=== PATIENT | female | born 1955 | race Caucasian/White ===

== ENCOUNTER → 2016-07-22 | Outpatient (CLI) | payer OTHER ==
[~2016-07-22] MED LIST: ALPR.5T PO; AMLO5TAB2 PO; ASP81TEC PO; BUDE6HFA IH; CA C1TAB26 PO; CETI10TA17 PO; CLD600T PO; CYCL1DRO OP; DULO60CA6 PO; E400C PO; ELESTAT OU; GLUC750T PO; HYDR-707 PO; IBUP1TAB15 PO; LISI10TA PO; LOPE2CAP29 PO; MNTL10T PO; NF-ESOM40C PO; OMEG1CAP74 PO; PANT40SU PO; PROM25SU10 PR; RNT150T PO; SMV10T PO; TRIA1CAP PO
--- OUTSIDE RECORDS SUMMARY | 2016-07-22 16:16 | XMS REPORT | Continuity of Care Document ---
Author Author [facility] Organization [facility] Address Unknown Phone Unavailable Care Team Providers Care Botanical Technical Officer Name Role Phone Lynn Guera PCP [phone] Source Comments Some departments are not documenting in the electronic medical record. If you do not see the information that you expected, contact Release of Information in the Health Information Management department at [phone] for further assistance in locating additional records.[facility] Active Allergies and Adverse Reactions Allergen Noted Date Severity Reactions Comments Sulfa (Sulfonamide 05/16/2011 RASH, SEE COMMENTS Facial swelling Antibiotics) Current Medications Prescription Sig. Disp. Refills Start End Date Status Date triamterene-hydrochloroth Take 1 Cap by mouth every Active iazide (DYAZIDE) 37.5-25 morning. mg per capsule Aspirin 81 mg Tab Take 81 mg by mouth Active daily. loperamide(+) (IMODIUM Take 2 mg by mouth daily. Active A-D) 2 mg Tab budesonide/formoterol(+) Inhale 2 Puffs by mouth Active (SYMBICORT) 160/4.5 mcg twice daily. HFAA inhalation montelukast (SINGULAIR) Take 10 mg by mouth at Active 10 mg tablet bedtime daily. ALPRAZolam (XANAX) 0.5 mg Take 0.5 mg by mouth at Active tablet bedtime as needed. DULoxetine DR (CYMBALTA) Take 90 mg by mouth Active 60 mg capsule daily. lisinopril (PRINIVIL; Take 10 mg by mouth Active ZESTRIL) 10 mg tablet daily. amLODIPine (NORVASC) 2.5 Take 5 mg by mouth daily. Active mg tablet esomeprazole DR(+) Take 40 mg by mouth every Active (NEXIUM) 40 mg capsule morning. cycloSPORINE(+) Place 1 Drop into or Active (RESTASIS) 0.05 % around eye(s) twice ophthalmic solution daily. simvastatin (ZOCOR) 20 mg Take 20 mg by mouth at Active tablet bedtime daily. cetirizine (ZYRTEC) 10 mg Take 10 mg by mouth Active tablet daily. fish oil /omega-3 fatty Take 1 Cap by mouth Active acids (SEA-OMEGA) daily. 340/1000 mg capsule Glucosamine HCl-Vitamin Take 1 Tab by mouth Active D3 1,500-200 mg-unit Tab daily. calcium carbonate/vitamin Take 1 Tab by mouth Active D-3 (OSCAL-500+D) 1250 daily. Calcium Carb mg/200 unit tablet 1250mg delivers 500mg elemental Ca albuterol (VENTOLIN HFA, Inhale 2 Puffs by mouth Active PROAIR HFA) 90 every 6 hours as needed. mcg/actuation inhaler oxyCODONE (ROXICODONE) 1 Take 5-15 mL by mouth 1000 mL 0 05/24/20 Active mg/mL oral solution every 3 hours as needed. 12 ondansetron (ZOFRAN) 4 Take 5 mL by mouth every 100 mL 0 05/24/20 Active mg/5 mL oral solution 6 hours as needed. 12 HYDROcodone/acetaminophen Take 7.5 Tabs by mouth Active (NORCO; VICODIN) 5-325 mg every 4 hours as needed tablet for Pain LACTOBACILLUS ACIDOPHILUS Take by mouth. vsl-3 Active (PROBIOTIC PO) Alosetron (LOTRONEX) 0.5 Take by mouth. Active mg tab benazepril(+) (LOTENSIN) Take 10 mg by mouth Active 10 mg tablet daily. promethazine (PHENERGAN) Take 25 mg by mouth every Active 25 mg tablet 6 hours as needed for Nausea. hyoscyamine (ANASPAZ; Place 125 mcg under Active NULEV; SYMAX FASTABS; tongue every 4 hours as HYOMAX-FT; ED-SPAZ; needed for Cramps. OSCIMIN) 0.125 mg rapid dissolve tablet fluconazole (DIFLUCAN) Take 1 Tab by mouth 14 Tab 0 12/26/19 Active 100 mg tablet daily. 15 gabapentin (NEURONTIN) Take 1 Cap by mouth three 90 Cap 2 05/10/20 Active 300 mg capsule times daily. 15 ranitidine hcl(+) Take 300 mg by mouth Active (ZANTAC) 300 mg tablet daily. cephalexin (KEFLEX) 500 Take 500 mg by mouth Active mg capsule every 30 days. metroNIDAZOLE (FLAGYL) Take 250 mg by mouth Active 250 mg tablet every 30 days. Take with food. Do not drink alcohol while on metronidazole. busPIRone (BUSPAR) 7.5 mg Take 1 Tab by mouth twice 60 Tab 0 07/04/19 Active tablet daily. Please contact Sultana Lagunas RN via #[phone] or Bacula with update 2 weeks after starting med. Active Problems No known active problems Most Recent Encounters Date Type Specialty Providers Description 07/21/2016 Telephone GastroenterSteve Ahumada MD Other - symptom update; Abdominal pain; Medication Follow-up - buspar 07/03/2016 Telephone GastroenterSteve Ahumada MD Medication Follow-up - abdominal pain 06/26/2016 Result Letter Gastroenterology Davina Strickland APRN 06/25/2016 Orders Only GastroenterSteve Ahumada MD 06/20/2016 [facility] Stacie Mulligan MD Family history of Encounter malignant neoplasm of digestive organs 06/11/2016 Telephone GastroenterSteve Ahumada MD Other - gastroparesis ; Abdominal pain 06/06/2016 Hospital Radiology Steve Reyes MD Encounter 06/06/2016 Telephone Gastroenterology Hina Thacker [facility] [place] [facility] 06/04/2016 Orders Only Gastroenterology Davina Strickland, Family history of BLEACHER SULFITE PULP malignant neoplasm of pancreas (Primary Dx); Pain in the groin, unspecified laterality; Nausea 05/30/2016 Hospital Steve Reyes MD Epigastric pain Encounter 05/30/2016 Office Visit Gastroenterology Steve Reyes MD Epigastric pain (Primary Dx); Family history of malignant neoplasm of pancreas; Diarrhea, unspecified type; Nausea; Blood in stool 05/30/2016 Surgery Bret Felix MD Canceled ESOPHAGOGASTRODUODENOSCOP Y ENDOSCOPIC ULTRASOUND with small bowel biopsies to check for celiac disease 05/30/2016 Hospital Bret Felix MD Epigastric pain Encounter 05/30/2016 Prep for Case Steve Liao MD 04/22/2016 Telephone Gastroenterology Star Styles MD Referral Social History Tobacco Use Types Packs/Day Years Used Date Former Smoker 0.5 5 Quit: 10/08/1990 Alcohol Use Drinks/Week oz/Week Comments Yes 4 Shots of 2.4 liquor Last Filed Vital Signs Vital Sign Reading Time Taken Blood Pressure 113/81 05/30/2016 1:57 PM [facility] EXPANDER Pulse 86 05/30/2016 1:57 PM [employer] EXP[employer]ER Temperature 36.8 C (98.2 F) 05/30/2016 1:57 PM [employer] EXPANDER Respiratory Rate 16 12/25/2014 1:02 PM CDT Height 1.588 m (5' 2.5") 05/30/2016 1:57 PM [employer] EXPANDER Weight 78.109 kg (172 lb 3.2 oz) 05/30/2016 1:57 PM [employer] EXPANDER Body Mass Index 30.97 05/30/2016 1:57 PM [employer] EXPANDER Oxygen Saturation 90% 12/25/2014 10:03 AM CDT Plan of Care Date Type Specialty Providers Description 09/05/2016 Appointment Gastroenterology Steve Reyes MD [address] [facility] [address] [place] [address] [phone] (Fax) Health Maintenance Due Date Last Done Comments Hepatitis C Screening 1955 Physical (Comprehensive) 1963 Exam Pertussis Vaccine 1967 Tetanus Vaccine 1973 Cervical Cancer Screening 1977 Breast Cancer Screening 1996 Colorectal Cancer 2006 Screening Influenza Vaccine 02/07/2016 Shingles Vaccine 2016 Results from Last 3 Months SURGICAL PATHOLOGY (06/20/2016 7:46 AM) Component Value Range PATHOLOGY REPORT [email or web address] Giovana Morton MD, PhD, Director of Anatomic Pathology Department of Pathology and Laboratory Medicine [address], [place] [address] Surgical Pathology Office: [phone] SURGICAL PATHOLOGY REPORT NAME: PALOMO BLOOD SURG PATH #: [id number] MR #: [id number] SPECIMEN CLASS: SR BILLING #: [id number] ALT ID #: LOCATION: [facility] DATE OF PROCEDURE: 06/20/2016 AGE: 61 SEX: F DATE RECEIVED: 06/21/2016 : 1955 TIME RECEIVED: 07:46 PHYSICIAN: STACIE BEST DATE OF REPORT: 06/25/2016 COPY TO: DATE OF PRINTIN06/25/2016 ################################################## ###################### Final Diagnosis: A. Gastric mucosa, "gastric antrum biopsy", biopsy: Reactive gastropathy with capillary congestion. See comment. No H. pylori-like organisms are identified on H and E sections. B. Duodenal mucosa, "duodenal biopsy", biopsy: Normal villous architecture with no diagnostic abnormalities. Comment: Clinical and endoscopic correlation is indicated. Pursuant to the [employer] And [employer]load Program at the [facility] Pathology Department, selected slides of part A from this case have been concurrently reviewed by the following pathologist: Dr. Blaire Peña who agrees with the final diagnosis. Attestation: By this signature, I attest that I have personally formulated the final interpretation expressed in this report and that the above diagnosis is based upon my examination of the slides and/or other material indicated in this report. +++Electronically Signed Out By+++ daniela/06/21/2016 Interpreted by: Gonzales Amor MD, Attending Physician 06/25/2016 ################################################## ###################### Material Received: A: gastric antrum biopsy B: duodenal biopsy History: 61-year-old female with family history of pancreatic cancer and clinical history of abdominal pain rule out celiac disease. Gross Description: A. Received in formalin with patient's name and "gastric/antral biopsy rule out GAVE" are multiple fragments of fam-pink soft tissue measuring 0.7 x 0.4 x 0.3 cm in aggregate. The specimen is submitted entirely in cassette A1. (sw) B. Received in formalin with patient's name and "duodenal biopsy rule out celiac" are multiple fragments of fam-pink soft tissue measuring 0.5 x 0.4 x 0.3 cm in aggregate. The specimen is submitted entirely in cassette B1. (sw) lkr/06/23/2016 ENDOSCOPIC ULTRASOUND (06/20/2016)NM GASTRIC EMPTYING TIME (06/06/2016 1:44 PM) Impressions 1. Markedly delayed gastric emptying, compatible with gastric dysmotility. Approved by Darlin Gutierrez D.O. on 06/06/2016 1:56 PM By my electronic signature, I attest that I have personally reviewed the images for this examination and formulated the interpretations and opinions expressed in this report Finalized by Sohail Colorado M.D. on 06/06/2016 5:17 PM. Dictated by Darlin Gutierrez D.O. on 06/06/2016 1:55 PM. Narrative GASTRIC EMPTYING TIME CLINICAL HISTORY: nausea, diarrhea, abdominal pain, family history of pancreatic cancer, COMPARISON: None RADIOPHARMACEUTICAL: 1 mCi IV Technetium-99m sulfur colloid TECHNIQUE: Prior to the exam, the equivalent of two scrambled eggs were labelled by combining egg beaters and Tc-99m sulfur colloid. The patient ingested the standard test dose meal consisting of the labelled eggs, toast, jelly and 4 ounces of water. Multiplanar images were obtained in the standing position over the patient's abdomen at zero, one, two, three, and four hours. The percent gastric geometric mean retention was then calculated. FINDINGS: At one hour, the percent retention was 100% (Normal 34.8% to 91%) At two hours, the percent retention was 92% (Normal 2.7% to 60%) At three hours, the percent retention was 89% (Normal 0.5% to 28%) At four hours, the percent retention was 88% (Normal 0% to 10%) Procedure Note Interface, Radiant Results - ThuJun 06, 2016 5:20 PM HOOP EXPANDER GASTRIC EMPTYING TIME CLINICAL HISTORY: nausea, diarrhea, abdominal pain, family history of pancreatic cancer, COMPARISON: None RADIOPHARMACEUTICAL: 1 mCi IV Technetium-99m sulfur colloid TECHNIQUE: Prior to the exam, the equivalent of two scrambled eggs were labelled by combining egg beaters and Tc-99m sulfur colloid. The patient ingested the standard test dose meal consisting of the labelled eggs, toast, jelly and 4 ounces of water. Multiplanar images were obtained in the standing position over the patient's abdomen at zero, one, two, three, and four hours. The percent gastric geometric mean retention was then calculated. FINDINGS: At one hour, the percent retention was 100% (Normal 34.8% to 91%) At two hours, the percent retention was 92% (Normal 2.7% to 60%) At three hours, the percent retention was 89% (Normal 0.5% to 28%) At four hours, the percent retention was 88% (Normal 0% to 10%) IMPRESSION 1. Markedly delayed gastric emptying, compatible with gastric dysmotility. Approved by Darlin Gutierrez D.O. on 06/06/2016 1:56 PM By my electronic signature, I attest that I have personally reviewed the images for this examination and formulated the interpretations and opinions expressed in this report Finalized by Sohail Colorado M.D. on 06/06/2016 5:17 PM. Dictated by Darlin Gutierrez D.O. on 06/06/2016 1:55 PM. TISSUE TRANSGLUTAMINASE AB IGA (05/30/2016 4:03 PM) Component Value Range Tissue Transglutaminase <1.2 Reference range: <4.0 (Negative) Unit: U/mL [facility] LIPASE (05/30/2016 4:03 PM) Component Value Range Lipase 67 11-82 U/L Specimen Blood AMYLASE (05/30/2016 4:03 PM) Component Value Range Amylase 23 (L) 24-100 U/L Specimen Blood HEMOGLOBIN A1C (05/30/2016 4:03 PM) Component Value Range Hemoglobin A1C 5.8Comment: 4.0-6.0 % The ADA recommends that most patients with type 1 and type 2 diabetes maintain an A1c level <7%. Specimen Blood CA19.9 (05/30/2016 4:03 PM) Component Value Range CA 19-9 1 <35 U/ml Specimen Blood ENDOMYSIAL AB, IGA (05/30/2016 4:03 PM) Component Value Range Endomysial IgA Negative Reference range: Negative Negative in normal individuals. May be negative in dermatitis herpatiformis or celiac disease patients adhering to a gluten free diet. ADDITIONAL INFORMATION Laboratory developed test. [facility] Specimen Blood CELIAC DISEASE PANEL (05/30/2016 4:03 PM) Component Value Range Immunoglobulin A (IGA) 149Comment: Reference range: 61 to 356 Unit: mg/dL [facility] Interpretation, Celiac Negative serology. Celiac disease unlikely. However, approximately 10% of patients with celiac disease are seronegative. Also, patients who are already adhering to a gluten-free diet may be seronegative. If celiac disease is highly clinically suspected, consider HLA-DQ typing. [facility] Specimen Blood IRON + BINDING CAPACITY + %SAT (05/30/2016 4:03 PM) Component Value Range Iron 45 (L) 50-160 MCG/DL Iron Binding-TIBC 465 (H) 270-380 MCG/DL % Saturation 10 (L) 28-42 % Specimen Blood COMPREHENSIVE METABOLIC PANEL (05/30/2016 4:03 PM) Component Value Range Sodium 138 137-147 MMOL/L Potassium 3.5 3.5-5.1 MMOL/L Chloride 101 98-110 MMOL/L Glucose 115 (H) 70-100 MG/DL Blood Urea Nitrogen 11 7-25 MG/DL Creatinine 0.79 0.4-1.00 MG/DL Calcium 9.6 8.5-10.6 MG/DL Total Protein 7.0 6.0-8.0 G/DL Total Bilirubin 0.3 0.3-1.2 MG/DL Albumin 4.4 3.5-5.0 G/DL Alk Phosphatase 76 25-110 U/L AST (SGOT) 17 7-40 U/L CO2 31 (H) 21-30 MMOL/L ALT (SGPT) 19 7-56 U/L Anion Gap 6 3-12 eGFR Non >60Comment: >60 mL/min The eGFR is not validated for use in drug dosing adjustments. Continue to use estimated creatinine clearance per dosing reference text. Please contact the Clinical Pharmacist for questions. eGFR >60Comment: >60 mL/min The eGFR is not validated for use in drug dosing adjustments. Continue to use estimated creatinine clearance per dosing reference text. Please contact the Clinical Pharmacist for questions. Specimen Blood CBC (05/30/2016 4:03 PM) Component Value Range White Blood Cells 5.6 4.5-11.0 K/UL RBC 4.56 4.0-5.0 M/UL Hemoglobin 13.1 12.0-15.0 GM/DL Hematocrit 40.3 36-45 % MCV 88.4 80-100 FL MCH 28.8 26-34 PG MCHC 32.6 32.0-36.0 G/DL RDW 15.0 11-15 % Platelet Count 230 150-400 K/UL MPV 8.6 7-11 FL Specimen Blood
[2016-07-22 16:59] LABS: BILIRUBIN,URINE NEGATIVE (NEGATIVE); KETONES,URINE NEGATIVE (NEGATIVE); LEUKOCYTE ESTERASE ,URINE NEGATIVE (NEGATIVE); NITRITE,URINE NEGATIVE (NEGATIVE); PH,URINE 6 (5-9); PROTEIN,URINE NEGATIVE (NEGATIVE); UROBILINOGEN,URINE NORMAL (NORMAL)
[2016-07-22 17:13] LABS: WBC,URINE RARE /HPF
== END ==
LOC: LAB 16:11
PROVIDERS: ATTEND Internal Medicine
DX: R30.9 Painful micturition, unspecified (principal)
CPT/HCPCS: 81000

== ENCOUNTER → 2016-09-12 | Outpatient (CLI) | payer OTHER ==
--- NOTE | 2016-09-12 15:54 | Diagnostic Imaging Report ---
INDICATION: Right-sided pelvic fullness. COMPARISON: None. DISCUSSION: Transabdominal and transvaginal sonographic evaluation of the pelvis was performed. The uterus is normal in echotexture and size measuring 5.1 x 3.3 x 2.1 cm. Normal endometrial thickness measuring 0.3 cm. Neither ovary was visualized, either obscured by bowel or atrophied secondary to menopause. No abnormal adnexal mass or fluid. IMPRESSION: 1. Nonvisualization of the bilateral ovaries. No other acute abnormality identified. Dictated by: Dictated on workstation # [id number]
--- NOTE | 2016-09-15 13:54 | Diagnostic Imaging Report ---
Bilateral screening mammogram The current study was also evaluated with a Computer Aided Detection (CAD) system. INDICATION: Screening. No current complaints stated on the questionnaire. COMPARISON: 06/29/2015. FINDINGS: The breasts are composed of scattered fibroglandular densities. Occasional benign-appearing calcifications are seen bilaterally. No suspicious cluster of calcifications seen. Allowing for technique and positional differences, no suspicious change is seen. IMPRESSION: No significant change. ACR BI-RADS Category 2: Benign findings. Result letter will be mailed to the patient. Note: At least 10% of breast cancer is not imaged by mammography. Dictated by: Dictated on workstation # [id number]
== END ==
LOC: RAD 14:48
PROVIDERS: ATTEND Nurse Practitioner
DX: Z12.31 Encounter for screening mammogram for malignant neoplasm of breast (principal); R19.8 Other specified symptoms and signs involving the digestive system and abdomen
CPT/HCPCS: 76830; 76856; 77067

== ENCOUNTER → 2016-09-25 | Outpatient (CLI) | payer OTHER ==
[2016-09-25 14:44] LABS: BASOPHILS % (AUTO) 0 % (0-10); EOSINOPHILS # (AUTO) 0.1 10^3/uL (0.0-0.3); EOSINOPHILS % (AUTO) 1 % (0-10); LYMPHOCYTES # (AUTO) 1.4 X 10^3 (1.0-4.0); LYMPHOCYTES % (AUTO) 27 % (12-44); MEAN CORPUSCULAR HEMOGLOBIN 29 PG (25-34); MEAN CORPUSCULAR HGB CONC 33 G/DL (32-36); MEAN CORPUSCULAR VOLUME 88 FL (80-99); MEAN PLATELET VOLUME 10.4 FL (7.4-10.4); MONOCYTES # (AUTO) 0.5 X 10^3 (0.0-1.0); MONOCYTES % (AUTO) 11 % (0-12); NEUTROPHILS # (AUTO) 3.1 X 10^3 (1.8-7.8); NEUTROPHILS % (AUTO) 61 % (42-75); PLATELET COUNT 257 10^3/uL (130-400); RED BLOOD COUNT 4.36 10^6/uL (4.35-5.85); RED CELL DISTRIBUTION WIDTH 13.5 % (10.0-14.5); WHITE BLOOD COUNT 5.1 10^3/uL (4.3-11.0)
[2016-09-25 15:20] LABS: ALANINE AMINOTRANSFERASE 18 U/L (0-55); ANION GAP 12 MMOL/L (5-14); ASPARTATE AMINO TRANSFERASE 18 U/L (5-34); BILIRUBIN,TOTAL 0.4 MG/DL (0.1-1.0); BLOOD UREA NITROGEN 5 MG/DL (7-18); BUN/CREATININE RATIO 7; CALCIUM 8.8 MG/DL (8.5-10.1); CARBON DIOXIDE 28 MMOL/L (21-32); CHLORIDE 96 MMOL/L (98-107); CREATININE SERUM 0.72 MG/DL (0.60-1.30); GFR ESTIMATED > 60; GLUCOSE 86 MG/DL (70-105); POTASSIUM 3.7 MMOL/L (3.6-5.0); SODIUM 136 MMOL/L (135-145); TOTAL PROTEIN 6.1 G/DL (6.4-8.2)
== END ==
LOC: LAB 14:08
PROVIDERS: ATTEND Internal Medicine
DX: R73.9 Hyperglycemia, unspecified (principal); D50.8 Other iron deficiency anemias; E78.00 Pure hypercholesterolemia, unspecified; K75.9 Inflammatory liver disease, unspecified
CPT/HCPCS: 36415; 80053; 82728; 83540; 85025

== ENCOUNTER → 2016-09-26 | Outpatient (CLI) | payer OTHER ==
[~2016-09-26] MED LIST changes: +GADOBUTROL 7.5 MMOL/7.5 ML (GADAVIST) VIAL IV ONE
--- NOTE | 2016-09-26 17:31 | Diagnostic Imaging Report ---
INDICATION: Back pain and bilateral hip pain with left leg pain for three months. FINDINGS: There is normal height and alignment of the thoracic vertebral bodies. Disc spaces are well maintained. There is no disc herniation or bony stenosis seen at any level. There is no acute bony abnormality. There is no mass or abnormal enhancement. There is no intrinsic abnormality of the thoracic cord seen. IMPRESSION: No abnormality is seen. Dictated by: Dictated on workstation # [id number]
--- NOTE | 2016-09-26 17:41 | Diagnostic Imaging Report ---
PROCEDURE: MRI lumbar spine with and without contrast. TECHNIQUE: Multiplanar, multisequence MRI of the lumbar spine was performed with and without contrast. INDICATION: Lower extremity numbness. FINDINGS: Sagittal images show good alignment of the vertebral bodies. Body heights are well-maintained. Marrow signal is normal throughout. Conus medullaris and cauda equina are normal. The paraspinal soft tissues are normal. L1-L2, L2-L3: The discs appear normal. No facet or ligamentous hypertrophy. L3-L4: There is desiccation of the disc with some settling. There is broad-based disc bulge. Moderate facet and ligamentous hypertrophy is present which is causing moderate encroachment upon the lateral recesses and neural foramen, bilaterally. No central canal stenosis. L4-L5: There is desiccation of the disc with mild disc bulge. Mild facet and ligamentous hypertrophy are present. L5-S1: There is a focal disc herniation in the paramedian region on the left causing some compression of the nerve root sleeve in the lateral recess. Mild facet and ligamentous hypertrophy with no bony stenosis. IMPRESSION: Degenerative disc disease with some disc protrusions and facet and ligamentous hypertrophy from L3-S1, as described above. Dictated by: Dictated on workstation # [id number]
--- NOTE | 2016-09-26 17:51 | Diagnostic Imaging Report ---
PROCEDURE: MR imaging cervical spine with and without contrast. TECHNIQUE: Multiplanar and multisequence MRI of the cervical spine was performed with and without contrast. INDICATION: Incomplete emptying of the stomach for eight months and of the bladder for three months. Numbness. FINDINGS: There is normal height and alignment of the cervical vertebral bodies. No disc herniation or bony stenosis is seen at any level. There is spondylosis causing some foraminal narrowing on the left at C4-C5. There is no mass. There is no intrinsic abnormality of the cervical cord. There is no acute bony abnormality. There is no abnormal enhancement. IMPRESSION: There are mild degenerative changes present with foraminal narrowing on the left at C4-C5. Dictated by: Dictated on workstation # [id number]
== END ==
LOC: RAD 15:22
PROVIDERS: ATTEND Urology
DX: M48.02 Spinal stenosis, cervical region (principal); R20.0 Anesthesia of skin
CPT/HCPCS: 72156; 72157; 72158

== ENCOUNTER → 2016-10-21 | Outpatient (CLI) | payer OTHER ==
[~2016-10-21] MED LIST changes: -GADOBUTROL 7.5 MMOL/7.5 ML (GADAVIST) VIAL IV ONE
== END ==
LOC: CARD 13:12
PROVIDERS: ATTEND Internal Medicine
DX: I97.3 Postprocedural hypertension (principal)
CPT/HCPCS: 93005

== ENCOUNTER 2016-10-22 15:52 | Outpatient (RCR) | payer OTHER ==
[~2016-10-22 15:52] MED LIST changes: +FERRIC CARBOXYMALTOSE (CANCER) 750 MG in NS (IVPB) CANCER CENTER 250 ML IV SCH
== END 2017-01-13 | disposition home or self-care (01) ==
LOC: ONC 15:52
PROVIDERS: ATTEND Internal Medicine Hematology & Oncology
DX: D50.9 Iron deficiency anemia, unspecified (principal)
CPT/HCPCS: 96365

== ENCOUNTER → 2017-02-20 | Outpatient (CLI) | payer OTHER ==
[~2017-02-20] MED LIST changes: -FERRIC CARBOXYMALTOSE (CANCER) 750 MG in NS (IVPB) CANCER CENTER 250 ML IV SCH
[2017-02-20 14:35] LABS: ALANINE AMINOTRANSFERASE 21 U/L (0-55); ALBUMIN 3.8 GM/DL (3.2-4.5); ANION GAP 8 MMOL/L (5-14); ASPARTATE AMINO TRANSFERASE 18 U/L (5-34); BILIRUBIN,TOTAL 0.5 MG/DL (0.1-1.0); BLOOD UREA NITROGEN 6 MG/DL (7-18); BUN/CREATININE RATIO 9; CALCIUM 8.8 MG/DL (8.5-10.1); CARBON DIOXIDE 28 MMOL/L (21-32); CHLORIDE 99 MMOL/L (98-107); CHOLESTEROL 174 MG/DL (< 200); CREATININE SERUM 0.65 MG/DL (0.60-1.30); DIRECT LDL 89 MG/DL (1-129); GFR ESTIMATED > 60; GLUCOSE 102 MG/DL (70-105); POTASSIUM 3.6 MMOL/L (3.6-5.0); SODIUM 135 MMOL/L (135-145); TOTAL PROTEIN 6.1 GM/DL (6.4-8.2); TRIGLYCERIDES 58 MG/DL (<150); VLDL CHOLESTEROL 12 MG/DL (5-40)
[2017-02-20 14:56] LABS: THYROID STIMULATING HORMONE 1.03 UIU/ML (0.35-4.94)
== END ==
LOC: LAB 13:50
PROVIDERS: ATTEND Internal Medicine
DX: E78.00 Pure hypercholesterolemia, unspecified (principal); E78.1 Pure hyperglyceridemia
CPT/HCPCS: 36415; 80053; 80061; 84443

== ENCOUNTER → 2017-02-25 | Outpatient (CLI) | payer OTHER | LOC: LAB 12:55 | PROVIDERS: ATTEND Internal Medicine | DX: D50.8 Other iron deficiency anemias (principal) | CPT/HCPCS: 36415; 82728; 83540 ==

== ENCOUNTER → 2017-07-06 | Outpatient (CLI) | payer OTHER ==
[~2017-07-06] MED LIST changes: +CEFU250T80 PO; +HYDR-757 PO; +PHEN-639 PO
[2017-07-06 17:52] LABS: BILIRUBIN,URINE NEGATIVE (NEGATIVE); CLARITY,URINE VERY CLOUDY; COLOR,URINE YELLOW; GLUCOSE, URINE (UA) NEGATIVE (NEGATIVE); KETONES,URINE NEGATIVE (NEGATIVE); LEUKOCYTE ESTERASE ,URINE 3+ (NEGATIVE); NITRITE,URINE NEGATIVE (NEGATIVE); PH,URINE 6.5 (5-9); PROTEIN,URINE 1+ (NEGATIVE); UROBILINOGEN,URINE NORMAL (NORMAL)
[2017-07-06 18:02] LABS: BACTERIA,URINE FEW /HPF; WBC,URINE 50-100 /HPF
== END ==
LOC: LAB 16:26
PROVIDERS: ATTEND Internal Medicine
DX: R30.9 Painful micturition, unspecified (principal)
CPT/HCPCS: 81000; 87088

== ENCOUNTER 2017-07-07 09:40 | Emergency (ER) | payer OTHER ==
[~2017-07-07] VITALS: Ht 157.5 cm; Wt 70.3 kg
[~2017-07-07 09:40] MED LIST changes: -CEFU250T80 PO; -HYDR-757 PO; -PHEN-639 PO
--- OUTSIDE RECORDS SUMMARY | 2017-07-07 09:46 | XMS REPORT | Continuity of Care Document ---
Author Author [facility] Organization [facility] Address Unknown Phone Unavailable Care Team Providers Care Police Officer Crime Prevention Name Role Phone [employer] Unavailable Unavailable Problems Medications Allergies, Adverse Reactions, Alerts Immunizations Results Vital Signs Encounters Location Location Details Encounter Type Encounter Number Reason For Visit Attending Provider ADM Date DC Date Status Source OUTPATIENT [id number] STACIE RITUAEE 06/20/2016 06/20/2016 Active [facility] OUTPATIENT [id number] 02/27/2017 Active [facility] INPATIENT [id number] JEYSON RICHARDSON 03/26/20172016 Active [facility] OUTPATIENT [id number] TING MONTOYA 04/13/2017 04/13/2017 Active [facility] OP SURGERY [id number] 06/11/2017 06/11/2017 Active [facility] Reji BLACKMAN 09/24/2017 Active [facility] Procedures Plan of Care Social History Assessment and Plan Family History Advance Directives Functional Status
--- OUTSIDE RECORDS SUMMARY | 2017-07-07 09:47 | XMS REPORT | Clinical Summary ---
Author Author [facility] Organization [facility] Address Unknown Phone Unavailable Care Team Providers Care Automotive Window Tinter Name Role Phone Guera Bailey DO PCP Felipa Easton MD Unavailable Steve Clifford MD Unavailable Unavailable Star Styles MD Unavailable Semaj De La Rosa MD Unavailable Alber Piña MD Unavailable Fco Ramsey MD Unavailable Remigio Lakhani MD 21 Source Comments Some departments are not documenting in the electronic medical record. If you do not see the information that you expected, contact Release of Information in the Health Information Management department at [phone] for further assistance in locating additional records.[facility] Allergies Active Allergy Reactions Severity Noted Date Comments Sulfa (Sulfonamide RASH, SEE COMMENTS, Medium 05/16/2011 Facial swelling Antibiotics) REDNESS Current Medications Prescription Sig. Disp. Refills Start End Date Status Date triamterene-hydrochloroth Take 1 Cap by mouth every Active iazide (DYAZIDE) 37.5-25 morning. mg per capsule budesonide/formoterol(+) Inhale 2 Puffs by mouth Active (SYMBICORT) 160/4.5 mcg twice daily. HFAA inhalation montelukast (SINGULAIR) Take 10 mg by mouth at Active 10 mg tablet bedtime daily. ALPRAZolam (XANAX) 0.5 mg Take 0.5 mg by mouth at Active tablet bedtime as needed for Sleep. DULoxetine DR (CYMBALTA) Take 60 mg by mouth Active 60 mg capsule daily. Administer 60mg dosage with 30mg dosage esomeprazole DR(+) Take 40 mg by mouth every Active (NEXIUM) 40 mg capsule morning. cycloSPORINE(+) Apply 1 drop to both eyes Active (RESTASIS) 0.05 % twice daily. ophthalmic solution simvastatin (ZOCOR) 20 mg Take 20 mg by mouth at Active tablet bedtime daily. cetirizine (ZYRTEC) 10 mg Take 10 mg by mouth Active tablet daily. benazepril(+) (LOTENSIN) Take 10 mg by mouth Active 10 mg tablet daily. hyoscyamine (ANASPAZ; Place 125 mcg under Active NULEV; SYMAX FASTABS; tongue every 4 hours as HYOMAX-FT; ED-SPAZ; needed for Cramps. OSCIMIN) 0.125 mg rapid dissolve tablet gabapentin (NEURONTIN) Take 1 Cap by mouth three 90 Cap 2 05/10/20 Active 300 mg capsule times daily. 15 ranitidine hcl(+) Take 300 mg by mouth at Active (ZANTAC) 300 mg tablet bedtime daily. busPIRone (BUSPAR) 30 mg Take 1 Tab by mouth twice 60 Tab 2 09/16/19 Active tablet daily. 17 silodosin(+) (RAPAFLO) 8 Take 1 Cap by mouth 90 Each 2 01/08/20 Active mg capsule daily. 17 metoclopramide (REGLAN) 5 Take 5-10 mg by mouth as Active mg tabletIndications: Needed. Indications: before lunch and dinner before lunch and dinner dicyclomine (BENTYL) 10 Take 10 mg by mouth twice Active mg capsuleIndications: daily as needed. cramps Indications: cramps granisetron(+) (KYTRIL) 1 Take 1 mg by mouth every Active mg tablet 12 hours as needed for Nausea. fluticasone (FLONASE) 50 Apply 1 spray to each Active mcg/actuation nasal spray nostril as directed daily as needed. Shake bottle gently before using. duloxetine DR (CYMBALTA) Take 30 mg by mouth as Active 30 mg capsule Needed. Administered in combination with 60mg dosage cholecalciferol(+) Take 2,000 Units by mouth Active (VITAMIN D3) 2,000 unit daily. tablet HYDROcodone/acetaminophen Take 0.5-1 tablets by Active (+) (NORCO) 10/325 mg mouth daily as needed for tablet Pain lactobacillus rhamnosus Take 1 capsule by mouth Active GG (LACTOBACILLUS as directed daily. RHAMNOSUS (GG)) 15 billion cell cpSP capsule docusate (COLACE) 100 mg Take 100 mg by mouth Active capsule twice daily. LORazepam (ATIVAN) 2 Take 1 mg by mouth at Active mg/mL conc oral solution bedtime as needed for Nausea or Vomiting. vitamins, multiple tablet Take 1 tablet by mouth Active daily. LORazepam (ATIVAN) 0.5 mg Take 1 tablet by mouth Active tablet three times daily. oxyCODONE (ROXICODONE, Take 1-2 tablets by mouth 60 tablet 0 03/29/20 Active OXY-IR) 5 mg tablet every 4 hours as needed 17 polyethylene glycol 3350 Take 1 packet by mouth 30 each 1 03/29/20 Active (MIRALAX) 17 g packet twice daily. Hold for 17 loose stools scopolamine APPLY 1 PATCH TO SKIN PRN 1 05/11/20 Active (TRANSDERM-SCOP) 1.5 mg 3 Q 72 HOURS 17 day patch DOMPERIDONE (BULK) MISC Use 10 mg as directed Active twice daily. rifAXIMin (XIFAXAN) 550 Take 1 tablet by mouth 42 tablet 0 06/11/19 Active mg tabletIndications: three times daily. 18 DIARRHEA PREDOMINANT Indications: DIARRHEA IRRITABLE BOWEL SYNDROME PREDOMINANT IRRITABLE BOWEL SYNDROME alfuzosin(+) (UROXATRAL) Take 1 tablet by mouth 90 tablet 3 06/26/19 Active 10 mg tabletIndications: daily. 18 Urinary retention Active Problems Problem Noted Date Constipation 02/27/2017 Urinary retention 02/27/2017 Benign essential tremor 02/27/2017 Rectal prolapse 02/16/2017 Overview: Added automatically from request for surgery [id number] Encounters Date Type Specialty Care Team Description 06/11/2017 Hospital Endoscopy, Physician Encounter 06/11/2017 Office Visit Gastroenterology Semaj De La Rosa MD Pelvic floor dysfunction (Primary Dx); Chronic nausea; Family history of malignant neoplasm of pancreas 06/11/2017 Procedure Pass 06/11/2017 Surgery Ashly Singleton MD MANOMETRY ANORECTAL 06/09/2017 Telephone Silvia Abreu RN Pre-Procedure Instructions 05/18/2017 Office Visit General Surgery Kane Ya DO Rectal prolapse (Primary Dx) 05/06/2017 Telephone Gastroenterology Star Styles MD Appointment Request; Referral 04/16/2017 Telephone General Surgery Alivia Mann Disability Form/ paperwork 04/14/2017 Telephone Neurology Nestor Szymanski MD Results 04/13/2017 Hospital Radiology Carson Aleman MD Encounter 04/13/2017 Clinical Neurology Kane Ya DO Muscle weakness Support Casimiro Patel MD 04/13/2017 Office Visit General Surgery Kane Ya, Incontinence of feces with fecal urgency (Primary Dx); Rectal prolapse 04/09/2017 Telephone General Surgery Alivia Mann FMLA Forms 03/12/2017 Procedure Pass Radiology from Last 3 Months Family History Medical History Relation Name Comments Hypertension Brother Hypertension Brother Cancer Father Pancreatic cancer Hypertension Father Migraines Father Stroke Father Stroke Maternal Aunt Stroke Maternal Aunt Stroke Maternal Grandmother Cancer Mother breast Hypertension Paternal Grandfather Cancer Sister pancreatic GI Cancer Sister pancreatic pancreatic cancer Hypertension Sister Migraines Son Relation Name Status Comments Brother Alive Brother Alive Father Maternal Aunt Alive Maternal Aunt Maternal Grandmother Mother breast Paternal Grandfather Sister pancreatic Sister Alive Son Alive Social History Tobacco Use Types Packs/Day Years Used Date Former Smoker 0.5 5 Quit: 10/08/1990 Smokeless Tobacco: Never Used Alcohol Use Drinks/Week oz/Week Comments Yes 2 Shots of 1.2 2 per month liquor Sex Assigned at Date Recorded Not on file Last Filed Vital Signs Vital Sign Reading Time Taken Blood Pressure 105/71 06/11/2017 2:02 PM RAILCAR SWITCHMAN Pulse 70 06/11/2017 2:02 PM RAILCAR SWITCHMAN Temperature 36.1 C (96.9 F) 06/11/2017 2:02 PM RAILCAR SWITCHMAN Respiratory Rate 14 05/18/2017 10:42 AM RAILCAR SWITCHMAN Oxygen Saturation 95% 03/29/2017 6:34 AM CDT Inhaled Oxygen - - Concentration Weight 72.8 kg (160 lb 6.4 oz) 06/11/2017 2:02 PM RAILCAR SWITCHMAN Height 158.8 cm (5' 2.52") 06/11/2017 2:02 PM RAILCAR SWITCHMAN Body Mass Index 28.85 06/11/2017 2:02 PM RAILCAR SWITCHMAN Plan of Treatment Health Maintenance Due Date Last Done Comments HEPATITIS C SCREENING 1956 PHYSICAL (COMPREHENSIVE) 1963 EXAM PERTUSSIS VACCINE 1967 TETANUS VACCINE 1973 CERVICAL CANCER SCREENING 1986 BREAST CANCER SCREENING 1996 COLORECTAL CANCER 2006 SCREENING SHINGLES VACCINE 2016 INFLUENZA VACCINE 01/06/2017 Procedures Procedure Name Priority Date/Time Associated Diagnosis Comments PROCEDURE RECORD-SCAN 06/17/2017 Results for this 3:07 PM RAILCAR SWITCHMAN procedure are in the results section. MANOMETRY ANORECTAL 06/11/2017 Rectal prolapse (K62.3) 3:20 PM RAILCAR SWITCHMAN from Last 3 Months Results * PROCEDURE RECORD-SCAN (06/17/2017 3:07 PM) Narrative Ordered by an unspecified provider. * MRI HEAD WO/W CONTRAST (04/13/2017 3:31 PM) Specimen Performing Laboratory [facility] RESULTS Impressions Unremarkable MRI of the brain. Approved by Rosemary Chamberlain M.D. on 04/13/2017 4:48 PM By my electronic signature, I attest that I have personally reviewed the images for this examination and formulated the interpretations and opinions expressed in this report Finalized by Robert Owens M.D. on 04/13/2017 4:49 PM. Dictated by Rosemary Chamberlain M.D. on 04/13/2017 3:57 PM. Narrative MRI HEAD HISTORY: Hyperreflexia. Jaw jerk TECHNIQUE: Multiplanar and multisequence MR imaging of the head was performed with and without IV gadolinium contrast. CONTRAST: Multihance COMPARISON: None FINDINGS: The ventricles are normal in size. Brain parenchyma is normal in signal. There is no area of abnormal contrast enhancement.There is no midline shift or mass effect. The vascular flow-voids are unremarkable. No evidence of recent infarct. Procedure Note Interface, Radiant Results - 04/13/2017 4:52 PM RAILCAR SWITCHMAN MRI HEAD HISTORY: Hyperreflexia. Jaw jerk TECHNIQUE: Multiplanar and multisequence MR imaging of the head was performed with and without IV gadolinium contrast. CONTRAST: Multihance COMPARISON: None FINDINGS: The ventricles are normal in size. Brain parenchyma is normal in signal. There is no area of abnormal contrast enhancement. There is no midline shift or mass effect. The vascular flow-voids are unremarkable. No evidence of recent infarct. IMPRESSION Unremarkable MRI of the brain. Approved by Rosemary Chamberlain M.D. on 04/13/2017 4:48 PM By my electronic signature, I attest that I have personally reviewed the images for this examination and formulated the interpretations and opinions expressed in this report Finalized by Robert Owens M.D. on 04/13/2017 4:49 PM. Dictated by Rosemary Chamberlain M.D. on 04/13/2017 3:57 PM. * EMG ORDER (04/13/2017) Specimen Performing Laboratory IN CLINIC from Last 3 Months
--- OUTSIDE RECORDS SUMMARY | 2017-07-07 09:47 | XMS REPORT | Encounter Summary ---
Author Author [facility] Organization [facility] Address Unknown Phone Unavailable Care Team Providers Care Lockstitch Cup Setter Name Role Phone Guera Bailey DO PCP Felipa Easton MD Unavailable Steve Clifford MD Unavailable Unavailable Star Styles MD Unavailable Semaj De La Rosa MD Unavailable Alber Piña MD Unavailable Fco Ramsey MD Unavailable Remigio Lakhani MD 21 Reason for Visit * Auth/Cert Status Reason Specialty Diagnoses / Referred By Referred To Procedures Contact Contact Diagnoses R ectal prolapse (K62.3) P rocedures [place] ANORECTAL MANOMETRY MANOMETRY ANORECTAL Encounter Details Date Type Department Care Team Description 06/11/2017 Surgery Gastrointenstinal EsAshly bernal MD MANOMETRY ANORECTAL Endoscopy [address] [place] [address] [place] [address] [phone] Social History Tobacco Use Types Packs/Day Years Used Date Former Smoker 0.5 5 Quit: 10/08/1990 Smokeless Tobacco: Never Used Alcohol Use Drinks/Week oz/Week Comments Yes 2 Shots of 1.2 2 per month liquor Sex Assigned at Date Recorded Not on file as of this encounter Functional Status Functional Status Response Date of Assessment Does the patient have a hearing impairment: No 05/18/2017 Does the patient have a visual impairment: Yes 05/18/2017 Does the patient have impaired ambulation: No 05/18/2017 Does the patient have an activity of daily living No 05/18/2017 (ADL) impairment: Does the patient have an instrumental activity of No 05/18/2017 daily living (IADL) impairment: Cognitive Status Response Date of Assessment Does the patient have a cognitive impairment: No 05/18/2017 as of this encounter Medications at Time of Discharge Medication Sig. Disp. Refills Start Date End Date ALPRAZolam (XANAX) 0.5 mg Take 0.5 mg by mouth at tablet bedtime as needed for Sleep. benazepril(+) (LOTENSIN) Take 10 mg by mouth 10 mg tablet daily. budesonide/formoterol(+) Inhale 2 Puffs by mouth (SYMBICORT) 160/4.5 mcg twice daily. HFAA inhalation busPIRone (BUSPAR) 30 mg Take 1 Tab by mouth twice 60 Tab 2 2016 tablet daily. cetirizine (ZYRTEC) 10 mg Take 10 mg by mouth tablet daily. cholecalciferol(+) Take 2,000 Units by mouth (VITAMIN D3) 2,000 unit daily. tablet cycloSPORINE(+) Apply 1 drop to both eyes (RESTASIS) 0.05 % twice daily. ophthalmic solution dicyclomine (BENTYL) 10 Take 10 mg by mouth twice mg capsuleIndications: daily as needed. cramps Indications: cramps docusate (COLACE) 100 mg Take 100 mg by mouth capsule twice daily. DOMPERIDONE (BULK) MISC Use 10 mg as directed twice daily. duloxetine DR (CYMBALTA) Take 30 mg by mouth as 30 mg capsule Needed. Administered in combination with 60mg dosage DULoxetine DR (CYMBALTA) Take 60 mg by mouth 60 mg capsule daily. Administer 60mg dosage with 30mg dosage esomeprazole DR(+) Take 40 mg by mouth every (NEXIUM) 40 mg capsule morning. fluticasone (FLONASE) 50 Apply 1 spray to each mcg/actuation nasal spray nostril as directed daily as needed. Shake bottle gently before using. gabapentin (NEURONTIN) Take 1 Cap by mouth three 90 Cap 2 05/10/2015 300 mg capsule times daily. granisetron(+) (KYTRIL) 1 Take 1 mg by mouth every mg tablet 12 hours as needed for Nausea. HYDROcodone/acetaminophen Take 0.5-1 tablets by (+) (NORCO) 10/325 mg mouth daily as needed for tablet Pain hyoscyamine (ANASPAZ; Place 125 mcg under NULEV; SYMAX FASTABS; tongue every 4 hours as HYOMAX-FT; ED-SPAZ; needed for Cramps. OSCIMIN) 0.125 mg rapid dissolve tablet lactobacillus rhamnosus Take 1 capsule by mouth GG (LACTOBACILLUS as directed daily. RHAMNOSUS (GG)) 15 billion cell cpSP capsule LORazepam (ATIVAN) 0.5 mg Take 1 tablet by mouth tablet three times daily. LORazepam (ATIVAN) 2 Take 1 mg by mouth at mg/mL conc oral solution bedtime as needed for Nausea or Vomiting. metoclopramide (REGLAN) 5 Take 5-10 mg by mouth as mg tabletIndications: Needed. Indications: before lunch and dinner before lunch and dinner montelukast (SINGULAIR) Take 10 mg by mouth at 10 mg tablet bedtime daily. oxyCODONE (ROXICODONE, Take 1-2 tablets by mouth 60 tablet 0 2016 OXY-IR) 5 mg tablet every 4 hours as needed polyethylene glycol 3350 Take 1 packet by mouth 30 each 1 03/29/2017 (MIRALAX) 17 g packet twice daily. Hold for loose stools ranitidine hcl(+) Take 300 mg by mouth at (ZANTAC) 300 mg tablet bedtime daily. rifAXIMin (XIFAXAN) 550 Take 1 tablet by mouth 42 tablet 0 06/11/2017 mg tabletIndications: three times daily. DIARRHEA PREDOMINANT Indications: DIARRHEA IRRITABLE BOWEL SYNDROME PREDOMINANT IRRITABLE BOWEL SYNDROME scopolamine APPLY 1 PATCH TO SKIN PRN 1 05/11/2017 (TRANSDERM-SCOP) 1.5 mg 3 Q 72 HOURS day patch silodosin(+) (RAPAFLO) 8 Take 1 Cap by mouth 90 Each 2 01/07/2017 mg capsule daily. simvastatin (ZOCOR) 20 mg Take 20 mg by mouth at tablet bedtime daily. triamterene-hydrochloroth Take 1 Cap by mouth every iazide (DYAZIDE) 37.5-25 morning. mg per capsule vitamins, multiple tablet Take 1 tablet by mouth daily. as of this encounter Plan of Treatment Not on fileas of this encounter Procedures Procedure Name Priority Date/Time Associated Diagnosis Comments PROCEDURE RECORD-SCAN 06/17/2017 Results for this 3:07 PM CASTING OPERATOR procedure are in the results section. MANOMETRY ANORECTAL 06/11/2017 Rectal prolapse (K62.3) 3:20 PM CASTING OPERATOR in this encounter Results * PROCEDURE RECORD-SCAN (06/17/2017 3:07 PM) Narrative Ordered by an unspecified provider. in this encounter Visit Diagnoses Not on filein this encounter Admitting Diagnoses Diagnosis Rectal prolapse (K62.3)
--- OUTSIDE RECORDS SUMMARY | 2017-07-07 09:47 | XMS REPORT | Encounter Summary ---
Author Author [facility] Organization [facility] Address Unknown Phone Unavailable Care Team Providers Care Automotive Brake Adjuster Name Role Phone Guera Bailey DO PCP Felipa Easton MD Unavailable Steve Clifford MD Unavailable Unavailable Star Styles MD Unavailable Semaj De La Rosa MD Unavailable Alber Piña MD Unavailable Fco Ramsey MD Unavailable Remigio Lakhani MD 21 Encounter Details Date Type Department Care Team Description 06/11/2017 Procedure Pass Gastrointenstinal Endoscopy [address] [place] [address] Social History Tobacco Use Types Packs/Day Years [...] impairment: No 05/18/2017 as of this encounter Plan of Treatment Not on fileas of this encounter Visit Diagnoses Not on filein this encounter
--- OUTSIDE RECORDS SUMMARY | 2017-07-07 09:47 | XMS REPORT | Encounter Summary ---
Author Author [facility] Organization [facility] Address Unknown Phone Unavailable Care Team Providers Care Primer Inserting Machine Operator Name Role Phone uGera Bailey DO PCP Felipa Easton MD Unavailable Steve Clifford MD Unavailable Unavailable Star Styles MD Unavailable Semaj De La Rosa MD Unavailable Alber Piña MD Unavailable Fco Ramsey MD Unavailable Remigio Lakhani MD 21 Reason for Visit * Reason Comments Nausea Encounter Details Date Type Department Care Team Description 06/11/2017 Office Visit [facility] Semaj De La Rosa MD Pelvic floor dysfunction Physicians - Internal [address] (Primary Dx); [place] [address] Chronic nausea; 2ND FLOOR POD B [phone] Family history of [address] MED malignant neoplasm of [place] [address] Social History Tobacco Use Types Packs/Day Years Used Date Former Smoker 0.5 5 Quit: 10/08/1990 Smokeless Tobacco: Never Used Alcohol Use Drinks/Week oz/Week Comments Yes 2 Shots of 1.2 2 per month liquor Sex Assigned at Date Recorded Not on file as of this encounter Last Filed Vital Signs Vital Sign Reading Time Taken Blood Pressure 105/71 06/11/2017 2:02 PM [employer] Pulse 70 06/11/2017 2:02 PM [employer] Temperature 36.1 C (96.9 F) 06/11/2017 2:02 PM [employer] Respiratory Rate - - Oxygen Saturation - - Inhaled Oxygen - - Concentration Weight 72.8 kg (160 lb 6.4 oz) 06/11/2017 2:02 PM [employer] Height 158.8 cm (5' 2.52") 06/11/2017 2:02 PM [employer] Body Mass Index 28.85 06/11/2017 2:02 PM [employer]LING [employer] in this encounter Functional Status Functional Status Response [...] impairment: No 05/18/2017 as of this encounter Instructions * Patient Instructions - Semaj De La Rosa MD - 06/11/2017 2:00 PM [employer] Call my nurse at [phone] if you have any troubles or questions Take rifaximin for 2 weeks and call us to follow up on symptoms. TAlk to Dr. Bailey about obtaining an AM cortisol. in this encounter Progress Notes * Semaj De La Rosa MD - 06/11/2017 2:00 PM [employer] Formatting of this note may be different from the original. Date of Service: 06/11/2017 Subjective: Luis Alejandro is a 62 y.o. female. History of Present Illness 62-year-old white female with a history of gastroparesis diagnosed by gastric emptying test with 88% retention at 4 hours, small intestinal bacterial overgrowth positive by hydrogen breath test May 2016, rectal prolapse status post rectopexy January [address] Ya, GERD status post Fredy fundoplication and redo (2011) here for follow-up of chronic nausea, altered bowel habit, and gastroparesis. Regarding nausea, she has had near daily moderate to severe nausea for several years. She has had experience with numerous different medications including Zofran, Phenergan, Compazine, domperidone, Reglan, Ativan without any significant improvement. There is only very minimal improvement with Reglan. She notices that during the day as she is working is somewhat better but never absent. There is no associated vomiting. There is no associated headache. She has had an MRI of the brain which is normal. She does not have any a.m. cortisol on record here. She does not notice the room spinning or fullness in her ears or to tinnitus. She has never tried Marinol. Symptoms do not appear related to food. She has been on a PPI for years Also without improvement. She is also tried wrist bands without improvement. Regarding altered bowel habit. She recently had a rectopexy and January of this year with Dr. Ya for prolapse. States that prior to this, she was often constipated and had to strain to have bowel movement. Following the operation, she notices that the prolapse is been completely fixed but she is left with some fear of incontinence and urgency. She does not need to push or strain to have soft bowel movement. She will often go 2 or 3 days without having a bowel movement and purposely does not take MiraLAX during this time as she is at work and feels that if she takes any will result in incontinence or urgency to arvizu to the bathroom. When she does have a bowel movement during the working week, it is usually is pellets of soft stool again without straining., At weekend, she will take MiraLAX resulting in several bowel movements which are always soft and during this time completely evacuates. Besides MiraLAX, she has taken stool softener which is resulted poor consistency. In the distant past, she may have been on alosetron though she cannot remember. She is currently on fiber 2 tablets per day although she cannot take much more than this is results in exacerbation of gastroparesis. Regarding gastroparesis, she is altered her diet quite a bit and really has no complaints of early satiety or abdominal fullness. No vomiting. She typically has more frequent small meals during the day low in fiber and then nothing more than liquid after 3 PM. She is maintaining her weight. Regarding history small intestinal bacterial overgrowth, she was last treated for this about a year ago with what sounds like a cephalosporin and Flagyl. She cannot remember if she had very much improvement in her symptoms overall. However, presently, she is experiencing a lot of borborygmi along with abdominal bloating and flatulence. S Past studies: 1. Colonoscopy [address] Piña: 4 diminutive polyps removed all of which were lymphoid follicles. Random biopsies were negative for microscopic colitis. 2. Endoscopic ultrasound 2016: Normal. Indication was to family members with pancreatic cancer. Biopsies of the stomach negative for H. pylori. Biopsies of the duodenum negative for sprue. Serologies for celiac negative. 3. Hydrogen breath test May [address] Piña: Positive 4. MRI brain April 2017 with and without contrast within normal limits. 5. Anorectal manometry performed prior to rectopexy January 2017 demonstrating poor resting anal sphincter tone and squeeze. 6. GET 2016: 88% retention at 4 hours. Past medical history/Surgical history: 1. Gastroparesis 2. Small intestinal bacterial overgrowth 3. Depression 4. GERD status post Fredy fundoplication years ago and redo fundoplication here at [facility] 2011 5. Chronic nausea 6. Intention tremor 7. Micturition difficulties. Followed by urology. 8. Rectopexy March 2017 for rectal prolapse 9. 2 first-degree relatives with pancreatic cancer 10. Fibromyalgia Review of Systems Constitutional: Positive for fatigue. Gastrointestinal: Positive for constipation, diarrhea and nausea. Genitourinary: Positive for difficulty urinating. Musculoskeletal: Positive for arthralgias. All other systems reviewed and are negative. Objective: ALPRAZolam (XANAX) 0.5 mg tablet Take 0.5 mg by mouth at bedtime as needed for Sleep. benazepril(+) (LOTENSIN) 10 mg tablet Take 10 mg by mouth daily. budesonide/formoterol(+) (SYMBICORT) 160/4.5 mcg HFAA inhalation Inhale 2 Puffs by mouth twice daily. busPIRone (BUSPAR) 30 mg tablet Take 1 Tab by mouth twice daily. cetirizine (ZYRTEC) 10 mg tablet Take 10 mg by mouth daily. cholecalciferol(+) (VITAMIN D3) 2,000 unit tablet Take 2,000 Units by mouth daily. cycloSPORINE(+) (RESTASIS) 0.05 % ophthalmic solution Apply 1 drop to both eyes twice daily. dicyclomine (BENTYL) 10 mg capsule Take 10 mg by mouth twice daily as needed. Indications: cramps docusate (COLACE) 100 mg capsule Take 100 mg by mouth twice daily. DOMPERIDONE (BULK) MISC Use 10 mg as directed twice daily. duloxetine DR (CYMBALTA) 30 mg capsule Take 30 mg by mouth as Needed. Administered in combination with 60mg dosage DULoxetine DR (CYMBALTA) 60 mg capsule Take 60 mg by mouth daily. Administer 60mg dosage with 30mg dosage esomeprazole DR(+) (NEXIUM) 40 mg capsule Take 40 mg by mouth every morning. fluticasone (FLONASE) 50 mcg/actuation nasal spray Apply 1 spray to each nostril as directed daily as needed. Shake bottle gently before using. gabapentin (NEURONTIN) 300 mg capsule Take 1 Cap by mouth three times daily. granisetron(+) (KYTRIL) 1 mg tablet Take 1 mg by mouth every 12 hours as needed for Nausea. HYDROcodone/acetaminophen(+) (NORCO) 10/325 mg tablet Take 0.5-1 tablets by mouth daily as needed for Pain hyoscyamine (ANASPAZ; NULEV; SYMAX FASTABS; HYOMAX-FT; ED-SPAZ; OSCIMIN) 0.125 mg rapid dissolve tablet Place 125 mcg under tongue every 4 hours as needed for Cramps. lactobacillus rhamnosus GG (LACTOBACILLUS RHAMNOSUS (GG)) 15 billion cell cpSP capsule Take 1 capsule by mouth as directed daily. LORazepam (ATIVAN) 0.5 mg tablet Take 1 tablet by mouth three times daily. LORazepam (ATIVAN) 2 mg/mL conc oral solution Take 1 mg by mouth at bedtime as needed for Nausea or Vomiting. metoclopramide (REGLAN) 5 mg tablet Take 5-10 mg by mouth as Needed. Indications: before lunch and dinner montelukast (SINGULAIR) 10 mg tablet Take 10 mg by mouth at bedtime daily. oxyCODONE (ROXICODONE, OXY-IR) 5 mg tablet Take 1-2 tablets by mouth every 4 hours as needed polyethylene glycol 3350 (MIRALAX) 17 g packet Take 1 packet by mouth twice daily. Hold for loose stools ranitidine hcl(+) (ZANTAC) 300 mg tablet Take 300 mg by mouth at bedtime daily. scopolamine (TRANSDERM-SCOP) 1.5 mg 3 day patch APPLY 1 PATCH TO SKIN PRN Q 72 HOURS silodosin(+) (RAPAFLO) 8 mg capsule Take 1 Cap by mouth daily. simvastatin (ZOCOR) 20 mg tablet Take 20 mg by mouth at bedtime daily. triamterene-hydrochlorothiazide (DYAZIDE) 37.5-25 mg per capsule Take 1 Cap by mouth every morning. vitamins, multiple tablet Take 1 tablet by mouth daily. Vitals: 06/11/17 1402 BP: 105/71 Pulse: 70 Temp: 36.1 C (96.9 F) TempSrc: Oral Weight: 72.8 kg (160 lb 6.4 oz) Height: 158.8 cm (62.52") Body mass index is 28.85 kg/(m^2). Physical Exam Constitutional: She is oriented to person, place, and time. She appears well- developed and well-nourished. No distress. HENT: Head: Normocephalic and atraumatic. Eyes: EOM are normal. Pupils are equal, round, and reactive to light. Right eye exhibits no discharge. Left eye exhibits no discharge. Neck: Normal range of motion. Neck supple. No tracheal deviation present. No thyromegaly present. Cardiovascular: Normal rate and regular rhythm. Pulmonary/Chest: Effort normal and breath sounds normal. No respiratory distress. She has no wheezes. Abdominal: Soft. Bowel sounds are normal. She exhibits no distension. There is no tenderness. Neurological: She is alert and oriented to person, place, and time. Skin: Skin is warm and dry. She is not diaphoretic. No erythema. No pallor. Psychiatric: She has a normal mood and affect. Nursing note and vitals reviewed. Assessment and Plan: 62-year-old white female with a history of gastroparesis diagnosed by gastric emptying test with 88% retention at 4 hours, small intestinal bacterial overgrowth positive by hydrogen breath test May 2016, rectal prolapse status post rectopexy January [address] Ya, GERD status post Fredy fundoplication and redo (2011) here for follow-up of chronic nausea, altered bowel habit, and gastroparesis. Her symptoms of nausea really are not very well controlled despite having been trialed on several different medications. Following rectopexy, she had some fecal incontinence medially after surgery but now is left with fear of stool incontinence and urgency. Overall, she is constipated but fearful of taking laxatives due to resultant incontinence and it is noted that anal sphincter pressures poor both at rest and with squeeze. She does have some symptoms of small intestinal bacterial overgrowth presently. Plan for the followin. Rifaximin 550 mg 3 times a day for 2 weeks to see if there is any improvement in symptoms of bloating, borborygmi, nausea (sometimes seen in small intestinal bacterial overgrowth). 2. Regarding constipation, she is to continue MiraLAX as she has been taking for now. If there is no improvement in bowel habit following rifaximin as above , will consider trial of Linzess 72 mcg daily. She is to continue fiber supplementation (soluble) as well. 3. Regarding fear of fecal incontinence with history of poor sphincter tone/ squeeze, she is getting a repeat anorectal manometry today now that rectopexy has been completed. If there is ongoing evidence of pelvic floor weakness especially because this appears to be involved in her urinary symptoms as well, we will refer to pelvic floor therapy. 4. Regarding chronic nausea, we recommend that she get an a.m. cortisol with Dr. Bailey to complete the evaluation of this is not been done already. It is noted that she is Ravi visit with neurology and has had a full evaluation which is been unrevealing. For symptomatic control, she is getting some albeit minor benefit from Reglan 5 mg twice daily. Continue with this for now. We may add in Marinol in the future. Notably she is on an antidepressant already and therefore we cannot combine this with a low dose tricyclic antidepressant. 5. Follow-up colonoscopy is due 2023. 6. Given family history of pancreatic cancer in 2 first-degree relatives, we will plan on getting an endoscopic ultrasound every 2 years. This would be due June 2018. 7. Follow-up with us in 3 months. Semaj De La Rosa MD GI Fellow [phone] GI STAFF ATTESTATION I personally performed the flores portions of the E/M visit, discussed case with resident and concur with resident documentation of history, physical exam, assessment, and treatment plan unless otherwise noted. Long discussion with Luis and her . Needs pelvic floor retraining. Nausea remains an issue, could consider a trial of Marinol as no other medications have been effective. Discussed repeat EUS around June 2018 and repeat every 1-2 years given her family history (had seen Dr. Reyes in past). All questions answered. Staff name: Star Styles MD Date: 06/24/2017 in this encounter Plan of Treatment Not on fileas of this encounter Visit Diagnoses Diagnosis Pelvic floor dysfunction - Primary Pelvic muscle wasting Chronic nausea Nausea alone Family history of malignant neoplasm of pancreas Family history of malignant neoplasm of gastrointestinal tract
--- OUTSIDE RECORDS SUMMARY | 2017-07-07 09:48 | XMS REPORT | Encounter Summary ---
Author Author [facility] Organization [facility] Address Unknown Phone Unavailable Care Team Providers Care Senior Clinical Data Analyst Name Role Phone Guera Bailey DO PCP Felipa Easton MD Unavailable Steve Clifford MD Unavailable Unavailable Star Styles MD Unavailable Semaj De La Rosa MD Unavailable Alber Piña MD Unavailable Fco Ramsey MD Unavailable Remigio Lakhani MD 21 Reason for Visit * Auth/Cert Status Reason Specialty Diagnoses / Referred By Referred To Procedures Contact Contact Diagnoses R ectal prolapse (K62.3) P rocedures MA ANORECTAL MANOMETRY MANOMETRY ANORECTAL Encounter Details Date Type Department Care Team Description 06/11/2017 [facility] Gastrointenstinal Endoscopy, Physician Encounter Endoscopy [address] [place], [place] [id number] Social History Tobacco Use Types Packs/Day Years [...] RECORD-SCAN 06/17/2017 Results for this 3:07 PM VETERINARY MICROBIOLOGIST procedure are in the results section. MANOMETRY ANORECTAL 06/11/2017 Rectal prolapse (K62.3) 3:20 PM VETERINARY MICROBIOLOGIST in this encounter Results * PROCEDURE RECORD-SCAN (06/17/2017 3:07 PM) Narrative Ordered by an unspecified provider. in this encounter Visit Diagnoses Not on filein this encounter Admitting Diagnoses Diagnosis Rectal prolapse (K62.3)
--- OUTSIDE RECORDS SUMMARY | 2017-07-07 09:48 | XMS REPORT | Encounter Summary ---
Author Author [facility] Organization [facility] Address Unknown Phone Unavailable Care Team Providers Care Intranet Developer Name Role Phone Guera Bailey PCP Felipa Easton MD Unavailable Steve Clifford MD Unavailable Unavailable Star Styles MD Unavailable Semaj De La Rosa MD Unavailable Alber Piña MD Unavailable Fco Ramsey MD Unavailable Remigio Lakhani MD 21 Reason for Visit * Reason Comments Test/procedure * Pain Authorization Status Reason Specialty Diagnoses / Referred By Referred To Procedures Contact Contact New Request Diagnoses Carson Aleman, ConstipationMD unspecified [address] type [place] 2010 [place] retention [address] P Phone: [facility] [employer] [phone] EMG ORDER Encounter Details Date Type Department Care Team Description 04/13/2017 Clinical [facility] Kane Ya DO Muscle weakness Support Physicians-Neurology [address] [facility] [place] [address] [place] [address] [place] [phone] [id number] [phone] Casimiro Noble MD [address] [place] [address] [phone] Social History Tobacco Use Types Packs/Day Years Used Date Former Smoker 0.5 5 Quit: 10/08/1990 Smokeless Tobacco: Never Used Alcohol Use Drinks/Week oz/Week Comments Yes 2 Shots of 1.2 2 per month liquor Sex Assigned at Date Recorded Not on file as of this encounter Functional Status Functional Status Response Date of Assessment Does the patient have a hearing impairment: No 04/13/2017 Does the patient have a visual impairment: Yes 04/13/2017 Does the patient have impaired ambulation: No 04/13/2017 Does the patient have an activity of daily living No 04/13/2017 (ADL) impairment: Does the patient have an instrumental activity of No 04/13/2017 daily living (IADL) impairment: Cognitive Status Response Date of Assessment Does the patient have a cognitive impairment: No 04/13/2017 as of this encounter Plan of Treatment Not on fileas of this encounter Visit Diagnoses Diagnosis Muscle weakness Muscle weakness (generalized)
--- OUTSIDE RECORDS SUMMARY | 2017-07-07 09:48 | XMS REPORT | Encounter Summary ---
Author Author [facility] Organization [facility] Address Unknown Phone Unavailable Care Team Providers Care Community Engagement Coordinator Name Role Phone Guera Bailey DO PCP Felipa Easton MD Unavailable Steve Clifford MD Unavailable Unavailable Star Styles MD Unavailable Semaj De La Rosa MD Unavailable Alber Piña MD Unavailable Fco Ramsey MD Unavailable Remigio Lakhani MD 21 Reason for Visit * Reason Comments Results Encounter Details Date Type Department Care Team Description 04/14/2017 Telephone [facility] Nestor Szymanski MD Results Physicians-Neurology [address] [facility] [place] [address] [address] [facility] [phone] [place] [address] Social History Tobacco Use Types Packs/Day Years [...] impairment: No 04/13/2017 as of this encounter Miscellaneous Notes * Telephone Encounter - Nestor Szymanski MD - 04/14/2017 5:10 PM DISTILLERY MILLER Contacted Ms Alejandro regarding her test results, with normal EMG and MRI head, both of which were completely normal. Labs during recent admission for rectopexy were normalized from previous. I discussed with her that I don't see any neurological causes of her GI difficulties, however her exam is not completely normal, so I would like to see her back at least one more time to monitor for any possible progression. She was agreeable to this, and will keep in touch. in this encounter Plan of Treatment Not on fileas of this encounter Visit Diagnoses Not on filein this encounter
--- OUTSIDE RECORDS SUMMARY | 2017-07-07 09:48 | XMS REPORT | Encounter Summary ---
Author Author [facility] Organization [facility] Address Unknown Phone Unavailable Care Team Providers Care Offal Separator Name Role Phone Guera Bailey DO PCP Felipa Easton MD Unavailable Steve Clifford MD Unavailable Unavailable Star Styles MD Unavailable Semaj De La Rosa MD Unavailable Alber Piña MD Unavailable Fco Ramsey MD Unavailable Remigio Lakhani MD 21 Reason for Visit * Reason Comments FMLA Forms Encounter Details Date Type Department Care Team Description 04/09/2017 Telephone [facility] Johnathan Alivia FMLA Forms Physicians - Surgery [facility] [address] [place] [address] Social History Tobacco Use Types Packs/Day Years Used Date Former Smoker 0.5 5 Quit: 10/08/1990 Smokeless Tobacco: Never Used Alcohol Use Drinks/Week oz/Week Comments Yes 2 Shots of 1.2 2 per month liquor Sex Assigned at Date Recorded Not on file as of this encounter Functional Status Functional Status Response Date of Assessment Does the patient have a hearing impairment: No 03/26/2017 Does the patient have a visual impairment: Yes 02/16/2017 Does the patient have impaired ambulation: No 02/16/2017 Does the patient have an activity of daily living No 02/16/2017 (ADL) impairment: Does the patient have an instrumental activity of No 02/16/2017 daily living (IADL) impairment: Cognitive Status Response Date of Assessment Does the patient have a cognitive impairment: No 02/16/2017 as of this encounter Miscellaneous Notes * Telephone Encounter - Alivia Mann - 04/09/2017 2:09 PM CDT Please call Ms. Alejandro at [phone] re: [facility] date correction. Transferred to [facility] with patient consent and routed [facility] to Yanet Williamson RN to Dr. Kane Ya. in this encounter Plan of Treatment Not on fileas of this encounter Visit Diagnoses Not on filein this encounter
--- OUTSIDE RECORDS SUMMARY | 2017-07-07 09:48 | XMS REPORT | Encounter Summary ---
Author Author [facility] Organization [facility] Address Unknown Phone Unavailable Care Team Providers Care Nursing Executive Name Role Phone LynnGuera PCP Felipa Easton MD Unavailable Steve Clifford MD Unavailable Unavailable Star Styles MD Unavailable Semaj De La Rosa MD Unavailable Alber Piña MD Unavailable Fco Ramsey MD Unavailable Remigio Lakhani MD 21 Reason for Referral * Consult, Test & Treat Status Reason Specialty Diagnoses / Referred By Referred To Procedures Contact Contact New Request Specialty Diagnoses Kane Ya Rectal prolapse H, Required [address] [place] [address] Reason for Visit * Reason Comments Post Operative Visit Encounter Details Date Type Department Care Team Description 05/18/2017 Office Visit [facility] Kane Ya DO Rectal prolapse (Primary Physicians - Surgery [address] Dx) [place] [address] [place] [address] [place], [place] [phone] [phone] Social History Tobacco Use Types Packs/Day Years Used Date Former Smoker 0.5 5 Quit: 10/08/1990 Smokeless Tobacco: Never Used Alcohol Use Drinks/Week oz/Week Comments Yes 2 Shots of 1.2 2 per month liquor Sex Assigned at Date Recorded Not on file as of this encounter Last Filed Vital Signs Vital Sign Reading Time Taken Blood Pressure 110/74 05/18/2017 10:42 AM OUTSOLE BEVELER Pulse 75 05/18/2017 10:42 AM OUTSOLE BEVELER Temperature 36.7 C (98 F) 05/18/2017 10:42 AM OUTSOLE BEVELER Respiratory Rate 14 05/18/2017 10:42 AM OUTSOLE BEVELER Oxygen Saturation - - Inhaled Oxygen - - Concentration Weight 71.1 kg (156 lb 12.8 oz) 05/18/2017 10:42 AM OUTSOLE BEVELER Height 158.8 cm (5' 2.52") 05/18/2017 10:42 AM OUTSOLE BEVELER Body Mass Index 28.2 05/18/2017 10:42 AM OUTSOLE BEVELER in this encounter Functional Status Functional Status [...] impairment: No 05/18/2017 as of this encounter Progress Notes * Kane Ya, - 05/18/2017 10:45 AM OUTSOLE BEVELER Formatting of this note may be different from the original. Date of Service: 05/18/2017 Subjective: Luis Alejandro is a 62 y.o. female. History of Present Illness Ms. Alejandro is a 61 year old female with a history of a rectal prolapse s/p a robotic assisted resection rectopexy on 03/26/[address] Ya. Pathology was benign. She previously completed an ARM on 01/23/2017 which revealed inconclusive evidence for pelvic floor dyssynergia with ability to pass the balloon in 17 seconds. She returned to clinic post-operatively with reports of developing fecal urgency and rare episodes of fecal incontinence to loose stool X2. She is here today for follow up. Today, the patient reports no episodes of fecal incontinence since her previous office visit on 04/13/2017. She continues to have fecal urgency, however. Her current bowel regimen includes Miralax most day 1/2-1 cap full with colace PRN. She added a fiber capsule supplement 1 tab BID as she has a history of exacerbation of her gastroparesis with previous full dose fiber supplementation. With her current regimen, she reports soft and formed stool QD. She continues to have nausea related to her gastroparesis but denies any fevers or chills. She does admit that sometimes she urinates and doesn't realize that she had a BM. She describes having to strain with urination at at times believes there is redundant tissue along the anterior anal canal during this time. She denies a recurrent rectal prolapse. Review of Systems Constitutional: Negative for chills and fever. Gastrointestinal: Positive for nausea. Negative for abdominal pain, anal bleeding, blood in stool, rectal pain and vomiting. Fecal urgency All other systems reviewed and are negative. Past Medical History: Diagnosis Date Abnormal involuntary movement Arthritis Asthma Fibromyalgia Gastroparesis GERD (gastroesophageal reflux disease) HLD (hyperlipidemia) HTN (hypertension) Psychiatric illness depression Vision decreased Past Surgical History: Procedure Laterality Date [place] ANORECTAL MANOMETRY N/A 01/23/2017 ARM on a Thursday for obstructive defecation, rectal prolapse. Can you try to see if Randee or Sintia can work her in soon please per Dr. Styles performed by Felipa Easton MD at ENDO/GI RECTAL SURGERY N/A 03/26/2017 ROBOTIC RESECTION RECTOPEXY performed by Kane Ya DO at Main OR/ Periop ESOPHAGOGASTRIC FUNDOPLICATION 2004, 2011 x 2 Family History Problem Relation Age of Onset GI Cancer Sister 45 pancreatic cancer Cancer Sister Cancer Father Pancreatic cancer Hypertension Father Migraines Father Stroke Father Cancer Mother Hypertension Brother Migraines Son Stroke Maternal Grandmother Hypertension Paternal Grandfather Hypertension Brother Hypertension Sister Stroke Maternal Aunt Stroke Maternal Aunt Social History Social History Marital status: Spouse name: N/A Number of children: N/A Years of education: N/A Occupational History Via [employer] Social History Main Topics Smoking status: Former Smoker Packs/day: 0.50 Years: 5.00 Quit date: 10/08/1990 Smokeless tobacco: Never Used Alcohol use 1.2 oz/week 2 Shots of liquor per week Comment: 2 per month Drug use: No Sexual activity: Not Asked Other Topics Concern None Social History Narrative Objective: ALPRAZolam (XANAX) 0.5 mg tablet Take [...] Take 1 tablet by mouth daily. Vitals: 05/18/17 1042 BP: 110/74 Pulse: 75 Resp: 14 Temp: 36.7 C (98 F) TempSrc: Oral Weight: 71.1 kg (156 lb 12.8 oz) Height: 158.8 cm (62.52") Body mass index is 28.2 kg/(m^2). Physical Exam Constitutional: She is oriented to person, place, and time. She appears well- developed and well-nourished. No distress. HENT: Head: Normocephalic and atraumatic. Eyes: Conjunctivae and EOM are normal. Pupils are equal, round, and reactive to light. No scleral icterus. Neck: Normal range of motion. Neck supple. Cardiovascular: Normal rate. Pulmonary/Chest: Effort normal. No respiratory distress. Genitourinary: Genitourinary Comments: Rectal Exam: Patient declined today. Musculoskeletal: Normal range of motion. Neurological: She is alert and oriented to person, place, and time. No cranial nerve deficit. Skin: Skin is warm and dry. No rash noted. She is not diaphoretic. No erythema. No pallor. Psychiatric: She has a normal mood and affect. Her behavior is normal. Judgment and thought content normal. Vitals reviewed. Assessment and Plan: 1. Rectal prolapse 2. Fecal incontinence 3. Urinary incontinence 4. HTN 5. Gastroparesis Ms. Alejandro is a 61 year old female with a history of a rectal prolapse s/p a robotic assisted resection rectopexy on 03/26/[address] Ya. Pathology was benign. She previously completed an ARM on 01/23/2017 which revealed inconclusive evidence for pelvic floor dyssynergia with ability to pass the balloon in 17 seconds. She returned to clinic post-operatively with reports of developing fecal urgency and rare episodes of fecal incontinence to loose stool X2. She is here today for follow up with reports of no episodes of fecal incontinence. She describes fecal urgency with soft/formed BMs that occur without her knowledge during micturition as she must strain at times to urinate. She also reports some redundant tissue along anterior anal canal intermittently with straining to urinate. Plan: --Continue with current bowel regimen of Miralax (titrating this dose), colace PRN and a fiber supplement 1 tab BID. --Again discussed avoiding long periods on the commode and straining. The patient must strain to assist with evacuating her bladder. Some straining may be unavoidable at this time. --Discussed her options to further evaluate including a ARM. The patient would like to proceed with this study. Will arrange for this to be completed within the next month at her convenience. --Will plan on calling the patient with the results of this ARM as she and her drive from [place], [place] for these appointment. Pending the results, would likely discuss pelvic floor physical therapy over the phone. Pelvic floor physical therapy may also assist with her urinary difficulty. --If pelvic floor physical therapy is started, will plan on seeing the patient back in clinic around 3 months to provide her plenty of time to undergo therapy. --If symptoms persist, can discuss a sacral nerve stimulator. Dr. Ya is my collaborating physician with this patient. Shashi Shannon PA-C ATTESTATION I personally performed the flores portions of the E/M visit, discussed case with Physician Brake Rider and concur with documentation of history, physical exam, assessment, and treatment plan unless otherwise noted. Staff name: Kane Ya DO Date: 05/18/2017 in this encounter Plan of Treatment Name Priority Associated Diagnoses Order Schedule AMB REFERRAL TO GI LAB FOR PROCEDURE Routine Rectal prolapse Ordered: as of this encounter Visit Diagnoses Diagnosis Rectal prolapse - Primary
--- OUTSIDE RECORDS SUMMARY | 2017-07-07 09:48 | XMS REPORT | Encounter Summary ---
Author Author [facility] Organization [facility] Address Unknown Phone Unavailable Care Team Providers Care Avionics Mechanic Name Role Phone Guera Bailey DO PCP Felipa Easton MD Unavailable Steve Clifford MD Unavailable Unavailable Star Styles MD Unavailable Semaj De La Rosa MD Unavailable Alber Piña MD Unavailable Fco Ramsey MD Unavailable Remigio Lakhani MD 21 Reason for Visit * Reason Comments Pre-Procedure Instructions Encounter Details Date Type Department Care Team Description 06/09/2017 Telephone Gastrointenstinal Silvia Abreu RN Pre- Procedure Endoscopy Instructions [address] [place] [address] Social History Tobacco Use Types Packs/Day Years [...] impairment: No 05/18/2017 as of this encounter Miscellaneous Notes * Telephone Encounter - Silvia Abreu RN - 06/09/2017 9:51 AM RENT COLLECTOR Pre call completed to patient for their ARM scheduled on 06/11/17 at 1520. Pt instructed to do enema prior to procedure. Patient states understanding. in this encounter Plan of Treatment Not on fileas of this encounter Visit Diagnoses Not on filein this encounter
--- OUTSIDE RECORDS SUMMARY | 2017-07-07 09:48 | XMS REPORT | Encounter Summary ---
Author Author [facility] Organization [facility] Address Unknown Phone Unavailable Care Team Providers Care President Ergonomic Consulting Name Role Phone Guera Bailey DO PCP Felipa Easton MD Unavailable Steve Clifford MD Unavailable Unavailable Star Styles MD Unavailable Semaj De La Rosa MD Unavailable Alber Piña MD Unavailable Fco Ramsey MD Unavailable Remigio Lakhani MD 21 Encounter Details Date Type Department Care Team Description 03/12/2017 Procedure Pass [facility] Radiology [address] [place] [address] Social History Tobacco Use Types Packs/Day Years Used Date Former Smoker 0.5 5 Quit: 10/08/1990 Smokeless Tobacco: Never Used Alcohol Use Drinks/Week oz/Week Comments Yes 2 Shots of 1.2 2 per month liquor Sex Assigned at Date Recorded Not on file as of this encounter Last Filed Vital Signs Vital Sign Reading Time Taken Blood Pressure - - Pulse - - Temperature - - Respiratory Rate - - Oxygen Saturation - - Inhaled Oxygen - - Concentration Weight 70.3 kg (155 lb) 04/10/2017 4:06 PM CDT Height 158.8 cm (5' 2.5") 04/10/2017 4:06 PM CDT Body Mass Index 27.9 04/10/2017 4:06 PM CDT in this encounter Functional Status Functional Status Response Date of Assessment Does the patient have a hearing impairment: No 02/16/2017 Does the patient have a visual impairment: Yes 02/16/2017 Does the patient have impaired ambulation: No 02/16/2017 Does the patient have an activity of daily living No 02/16/2017 (ADL) impairment: Does the patient have an instrumental activity of No 02/16/2017 daily living (IADL) impairment: Cognitive Status Response Date of Assessment Does the patient have a cognitive impairment: No 02/16/2017 as of this encounter Plan of Treatment Not on fileas of this encounter Visit Diagnoses Not on filein this encounter
--- OUTSIDE RECORDS SUMMARY | 2017-07-07 09:48 | XMS REPORT | Encounter Summary ---
Author Author [facility] Organization [facility] Address Unknown Phone Unavailable Care Team Providers Care Milk Condenser Name Role Phone BaileyGuera winters PCP Felipa Easton MD Unavailable Steve Clifford MD Unavailable Unavailable Star Styles MD Unavailable Semaj De La Rosa MD Unavailable Alber Piña MD Unavailable Fco Ramsey MD Unavailable Remigio Lakhani MD 21 Reason for Visit * Reason Comments Post Operative Visit Encounter Details Date Type Department Care Team Description 04/13/2017 Office Visit [facility] Kane Ya DO Incontinence of feces Physicians - Surgery [address] with fecal urgency [address] (Primary Dx); [address] [place] [address] Rectal prolapse [place], [place] [phone] Social History Tobacco Use Types Packs/Day Years Used Date Former Smoker 0.5 5 Quit: 10/08/1990 Smokeless Tobacco: Never Used Alcohol Use Drinks/Week oz/Week Comments Yes 2 Shots of 1.2 2 per month liquor Sex Assigned at Date Recorded Not on file as of this encounter Last Filed Vital Signs Vital Sign Reading Time Taken Blood Pressure 103/65 04/13/2017 10:42 AM MSW Pulse 101 04/13/2017 10:42 AM MSW Temperature 36.6 C (97.9 F) 04/13/2017 10:42 AM MSW Respiratory Rate 20 04/13/2017 10:42 AM MSW Oxygen Saturation - - Inhaled Oxygen - - Concentration Weight 71.1 kg (156 lb 12.8 oz) 04/13/2017 10:42 AM MSW Height 158.8 cm (5' 2.5") 04/13/2017 10:42 AM MSW Body Mass Index 28.22 04/13/2017 10:42 AM MSW in this encounter Functional Status Functional Status [...] impairment: No 04/13/2017 as of this encounter Progress Notes * Kane Ya, - 04/13/2017 10:30 AM MSW Formatting of this note may be different from the original. Date of Service: 04/13/2017 Subjective: Luis Alejandro is a 61 y.o. female. History of Present Illness Ms. Alejandro is a 61 year old female with a history of a rectal prolapse s/p a robotic assisted resection rectopexy on 03/26/[address] Ya. Pathology was benign. She previously completed an ARM on 01/23/2017 which revealed inconclusive evidence for pelvic floor dyssynergia with ability to pass the balloon in 17 seconds. She is here today for post-operative follow up. Today, the patient reports developing fecal urgency, about 5-7 times since surgery, associated with fecal incontinence to loose stool twice. She has also noticed urinating and noticing stool on the tissue paper when she wipes, not knowing she had a BM. She reports that her sensation to have BMs has completely changed since surgery. At times, she doesn't sense a BM. She must wear an absorptive pad QD due to this. She denies any fevers, chills or recurrent rectal prolapse. She also reports some RLQ abdominal pain requiring PRN use of oxycodone. She denies any N/V. She does have a history of gastroparesis with intermittent epigastric abdominal distension. She is currently taking Miralax QD -BID adjusting the dose from 1/2 cap to 1 full cap as she sees fit along with colace BID. Her stools are typically soft and formed but at times her stools are loose. She denies any watery BMs. She also denies straining with a BM or sitting on the commode for prolonged periods of time. 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 The patient also reports a history of urinary incontinence. She currently resides in [place], [place] and reports that the closest pelvic floor PT is located in [place], [place]. She states that the facility in [place] is planning on obtaining a pelvic floor PT in June 2017. PATHOLOGY: A. Colon, "sigmoid colon", resection: No diagnostic abnormalities. Review of Systems Constitutional: Negative for chills and fever. Gastrointestinal: Positive for abdominal distention and abdominal pain. Negative for nausea and vomiting. All other systems reviewed and are negative. Past Medical History: Diagnosis Date Abnormal involuntary movement Arthritis Asthma Fibromyalgia Gastroparesis GERD (gastroesophageal reflux disease) HLD (hyperlipidemia) HTN (hypertension) Psychiatric illness depression Vision decreased Past Surgical History: Procedure Laterality Date [place] ANORECTAL MANOMETRY N/A 01/23/2017 ARM on a Thursday for obstructive defecation, rectal prolapse. Can you try to see if Randee Patricio can work her in soon please per [...] Years of education: N/A Occupational History Via [employer] Social History Main Topics Smoking status: Former [...] Take 100 mg by mouth twice daily. duloxetine DR (CYMBALTA) 30 mg capsule Take 30 mg by mouth daily. Administered in combination with 60mg dosage DULoxetine [...] mg tablet Take 5-10 mg by mouth twice daily. Indications: before lunch and dinner montelukast (SINGULAIR) [...] 300 mg by mouth at bedtime daily. silodosin(+) (RAPAFLO) 8 mg capsule Take 1 Cap by mouth daily. simvastatin (ZOCOR) 20 mg tablet Take 20 mg by mouth at bedtime daily. triamterene-hydrochlorothiazide (DYAZIDE) 37.5-25 mg per capsule Take 1 Cap by mouth every morning. vitamins, multiple tablet Take 1 tablet by mouth daily. Vitals: 04/13/17 1042 BP: 103/65 Pulse: 101 Resp: 20 Temp: 36.6 C (97.9 F) TempSrc: Oral Weight: 71.1 kg (156 lb 12.8 oz) Height: 158.8 cm (62.5") Body mass index is 28.22 kg/(m^2). Physical Exam Constitutional: She is oriented to person, place, and time. She appears well- developed and well-nourished. No distress. HENT: Head: Normocephalic and atraumatic. Eyes: Conjunctivae and EOM are normal. Pupils are equal, round, and reactive to light. No scleral icterus. Neck: Normal range of motion. Neck supple. Cardiovascular: Normal rate. Pulmonary/Chest: Effort normal. No respiratory distress. Abdominal: Soft. She exhibits no distension and no mass. There is no rigidity and no guarding. Musculoskeletal: Normal range of motion. Neurological: She [...] to pass the balloon in 17 seconds. Today, she reports developing fecal urgency with rare episodes of fecal incontinence to loose stool X2. Plan: --Discussed how her RLQ abdominal pain is within normal range of post-operative pain. Encouraged her to continue to watch this. If her symptoms worsen, will consider a CT abdomen/pelvis to rule out infections or surgical complications. --Discussed her fecal incontinence. Ensured her that her symptoms can continue to improve as she is still healing from surgery. Generally, patients are at a baseline around 8 weeks post-operatively. In the mean time, suggested a fiber supplement. The patient reports taking a fiber supplement previously which worsened her gastroparesis. Imodium would also not be ideal with a history of gastroparesis. Therefore, encouraged her to continue to titrate her Miralax and colace to produce soft yet formed BMs. She understands to avoid straining and prolonged periods on the commode. --Also discussed, that if her incontinence symptoms continue, will consider repeating an ARM. She would likely need pelvic floor physical therapy and can anticipate starting this possibly in June 2017. If she continues to be symptomatic, even discussed the option of a sacral nerve stimulator which would assist her urinary and fecal incontinence. Provided her with an informational handout regarding the sacral nerve stimulator. --Advised continuation of no heavy lifting >10 pounds until she returns for a follow up visit. --Will have her return to clinic in about 4 weeks for follow up. Shashi Shannon PA-C ATTESTATION I personally performed the flores portions of the E/M visit, discussed case with Physician Folding Machine Tender and concur with documentation of history, physical exam, assessment, and treatment plan unless otherwise noted. Staff name: Kane Ya DO Date: 04/13/2017 in this encounter Plan of Treatment Not on fileas of this encounter Visit Diagnoses Diagnosis Incontinence of feces with fecal urgency - Primary Rectal prolapse
--- OUTSIDE RECORDS SUMMARY | 2017-07-07 09:48 | XMS REPORT | Encounter Summary ---
Author Author [facility] Organization [facility] Address Unknown Phone Unavailable Care Team Providers Care Clamp Truck Driver Name Role Phone Guera Bailey DO PCP Felipa Easton MD Unavailable Steve Clifford MD Unavailable Unavailable Star Styles MD Unavailable Semaj De La Rosa MD Unavailable Alber Piña MD Unavailable Fco Ramsey MD Unavailable Remigio Lakhani MD 21 Reason for Referral * Consult, Test & Treat Status Reason Specialty Diagnoses / Referred By Referred To Procedures Contact Contact No Auth Needed Specialty Rheumatology / Diagnoses Charles Styles [facility] Allergy,Immunology Pain of both MD Star Rheumatology Required and Rheumatology wrist joints [address] both hands [place] [address] Pain of toes of [place], [place], [place] both feet [id number] M25.531,M25.532 Phone: Phone: (ICD-10-CM) - [phone] Pain of both Fax: wrist joints, M25.541, M25.542 (ICD-10-CM) - Arthralgia of both hands,M79.674, M79.675 (ICD-10-CM) - Pain of toes of both feet Reason for Visit * Reason Comments Appointment Request Referral Encounter Details Date Type Department Care Team Description 05/06/2017 Telephone [facility] Star Styles MD Appointment Request; Physicians - Internal [address] [facility] Referral Medicine [place] [address] [place] [address] [place] [address] Social History Tobacco Use Types Packs/Day Years [...] encounter Miscellaneous Notes * Telephone Encounter - Camille Duckworth RN - 05/07/2017 2:54 PM POLYMER SCIENTIST Rheum referral for [facility] and then also outside referral to Rheum Dr. Arlet Samson. * Telephone Encounter - Camille Duckworth RN - 05/06/2017 8:38 AM POLYMER SCIENTIST Patient to see Dr. De La Rosa/Dr. Styles 06/11/2017 at 2pm, MOB per Dr. Styles approval. Patient had left message this is a date of available to be seen. Left message back with patient regarding appointment and to call if any concerns /questions. in this encounter Plan of Treatment Name Priority Associated Diagnoses Order Schedule AMB REFERRAL TO RHEUMATOLOGY Routine Pain of both wrist joints Ordered: 05/06/2017 Arthralgia of both hands Pain of toes of both feet as of this encounter Visit Diagnoses Diagnosis Pain of both wrist joints - Primary Arthralgia of both hands Pain of toes of both feet
--- OUTSIDE RECORDS SUMMARY | 2017-07-07 09:48 | XMS REPORT | Encounter Summary ---
Author Author [facility] Organization [facility] Address Unknown Phone Unavailable Care Team Providers Care Gluer Machine Operator Name Role Phone Guera Bailey DO PCP Felipa Easton MD Unavailable Steve Clifford MD Unavailable Unavailable Star Styles MD Unavailable Semaj De La Rosa MD Unavailable Alber Piña MD Unavailable Fco Ramsey MD Unavailable Remigio Lakhani MD 21 Reason for Referral * Radiology Services Status Reason Specialty Diagnoses / Referred By Referred To Procedures Contact Contact No Auth Needed Radiology Diagnoses Carson Aleman Kuwp Mri Hyper reflexjc [facility] [address] [place] [address] MRI HEAD WO/W MS 2011 Phone: [employer] [place], [place] [phone] * Radiology Services Status Reason Specialty Diagnoses / Referred By Referred To Procedures Contact Contact No Auth Needed Radiology Diagnoses Carson Aleman Kuwp Mri Hyper reflexjc [facility] [address] [place] [address] MRI HEAD WO/W MS 2011 Phone: [employer] [place], [place] [phone] Reason for Visit * Radiology Services Status Reason Specialty Diagnoses / Referred By Referred To Procedures Contact Contact No Auth Needed Radiology Diagnoses Carson Aleman, Kuwp Mri Hyper reflexia [address] [place] [address] MRI HEAD WO/W MS 2011 Phone: [place], [place] [phone] Encounter Details Date Type Department Care Team Description 04/13/2017 [facility] Carson Aleman MD Encounter [facility] Radiology [address] [place] [address] [place] [address] [phone] Social History Tobacco Use Types Packs/Day Years [...] impairment: No 04/13/2017 as of this encounter Medications at Time [...] 100 mg by mouth capsule twice daily. duloxetine DR (CYMBALTA) Take 30 [...] at (ZANTAC) 300 mg tablet bedtime daily. silodosin(+) (RAPAFLO) 8 Take 1 Cap by [...] Treatment Not on fileas of this encounter Results * MRI HEAD WO/W CONTRAST (04/13/2017 3:31 [...] Interface, Radiant Results - 04/13/2017 4:52 PM JOINT CUTTER MACHINE MRI HEAD HISTORY: Hyperreflexia. Jaw jerk TECHNIQUE: [...] Rosemary Chamberlain M.D. on 04/13/2017 3:57 PM. in this encounter Visit Diagnoses Diagnosis Hyper reflexia Abnormal reflex Administered Medications Medication Order MAR Action Action Date Dose Rate Site gadobenate dimeglumine (MULTIHANCE) Given 04/13/2017 15 mL injection 15 mL 15:20 JOINT CUTTER MACHINE 15 mL, Intravenous, ONCE, 1 dose, 04/13/17 at 1545, NOTE: This is a HIGH ALERT Medication. in this encounter
--- OUTSIDE RECORDS SUMMARY | 2017-07-07 09:48 | XMS REPORT | Encounter Summary ---
Author Author [facility] Organization [facility] Address Unknown Phone Unavailable Care Team Providers Care Wheel Filler Name Role Phone Guera Bailey DO PCP Felipa Easton MD Unavailable Steve Clifford MD Unavailable Unavailable Star Styles MD Unavailable Semaj De La Rosa MD Unavailable Alber Piña MD Unavailable Fco Ramsey MD Unavailable Remigio Lakhani MD 21 Reason for Visit * Reason Comments Disability Form/paperwork Encounter Details Date Type Department Care Team Description 04/16/2017 Telephone [facility] Alivia Mann Disability Form/paperwork Physicians - Surgery [facility] [address] [place] [address] Social History Tobacco Use Types [...] * Telephone Encounter - Alivia Mann - 04/16/2017 3:03 PM ECONOMIC RESEARCH ANALYST Please call Ms. Alejandro at [phone] re: follow-up of he disability forms. Routed [facility] to Yanet Williamson RN to Dr. Kane Ya. in this encounter Plan of Treatment Not on fileas of this encounter Visit Diagnoses Not on filein this encounter
--- OUTSIDE RECORDS SUMMARY | 2017-07-07 09:49 | XMS REPORT | Clinical Summary ---
Author Author User, MAVIS Organization [facility] [place] Address Unknown Phone Unavailable Allergies, Adverse Reactions, Alerts Allergy Name Reaction Description Start Date Severity Status Provider SUDALAR Critical Active Guera Bailey SULAR REYNOLDS, Memory problems Critical Active Guera Bailey SULFA Dermatological problems, e.g., rash, hives 1978 Critical Active Guera Bailey Conditions or Problems Problem Name Problem Code Onset Date Status Entry Date Provider Comment Standard Description Annotate HRT V07.4 Active Guera Bailey Hormone replacement therapy (postmenopausal) GASTROESOPHAGEAL REFLUX DISEASE, CHRONIC 530.81 Active Guera Bailey Esophageal reflux ESOPHAGITIS 530.10 Resolved Guera Bailey Esophagitis, unspecified OBESITY 278.00 Resolved Guera Bailey Obesity, unspecified OSTEOARTHRITIS 715.90 Active Guera Bailey Osteoarthrosis, unspecified whether generalized or localized, involving unspecified site MENOPAUSAL SYNDROME 627.0 Resolved Guera Bailey Premenopausal menorrhagia WELL WOMAN V70.0 Resolved Guera Bailey Routine general medical examination at a health care facility WHEEZING 786.07 Resolved Guera Bailey Wheezing BRONCHITIS 490 Resolved Guera Bailey Bronchitis, not specified as acute or chronic COUGH 786.2 Resolved Guera Bailey Cough FEVER 780.6 Resolved Guera Bailey Fever and other physiologic disturbances of temperature regulation HYPERTENSION, ACCELERATED OR MALIGNANT 401.0 Active Guera Bailey Malignant essential hypertension HEADACHE 784.0 Resolved Guera Bailey Headache ADULT SITUATIONAL REACTION 309.9 Resolved Guera Bailey Unspecified adjustment reaction DIARRHEA, RECURRENT 787.91 Resolved Guera Bailey Diarrhea SYMPTOM, PAIN, ABDOMINAL, LEFT LOWER QUADRANT 789.04 Resolved Guera Bailey Abdominal pain, left lower quadrant HYPERCHOLESTEROLEMIA 272.0 Active Guera Bailey Pure hypercholesterolemia FIBROMYALGIA 729.1 Active Guera Bailey Myalgia and myositis, unspecified INSOMNIA 780.52 Active Guera Bailey Insomnia, unspecified IBS 564.1 Active Guera Bailey Irritable bowel syndrome COUGH 786.2 Resolved Guera Bailey Cough SOB 786.05 Resolved Guera Bailey Shortness of breath SEBORRHEIC KERATOSIS 702.19 Resolved Guera Bailey Other seborrheic keratosis SKIN LESION 709.9 Resolved Guera Bailey Unspecified disorder of skin and subcutaneous tissue SLEEP APNEA, OBSTRUCTIVE 780.57 Active Guera Bailey Unspecified sleep apnea OBSTRUCTION, CHRONIC AIRWAY NEC 496 Active Guera Bailey Chronic airway obstruction, not elsewhere classified DISORDER, TRIGEMINAL NERVE NOS 350.9 Resolved Guera Bailey Trigeminal nerve disorder, unspecified HERPES LABIALIS 054.9 Resolved Guera Bailey Herpes simplex without mention of complication DYSPNEA 786.09 Resolved Guera Bailey Other dyspnea and respiratory abnormality POLYARTHRALGIA 719.49 Resolved Guera Bailey Pain in joint involving multiple sites LUPUS 710.0 Resolved Guera Bailey Systemic lupus erythematosus URINARY FREQUENCY 788.41 Resolved Guera Bailey Urinary frequency JAMES POSITIVE 790.99 Active Guera Bailey Other nonspecific findings on examination of blood ABDOMINAL PAIN, EPIGASTRIC 789.06 Resolved Guera Bailey Abdominal pain, epigastric CHEST PAIN, ATYPICAL 786.59 Resolved Guera Bailey Other chest pain ABDOMINAL PAIN, GENERALIZED 789.07 Resolved Guera Bailey Abdominal pain, generalized DIARRHEA, ACUTE 787.91 Resolved Guera Bailey Diarrhea HYPERGLYCEMIA, MILD 790.6 Resolved Guera Bailey Other abnormal blood chemistry MIGRAINE VARIANT 346.20 Active Guera Bailey Variants of migraine, not elsewhere classified, without mention of intractable migraine, without mention of status migrainosus DEPRESSION 311 Resolved Guera Bailey Depressive disorder, not elsewhere classified CHEST PAIN, ATYPICAL 786.59 Resolved Guera Bailey Other chest pain URINARY FREQUENCY 788.41 Resolved Guera Bailey Urinary frequency UTI 599.0 Resolved Guera Bailey Urinary tract infection, site not specified ABDOMINAL PAIN, GENERALIZED 789.07 Resolved Guera Bailey Abdominal pain, generalized NAUSEA 787.02 Resolved Guera Bailey Nausea alone WEIGHT LOSS 783.21 Resolved Guera Bailey Loss of weight ABNORMAL MAMMOGRAM 793.80 Resolved Guera Bailey Abnormal mammogram, unspecified ABNORMAL MAMMOGRAM 793.80 Resolved Guera Bailey Abnormal mammogram, unspecified VAGINITIS, ATROPHIC 627.3 Active Guera Bailey Postmenopausal atrophic vaginitis LEG PAIN, LEFT 729.5 Resolved Guera Bailey Pain in limb LUMBAR RADICULOPATHY, LEFT 724.4 Active Guera Bailey Thoracic or lumbosacral neuritis or radiculitis, unspecified WELL WOMAN V70.0 Inactive Guera Bailey Routine general medical examination at a health care facility ABDOMINAL PAIN, LEFT LOWER QUADRANT 789.04 Resolved Guera Bailey Abdominal pain, left lower quadrant HEALTH SCREENING V70.0 Active Guera Bailey Routine general medical examination at a health care facility Medication List Medication Instructions Start Date Stop Date Generic Name NDC Status Provider Patient Instruction LOTRONEX 0.5 MG TABS 1/2-1 PO daily ALOSETRON HCL 11787726145 Active Guera Bailey BENTYL 10 MG CAPS 1 PO QID prn DICYCLOMINE HCL 61655942787 Active Guera Bailey LEVSIN 0.125 MG TABS 1-2 po QID prn HYOSCYAMINE SULFATE 12722919059 Active Guera Bailey HYDROCODONE-ACETAMINOPHEN 5-325 MG TABS 1-2 PO Q4-6 hrs prn pain HYDROCODONE-ACETAMINOPHEN 68252678356 Active Vanna Garcia BENTYL 10 MG CAP 1 PO QID prn DICYCLOMINE HCL 17355260009 No Longer Active Guera Bailey CATAFLAM 50 MG TABS 1 PO BID prn headache DICLOFENAC POTASSIUM 96446323056 No Longer Active Guerajeanette Bailey PERCOCET 5-325 MG TAB 1 PO q6hrs prn OXYCODONE- ACETAMINOPHEN 11293551064 No Longer Active Guera Annel Bailey ZOFRAN ODT 8 MG TBDP 1 PO Q6hrs prn nausea ONDANSETRON 87592566590 No Longer Active Guera Annel Bailey BENTYL 10 MG CAP 1 PO QID prn DICYCLOMINE HCL 18543209133 No Longer Active Guera Annel Bailey PREMARIN 0.625 MG/GM CREA 1 gm intravaginally HS 3 times a week for 4 weeks then twice a week ESTROGENS, CONJUGATED VAGINAL 67895818471 Active Guera Bailey PHENERGAN 25 MG TAB 1 PO Q6hrs prn PROMETHAZINE HCL Active Vanna Garcia PROAIR HFA 108 (90 BASE) MCG/ACT AERS 2 puff Q4 hrs prn wheezing ALBUTEROL SULFATE 37591602647 Active Vanna Garcia REGLAN 10 MG TAB 1 PO 30 minutes before meals and at bedtime METOCLOPRAMIDE HCL 97179838177 Active Guera Bailey NEXIUM 40 MG CPDR 1 PO daily ESOMEPRAZOLE MAGNESIUM 72914063009 Active Vanna Garcia XANAX 0.5 MG TABS 1 PO TID prn ALPRAZOLAM 37640631591 Active Vanna Garcia PATANOL 0.1 % SOLN 1-2 gtts in each eye BID OLOPATADINE HCL 70090275023 No Longer Active Guerajeanette Bailey PREDNISONE 20 MG TAB 3 pills at once for 2 days then 2 pills daily for 2 days PREDNISONE 35284424885 No Longer Active Guera Bailey CYMBALTA 60 MG CPEP 1 PO daily DULOXETINE HCL 52687604737 Active Vanna Garcia ZOLOFT 25 MG TABS 1 po daily SERTRALINE HCL 05284672017 No Longer Active Guera Annel Bailey ZOLOFT 100 MG TABS 1 po daily SERTRALINE HCL 30507810842 No Longer Active Guera Annel Bailey REGLAN 10 MG TABS 1 po BID METOCLOPRAMIDE HCL 35834782557 No Longer Active Guera Annel Bailey MIDRIN 325-65-100 MG CAPS 1-2 PO Q4-6hrs prn APAP- ISOMETHEPTENE-DICHLORAL No Longer Active Guera Annel Bailey FLEXERIL 10 MG TABS 1 po HS prn CYCLOBENZAPRINE HCL 74870515667 No Longer Active Guera Annel Bailey SYMBICORT 160-4.5 MCG/ACT AERO 2 puffs BID BUDESONIDE- FORMOTEROL FUMARATE 65652290181 Active Vanna Garcia CIPRO 500 MG TABS 1 PO BID for 7 days CIPROFLOXACIN HCL 30970759757 No Longer Active Guera Annel Bailey PYRIDIUM 200 MG TABS 1 PO TID x 3 days PHENAZOPYRIDINE HCL 43966834094 No Longer Active Johana Fernandez AMPICILLIN 500 MG CAPS 1 PO BID x 7 days AMPICILLIN 08236725271 No Longer Active Johana Fernandez NORVASC 5 MG TAB 1 PO QD AMLODIPINE BESYLATE 41114565016 Active Vanna Garcia IMODIUM A-D 2 MG TABS 1 po daily LOPERAMIDE HCL 49368074234 Active Guera Annel Bailey QUESTRAN POWD 1 scoop in 4 oz of fluid BID scheduled CHOLESTYRAMINE POWD 73772282238 No Longer Active Guera Annel Bailey DYAZIDE 37.5-25 MG CAP 1 PO daily TRIAMTERENE-HCTZ 29230206476 Active Vanna Garcia ZANTAC 150 MG TABS 2 PO QD prn RANITIDINE HCL 47266025859 No Longer Active Guera Annel Bailey ZANTAC 300 MG TABS 1 PO QHS RANITIDINE HCL 24553813373 Active Vanna Garcia SINGULAIR 10 MG TABS 1 PO QHS MONTELUKAST SODIUM 34561173842 Active Vanna Garcia LORTAB 5 5-500 MG TABS 1-2 PO Q6hrs prn pain HYDROCODONE-ACETAMINOPHEN 50637149316 No Longer Active Guera Annel Bailey VALTREX 1 GM TABS 1 PO BID VALACYCLOVIR HCL 15723201649 No Longer Active Guera Annel Bailey ZOCOR 10 MG TABS 1 po daily SIMVASTATIN 09391069798 Active Vanna Garcia PROTONIX 40 MG TBEC 1 PO daily PANTOPRAZOLE SODIUM 23185168899 No Longer Active Guera Annel Bailey PREMPRO 0.3-1.5 MG TABS 1 po daily prn CONJ ESTROG- MEDROXYPROGEST PEARL 55355809720 No Longer Active Guera Annel Bailey ASPIRIN 81 MG CHEW 1 PO daily ASPIRIN 62988215701 Active Guera Annel Bailey BENAZEPRIL HCL 10 MG TABS 1 PO daily BENAZEPRIL HCL 74948068781 Active Vanna Garcia SULAR 20 MG TB24 1 po daily NISOLDIPINE 05845164845 No Longer Active Guera Annel Bailey NEXIUM 40 MG CPDR 1 PO QD ESOMEPRAZOLE MAGNESIUM 49165232292 No Longer Active Guera Annel Bailey NORVASC 5 MG TABS 1 po qd AMLODIPINE BESYLATE 09125692558 No Longer Active Guera Annel Bailey ALBUTEROL 90 MCG/ACT AERS 2 puffs q 4-6h prn ALBUTEROL 69261932446 No Longer Active Guera Annel Bailey ADVAIR DISKUS 100-50 MCG/DOSE MISC 1 puff bid FLUTICASONE-SALMETEROL 91713180197 No Longer Active Guera Annel Bailey PREDNISONE 20 MG TABS 2 po qd PREDNISONE 24655195620 No Longer Active Guera Annel Bailey BIAXIN XL 500 MG TB24 2 po qd CLARITHROMYCIN 91973666369 No Longer Active Guera Annel Bailey ZANTAC 75 75 MG TABS take 2 tabs po hs RANITIDINE HCL 04964333534 No Longer Active Guera Annel Bailey ROBINUL-FORTE 2 MG TABS 1 tab at hs GLYCOPYRROLATE 21792438251 No Longer Active Guera Annel Bailey PEPCID 20 MG TAB 1 BID FAMOTIDINE 37545097071 No Longer Active Guera Annel Bailey REGLAN 10 MG TABS 1-2 tabs po daily METOCLOPRAMIDE HCL 79691002083 No Longer Active Guera Annel Bailey NEXIUM 40 MG CPDR 1 po daily ESOMEPRAZOLE MAGNESIUM 22103743005 No Longer Active Guera Annel Bailey BEXTRA 10 MG TABS 1 po daily VALDECOXIB 44129972859 No Longer Active Guera Annel Bailey ZYRTEC 10 MG TABS 1 po daily CETIRIZINE HCL Active Guera Annel Bailey Immunizations Vaccine Administration Date Value Standard Description Influenza vaccine given done influenza virus vaccine, unspecified formulation Vital Signs Date Name Value Unit Range Description blood pressure, diastolic - 8462-4 75 mm[Hg] BP quigley blood pressure, systolic - 8480-6 115 mm[Hg] BP sys pulse rate E&M - 8867-4 96 /min Heart rate respiratory rate E&M - 9279-1 14 /min Resp rate weight E&M - 3141-9 174 [lb_av] Weight Measured blood pressure, diastolic - 8462-4 80 mm[Hg] BP quigley blood pressure, systolic - 8480-6 112 mm[Hg] BP sys pulse rate E&M - 8867-4 78 /min Heart rate respiratory rate E&M - 9279-1 14 /min Resp rate temperature E&M 98.6 [degF] Body temperature weight E&M - 3141-9 175 [lb_av] Weight Measured Diagnostic Results Date Name Value Unit Range Description Clinical Lists Update: CBC,CMP,FLP,TSH,HGA1C,ESR - Chemistry Estimated Glomerular Filtration Rate (calc) >60 mL/min/1.73m2 albumin, serum 4.1 g/dL alkaline phosphatase, serum 81 U/L urea nitrogen, blood 14 mg/dL calcium, serum 9.0 mg/dL chloride, serum 102 mmol/L cholesterol, serum 165 mg/dL carbon dioxide, venous blood 27 mmol/L creatinine, serum 0.72 mg/dL HDL cholesterol, serum 55 mg/dL hemoglobin A1C, blood, as % of total hemoglobin 5.6 % thyroid stimulating hormone, serum 2.96 u[iU]/mL LDL cholesterol, serum 93 mg/dL potassium, serum 3.4 mmol/L protein, total, serum 6.5 g/dL aspartate aminotransferase (SGOT), serum 19 U/L alanine aminotransferase (SGPT), serum 24 U/L bilirubin, serum, total 0.5 mg/dL triglyceride, serum, fasting 106 mg/dL sodium, serum 140 mmol/L very low density lipoproteins 21 mg/dL glucose, plasma fasting 108 mg/dL Clinical Lists Update: CBC,CMP,FLP,TSH,HGA1C,ESR - Hematology erythrocyte sedimentation rate 6 mm/h Clinical Lists Update: CMP,FLP,ESR,HgA1c - Chemistry Estimated Glomerular Filtration Rate (calc) >60 mL/min/1.73m2 LDL cholesterol, serum 105 mg/dL cholesterol, serum 176 mg/dL potassium, serum 3.4 mmol/L urea nitrogen, blood 9 mg/dL protein, total, serum 6.9 g/dL carbon dioxide, venous blood 28 mmol/L aspartate aminotransferase (SGOT), serum 17 U/L alanine aminotransferase (SGPT), serum 23 U/L creatinine, serum 0.73 mg/dL bilirubin, serum, total 0.4 mg/dL calcium, serum 9.3 mg/dL triglyceride, serum, fasting 112 mg/dL HDL cholesterol, serum 55 mg/dL sodium, serum 138 mmol/L alkaline phosphatase, serum 66 U/L very low density lipoproteins 22 mg/dL hemoglobin A1C, blood, as % of total hemoglobin 5.7 % glucose, plasma fasting 92 mg/dL chloride, serum 100 mmol/L albumin, serum 4.1 g/dL Clinical Lists Update: CMP,FLP,ESR,HgA1c - Hematology erythrocyte sedimentation rate 5 mm/h Encounters Code Encounter Date Provider Facility CPT-71108 Ofc Vst, Est Level IV 17:28:21 CDT Guera Bailey DO, FACP CPT-82586 Ofc Vst, Est Level IV 19:09:30 CDT Guera Bailey DO, FACP CPT-35306 Ofc Vst, Est Level IV 13:21:14 CDT Guera Bailey DO, FACP CPT-16059 Ofc Vst, Est Level III 12:25:14 CDT Guera Bailey DO, FACP CPT-32052 Ofc Vst, Est Level IV 15:40:26 CDT [facility] CPT-44540 Ofc Vst, Est Level IV 14:50:06 CDT Guera Annel Bailey [facility] CPT-89849 Ofc Vst, Est Level III 20:18:26 HONEY PROCESSOR Guera Alston Lynn, DO, FACP CPT-54453 Ofc Vst, Est Level IV 16:11:03 CDT Guera Annel Alston Lynn, DO, FACP CPT-81168 Ofc Vst, Est Level V 15:32:25 CDT Guera Annel Bailey [facility] CPT-69682 Ofc Vst, Est Level IV 15:58:30 CDT Guera Annel Bailey [facility] CPT-69280 Ofc Vst, Est Level IV 15:24:03 HONEY PROCESSOR Guera Annel Alston Lynn, DO, FACP CPT-86942 Ofc Vst, Est Level IV 09:59:50 CDT Guera Annel Alston Lynn, DO, FACP CPT-46634 Ofc Vst, Est Level IV 09:51:49 CDT Guera Annel Alston Lynn, DO, FACP CPT-60447 Ofc Vst, Est Level IV 15:30:55 HONEY PROCESSOR Guera Annel Bailey [facility] CPT-43677 Ofc Vst, Est Level IV 09:25:23 HONEY PROCESSOR Guera Annel Alston Lynn, DO, FACP CPT-30962 Ofc Vst, Est Level III 15:30:51 CDT Guera Annel Baliey [facility] CPT-33772 Ofc Vst, Est Level IV 16:23:38 CDT Guera Annel Alston Lynn, DO, FACP CPT-41083 Ofc Vst, Est Level IV 10:25:49 HONEY PROCESSOR Guera Annel Alston Lynn, DO, FACP CPT-04383 Ofc Vst, Est Level IV 21:06:00 CDT Guerajeanette Up Lynn Guera Alecia Lynn, DO, FACP CPT-90807 Ofc Vst, Est Level IV 10:23:12 CDT Guera Annel Lynn Bailey, DO, FACP CPT-20440 Ofc Vst, Est Level V 12:13:16 CDT Guera Annel Gonzalezvianey Lynne Alecia Lynn, DO, FACP CPT-13083 Ofc Vst, Est Level V 13:52:06 CDT Guera Annel Lynn Bailey, DO, FACP CPT-04838 Ofc Vst, Est Level IV 16:51:10 HONEY PROCESSOR Guera Up Lynn Bailey, DO, FACP CPT-91435 Ofc Vst, Est Level III 12:22:44 HONEY PROCESSOR Guerajeanette Up Lynn Bailey, DO, FACP CPT-84026 Ofc Vst, Est Level III 16:45:37 CDT Guera Annel Lynn Bailey, DO, FACP CPT-97049 Ofc Vst, Est Level IV 09:43:02 CDT Guerajeanette Up Lynn Bailey, DO, FACP CPT-28049 Ofc Vst, Est Level IV 09:31:45 CDT Guera Bailey [facility] CPT-20142 Ofc Vst, Est Level IV 10:42:21 HONEY PROCESSOR Guera Bailey [facility] CPT-13540 Ofc Vst, Est Level V 10:05:08 CDT Guera Bailey [facility] [place] CPT-66934 Ofc Vst, Est Level IV 14:03:45 HONEY PROCESSOR Guera Bailey [facility] [place] CPT-87461 Ofc Vst, Est Level III 13:53:55 CDT Guera Annel Bailey [facility] CPT-81634 Ofc Vst, Est Level IV 09:05:54 CDT Guera Annel Gonzalezner [facility] [place] CPT-76099 Ofc Vst, Est Level IV 17:57:08 CDT Guera Annel Bailey [facility] [place] CPT-74128 Ofc Vst, Est Level III 18:23:27 HONEY PROCESSOR [facility] Annel Gonzalezner [facility] [place] CPT-17850 Ofc Vst, New Level III 17:24:59 CDT [facility] Annel Bailey [facility] [place] Procedures Code Procedure Name Date Entry Date Standard Description CPT-07258 Preventive, Est, (40-64) 16:38:00 HONEY PROCESSOR CPT-49690 Preventive, Est, (40-64) 19:55:54 HONEY PROCESSOR CPT-26973 Handling of specimen from office to lab 20:59:31 HONEY PROCESSOR CPT-37593 Preventive, Est, (40-64) 20:59:31 HONEY PROCESSOR CPT-58080 Preventive, Est, (40-64) 13:14:46 CDT CPT-11896 Handling of specimen from office to lab 13:14:46 CDT CPT-00332 EKG w/ Interpretation 12:13:16 CDT CPT-50900 Cryopathy Skin 09:43:02 CDT CPT-86524 Handling of specimen from office to lab 14:41:29 CDT CPT-07296 Preventive, Est, (40-64) 14:17:08 CDT CPT-74081 Preventive, Est, (40-64) 14:48:08 CDT CPT-32164 Preventive, Est, (40-64) 17:22:09 CDT
--- OUTSIDE RECORDS SUMMARY | 2017-07-07 09:50 | XMS REPORT | Clinical Summary ---
Author Author User, [facility] Organization [facility] Address Unknown Phone Unavailable Allergies, Adverse Reactions, [...] MG TABS 1/2-1 PO daily ALOSETRON HCL 42866621437 Active Guera Bailey BENTYL 10 MG CAPS 1 PO QID prn DICYCLOMINE HCL 47397128304 Active Guera Bailey LEVSIN 0.125 MG TABS 1-2 po QID prn HYOSCYAMINE SULFATE 19018028028 Active Guera Bailey HYDROCODONE-ACETAMINOPHEN 5-325 MG TABS 1-2 PO Q4-6 hrs prn pain HYDROCODONE-ACETAMINOPHEN 53570294117 Active Vanna Garcia BENTYL 10 MG CAP 1 PO QID prn DICYCLOMINE HCL 90554255078 No Longer Active Guera Bailey CATAFLAM 50 MG TABS 1 PO BID prn headache DICLOFENAC POTASSIUM 46924735544 No Longer Active Guerajeanette Bailey PERCOCET 5-325 MG TAB 1 PO q6hrs prn OXYCODONE- ACETAMINOPHEN 92476174871 No Longer Active Guera Annel Bailey ZOFRAN ODT 8 MG TBDP 1 PO Q6hrs prn nausea ONDANSETRON 92548341626 No Longer Active Guera Annel Bailey BENTYL 10 MG CAP 1 PO QID prn DICYCLOMINE HCL 58016482397 No Longer Active Guera Annel Bailey PREMARIN 0.625 MG/GM CREA 1 gm intravaginally HS 3 times a week for 4 weeks then twice a week ESTROGENS, CONJUGATED VAGINAL 25812900643 Active Guera Bailey PHENERGAN 25 MG TAB 1 PO Q6hrs prn PROMETHAZINE HCL Active Vanna Garcia PROAIR HFA 108 (90 BASE) MCG/ACT AERS 2 puff Q4 hrs prn wheezing ALBUTEROL SULFATE 58535188323 Active Vanna Garcia REGLAN 10 MG TAB 1 PO 30 minutes before meals and at bedtime METOCLOPRAMIDE HCL 85437548433 Active Guera Bailey NEXIUM 40 MG CPDR 1 PO daily ESOMEPRAZOLE MAGNESIUM 00527695836 Active Vanna Garcia XANAX 0.5 MG TABS 1 PO TID prn ALPRAZOLAM 77383667808 Active Vanna Garcia PATANOL 0.1 % SOLN 1-2 gtts in each eye BID OLOPATADINE HCL 51360544195 No Longer Active Guerajeanette Bailey PREDNISONE 20 MG TAB 3 pills at once for 2 days then 2 pills daily for 2 days PREDNISONE 82628576526 No Longer Active Guera Bailey CYMBALTA 60 MG CPEP 1 PO daily DULOXETINE HCL 47037779363 Active Vanna Garcia ZOLOFT 25 MG TABS 1 po daily SERTRALINE HCL 22377753787 No Longer Active Guera Annel Bailey ZOLOFT 100 MG TABS 1 po daily SERTRALINE HCL 19367678983 No Longer Active Guera Annel Bailey REGLAN 10 MG TABS 1 po BID METOCLOPRAMIDE HCL 48878527183 No Longer Active Guera Annel Bailey MIDRIN 325-65-100 MG CAPS 1-2 PO Q4-6hrs prn APAP- ISOMETHEPTENE-DICHLORAL No Longer Active Guera Annel Bailey FLEXERIL 10 MG TABS 1 po HS prn CYCLOBENZAPRINE HCL 24055741293 No Longer Active Guera Annel Bailey SYMBICORT 160-4.5 MCG/ACT AERO 2 puffs BID BUDESONIDE- FORMOTEROL FUMARATE 41659488128 Active Vanna Garcia CIPRO 500 MG TABS 1 PO BID for 7 days CIPROFLOXACIN HCL 19112874853 No Longer Active Guera Annel Bailey PYRIDIUM 200 MG TABS 1 PO TID x 3 days PHENAZOPYRIDINE HCL 75606415123 No Longer Active Johana Fernandez AMPICILLIN 500 MG CAPS 1 PO BID x 7 days AMPICILLIN 20292343636 No Longer Active Johana Fernandez NORVASC 5 MG TAB 1 PO QD AMLODIPINE BESYLATE 52841600384 Active Vanna Garcia IMODIUM A-D 2 MG TABS 1 po daily LOPERAMIDE HCL 30391171149 Active Guera Annel Bailey QUESTRAN POWD 1 scoop in 4 oz of fluid BID scheduled CHOLESTYRAMINE POWD 74522811999 No Longer Active Guera Annel Bailey DYAZIDE 37.5-25 MG CAP 1 PO daily TRIAMTERENE-HCTZ 96471006883 Active Vanna Garcia ZANTAC 150 MG TABS 2 PO QD prn RANITIDINE HCL 42333797469 No Longer Active Guera Annel Bailey ZANTAC 300 MG TABS 1 PO QHS RANITIDINE HCL 85266977030 Active Vanna Garcia SINGULAIR 10 MG TABS 1 PO QHS MONTELUKAST SODIUM 56581538240 Active Vanna Garcia LORTAB 5 5-500 MG TABS 1-2 PO Q6hrs prn pain HYDROCODONE-ACETAMINOPHEN 68367067745 No Longer Active Guera Annel Bailey VALTREX 1 GM TABS 1 PO BID VALACYCLOVIR HCL 43863460893 No Longer Active Guera Annel Bailey ZOCOR 10 MG TABS 1 po daily SIMVASTATIN 81781921389 Active Vanna Garcia PROTONIX 40 MG TBEC 1 PO daily PANTOPRAZOLE SODIUM 06376946115 No Longer Active Guera Annel Bailey PREMPRO 0.3-1.5 MG TABS 1 po daily prn CONJ ESTROG- MEDROXYPROGEST PEARL 47499737052 No Longer Active Guera Annel Bailey ASPIRIN 81 MG CHEW 1 PO daily ASPIRIN 77376688028 Active Guera Annel Bailey BENAZEPRIL HCL 10 MG TABS 1 PO daily BENAZEPRIL HCL 66104500200 Active Vanna Garcia SULAR 20 MG TB24 1 po daily NISOLDIPINE 21035861790 No Longer Active Guera Annel Bailey NEXIUM 40 MG CPDR 1 PO QD ESOMEPRAZOLE MAGNESIUM 31058652702 No Longer Active Guera Annel Bailey NORVASC 5 MG TABS 1 po qd AMLODIPINE BESYLATE 73682473479 No Longer Active Guera Annel Bailey ALBUTEROL 90 MCG/ACT AERS 2 puffs q 4-6h prn ALBUTEROL 17718063793 No Longer Active Guera Annel Bailey ADVAIR DISKUS 100-50 MCG/DOSE MISC 1 puff bid FLUTICASONE-SALMETEROL 45643603037 No Longer Active Guera Annel Bailey PREDNISONE 20 MG TABS 2 po qd PREDNISONE 35878288264 No Longer Active Guera Annel Bailey BIAXIN XL 500 MG TB24 2 po qd CLARITHROMYCIN 08326453998 No Longer Active Guera Annel Bailey ZANTAC 75 75 MG TABS take 2 tabs po hs RANITIDINE HCL 13631314126 No Longer Active Guera Annel Bailey ROBINUL-FORTE 2 MG TABS 1 tab at hs GLYCOPYRROLATE 85287927964 No Longer Active Guera Annel Bailey PEPCID 20 MG TAB 1 BID FAMOTIDINE 39689285074 No Longer Active Guera Annel Bailey REGLAN 10 MG TABS 1-2 tabs po daily METOCLOPRAMIDE HCL 09597220921 No Longer Active Guera Annel Bailey NEXIUM 40 MG CPDR 1 po daily ESOMEPRAZOLE MAGNESIUM 96459294493 No Longer Active Guera Annel Bailey BEXTRA 10 MG TABS 1 po daily VALDECOXIB 50771882265 No Longer Active Guera Annel Bailey ZYRTEC 10 MG TABS 1 po daily CETIRIZINE HCL Active Guera Annel Bailey Immunizations Vaccine Administration Date Value Standard Description Influenza vaccine given done influenza virus vaccine, unspecified formulation Vital Signs Date Name Value Unit Range Description blood pressure, diastolic - 8462-4 79 mm[Hg] BP quigley blood pressure, systolic - 8480-6 117 mm[Hg] BP sys pulse rate E&M - 8867-4 90 /min Heart rate respiratory rate E&M - 9279-1 14 /min Resp rate temperature E&M 98.9 [degF] Body temperature weight E&M - 3141-9 80546 [lb_av] Weight Measured blood pressure, diastolic - 8462-4 75 mm[Hg] [...] sedimentation rate 6 mm/h Clinical Lists Update: CMP,CHOL,TRIG,HGA1C - Chemistry alkaline phosphatase, serum 83 U/L aspartate aminotransferase (SGOT), serum 15 U/L Estimated Glomerular Filtration Rate (calc) >60 mL/min/1.73m2 glucose, plasma fasting 105 mg/dL carbon dioxide, venous blood 29 mmol/L anion gap, serum 8 sodium, serum 139 mmol/L albumin, serum 4.0 g/dL triglyceride, serum, fasting 97 mg/dL cholesterol, serum 184 mg/dL bilirubin, serum, total 0.5 mg/dL alanine aminotransferase (SGPT), serum 19 U/L creatinine, serum 0.75 mg/dL urea nitrogen, blood 10 mg/dL hemoglobin A1C, blood, as % of total hemoglobin 6.2 % calcium, serum 9.1 mg/dL potassium, serum 3.5 mmol/L protein, total, serum 6.6 g/dL chloride, serum 102 mmol/L Clinical Lists Update: CMP,FLP,ESR,HgA1c - Chemistry aspartate aminotransferase (SGOT), serum 17 U/L protein, total, serum 6.9 g/dL chloride, serum 100 mmol/L alanine aminotransferase (SGPT), serum 23 U/L carbon dioxide, venous blood 28 mmol/L Estimated Glomerular Filtration Rate (calc) >60 mL/min/1.73m2 triglyceride, serum, fasting 112 mg/dL creatinine, serum 0.73 mg/dL cholesterol, serum 176 mg/dL HDL cholesterol, serum 55 mg/dL very low density lipoproteins 22 mg/dL urea nitrogen, blood 9 mg/dL hemoglobin A1C, blood, as % of total hemoglobin 5.7 % glucose, plasma fasting 92 mg/dL albumin, serum 4.1 g/dL LDL cholesterol, serum 105 mg/dL bilirubin, serum, total 0.4 mg/dL calcium, serum 9.3 mg/dL potassium, serum 3.4 mmol/L alkaline phosphatase, serum 66 U/L sodium, serum 138 mmol/L Clinical Lists Update: CMP,FLP,ESR,HgA1c - Hematology erythrocyte sedimentation rate 5 mm/h Encounters Code Encounter Date Provider Facility CPT-61915 Ofc Vst, Est Level IV 17:27:40 CDT Guera Bailey DO, FACP CPT-91288 Ofc Vst, Est Level IV 17:28:21 CDT Guera Bailey DO, FACP CPT-27670 Ofc Vst, Est Level IV 19:09:30 CDT Guera Bailey DO, FACP CPT-63866 Ofc Vst, Est Level IV 13:21:14 CDT Guera Bailey DO, FACP CPT-70368 Ofc Vst, Est Level III 12:25:14 CDT Guera Bailey DO, FACP CPT-05903 Ofc Vst, Est Level IV 15:40:26 CDT Guera [facility] CPT-55395 Ofc Vst, Est Level IV 14:50:06 CDT Guera [facility] CPT-88829 Ofc Vst, Est Level III 20:18:26 [facility] Guera Alston Lynn, DO, FACP CPT-94759 Ofc Vst, Est Level IV 16:11:03 CDT Guera Annel Alston Lynn, DO, FACP CPT-30169 Ofc Vst, Est Level V 15:32:25 CDT Guera Annel Bailey [facility] CPT-33211 Ofc Vst, Est Level IV 15:58:30 CDT Guera Annel Bailey [facility] CPT-07038 Ofc Vst, Est Level IV 15:24:03 [facility] Guera Alston Lynn, DO, FACP CPT-51499 Ofc Vst, Est Level IV 09:59:50 CDT Guera Annel Alston Lynn, DO, FACP CPT-21490 Ofc Vst, Est Level IV 09:51:49 CDT Guera Annel Alston Lynn, DO, FACP CPT-29918 Ofc Vst, Est Level IV 15:30:55 [facility] Guera Bailey [facility] CPT-37402 Ofc Vst, Est Level IV 09:25:23 [facility] Guera Alston Lynn, DO, FACP CPT-84625 Ofc Vst, Est Level III 15:30:51 CDT Guera Annel Bailey [facility] CPT-76955 Ofc Vst, Est Level IV 16:23:38 CDT Guerajeanette Alston Lynn, DO, FACP CPT-81875 Ofc Vst, Est Level IV 10:25:49 [facility] Guera Annel Alston Lynn, DO, FACP CPT-04130 Ofc Vst, Est Level IV 21:06:00 CDT Guera Annel Alston Lynn, DO, FACP CPT-28544 Ofc Vst, Est Level IV 10:23:12 CDT Guerajeanette Up Lynn Bailey, DO, FACP CPT-12151 Ofc Vst, Est Level V 12:13:16 CDT Guera Up Lynn Bailey, DO, FACP CPT-85227 Ofc Vst, Est Level V 13:52:06 CDT Guera Anenl Bailey Guerajeanette Bailey, DO, FACP CPT-46160 Ofc Vst, Est Level IV 16:51:10 [facility] Guera Annel Lynn Bailey, DO, FACP CPT-20729 Ofc Vst, Est Level III 12:22:44 [facility] Guera Annel Lynn Bailey, DO, FACP CPT-33888 Ofc Vst, Est Level III 16:45:37 CDT Guera Annel Lynn Bailey, DO, FACP CPT-25789 Ofc Vst, Est Level IV 09:43:02 CDT Guera Annel Lynn Bailey, DO, FACP CPT-32703 Ofc Vst, Est Level IV 09:31:45 CDT Guera Bailey [facility] CPT-29896 Ofc Vst, Est Level IV 10:42:21 [facility] Guera Bailey [facility] CPT-94982 Ofc Vst, Est Level V 10:05:08 CDT Guerajeanette Bailey [facility] CPT-51395 Ofc Vst, Est Level IV 14:03:45 [facility] Guera Bailey [facility] CPT-72990 Ofc Vst, Est Level III 13:53:55 CDT Guera Bailey [facility] CPT-74032 Ofc Vst, Est Level IV 09:05:54 CDT Guera Bailey [facility] CPT-62174 Ofc Vst, Est Level IV 17:57:08 CDT [facility] Annel Bailey [facility] CPT-55249 Ofc Vst, Est Level III 18:23:27 [facility] Annel Gonzalezner [facility] CPT-92161 Ofc Vst, New Level III 17:24:59 CDT [facility] Annel Gonzalezner [facility] Procedures Code Procedure Name Date Entry Date Standard Description CPT-17395 Preventive, Est, (40-64) 16:38:00 [facility] CPT-27634 Preventive, Est, (40-64) 19:55:54 [facility] CPT-97008 Handling of specimen from office to lab 20:59:31 [facility] CPT-14142 Preventive, Est, (40-64) 20:59:31 [facility] CPT-82608 Preventive, Est, (40-64) 13:14:46 CDT CPT-74923 Handling of specimen from office to lab 13:14:46 CDT CPT-43822 EKG w/ Interpretation 12:13:16 CDT CPT-38875 Cryopathy Skin 09:43:02 CDT CPT-38176 Handling of specimen from office to lab 14:41:29 CDT CPT-27060 Preventive, Est, (40-64) 14:17:08 CDT CPT-94865 Preventive, Est, (40-64) 14:48:08 CDT CPT-95177 Preventive, Est, (40-64) 17:22:09 CDT
--- OUTSIDE RECORDS SUMMARY | 2017-07-07 09:50 | XMS REPORT | Clinical Summary ---
Author Author User, [employer] Organization [facility] [place] Address Unknown Phone Unavailable Allergies, Adverse Reactions, [...] MG TABS 1/2-1 PO daily ALOSETRON HCL 51795892996 Active Guera Bailey BENTYL 10 MG CAPS 1 PO QID prn DICYCLOMINE HCL 38574284753 Active Guera Bailey LEVSIN 0.125 MG TABS 1-2 po QID prn HYOSCYAMINE SULFATE 33013971290 Active Guera Bailey HYDROCODONE-ACETAMINOPHEN 5-325 MG TABS 1-2 PO Q4-6 hrs prn pain HYDROCODONE-ACETAMINOPHEN 73624037451 Active Vanna Garcia BENTYL 10 MG CAP 1 PO QID prn DICYCLOMINE HCL 68137897306 No Longer Active Guera Bailey CATAFLAM 50 MG TABS 1 PO BID prn headache DICLOFENAC POTASSIUM 30883107480 No Longer Active Guerajeanette Bailey PERCOCET 5-325 MG TAB 1 PO q6hrs prn OXYCODONE- ACETAMINOPHEN 59731760925 No Longer Active Guera Annel Bailey ZOFRAN ODT 8 MG TBDP 1 PO Q6hrs prn nausea ONDANSETRON 38631823629 No Longer Active Guera Annel Bailey BENTYL 10 MG CAP 1 PO QID prn DICYCLOMINE HCL 84585298080 No Longer Active Guera Annel Bailey PREMARIN 0.625 MG/GM CREA 1 gm intravaginally HS 3 times a week for 4 weeks then twice a week ESTROGENS, CONJUGATED VAGINAL 76466688122 Active Guerajeanette Bailey PHENERGAN 25 MG TAB 1 PO Q6hrs prn PROMETHAZINE HCL Active Vanna Garcia PROAIR HFA 108 (90 BASE) MCG/ACT AERS 2 puff Q4 hrs prn wheezing ALBUTEROL SULFATE 93526754652 Active Vanna Garcia REGLAN 10 MG TAB 1 PO 30 minutes before meals and at bedtime METOCLOPRAMIDE HCL 83518816041 Active Guera Bailey NEXIUM 40 MG CPDR 1 PO daily ESOMEPRAZOLE MAGNESIUM 88510222316 Active Vanna Garcia XANAX 0.5 MG TABS 1 PO TID prn ALPRAZOLAM 65775434392 Active Vanna Garcia PATANOL 0.1 % SOLN 1-2 gtts in each eye BID OLOPATADINE HCL 92837848382 No Longer Active Guerajeanette Bailey PREDNISONE 20 MG TAB 3 pills at once for 2 days then 2 pills daily for 2 days PREDNISONE 55462885247 No Longer Active Guera Bailey CYMBALTA 60 MG CPEP 1 PO daily DULOXETINE HCL 59695378552 Active Vanna Garcia ZOLOFT 25 MG TABS 1 po daily SERTRALINE HCL 13853449463 No Longer Active Guera Annel Bailey ZOLOFT 100 MG TABS 1 po daily SERTRALINE HCL 31729142631 No Longer Active Guera Annel Bailey REGLAN 10 MG TABS 1 po BID METOCLOPRAMIDE HCL 85677835165 No Longer Active Guera Annel Bailey MIDRIN 325-65-100 MG CAPS 1-2 PO Q4-6hrs prn APAP- ISOMETHEPTENE-DICHLORAL No Longer Active Guera Annel Bailey FLEXERIL 10 MG TABS 1 po HS prn CYCLOBENZAPRINE HCL 01430715806 No Longer Active Guera Annel Bailey SYMBICORT 160-4.5 MCG/ACT AERO 2 puffs BID BUDESONIDE- FORMOTEROL FUMARATE 84585843318 Active Vanna Garcia CIPRO 500 MG TABS 1 PO BID for 7 days CIPROFLOXACIN HCL 15247194310 No Longer Active Guera Annel Bailey PYRIDIUM 200 MG TABS 1 PO TID x 3 days PHENAZOPYRIDINE HCL 90206241274 No Longer Active Johnaa Fernandez AMPICILLIN 500 MG CAPS 1 PO BID x 7 days AMPICILLIN 72917523882 No Longer Active Johana Fernandez NORVASC 5 MG TAB 1 PO QD AMLODIPINE BESYLATE 97646514659 Active Vanna Garcia IMODIUM A-D 2 MG TABS 1 po daily LOPERAMIDE HCL 00124580710 Active Guera Annel Bailey QUESTRAN POWD 1 scoop in 4 oz of fluid BID scheduled CHOLESTYRAMINE POWD 85179218731 No Longer Active Guera Annel Bailey DYAZIDE 37.5-25 MG CAP 1 PO daily TRIAMTERENE-HCTZ 42619225307 Active Vanna Garcia ZANTAC 150 MG TABS 2 PO QD prn RANITIDINE HCL 82568216791 No Longer Active Guera Annel Bailey ZANTAC 300 MG TABS 1 PO QHS RANITIDINE HCL 91510325902 Active Vanna Garcia SINGULAIR 10 MG TABS 1 PO QHS MONTELUKAST SODIUM 14845037050 Active Vanna Garcia LORTAB 5 5-500 MG TABS 1-2 PO Q6hrs prn pain HYDROCODONE-ACETAMINOPHEN 06573163754 No Longer Active Guera Annel Bailey VALTREX 1 GM TABS 1 PO BID VALACYCLOVIR HCL 93248892836 No Longer Active Guera Annel Bailey ZOCOR 10 MG TABS 1 po daily SIMVASTATIN 80602285100 Active Vanna Langleytis PROTONIX 40 MG TBEC 1 PO daily PANTOPRAZOLE SODIUM 10830240708 No Longer Active Guera Annel Bailey PREMPRO 0.3-1.5 MG TABS 1 po daily prn CONJ ESTROG- MEDROXYPROGEST PEARL 73255028053 No Longer Active Guera Annel Bailey ASPIRIN 81 MG CHEW 1 PO daily ASPIRIN 87504926481 Active Guera Annel Bailey BENAZEPRIL HCL 10 MG TABS 1 PO daily BENAZEPRIL HCL 11934306633 Active Vanna Jose SULAR 20 MG TB24 1 po daily NISOLDIPINE 00508423026 No Longer Active Guerajeanette Bailey NEXIUM 40 MG CPDR 1 PO QD ESOMEPRAZOLE MAGNESIUM 19740482444 No Longer Active Guera Annel Bailey NORVASC 5 MG TABS 1 po qd AMLODIPINE BESYLATE 00333182606 No Longer Active Guera Annel Bailey ALBUTEROL 90 MCG/ACT AERS 2 puffs q 4-6h prn ALBUTEROL 15113695360 No Longer Active Guera Annel Bailey ADVAIR DISKUS 100-50 MCG/DOSE MISC 1 puff bid FLUTICASONE-SALMETEROL 31936878429 No Longer Active Guera Annel Bailey PREDNISONE 20 MG TABS 2 po qd PREDNISONE 78675900978 No Longer Active Guera Annel Bailey BIAXIN XL 500 MG TB24 2 po qd CLARITHROMYCIN 63804993313 No Longer Active Guera Annel Bailey ZANTAC 75 75 MG TABS take 2 tabs po hs RANITIDINE HCL 50900057295 No Longer Active Guera Annel Bailey ROBINUL-FORTE 2 MG TABS 1 tab at hs GLYCOPYRROLATE 81135737235 No Longer Active Guera Annel Bailey PEPCID 20 MG TAB 1 BID FAMOTIDINE 88658705473 No Longer Active Guera Annel Gonzalezner REGLAN 10 MG TABS 1-2 tabs po daily METOCLOPRAMIDE HCL 95131981541 No Longer Active Guera Annel Bailey NEXIUM 40 MG CPDR 1 po daily ESOMEPRAZOLE MAGNESIUM 00662456328 No Longer Active Guera Annel Bailey BEXTRA 10 MG TABS 1 po daily VALDECOXIB 47439309084 No Longer Active Guera Annel Bailey ZYRTEC 10 MG TABS 1 po daily CETIRIZINE HCL Active Guera Annel Lynn Immunizations Vaccine Administration Date Value Standard Description [...] mm/h Encounters Code Encounter Date Provider Facility CPT-68039 Ofc Vst, Est Level IV 17:28:21 CDT Guera Bailey DO, FACP CPT-02387 Ofc Vst, Est Level IV 19:09:30 CDT Guera Bailey DO, FACP CPT-46322 Ofc Vst, Est Level IV 13:21:14 CDT Guera Bailey DO, FACP CPT-43195 Ofc Vst, Est Level III 12:25:14 CDT Guera Bailey DO, FACP CPT-94091 Ofc Vst, Est Level IV 15:40:26 CDT Guerajeanette Bailey [facility] CPT-32279 Ofc Vst, Est Level IV 14:50:06 CDT Guera Annel Bailey [facility] CPT-23282 Ofc Vst, Est Level III 20:18:26 [employer] Guera Alston Bailey, DO, FACP CPT-73089 Ofc Vst, Est Level IV 16:11:03 CDT Guera Annel Alston Lynn, DO, FACP CPT-75905 Ofc Vst, Est Level V 15:32:25 CDT Guera Annel Bailey [facility] CPT-23692 Ofc Vst, Est Level IV 15:58:30 CDT Guera Annel Bailey [facility] CPT-04233 Ofc Vst, Est Level IV 15:24:03 [employer] Guera Annel Alston Lynn, DO, FACP CPT-52119 Ofc Vst, Est Level IV 09:59:50 CDT Guerajeanette Alston Lynn, DO, FACP CPT-75818 Ofc Vst, Est Level IV 09:51:49 CDT Guerajeanette Alston Lynn, DO, FACP CPT-63183 Ofc Vst, Est Level IV 15:30:55 [employer] Guera Bailey [facility] CPT-30680 Ofc Vst, Est Level IV 09:25:23 [employer] Guera Annel Alston Lynn, DO, FACP CPT-86313 Ofc Vst, Est Level III 15:30:51 CDT Guerajeanette Bailey [facility] CPT-62232 Ofc Vst, Est Level IV 16:23:38 CDT Guera Annel Alston Lynn, DO, FACP CPT-05357 Ofc Vst, Est Level IV 10:25:49 [employer] Guera Annel Alston Lynn, DO, FACP CPT-01949 Ofc Vst, Est Level IV 21:06:00 CDT Guera Annel Gonzalezner Guera Alston Lynn, DO, FACP CPT-53243 Ofc Vst, Est Level IV 10:23:12 CDT Guera Annel Gonzalezner Guera Alston Lynn, DO, FACP CPT-86794 Ofc Vst, Est Level V 12:13:16 CDT Guera Annel Alston Lynn, DO, FACP CPT-98661 Ofc Vst, Est Level V 13:52:06 CDT Guera Annel Lynn Guerajeanette Bailey, DO, FACP CPT-07549 Ofc Vst, Est Level IV 16:51:10 [employer] Guera Up Lynn Lynne Alecia Lynn, DO, FACP CPT-28623 Ofc Vst, Est Level III 12:22:44 [employer] Guerajeanette Up Bailey Guera Alston Lynn, DO, FACP CPT-48471 Ofc Vst, Est Level III 16:45:37 CDT Guera Annel Bailey Guera Alecia Lynn, DO, FACP CPT-22489 Ofc Vst, Est Level IV 09:43:02 CDT Guerajeanette Up Lynn Bailey, DO, FACP CPT-84010 Ofc Vst, Est Level IV 09:31:45 CDT Guerajeanette Bailey [facility] [place] CPT-76858 Ofc Vst, Est Level IV 10:42:21 [employer] Guera Bailey [facility] [place] CPT-50715 Ofc Vst, Est Level V 10:05:[address] [facility] [place] CPT-81756 Ofc Vst, Est Level IV 14:03:45 [employer] Guera Bailey [facility] [place] CPT-09303 Ofc Vst, Est Level III 13:53:55 CDT Guera Annel Bailey [facility] [place] CPT-69326 Ofc Vst, Est Level IV 09:05:54 CDT Guera Gonzalezner [facility] [place] CPT-71683 Ofc Vst, Est Level IV 17:57:08 CDT Guera Bailey [facility] [place] CPT-80246 Ofc Vst, Est Level III 18:23:27 [employer] [facility] Annel Bailey [facility] [place] CPT-80180 Ofc Vst, New Level III 17:24:59 CDT [facility] Annel Bailey [facility] [place] Procedures Code Procedure Name Date Entry Date Standard Description CPT-25725 Preventive, Est, (40-64) 16:38:00 [employer] CPT-01013 Preventive, Est, (40-64) 19:55:54 [employer] CPT-04535 Handling of specimen from office to lab 20:59:31 [employer] CPT-42806 Preventive, Est, (40-64) 20:59:31 [employer] CPT-21747 Preventive, Est, (40-64) 13:14:46 CDT CPT-32701 Handling of specimen from office to lab 13:14:46 CDT CPT-45821 EKG w/ Interpretation 12:13:16 CDT CPT-49360 Cryopathy Skin 09:43:02 CDT CPT-82842 Handling of specimen from office to lab 14:41:29 CDT CPT-16924 Preventive, Est, (40-64) 14:17:08 CDT CPT-48819 Preventive, Est, (40-64) 14:48:08 CDT CPT-61281 Preventive, Est, (40-64) 17:22:09 CDT
--- OUTSIDE RECORDS SUMMARY | 2017-07-07 09:51 | XMS REPORT | Clinical Summary ---
Author Author User, MAVIS Organization [facility] [place] Address Unknown Phone Unavailable Allergies, Adverse Reactions, [...] of breath SEBORRHEIC KERATOSIS 702.19 Resolved Guera Bialey Other seborrheic keratosis SKIN LESION 709.9 Resolved [...] MG TABS 1/2-1 PO daily ALOSETRON HCL 85129762358 Active Guera Bailey BENTYL 10 MG CAPS 1 PO QID prn DICYCLOMINE HCL 79432484776 Active Guera Bailey LEVSIN 0.125 MG TABS 1-2 po QID prn HYOSCYAMINE SULFATE 89517561083 Active Guera Bailey HYDROCODONE-ACETAMINOPHEN 5-325 MG TABS 1-2 PO Q4-6 hrs prn pain HYDROCODONE-ACETAMINOPHEN 43510707097 Active Vanna Garcia BENTYL 10 MG CAP 1 PO QID prn DICYCLOMINE HCL 89115586137 No Longer Active Guera Bailey CATAFLAM 50 MG TABS 1 PO BID prn headache DICLOFENAC POTASSIUM 88725383123 No Longer Active Guerajeanette Bailey PERCOCET 5-325 MG TAB 1 PO q6hrs prn OXYCODONE- ACETAMINOPHEN 66471308112 No Longer Active Guera Annel Bailey ZOFRAN ODT 8 MG TBDP 1 PO Q6hrs prn nausea ONDANSETRON 50019883093 No Longer Active Guera Annel Bailey BENTYL 10 MG CAP 1 PO QID prn DICYCLOMINE HCL 60952202629 No Longer Active Guera Annel Bailey PREMARIN 0.625 MG/GM CREA 1 gm intravaginally HS 3 times a week for 4 weeks then twice a week ESTROGENS, CONJUGATED VAGINAL 81186462367 Active Guera Bailey PHENERGAN 25 MG TAB 1 PO Q6hrs prn PROMETHAZINE HCL Active Vanna Garcia PROAIR HFA 108 (90 BASE) MCG/ACT AERS 2 puff Q4 hrs prn wheezing ALBUTEROL SULFATE 47467187965 Active Vanna Garcia REGLAN 10 MG TAB 1 PO 30 minutes before meals and at bedtime METOCLOPRAMIDE HCL 92709996846 Active Guera Bailey NEXIUM 40 MG CPDR 1 PO daily ESOMEPRAZOLE MAGNESIUM 09128001932 Active Vanna Garcia XANAX 0.5 MG TABS 1 PO TID prn ALPRAZOLAM 21421568030 Active Vanna Garcia PATANOL 0.1 % SOLN 1-2 gtts in each eye BID OLOPATADINE HCL 00510223873 No Longer Active Guerajeanette Bailey PREDNISONE 20 MG TAB 3 pills at once for 2 days then 2 pills daily for 2 days PREDNISONE 41307264374 No Longer Active Guera Bailey CYMBALTA 60 MG CPEP 1 PO daily DULOXETINE HCL 57131661514 Active Vanna Garcia ZOLOFT 25 MG TABS 1 po daily SERTRALINE HCL 57982271883 No Longer Active Guera Annel Bailey ZOLOFT 100 MG TABS 1 po daily SERTRALINE HCL 32127660105 No Longer Active Guera Annel Bailey REGLAN 10 MG TABS 1 po BID METOCLOPRAMIDE HCL 95134935165 No Longer Active Guera Annel Bailey MIDRIN 325-65-100 MG CAPS 1-2 PO Q4-6hrs prn APAP- ISOMETHEPTENE-DICHLORAL No Longer Active Guera Annel Bailey FLEXERIL 10 MG TABS 1 po HS prn CYCLOBENZAPRINE HCL 61265026759 No Longer Active Guera Annel Bailey SYMBICORT 160-4.5 MCG/ACT AERO 2 puffs BID BUDESONIDE- FORMOTEROL FUMARATE 35715842804 Active Vanna Garcia CIPRO 500 MG TABS 1 PO BID for 7 days CIPROFLOXACIN HCL 22497899080 No Longer Active Guera Annel Bailey PYRIDIUM 200 MG TABS 1 PO TID x 3 days PHENAZOPYRIDINE HCL 99900634092 No Longer Active Johana Fernandez AMPICILLIN 500 MG CAPS 1 PO BID x 7 days AMPICILLIN 23880446448 No Longer Active Johana Fernandez NORVASC 5 MG TAB 1 PO QD AMLODIPINE BESYLATE 62398434494 Active Vanna Garcia IMODIUM A-D 2 MG TABS 1 po daily LOPERAMIDE HCL 65182141911 Active Guera Annel Bailey QUESTRAN POWD 1 scoop in 4 oz of fluid BID scheduled CHOLESTYRAMINE POWD 96732761463 No Longer Active Guera Annel Bailey DYAZIDE 37.5-25 MG CAP 1 PO daily TRIAMTERENE-HCTZ 00846286329 Active Vanna Garcia ZANTAC 150 MG TABS 2 PO QD prn RANITIDINE HCL 49974514603 No Longer Active Guera Annel Bailey ZANTAC 300 MG TABS 1 PO QHS RANITIDINE HCL 90701532645 Active Vanna Garcia SINGULAIR 10 MG TABS 1 PO QHS MONTELUKAST SODIUM 84891471599 Active Vanna Garcia LORTAB 5 5-500 MG TABS 1-2 PO Q6hrs prn pain HYDROCODONE-ACETAMINOPHEN 51293698907 No Longer Active Guera Annel Bailey VALTREX 1 GM TABS 1 PO BID VALACYCLOVIR HCL 36669266315 No Longer Active Guera Annel Bailey ZOCOR 10 MG TABS 1 po daily SIMVASTATIN 08539821874 Active Vanna Garcia PROTONIX 40 MG TBEC 1 PO daily PANTOPRAZOLE SODIUM 55074786747 No Longer Active Guera Annel Bailey PREMPRO 0.3-1.5 MG TABS 1 po daily prn CONJ ESTROG- MEDROXYPROGEST PEARL 44087041601 No Longer Active Guera Annel Bailey ASPIRIN 81 MG CHEW 1 PO daily ASPIRIN 43920089157 Active Guera Annel Bailey BENAZEPRIL HCL 10 MG TABS 1 PO daily BENAZEPRIL HCL 57493478547 Active Vanna Garcia SULAR 20 MG TB24 1 po daily NISOLDIPINE 31289743499 No Longer Active Guera Annel Bailey NEXIUM 40 MG CPDR 1 PO QD ESOMEPRAZOLE MAGNESIUM 39991423435 No Longer Active Guera Annel Bailey NORVASC 5 MG TABS 1 po qd AMLODIPINE BESYLATE 52525282167 No Longer Active Guera Annel Bailey ALBUTEROL 90 MCG/ACT AERS 2 puffs q 4-6h prn ALBUTEROL 07116983154 No Longer Active Guera Annel Bailey ADVAIR DISKUS 100-50 MCG/DOSE MISC 1 puff bid FLUTICASONE-SALMETEROL 97653680358 No Longer Active Guera Annel Bailey PREDNISONE 20 MG TABS 2 po qd PREDNISONE 40530792042 No Longer Active Guera Annel Bailey BIAXIN XL 500 MG TB24 2 po qd CLARITHROMYCIN 25086702285 No Longer Active Guera Annel Bailey ZANTAC 75 75 MG TABS take 2 tabs po hs RANITIDINE HCL 50336112425 No Longer Active Guera Annel Bailey ROBINUL-FORTE 2 MG TABS 1 tab at hs GLYCOPYRROLATE 36470760235 No Longer Active Guera Annel Bailey PEPCID 20 MG TAB 1 BID FAMOTIDINE 72169770405 No Longer Active Guera Annel Bailey REGLAN 10 MG TABS 1-2 tabs po daily METOCLOPRAMIDE HCL 33682548418 No Longer Active Guera Annel Bailey NEXIUM 40 MG CPDR 1 po daily ESOMEPRAZOLE MAGNESIUM 69624660096 No Longer Active Guera Annel Bailey BEXTRA 10 MG TABS 1 po daily VALDECOXIB 03075786817 No Longer Active Guera Annel Bailey ZYRTEC [...] mm/h Encounters Code Encounter Date Provider Facility CPT-80494 Ofc Vst, Est Level IV 17:28:21 CDT Guera Bailey DO, FACP CPT-53580 Ofc Vst, Est Level IV 19:09:30 CDT Guera Bailey DO, FACP CPT-09617 Ofc Vst, Est Level IV 13:21:14 CDT Guera Bailey DO, FACP CPT-65514 Ofc Vst, Est Level III 12:25:14 CDT Guera Bailey DO, FACP CPT-62446 Ofc Vst, Est Level IV 15:40:26 CDT [facility] CPT-08158 Ofc Vst, Est Level IV 14:50:06 CDT Guera Annel Bailey [facility] CPT-97170 Ofc Vst, Est Level III 20:18:26 [employer]CE DISPATCHER Guera Alston Lynn, DO, FACP CPT-27384 Ofc Vst, Est Level IV 16:11:03 CDT Guera Annel Alston Lynn, DO, FACP CPT-54403 Ofc Vst, Est Level V 15:32:25 CDT Guera Annel Bailey [facility] CPT-85035 Ofc Vst, Est Level IV 15:58:30 CDT Guera Annel Bailey [facility] CPT-13716 Ofc Vst, Est Level IV 15:24:03 FORCE DISPATCHER Guera Annel Alston Lynn, DO, FACP CPT-65472 Ofc Vst, Est Level IV 09:59:50 CDT Guera Annel Alston Lynn, DO, FACP CPT-97243 Ofc Vst, Est Level IV 09:51:49 CDT Guera Annel Alston Lynn, DO, FACP CPT-22430 Ofc Vst, Est Level IV 15:30:55 FORCE DISPATCHER Guera Annel Bailey [facility] CPT-98815 Ofc Vst, Est Level IV 09:25:23 FORCE DISPATCHER Guera Annel Alston Lynn, DO, FACP CPT-72834 Ofc Vst, Est Level III 15:30:51 CDT Guera Annel Bailey [facility] CPT-62534 Ofc Vst, Est Level IV 16:23:38 CDT Guera Annel Alston Lynn, DO, FACP CPT-56559 Ofc Vst, Est Level IV 10:25:49 FORCE DISPATCHER Guera Annel Alston Lynn, DO, FACP CPT-51813 Ofc Vst, Est Level IV 21:06:00 CDT Guerajeanette Up Lynn Guera Alecia Lynn, DO, FACP CPT-02138 Ofc Vst, Est Level IV 10:23:12 CDT Guera Annel Lynn Bailey, DO, FACP CPT-74448 Ofc Vst, Est Level V 12:13:16 CDT Guera Annel Gonzalezvianey Lynne Alecia Lynn, DO, FACP CPT-13222 Ofc Vst, Est Level V 13:52:06 CDT Guera Annel Lynn Bailey, DO, FACP CPT-86586 Ofc Vst, Est Level IV 16:51:10 FORCE DISPATCHER Guera Up Lynn Bailey, DO, FACP CPT-95135 Ofc Vst, Est Level III 12:22:44 FORCE DISPATCHER Guerajeanette Up Lynn Bailey, DO, FACP CPT-25297 Ofc Vst, Est Level III 16:45:37 CDT Guera Annel Lynn Bailey, DO, FACP CPT-34790 Ofc Vst, Est Level IV 09:43:02 CDT Guerajeanette Up Lynn Bailey, DO, FACP CPT-58083 Ofc Vst, Est Level IV 09:31:45 CDT Guera Bailey [facility] [place] CPT-64473 Ofc Vst, Est Level IV 10:42:21 FORCE DISPATCHER Guera Bailey [facility] [place] CPT-02334 Ofc Vst, Est Level V 10:05:08 CDT Guera Bailey [facility] [place] CPT-52810 Ofc Vst, Est Level IV 14:03:45 FORCE DISPATCHER Guera Bailey [facility] [place] CPT-39137 Ofc Vst, Est Level III 13:53:55 CDT Guera Annel Bailey [facility] [place] CPT-46808 Ofc Vst, Est Level IV 09:05:54 CDT Guera Annel Gonzalezner [facility] [place] CPT-60128 Ofc Vst, Est Level IV 17:57:08 CDT Guera Annel Bailey [facility] [place] CPT-62091 Ofc Vst, Est Level III 18:23:27 FORCE DISPATCHER [facility] Annel Gonzalezner [facility] [place] CPT-60354 Ofc Vst, New Level III 17:24:59 CDT [facility] Annel Bailey [facility] [place] Procedures Code Procedure Name Date Entry Date Standard Description CPT-55587 Preventive, Est, (40-64) 16:38:00 FORCE DISPATCHER CPT-22834 Preventive, Est, (40-64) 19:55:54 FORCE DISPATCHER CPT-69199 Handling of specimen from office to lab 20:59:31 FORCE DISPATCHER CPT-84309 Preventive, Est, (40-64) 20:59:31 FORCE DISPATCHER CPT-20428 Preventive, Est, (40-64) 13:14:46 CDT CPT-10687 Handling of specimen from office to lab 13:14:46 CDT CPT-37088 EKG w/ Interpretation 12:13:16 CDT CPT-11154 Cryopathy Skin 09:43:02 CDT CPT-11470 Handling of specimen from office to lab 14:41:29 CDT CPT-77136 Preventive, Est, (40-64) 14:17:08 CDT CPT-22650 Preventive, Est, (40-64) 14:48:08 CDT CPT-85941 Preventive, Est, (40-64) 17:22:09 CDT
--- OUTSIDE RECORDS SUMMARY | 2017-07-07 09:52 | XMS REPORT ---
Author Author User, [employer] Organization [facility] [place] Address Unknown Phone Unavailable Allergies, Adverse Reactions, [...] MG TABS 1/2-1 PO daily ALOSETRON HCL 21400995345 Active Guera Bailey BENTYL 10 MG CAPS 1 PO QID prn DICYCLOMINE HCL 89575993953 Active Guera Bailey LEVSIN 0.125 MG TABS 1-2 po QID prn HYOSCYAMINE SULFATE 72367276774 Active Guera Bailey HYDROCODONE-ACETAMINOPHEN 5-325 MG TABS 1-2 PO Q4-6 hrs prn pain HYDROCODONE-ACETAMINOPHEN 55717827466 Active Vanna Garcia BENTYL 10 MG CAP 1 PO QID prn DICYCLOMINE HCL 84640214523 No Longer Active Guera Bailey CATAFLAM 50 MG TABS 1 PO BID prn headache DICLOFENAC POTASSIUM 60579138410 No Longer Active Guerajeanette Bailey PERCOCET 5-325 MG TAB 1 PO q6hrs prn OXYCODONE- ACETAMINOPHEN 51981848162 No Longer Active Guera Annel Bailey ZOFRAN ODT 8 MG TBDP 1 PO Q6hrs prn nausea ONDANSETRON 55945843212 No Longer Active Guera Annel Bailey BENTYL 10 MG CAP 1 PO QID prn DICYCLOMINE HCL 92693470303 No Longer Active Guera Annel Bailey PREMARIN 0.625 MG/GM CREA 1 gm intravaginally HS 3 times a week for 4 weeks then twice a week ESTROGENS, CONJUGATED VAGINAL 67694586148 Active Guerajeanette Bailey PHENERGAN 25 MG TAB 1 PO Q6hrs prn PROMETHAZINE HCL Active Vanna Garcia PROAIR HFA 108 (90 BASE) MCG/ACT AERS 2 puff Q4 hrs prn wheezing ALBUTEROL SULFATE 26341859171 Active Vanna Garcia REGLAN 10 MG TAB 1 PO 30 minutes before meals and at bedtime METOCLOPRAMIDE HCL 27164351187 Active Guera Bailey NEXIUM 40 MG CPDR 1 PO daily ESOMEPRAZOLE MAGNESIUM 90992111162 Active Vanna Garcia XANAX 0.5 MG TABS 1 PO TID prn ALPRAZOLAM 18582042563 Active Vanna Garcia PATANOL 0.1 % SOLN 1-2 gtts in each eye BID OLOPATADINE HCL 39795092424 No Longer Active Guerajeanette Bailey PREDNISONE 20 MG TAB 3 pills at once for 2 days then 2 pills daily for 2 days PREDNISONE 60968198039 No Longer Active Guera Bailey CYMBALTA 60 MG CPEP 1 PO daily DULOXETINE HCL 47789996589 Active Vanna Garcia ZOLOFT 25 MG TABS 1 po daily SERTRALINE HCL 56937626350 No Longer Active Guera Annel Bailey ZOLOFT 100 MG TABS 1 po daily SERTRALINE HCL 08633617433 No Longer Active Guera Annel Bailey REGLAN 10 MG TABS 1 po BID METOCLOPRAMIDE HCL 92887284103 No Longer Active Guera Annel Bailey MIDRIN 325-65-100 MG CAPS 1-2 PO Q4-6hrs prn APAP- ISOMETHEPTENE-DICHLORAL No Longer Active Guera Annel Bailey FLEXERIL 10 MG TABS 1 po HS prn CYCLOBENZAPRINE HCL 11278703305 No Longer Active Guera Annel Bailey SYMBICORT 160-4.5 MCG/ACT AERO 2 puffs BID BUDESONIDE- FORMOTEROL FUMARATE 71589002273 Active Vanna Garcia CIPRO 500 MG TABS 1 PO BID for 7 days CIPROFLOXACIN HCL 20718182953 No Longer Active Guera Annel Bailey PYRIDIUM 200 MG TABS 1 PO TID x 3 days PHENAZOPYRIDINE HCL 59850684644 No Longer Active Johana Fernandez AMPICILLIN 500 MG CAPS 1 PO BID x 7 days AMPICILLIN 92242787239 No Longer Active Johana Fernandez NORVASC 5 MG TAB 1 PO QD AMLODIPINE BESYLATE 24732076270 Active Vanna Garcia IMODIUM A-D 2 MG TABS 1 po daily LOPERAMIDE HCL 65252275990 Active Guera Annel Bailey QUESTRAN POWD 1 scoop in 4 oz of fluid BID scheduled CHOLESTYRAMINE POWD 52364519776 No Longer Active Guera Annel Bailey DYAZIDE 37.5-25 MG CAP 1 PO daily TRIAMTERENE-HCTZ 32382244910 Active Vanna Garcia ZANTAC 150 MG TABS 2 PO QD prn RANITIDINE HCL 32662562142 No Longer Active Guera Annel Bailey ZANTAC 300 MG TABS 1 PO QHS RANITIDINE HCL 00695900991 Active Vanna Garcia SINGULAIR 10 MG TABS 1 PO QHS MONTELUKAST SODIUM 51366091251 Active Vanna Garcia LORTAB 5 5-500 MG TABS 1-2 PO Q6hrs prn pain HYDROCODONE-ACETAMINOPHEN 43353809302 No Longer Active Guera Annel Bailey VALTREX 1 GM TABS 1 PO BID VALACYCLOVIR HCL 76694308531 No Longer Active Guera Annel Bailey ZOCOR 10 MG TABS 1 po daily SIMVASTATIN 70815708609 Active Vanna Langleytis PROTONIX 40 MG TBEC 1 PO daily PANTOPRAZOLE SODIUM 41871684958 No Longer Active Guera Annel Bailey PREMPRO 0.3-1.5 MG TABS 1 po daily prn CONJ ESTROG- MEDROXYPROGEST PEARL 47244276434 No Longer Active Guera Annel Bailey ASPIRIN 81 MG CHEW 1 PO daily ASPIRIN 35670069606 Active Guera Annel Bailey BENAZEPRIL HCL 10 MG TABS 1 PO daily BENAZEPRIL HCL 54764190982 Active Vanna Jose SULAR 20 MG TB24 1 po daily NISOLDIPINE 67718609473 No Longer Active Guerajeanette Bailey NEXIUM 40 MG CPDR 1 PO QD ESOMEPRAZOLE MAGNESIUM 11848652068 No Longer Active Guera Annel Bailey NORVASC 5 MG TABS 1 po qd AMLODIPINE BESYLATE 33968107421 No Longer Active Guera Annel Bailey ALBUTEROL 90 MCG/ACT AERS 2 puffs q 4-6h prn ALBUTEROL 18007134609 No Longer Active Guera Annel Bailey ADVAIR DISKUS 100-50 MCG/DOSE MISC 1 puff bid FLUTICASONE-SALMETEROL 97593942111 No Longer Active Guera Annel Bailey PREDNISONE 20 MG TABS 2 po qd PREDNISONE 66494114923 No Longer Active Guera Annel Bailey BIAXIN XL 500 MG TB24 2 po qd CLARITHROMYCIN 21974288130 No Longer Active Guera Annel Bailey ZANTAC 75 75 MG TABS take 2 tabs po hs RANITIDINE HCL 58220144514 No Longer Active Guera Annel Bailey ROBINUL-FORTE 2 MG TABS 1 tab at hs GLYCOPYRROLATE 19267614975 No Longer Active Guera Annel Bailey PEPCID 20 MG TAB 1 BID FAMOTIDINE 11331877308 No Longer Active Guera Annel Gonzalezner REGLAN 10 MG TABS 1-2 tabs po daily METOCLOPRAMIDE HCL 09428622089 No Longer Active Guera Annel Bailey NEXIUM 40 MG CPDR 1 po daily ESOMEPRAZOLE MAGNESIUM 19068048346 No Longer Active Guera Annel Bailey BEXTRA 10 MG TABS 1 po daily VALDECOXIB 78573179484 No Longer Active Guera Annel Bailey ZYRTEC [...] mm/h Encounters Code Encounter Date Provider Facility CPT-76937 Ofc Vst, Est Level IV 17:28:21 CDT Guera Bailey DO, FACP CPT-23216 Ofc Vst, Est Level IV 19:09:30 CDT Guera Bailey DO, FACP CPT-79674 Ofc Vst, Est Level IV 13:21:14 CDT Guera Bailey DO, FACP CPT-43368 Ofc Vst, Est Level III 12:25:14 CDT Guera Bailey DO, FACP CPT-03232 Ofc Vst, Est Level IV 15:40:26 CDT Guerajeanette Bailey [facility] CPT-71912 Ofc Vst, Est Level IV 14:50:06 CDT Guera Annel Bailey [facility] CPT-05286 Ofc Vst, Est Level III 20:18:26 CHILD & ADOLESCENT PSYCHIATRIST Guera Alston Bailey, DO, FACP CPT-17704 Ofc Vst, Est Level IV 16:11:03 CDT Guera Annel Alston Lynn, DO, FACP CPT-49001 Ofc Vst, Est Level V 15:32:25 CDT Guera Annel Bailey [facility] CPT-42641 Ofc Vst, Est Level IV 15:58:30 CDT Guera Annel Bailey [facility] CPT-36272 Ofc Vst, Est Level IV 15:24:03 CHILD & ADOLESCENT PSYCHIATRIST Guera Annel Alston Lynn, DO, FACP CPT-53037 Ofc Vst, Est Level IV 09:59:50 CDT Guerajeanette Alston Lynn, DO, FACP CPT-30356 Ofc Vst, Est Level IV 09:51:49 CDT Guerajeanette Alston Lynn, DO, FACP CPT-01436 Ofc Vst, Est Level IV 15:30:55 CHILD & ADOLESCENT PSYCHIATRIST Guera Bailey [facility] CPT-72182 Ofc Vst, Est Level IV 09:25:23 CHILD & ADOLESCENT PSYCHIATRIST Guera Annel Alston Lynn, DO, FACP CPT-47191 Ofc Vst, Est Level III 15:30:51 CDT Guerajeanette Bailey [facility] CPT-36175 Ofc Vst, Est Level IV 16:23:38 CDT Guera Annel Alston Lynn, DO, FACP CPT-90972 Ofc Vst, Est Level IV 10:25:49 CHILD & ADOLESCENT PSYCHIATRIST [facility]era Annel Alston Lynn, DO, FACP CPT-57467 Ofc Vst, Est Level IV 21:06:00 CDT Guera Annel Gonzalezner Guera Alston Lynn, DO, FACP CPT-83489 Ofc Vst, Est Level IV 10:23:12 CDT Guera Annel Gonzalezner Guera Alston Lynn, DO, FACP CPT-54844 Ofc Vst, Est Level V 12:13:16 CDT Guera Annel Alston Lynn, DO, FACP CPT-44131 Ofc Vst, Est Level V 13:52:06 CDT Guera Annel Lynn Guerajeanette Bailey, DO, FACP CPT-07071 Ofc Vst, Est Level IV 16:51:10 CHILD & ADOLESCENT PSYCHIATRIST Guera Up [place] Lynne Alecia Lynn, DO, FACP CPT-84583 Ofc Vst, Est Level III 12:22:44 CHILD & ADOLESCENT PSYCHIATRIST Guerajeanette Up Bailey Guera Alston Lynn, DO, FACP CPT-44640 Ofc Vst, Est Level III 16:45:37 CDT Guera Annel Bailey Guera Alecia Lynn, DO, FACP CPT-10935 Ofc Vst, Est Level IV 09:43:02 CDT Guerajeanette Up Lynn Bailey, DO, FACP CPT-90462 Ofc Vst, Est Level IV 09:31:45 CDT Guerajeanette Bailey [facility] [place] CPT-63340 Ofc Vst, Est Level IV 10:42:21 CHILD & ADOLESCENT PSYCHIATRIST Guera Bailey [facility] [place] CPT-42928 Ofc Vst, Est Level V 10:05:08 CDT Guerajeanette Bailey [facility] [place] CPT-25349 Ofc Vst, Est Level IV 14:03:45 CHILD & ADOLESCENT PSYCHIATRIST Guera Bailey [facility] [place] CPT-31898 Ofc Vst, Est Level III 13:53:55 CDT Guera Annel Bailey [facility] [place] CPT-23608 Ofc Vst, Est Level IV 09:05:54 CDT Guera Gonzalezner [facility] [place] CPT-20501 Ofc Vst, Est Level IV 17:57:08 CDT Guera Bailey [facility] [place] CPT-00069 Ofc Vst, Est Level III 18:23:27 CHILD & ADOLESCENT PSYCHIATRIST [facility] Annel Bailey [facility] [place] CPT-16127 Ofc Vst, New Level III 17:24:59 CDT [facility] Annel Bailey [facility] [place] Procedures Code Procedure Name Date Entry Date Standard Description CPT-03264 Preventive, Est, (40-64) 16:38:00 CHILD & ADOLESCENT PSYCHIATRIST CPT-66773 Preventive, Est, (40-64) 19:55:54 CHILD & ADOLESCENT PSYCHIATRIST CPT-82293 Handling of specimen from office to lab 20:59:31 CHILD & ADOLESCENT PSYCHIATRIST CPT-12076 Preventive, Est, (40-64) 20:59:31 CHILD & ADOLESCENT PSYCHIATRIST CPT-71842 Preventive, Est, (40-64) 13:14:46 CDT CPT-35059 Handling of specimen from office to lab 13:14:46 CDT CPT-53808 EKG w/ Interpretation 12:13:16 CDT CPT-65957 Cryopathy Skin 09:43:02 CDT CPT-16564 Handling of specimen from office to lab 14:41:29 CDT CPT-77312 Preventive, Est, (40-64) 14:17:08 CDT CPT-80040 Preventive, Est, (40-64) 14:48:08 CDT CPT-14853 Preventive, Est, (40-64) 17:22:09 CDT
--- OUTSIDE RECORDS SUMMARY | 2017-07-07 09:52 | XMS REPORT | Clinical Summary ---
Author Author User, A's Child Organization [facility] [place] Address Unknown Phone Unavailable Allergies, Adverse Reactions, [...] Resolved Guera Bailey Cough SOB 786.05 Resolved Gurea Bailey Shortness of breath SEBORRHEIC KERATOSIS 702.19 [...] MG TABS 1/2-1 PO daily ALOSETRON HCL 51684857823 Active Guera Bailey BENTYL 10 MG CAPS 1 PO QID prn DICYCLOMINE HCL 18373021469 Active Guera Bailey LEVSIN 0.125 MG TABS 1-2 po QID prn HYOSCYAMINE SULFATE 53219279941 Active Guera Bailey HYDROCODONE-ACETAMINOPHEN 5-325 MG TABS 1-2 PO Q4-6 hrs prn pain HYDROCODONE-ACETAMINOPHEN 34869481500 Active Vanna Garcia BENTYL 10 MG CAP 1 PO QID prn DICYCLOMINE HCL 65401193993 No Longer Active Guera Bailey CATAFLAM 50 MG TABS 1 PO BID prn headache DICLOFENAC POTASSIUM 24806298197 No Longer Active Guerajeanette Bailey PERCOCET 5-325 MG TAB 1 PO q6hrs prn OXYCODONE- ACETAMINOPHEN 81421894721 No Longer Active Guera Annel Bailey ZOFRAN ODT 8 MG TBDP 1 PO Q6hrs prn nausea ONDANSETRON 63538257001 No Longer Active Guera Annel Bailey BENTYL 10 MG CAP 1 PO QID prn DICYCLOMINE HCL 35281013750 No Longer Active Guera Annel Bailey PREMARIN 0.625 MG/GM CREA 1 gm intravaginally HS 3 times a week for 4 weeks then twice a week ESTROGENS, CONJUGATED VAGINAL 05525315121 Active Guerajeanette Bailey PHENERGAN 25 MG TAB 1 PO Q6hrs prn PROMETHAZINE HCL Active Vanna Garcia PROAIR HFA 108 (90 BASE) MCG/ACT AERS 2 puff Q4 hrs prn wheezing ALBUTEROL SULFATE 75566353801 Active Vanna Garcia REGLAN 10 MG TAB 1 PO 30 minutes before meals and at bedtime METOCLOPRAMIDE HCL 30226727642 Active Guera Bailey NEXIUM 40 MG CPDR 1 PO daily ESOMEPRAZOLE MAGNESIUM 46946647771 Active Vanna Garcia XANAX 0.5 MG TABS 1 PO TID prn ALPRAZOLAM 50713696124 Active Vanna Garcia PATANOL 0.1 % SOLN 1-2 gtts in each eye BID OLOPATADINE HCL 87026403158 No Longer Active Guerajeanette Bailey PREDNISONE 20 MG TAB 3 pills at once for 2 days then 2 pills daily for 2 days PREDNISONE 33924300656 No Longer Active Guera Bailey CYMBALTA 60 MG CPEP 1 PO daily DULOXETINE HCL 64773088070 Active Vanna Garcia ZOLOFT 25 MG TABS 1 po daily SERTRALINE HCL 20700829759 No Longer Active Guera Annel Bailey ZOLOFT 100 MG TABS 1 po daily SERTRALINE HCL 50885453310 No Longer Active Guera Annel Bailey REGLAN 10 MG TABS 1 po BID METOCLOPRAMIDE HCL 13502449994 No Longer Active Guera Annel Bailey MIDRIN 325-65-100 MG CAPS 1-2 PO Q4-6hrs prn APAP- ISOMETHEPTENE-DICHLORAL No Longer Active Guera Annel Bailey FLEXERIL 10 MG TABS 1 po HS prn CYCLOBENZAPRINE HCL 64783197050 No Longer Active Guera Annel Bailey SYMBICORT 160-4.5 MCG/ACT AERO 2 puffs BID BUDESONIDE- FORMOTEROL FUMARATE 68243754364 Active Vanna Garcia CIPRO 500 MG TABS 1 PO BID for 7 days CIPROFLOXACIN HCL 01523395872 No Longer Active Guera Annel Bailey PYRIDIUM 200 MG TABS 1 PO TID x 3 days PHENAZOPYRIDINE HCL 42021179840 No Longer Active Johana Fernandez AMPICILLIN 500 MG CAPS 1 PO BID x 7 days AMPICILLIN 41972976021 No Longer Active Johana Fernandez NORVASC 5 MG TAB 1 PO QD AMLODIPINE BESYLATE 36659556819 Active Vanna Garcia IMODIUM A-D 2 MG TABS 1 po daily LOPERAMIDE HCL 11459822648 Active Guera Annel Bailey QUESTRAN POWD 1 scoop in 4 oz of fluid BID scheduled CHOLESTYRAMINE POWD 57536234497 No Longer Active Guera Annel Bailey DYAZIDE 37.5-25 MG CAP 1 PO daily TRIAMTERENE-HCTZ 94387790210 Active Vanna Garcia ZANTAC 150 MG TABS 2 PO QD prn RANITIDINE HCL 26811934973 No Longer Active Guera Annel Bailey ZANTAC 300 MG TABS 1 PO QHS RANITIDINE HCL 76939003629 Active Vanna Garcia SINGULAIR 10 MG TABS 1 PO QHS MONTELUKAST SODIUM 23630847788 Active Vanna Garcia LORTAB 5 5-500 MG TABS 1-2 PO Q6hrs prn pain HYDROCODONE-ACETAMINOPHEN 71318682343 No Longer Active Guera Annel Bailey VALTREX 1 GM TABS 1 PO BID VALACYCLOVIR HCL 86317849888 No Longer Active Guera Annel Bailey ZOCOR 10 MG TABS 1 po daily SIMVASTATIN 14322511665 Active Vanna Langleytis PROTONIX 40 MG TBEC 1 PO daily PANTOPRAZOLE SODIUM 98451182123 No Longer Active Guera Annel Bailey PREMPRO 0.3-1.5 MG TABS 1 po daily prn CONJ ESTROG- MEDROXYPROGEST PEARL 14498568118 No Longer Active Guera Annel Bailey ASPIRIN 81 MG CHEW 1 PO daily ASPIRIN 01380138315 Active Guera Annel Bailey BENAZEPRIL HCL 10 MG TABS 1 PO daily BENAZEPRIL HCL 92124627212 Active Vanna Jose SULAR 20 MG TB24 1 po daily NISOLDIPINE 70096249091 No Longer Active Guerajeanette Bailey NEXIUM 40 MG CPDR 1 PO QD ESOMEPRAZOLE MAGNESIUM 78294702893 No Longer Active Guera Annel Bailey NORVASC 5 MG TABS 1 po qd AMLODIPINE BESYLATE 54419939570 No Longer Active Guera Annel Bailey ALBUTEROL 90 MCG/ACT AERS 2 puffs q 4-6h prn ALBUTEROL 36849770342 No Longer Active Guera Annel Bailey ADVAIR DISKUS 100-50 MCG/DOSE MISC 1 puff bid FLUTICASONE-SALMETEROL 46262177598 No Longer Active Guera Annel Bailey PREDNISONE 20 MG TABS 2 po qd PREDNISONE 65797899736 No Longer Active Guera Annel Bailey BIAXIN XL 500 MG TB24 2 po qd CLARITHROMYCIN 61292324019 No Longer Active Guera Annel Bailey ZANTAC 75 75 MG TABS take 2 tabs po hs RANITIDINE HCL 46583927853 No Longer Active Guera Annel Bailey ROBINUL-FORTE 2 MG TABS 1 tab at hs GLYCOPYRROLATE 13718021414 No Longer Active Guera Annel Bailey PEPCID 20 MG TAB 1 BID FAMOTIDINE 04938582494 No Longer Active Guera Annel Gonzalezner REGLAN 10 MG TABS 1-2 tabs po daily METOCLOPRAMIDE HCL 85970151707 No Longer Active Guera Annel Bailey NEXIUM 40 MG CPDR 1 po daily ESOMEPRAZOLE MAGNESIUM 52218646852 No Longer Active Guera Annel Bailey BEXTRA 10 MG TABS 1 po daily VALDECOXIB 70155845455 No Longer Active Guera Annel Bailey ZYRTEC [...] mm/h Encounters Code Encounter Date Provider Facility CPT-34872 Ofc Vst, Est Level IV 17:28:21 CDT Guera Bailey DO, FACP CPT-49865 Ofc Vst, Est Level IV 19:09:30 CDT Guera Bailey DO, FACP CPT-47682 Ofc Vst, Est Level IV 13:21:14 CDT Guera Bailey DO, FACP CPT-18834 Ofc Vst, Est Level III 12:25:14 CDT Guera Bailey DO, FACP CPT-71320 Ofc Vst, Est Level IV 15:40:26 CDT Guerajeanette Bailey [facility] CPT-83728 Ofc Vst, Est Level IV 14:50:06 CDT Guera Annel Bailey [facility] CPT-40903 Ofc Vst, Est Level III 20:18:26 ECHOCARDIOGRAPH TECHNICIAN Guera Alston Bailey, DO, FACP CPT-66307 Ofc Vst, Est Level IV 16:11:03 CDT Guera Annel [place] Lynn, DO, FACP CPT-88048 Ofc Vst, Est Level V 15:32:25 CDT Guera Annel Bailey [facility] CPT-90899 Ofc Vst, Est Level IV 15:58:30 CDT Guera Annel Bailey [facility] CPT-68851 Ofc Vst, Est Level IV 15:24:03 ECHOCARDIOGRAPH TECHNICIAN Guera Annel [place] Lynn, DO, FACP CPT-95652 Ofc Vst, Est Level IV 09:59:50 CDT Guerajeanette [place]ston Lynn, DO, FACP CPT-77578 Ofc Vst, Est Level IV 09:51:49 CDT Guerajeanette [place]ston Lynn, DO, FACP CPT-59941 Ofc Vst, Est Level IV 15:30:55 ECHOCARDIOGRAPH TECHNICIAN Guera Bailey [facility] CPT-32419 Ofc Vst, Est Level IV 09:25:23 ECHOCARDIOGRAPH TECHNICIAN Guera Annel [place] Lynn, DO, FACP CPT-06509 Ofc Vst, Est Level III 15:30:51 CDT Guerajeanette Bailey [facility] CPT-91042 Ofc Vst, Est Level IV 16:23:38 CDT Guera Annel [place] Lynn, DO, FACP CPT-23349 Ofc Vst, Est Level IV 10:25:49 ECHOCARDIOGRAPH TECHNICIAN Guera Annel [place] Lynn, DO, FACP CPT-44130 Ofc Vst, Est Level IV 21:06:00 CDT Guera Annel Gonzalezner Guera [place] Lynn, DO, FACP CPT-98053 Ofc Vst, Est Level IV 10:23:12 CDT Guera Annel Gonzalezner Guera [place] Lynn, DO, FACP CPT-59349 Ofc Vst, Est Level V 12:13:16 CDT Guera Annel [place] Lynn, DO, FACP CPT-28882 Ofc Vst, Est Level V 13:52:06 CDT Guera Annel Lynn Guerajeanette Bailey, DO, FACP CPT-79187 Ofc Vst, Est Level IV 16:51:10 ECHOCARDIOGRAPH TECHNICIAN Guera Up [place] Lynne Alecia Lynn, DO, FACP CPT-25030 Ofc Vst, Est Level III 12:22:44 ECHOCARDIOGRAPH TECHNICIAN Guerajeanette Up Bailey Guera Alston Lynn, DO, FACP CPT-28479 Ofc Vst, Est Level III 16:45:37 CDT Guera Annel Bailey Guera Alecia Lynn, DO, FACP CPT-73553 Ofc Vst, Est Level IV 09:43:02 CDT Guerajeanette Up Lynn Bailey, DO, FACP CPT-53125 Ofc Vst, Est Level IV 09:31:45 CDT Guerajeanette Bailey [facility] [place] CPT-92018 Ofc Vst, Est Level IV 10:42:21 ECHOCARDIOGRAPH TECHNICIAN Guera Bailey [facility] [place] CPT-42309 Ofc Vst, Est Level V 10:05:08 CDT Guerajeanette Bailey [facility] [place] CPT-70675 Ofc Vst, Est Level IV 14:03:45 ECHOCARDIOGRAPH TECHNICIAN Guera Bailey [facility] [place] CPT-83748 Ofc Vst, Est Level III 13:53:55 CDT Guera Annel Bailey [facility] [place] CPT-08979 Ofc Vst, Est Level IV 09:05:54 CDT Guera Gonzalezner [facility] [place] CPT-44807 Ofc Vst, Est Level IV 17:57:08 CDT Guera Bailey [facility] [place] CPT-45435 Ofc Vst, Est Level III 18:23:27 ECHOCARDIOGRAPH TECHNICIAN [facility] Annel Bailey [facility] [place] CPT-24327 Ofc Vst, New Level III 17:24:59 CDT [facility] Annel Bailey [facility] [place] Procedures Code Procedure Name Date Entry Date Standard Description CPT-68687 Preventive, Est, (40-64) 16:38:00 ECHOCARDIOGRAPH TECHNICIAN CPT-35262 Preventive, Est, (40-64) 19:55:54 ECHOCARDIOGRAPH TECHNICIAN CPT-68489 Handling of specimen from office to lab 20:59:31 ECHOCARDIOGRAPH TECHNICIAN CPT-62509 Preventive, Est, (40-64) 20:59:31 ECHOCARDIOGRAPH TECHNICIAN CPT-15704 Preventive, Est, (40-64) 13:14:46 CDT CPT-88785 Handling of specimen from office to lab 13:14:46 CDT CPT-91565 EKG w/ Interpretation 12:13:16 CDT CPT-20724 Cryopathy Skin 09:43:02 CDT CPT-22762 Handling of specimen from office to lab 14:41:29 CDT CPT-15343 Preventive, Est, (40-64) 14:17:08 CDT CPT-00691 Preventive, Est, (40-64) 14:48:08 CDT CPT-02435 Preventive, Est, (40-64) 17:22:09 CDT
--- OUTSIDE RECORDS SUMMARY | 2017-07-07 09:53 | XMS REPORT | Clinical Summary ---
Author Author User, MAVIS Organization [facility] [place] Address Unknown Phone Unavailable Allergies, Adverse Reactions, [...] MG TABS 1/2-1 PO daily ALOSETRON HCL 84790946645 Active Guera Bailey BENTYL 10 MG CAPS 1 PO QID prn DICYCLOMINE HCL 97836055559 Active Guera Bailey LEVSIN 0.125 MG TABS 1-2 po QID prn HYOSCYAMINE SULFATE 67588433682 Active Guera Bailey HYDROCODONE-ACETAMINOPHEN 5-325 MG TABS 1-2 PO Q4-6 hrs prn pain HYDROCODONE-ACETAMINOPHEN 99727126904 Active Vnana Garcia BENTYL 10 MG CAP 1 PO QID prn DICYCLOMINE HCL 90923333662 No Longer Active Guera Bailey CATAFLAM 50 MG TABS 1 PO BID prn headache DICLOFENAC POTASSIUM 66384039850 No Longer Active Guerajeanette Bailey PERCOCET 5-325 MG TAB 1 PO q6hrs prn OXYCODONE- ACETAMINOPHEN 56480624873 No Longer Active Guera Annel Bailey ZOFRAN ODT 8 MG TBDP 1 PO Q6hrs prn nausea ONDANSETRON 20499120834 No Longer Active Guera Annel Bailey BENTYL 10 MG CAP 1 PO QID prn DICYCLOMINE HCL 54757184048 No Longer Active Guera Annel Bailey PREMARIN 0.625 MG/GM CREA 1 gm intravaginally HS 3 times a week for 4 weeks then twice a week ESTROGENS, CONJUGATED VAGINAL 29476804116 Active Guera Bailey PHENERGAN 25 MG TAB 1 PO Q6hrs prn PROMETHAZINE HCL Active Vanna Garcia PROAIR HFA 108 (90 BASE) MCG/ACT AERS 2 puff Q4 hrs prn wheezing ALBUTEROL SULFATE 90095690165 Active Vanna Garcia REGLAN 10 MG TAB 1 PO 30 minutes before meals and at bedtime METOCLOPRAMIDE HCL 54170537209 Active Guera Bailey NEXIUM 40 MG CPDR 1 PO daily ESOMEPRAZOLE MAGNESIUM 58690886958 Active Vanna Garcia XANAX 0.5 MG TABS 1 PO TID prn ALPRAZOLAM 57705844537 Active Vanna Garcia PATANOL 0.1 % SOLN 1-2 gtts in each eye BID OLOPATADINE HCL 50266557322 No Longer Active Guerajeanette Bailey PREDNISONE 20 MG TAB 3 pills at once for 2 days then 2 pills daily for 2 days PREDNISONE 24986407750 No Longer Active Guera Bailey CYMBALTA 60 MG CPEP 1 PO daily DULOXETINE HCL 59800649350 Active Vanna Garcia ZOLOFT 25 MG TABS 1 po daily SERTRALINE HCL 69454231139 No Longer Active Guera Annel Bailey ZOLOFT 100 MG TABS 1 po daily SERTRALINE HCL 13469358468 No Longer Active Guera Annel Bailey REGLAN 10 MG TABS 1 po BID METOCLOPRAMIDE HCL 03621056052 No Longer Active Guera Annel Bailey MIDRIN 325-65-100 MG CAPS 1-2 PO Q4-6hrs prn APAP- ISOMETHEPTENE-DICHLORAL No Longer Active Guera Annel Bailey FLEXERIL 10 MG TABS 1 po HS prn CYCLOBENZAPRINE HCL 22135660639 No Longer Active Guera Annel Bailey SYMBICORT 160-4.5 MCG/ACT AERO 2 puffs BID BUDESONIDE- FORMOTEROL FUMARATE 46467398571 Active Vanna Garcia CIPRO 500 MG TABS 1 PO BID for 7 days CIPROFLOXACIN HCL 45551975314 No Longer Active Guera Annel Bailey PYRIDIUM 200 MG TABS 1 PO TID x 3 days PHENAZOPYRIDINE HCL 16404626190 No Longer Active Johana Fernandez AMPICILLIN 500 MG CAPS 1 PO BID x 7 days AMPICILLIN 66443969283 No Longer Active Johana Fernandez NORVASC 5 MG TAB 1 PO QD AMLODIPINE BESYLATE 29112875917 Active Vanna Garcia IMODIUM A-D 2 MG TABS 1 po daily LOPERAMIDE HCL 23244128172 Active Guera Annel Bailey QUESTRAN POWD 1 scoop in 4 oz of fluid BID scheduled CHOLESTYRAMINE POWD 19244596975 No Longer Active Guera Annel Bailey DYAZIDE 37.5-25 MG CAP 1 PO daily TRIAMTERENE-HCTZ 68695706286 Active Vanna Garcia ZANTAC 150 MG TABS 2 PO QD prn RANITIDINE HCL 36299241540 No Longer Active Guera Annel Bailey ZANTAC 300 MG TABS 1 PO QHS RANITIDINE HCL 84245280977 Active Vanna Garcia SINGULAIR 10 MG TABS 1 PO QHS MONTELUKAST SODIUM 82637831368 Active Vanna Garcia LORTAB 5 5-500 MG TABS 1-2 PO Q6hrs prn pain HYDROCODONE-ACETAMINOPHEN 34834845701 No Longer Active Guera Annel Bailey VALTREX 1 GM TABS 1 PO BID VALACYCLOVIR HCL 27161150987 No Longer Active Guera Annel Bailey ZOCOR 10 MG TABS 1 po daily SIMVASTATIN 75377501009 Active Vanna Garcia PROTONIX 40 MG TBEC 1 PO daily PANTOPRAZOLE SODIUM 50654099286 No Longer Active Guera Annel Bailey PREMPRO 0.3-1.5 MG TABS 1 po daily prn CONJ ESTROG- MEDROXYPROGEST PEARL 72538319243 No Longer Active Guera Annel Bailey ASPIRIN 81 MG CHEW 1 PO daily ASPIRIN 20534481443 Active Guera Annel Bailey BENAZEPRIL HCL 10 MG TABS 1 PO daily BENAZEPRIL HCL 10654811870 Active Vanna Garcia SULAR 20 MG TB24 1 po daily NISOLDIPINE 96729768988 No Longer Active Guera Annel Bailey NEXIUM 40 MG CPDR 1 PO QD ESOMEPRAZOLE MAGNESIUM 40755493768 No Longer Active Guera Annel Bailey NORVASC 5 MG TABS 1 po qd AMLODIPINE BESYLATE 18421752905 No Longer Active Guera Annel Bailey ALBUTEROL 90 MCG/ACT AERS 2 puffs q 4-6h prn ALBUTEROL 88830262882 No Longer Active Guera Annel Bailey ADVAIR DISKUS 100-50 MCG/DOSE MISC 1 puff bid FLUTICASONE-SALMETEROL 38277770872 No Longer Active Guera Annel Bailey PREDNISONE 20 MG TABS 2 po qd PREDNISONE 25450248410 No Longer Active Guera Annel Bailey BIAXIN XL 500 MG TB24 2 po qd CLARITHROMYCIN 42745736950 No Longer Active Guera Annel Bailey ZANTAC 75 75 MG TABS take 2 tabs po hs RANITIDINE HCL 76980713361 No Longer Active Guera Annel Bailey ROBINUL-FORTE 2 MG TABS 1 tab at hs GLYCOPYRROLATE 53419988653 No Longer Active Guera Annel Bailey PEPCID 20 MG TAB 1 BID FAMOTIDINE 25184694826 No Longer Active Guera Annel Bailey REGLAN 10 MG TABS 1-2 tabs po daily METOCLOPRAMIDE HCL 10174934762 No Longer Active Guera Annel Bailey NEXIUM 40 MG CPDR 1 po daily ESOMEPRAZOLE MAGNESIUM 12312935898 No Longer Active Guera Annel Bailey BEXTRA 10 MG TABS 1 po daily VALDECOXIB 17867646258 No Longer Active Guera Annel Bailey ZYRTEC [...] mm/h Encounters Code Encounter Date Provider Facility CPT-50003 Ofc Vst, Est Level IV 17:28:21 CDT Guera Bailey DO, FACP CPT-37154 Ofc Vst, Est Level IV 19:09:30 CDT Guera Bailey DO, FACP CPT-49489 Ofc Vst, Est Level IV 13:21:14 CDT Guera Bailey DO, FACP CPT-37986 Ofc Vst, Est Level III 12:25:14 CDT Guera Bailey DO, FACP CPT-35547 Ofc Vst, Est Level IV 15:40:26 CDT [facility] CPT-79024 Ofc Vst, Est Level IV 14:50:06 CDT Guera Annel Bailey [facility] CPT-38380 Ofc Vst, Est Level III 20:18:26 STOGIE PACKER Guera [place] Lynn, DO, FACP CPT-08350 Ofc Vst, Est Level IV 16:11:03 CDT Guera Annel [place] Lynn, DO, FACP CPT-41032 Ofc Vst, Est Level V 15:32:25 CDT Guera Annel Bailey [facility] CPT-07132 Ofc Vst, Est Level IV 15:58:30 CDT Guera Annel Bailey [facility] CPT-53964 Ofc Vst, Est Level IV 15:24:03 STOGIE PACKER Guera Annel [place] Lynn, DO, FACP CPT-15595 Ofc Vst, Est Level IV 09:59:50 CDT Guera Annel [place] Lynn, DO, FACP CPT-90721 Ofc Vst, Est Level IV 09:51:49 CDT Guera Annel [place] Lynn, DO, FACP CPT-24039 Ofc Vst, Est Level IV 15:30:55 STOGIE PACKER Guera Annle Bailey [facility] CPT-79795 Ofc Vst, Est Level IV 09:25:23 STOGIE [employer]ER Guera Annel [place] Lynn, DO, FACP CPT-70521 Ofc Vst, Est Level III 15:30:51 CDT Guera Annel Bailey [facility] CPT-04178 Ofc Vst, Est Level IV 16:23:38 CDT Guera Annel [place] Lynn, DO, FACP CPT-18445 Ofc Vst, Est Level IV 10:25:49 [employer]OG[employer] Guera Annel [place] Lynn, DO, FACP CPT-63877 Ofc Vst, Est Level IV 21:06:00 CDT Guerajeanette Up Lynn Guera Alecia Lynn, DO, FACP CPT-51070 Ofc Vst, Est Level IV 10:23:12 CDT Guera Annel Lynn Bailey, DO, FACP CPT-18350 Ofc Vst, Est Level V 12:13:16 CDT Guera Annel Gonzalezvianey Lynne Alecia Lynn, DO, FACP CPT-89797 Ofc Vst, Est Level V 13:52:06 CDT Guera Annel Lynn Bailey, DO, FACP CPT-41814 Ofc Vst, Est Level IV 16:51:10 STOGIE P[employer]ER Guera Up [place] Bailey, DO, FACP CPT-41247 Ofc Vst, Est Level III 12:22:44 STOGIE [employer]ER Guerajeanette Up Lynn Bailey, DO, FACP CPT-45057 Ofc Vst, Est Level III 16:45:37 CDT Guera Annel Lynn Bailey, DO, FACP CPT-82450 Ofc Vst, Est Level IV 09:43:02 CDT Guerajeanette Up Lynn Bailey, DO, FACP CPT-60424 Ofc Vst, Est Level IV 09:31:45 CDT Guera Bailey [facility] [place] CPT-15412 Ofc Vst, Est Level IV 10:42:21 STOGIE PACKER Guera Bailey [facility] [place] CPT-66981 Ofc Vst, Est Level V 10:05:[address] [facility] [place] CPT-79327 Ofc Vst, Est Level IV 14:03:[address] Guera Bailey [facility] [place] CPT-44460 Ofc Vst, Est Level III 13:53:55 CDT Guera Annel Bailey [facility] [place] CPT-09252 Ofc Vst, Est Level IV 09:05:54 CDT Guera Annel Gonzalezner [facility] [place] CPT-00006 Ofc Vst, Est Level IV 17:57:08 CDT Guera Annel Bailey [facility] [place] CPT-50220 Ofc Vst, Est Level III 18:23:27 STOGIE PACKER [facility] Annel Gonzalezner [facility] [place] CPT-41802 Ofc Vst, New Level III 17:24:59 CDT [facility] Annel Bailey [facility] [place] Procedures Code Procedure Name Date Entry Date Standard Description CPT-90030 Preventive, Est, (40-64) 16:38:00 STOGIE PACKER CPT-55340 Preventive, Est, (40-64) 19:55:54 STOGIE PACKER CPT-97865 Handling of specimen from office to lab 20:59:31 STOGIE PACKER CPT-96362 Preventive, Est, (40-64) 20:59:31 STOGIE PACKER CPT-30850 Preventive, Est, (40-64) 13:14:46 CDT CPT-95128 Handling of specimen from office to lab 13:14:46 CDT CPT-37913 EKG w/ Interpretation 12:13:16 CDT CPT-88409 Cryopathy Skin 09:43:02 CDT CPT-80969 Handling of specimen from office to lab 14:41:29 CDT CPT-71443 Preventive, Est, (40-64) 14:17:08 CDT CPT-25276 Preventive, Est, (40-64) 14:48:08 CDT CPT-86912 Preventive, Est, (40-64) 17:22:09 CDT
--- OUTSIDE RECORDS SUMMARY | 2017-07-07 09:54 | XMS REPORT ---
Author Author User, MAVIS Organization Formerly [facility] [place] Address Unknown Phone Unavailable Allergies, Adverse Reactions, [...] MG TABS 1/2-1 PO daily ALOSETRON HCL 25765808905 Active Guera Bailey BENTYL 10 MG CAPS 1 PO QID prn DICYCLOMINE HCL 67833413587 Active Guera Bailey LEVSIN 0.125 MG TABS 1-2 po QID prn HYOSCYAMINE SULFATE 62366954135 Active Guera Bailey HYDROCODONE-ACETAMINOPHEN 5-325 MG TABS 1-2 PO Q4-6 hrs prn pain HYDROCODONE-ACETAMINOPHEN 43536772475 Active Vanna Garcia BENTYL 10 MG CAP 1 PO QID prn DICYCLOMINE HCL 59235797150 No Longer Active Guera Bailey CATAFLAM 50 MG TABS 1 PO BID prn headache DICLOFENAC POTASSIUM 65862832526 No Longer Active Guerajeanette Bailey PERCOCET 5-325 MG TAB 1 PO q6hrs prn OXYCODONE- ACETAMINOPHEN 60390446506 No Longer Active Guera Annel Bailey ZOFRAN ODT 8 MG TBDP 1 PO Q6hrs prn nausea ONDANSETRON 04505401462 No Longer Active Guera Annel Bailey BENTYL 10 MG CAP 1 PO QID prn DICYCLOMINE HCL 04759723828 No Longer Active Guera Annel Bailey PREMARIN 0.625 MG/GM CREA 1 gm intravaginally HS 3 times a week for 4 weeks then twice a week ESTROGENS, CONJUGATED VAGINAL 02311982558 Active Guera Bailey PHENERGAN 25 MG TAB 1 PO Q6hrs prn PROMETHAZINE HCL Active Vanna Garcia PROAIR HFA 108 (90 BASE) MCG/ACT AERS 2 puff Q4 hrs prn wheezing ALBUTEROL SULFATE 35877514714 Active Vanna Garcia REGLAN 10 MG TAB 1 PO 30 minutes before meals and at bedtime METOCLOPRAMIDE HCL 13539418915 Active Guera Bailey NEXIUM 40 MG CPDR 1 PO daily ESOMEPRAZOLE MAGNESIUM 04126596573 Active Vanna Garcia XANAX 0.5 MG TABS 1 PO TID prn ALPRAZOLAM 26212239572 Active Vanna Garcia PATANOL 0.1 % SOLN 1-2 gtts in each eye BID OLOPATADINE HCL 16418781945 No Longer Active Guerajeanette Bailey PREDNISONE 20 MG TAB 3 pills at once for 2 days then 2 pills daily for 2 days PREDNISONE 61190949117 No Longer Active Guera Bailey CYMBALTA 60 MG CPEP 1 PO daily DULOXETINE HCL 61832771289 Active Vanna Garcia ZOLOFT 25 MG TABS 1 po daily SERTRALINE HCL 66815228154 No Longer Active Guera Annel Bailey ZOLOFT 100 MG TABS 1 po daily SERTRALINE HCL 30885447209 No Longer Active Guera Annel Bailey REGLAN 10 MG TABS 1 po BID METOCLOPRAMIDE HCL 82695685571 No Longer Active Guera Annel Bailey MIDRIN 325-65-100 MG CAPS 1-2 PO Q4-6hrs prn APAP- ISOMETHEPTENE-DICHLORAL No Longer Active Guera Annel Bailey FLEXERIL 10 MG TABS 1 po HS prn CYCLOBENZAPRINE HCL 90713885927 No Longer Active Guera Annel Bailey SYMBICORT 160-4.5 MCG/ACT AERO 2 puffs BID BUDESONIDE- FORMOTEROL FUMARATE 60375763210 Active Vanna Garcia CIPRO 500 MG TABS 1 PO BID for 7 days CIPROFLOXACIN HCL 65080079163 No Longer Active Guera Annel Bailey PYRIDIUM 200 MG TABS 1 PO TID x 3 days PHENAZOPYRIDINE HCL 88900689767 No Longer Active Johana Fernandez AMPICILLIN 500 MG CAPS 1 PO BID x 7 days AMPICILLIN 36532888548 No Longer Active Johana Fernandez NORVASC 5 MG TAB 1 PO QD AMLODIPINE BESYLATE 50001455585 Active Vanna Garcia IMODIUM A-D 2 MG TABS 1 po daily LOPERAMIDE HCL 01033301521 Active Guera Annel Bailey QUESTRAN POWD 1 scoop in 4 oz of fluid BID scheduled CHOLESTYRAMINE POWD 96083807104 No Longer Active Guera Annel Bailey DYAZIDE 37.5-25 MG CAP 1 PO daily TRIAMTERENE-HCTZ 92459595188 Active Vanna Garcia ZANTAC 150 MG TABS 2 PO QD prn RANITIDINE HCL 92043250040 No Longer Active Guera Annel Bailey ZANTAC 300 MG TABS 1 PO QHS RANITIDINE HCL 52704565656 Active Vanna Garcia SINGULAIR 10 MG TABS 1 PO QHS MONTELUKAST SODIUM 31482032588 Active Vanna Garcia LORTAB 5 5-500 MG TABS 1-2 PO Q6hrs prn pain HYDROCODONE-ACETAMINOPHEN 69200643813 No Longer Active Guera Annel Bailey VALTREX 1 GM TABS 1 PO BID VALACYCLOVIR HCL 04913209971 No Longer Active Guera Annel Bailey ZOCOR 10 MG TABS 1 po daily SIMVASTATIN 52103778366 Active Vanna Garcia PROTONIX 40 MG TBEC 1 PO daily PANTOPRAZOLE SODIUM 89286124467 No Longer Active Guera Annel Bailey PREMPRO 0.3-1.5 MG TABS 1 po daily prn CONJ ESTROG- MEDROXYPROGEST PEARL 49774238722 No Longer Active Guera Annel Bailey ASPIRIN 81 MG CHEW 1 PO daily ASPIRIN 80722145006 Active Guera Annel Bailey BENAZEPRIL HCL 10 MG TABS 1 PO daily BENAZEPRIL HCL 48850116761 Active Vanna Garcia SULAR 20 MG TB24 1 po daily NISOLDIPINE 40442077961 No Longer Active Guera Annel Bailey NEXIUM 40 MG CPDR 1 PO QD ESOMEPRAZOLE MAGNESIUM 04724108235 No Longer Active Guera Annel Bailey NORVASC 5 MG TABS 1 po qd AMLODIPINE BESYLATE 73552695693 No Longer Active Guera Annel Bailey ALBUTEROL 90 MCG/ACT AERS 2 puffs q 4-6h prn ALBUTEROL 74393668685 No Longer Active Guera Annel Bailey ADVAIR DISKUS 100-50 MCG/DOSE MISC 1 puff bid FLUTICASONE-SALMETEROL 54465721173 No Longer Active Guera Annel Bailey PREDNISONE 20 MG TABS 2 po qd PREDNISONE 70924166843 No Longer Active Guera Annel Bailey BIAXIN XL 500 MG TB24 2 po qd CLARITHROMYCIN 42713693351 No Longer Active Guera Annel Bailey ZANTAC 75 75 MG TABS take 2 tabs po hs RANITIDINE HCL 09323920564 No Longer Active Guera Annel Bailey ROBINUL-FORTE 2 MG TABS 1 tab at hs GLYCOPYRROLATE 34540460140 No Longer Active Guera Annel Bailey PEPCID 20 MG TAB 1 BID FAMOTIDINE 18581761441 No Longer Active Guera Annel Bailey REGLAN 10 MG TABS 1-2 tabs po daily METOCLOPRAMIDE HCL 55429028034 No Longer Active Guera Annel Bailey NEXIUM 40 MG CPDR 1 po daily ESOMEPRAZOLE MAGNESIUM 63215285086 No Longer Active Guera Annel Bailey BEXTRA 10 MG TABS 1 po daily VALDECOXIB 32193708609 No Longer Active Guera Annel Bailey ZYRTEC [...] (calc) >60 mL/min/1.73m2 albumin, serum 4.1 g/dL very low density lipoproteins 21 mg/dL sodium, serum 140 mmol/L triglyceride, serum, fasting 106 mg/dL bilirubin, serum, total 0.5 mg/dL alanine aminotransferase (SGPT), serum 24 U/L aspartate aminotransferase (SGOT), serum 19 U/L protein, total, serum 6.5 g/dL potassium, serum 3.4 mmol/L LDL cholesterol, serum 93 mg/dL thyroid stimulating hormone, serum 2.96 u[iU]/mL hemoglobin A1C, blood, as % of total hemoglobin 5.6 % HDL cholesterol, serum 55 mg/dL creatinine, serum 0.72 mg/dL carbon dioxide, venous blood 27 mmol/L cholesterol, serum 165 mg/dL chloride, serum 102 mmol/L calcium, serum 9.0 mg/dL urea nitrogen, blood 14 mg/dL alkaline phosphatase, serum 81 U/L glucose, plasma fasting 108 mg/dL Clinical Lists Update: CBC,CMP,FLP,TSH,HGA1C,ESR - Hematology erythrocyte sedimentation rate 6 mm/h Clinical Lists Update: CMP,FLP,ESR,HgA1c - Chemistry glucose, plasma fasting 92 mg/dL Estimated Glomerular Filtration Rate (calc) >60 mL/min/1.73m2 sodium, serum 138 mmol/L triglyceride, serum, fasting 112 mg/dL bilirubin, serum, total 0.4 mg/dL alanine aminotransferase (SGPT), serum 23 U/L aspartate aminotransferase (SGOT), serum 17 U/L protein, total, serum 6.9 g/dL potassium, serum 3.4 mmol/L LDL cholesterol, serum 105 mg/dL hemoglobin A1C, blood, as % of total hemoglobin 5.7 % HDL cholesterol, serum 55 mg/dL creatinine, serum 0.73 mg/dL carbon dioxide, venous blood 28 mmol/L cholesterol, serum 176 mg/dL chloride, serum 100 mmol/L calcium, serum 9.3 mg/dL urea nitrogen, blood 9 mg/dL alkaline phosphatase, serum 66 U/L albumin, serum 4.1 g/dL very low density lipoproteins 22 mg/dL Clinical Lists Update: CMP,FLP,ESR,HgA1c - Hematology erythrocyte sedimentation rate 5 mm/h Encounters Code Encounter Date Provider Facility CPT-98429 Ofc Vst, Est Level IV 17:28:21 CDT Guera Bailey DO, FACP CPT-69588 Ofc Vst, Est Level IV 19:09:30 CDT Guera Bailey DO, FACP CPT-44675 Ofc Vst, Est Level IV 13:21:14 CDT Guera Bailey DO, FACP CPT-15426 Ofc Vst, Est Level III 12:25:14 CDT Guera Bailey DO, FACP CPT-15652 Ofc Vst, Est Level IV 15:40:26 CDT [facility] CPT-24673 Ofc Vst, Est Level IV 14:50:06 CDT Guera Annel Bailey [facility] CPT-63194 Ofc Vst, Est Level III 20:18:26 PAGE [employer] SYSTEM OPERATOR Guera Alston Lynn, DO, FACP CPT-01509 Ofc Vst, Est Level IV 16:11:03 CDT Guera Annel Alston Lynn, DO, FACP CPT-74631 Ofc Vst, Est Level V 15:32:25 CDT Guera Annel Bailey [facility] CPT-28693 Ofc Vst, Est Level IV 15:58:30 CDT Guera Annel Bailey [facility] CPT-26199 Ofc Vst, Est Level IV 15:24:03 PAGE MAKEUP SYSTEM OPERATOR Guera Annel Alston Lynn, DO, FACP CPT-66793 Ofc Vst, Est Level IV 09:59:50 CDT Guera Annel Alston Lynn, DO, FACP CPT-73618 Ofc Vst, Est Level IV 09:51:49 CDT Guera Annel Alston Lynn, DO, FACP CPT-99073 Ofc Vst, Est Level IV 15:30:55 PAGE MAKEUP SYSTEM OPERATOR Guera Annel Bailey [facility] CPT-50915 Ofc Vst, Est Level IV 09:25:23 PAGE MAKEUP SYSTEM OPERATOR Guera Annel Alston Lynn, DO, FACP CPT-11412 Ofc Vst, Est Level III 15:30:51 CDT Guera Annel Bailey [facility] CPT-03993 Ofc Vst, Est Level IV 16:23:38 CDT Guera Annel Alston Lynn, DO, FACP CPT-67386 Ofc Vst, Est Level IV 10:25:49 PAGE [employer]UP SYSTEM OPERATOR Guera Annel Alston Lynn, DO, FACP CPT-36926 Ofc Vst, Est Level IV 21:06:00 CDT Guerajeanette Up Lynn Guera Alecia Lynn, DO, FACP CPT-74923 Ofc Vst, Est Level IV 10:23:12 CDT Guera Annel Lynn Bailey, DO, FACP CPT-17079 Ofc Vst, Est Level V 12:13:16 CDT Guera Annel Gonzalezvianey Lynne Alecia Lynn, DO, FACP CPT-15636 Ofc Vst, Est Level V 13:52:06 CDT Guera Annel Lynn Bailey, DO, FACP CPT-76483 Ofc Vst, Est Level IV 16:51:10 PAGE MAKEUP SYSTEM OPERATOR Guera Up Lynn Bailey, DO, FACP CPT-89198 Ofc Vst, Est Level III 12:22:44 PAGE MAKEUP SYSTEM OPERATOR Guerajeanette Up Lynn Bailey, DO, FACP CPT-06078 Ofc Vst, Est Level III 16:45:37 CDT Guera Annel Lynn Bailey, DO, FACP CPT-96356 Ofc Vst, Est Level IV 09:43:02 CDT Guerajeanette Up Lynn Bailey, DO, FACP CPT-29324 Ofc Vst, Est Level IV 09:31:45 CDT Guera Bailey [facility] [place] CPT-39907 Ofc Vst, Est Level IV 10:42:21 PAGE [employer]UP SYSTEM OPERATOR Guera Bailey [facility] [place] CPT-08969 Ofc Vst, Est Level V 10:05:08 CDT Guera Bailey [facility] [place] CPT-08878 Ofc Vst, Est Level IV 14:03:45 PAGE MAKEUP SYSTEM OPERATOR Guera Bailey [facility] [place] CPT-00314 Ofc Vst, Est Level III 13:53:55 CDT Guera Annel Bailey [facility] [place] CPT-34991 Ofc Vst, Est Level IV 09:05:54 CDT Guera Annel Gonzalezner [facility] [place] CPT-00536 Ofc Vst, Est Level IV 17:57:08 CDT Guera Annel Bailey [facility] [place] CPT-15756 Ofc Vst, Est Level III 18:23:27 PAGE MAKEUP SYSTEM OPERATOR [facility] Annel Gonzalezner [facility] [place] CPT-47514 Ofc Vst, New Level III 17:24:59 CDT [facility] Annel Bailey [facility] [place] Procedures Code Procedure Name Date Entry Date Standard Description CPT-49326 Preventive, Est, (40-64) 16:38:00 PAGE MAKEUP SYSTEM OPERATOR CPT-53973 Preventive, Est, (40-64) 19:55:54 PAGE MAKEUP SYSTEM OPERATOR CPT-90052 Handling of specimen from office to lab 20:59:31 PAGE MAKEUP SYSTEM OPERATOR CPT-47927 Preventive, Est, (40-64) 20:59:31 PAGE MAKEUP SYSTEM OPERATOR CPT-27829 Preventive, Est, (40-64) 13:14:46 CDT CPT-24999 Handling of specimen from office to lab 13:14:46 CDT CPT-70661 EKG w/ Interpretation 12:13:16 CDT CPT-76605 Cryopathy Skin 09:43:02 CDT CPT-73091 Handling of specimen from office to lab 14:41:29 CDT CPT-57544 Preventive, Est, (40-64) 14:17:08 CDT CPT-08045 Preventive, Est, (40-64) 14:48:08 CDT CPT-60981 Preventive, Est, (40-64) 17:22:09 CDT
--- OUTSIDE RECORDS SUMMARY | 2017-07-07 09:54 | XMS REPORT | Clinical Summary ---
Author Author User, Trip4real Organization [facility] [place] Address Unknown Phone Unavailable Allergies, Adverse Reactions, Alerts Allergy Name Reaction Description Start Date Severity Status Provider SUDALAR Critical Active Guerajeanette Bailey SULAR REYNOLDS, Memory problems Critical Active [...] MG TABS 1/2-1 PO daily ALOSETRON HCL 03864654950 Active Guera Bailey BENTYL 10 MG CAPS 1 PO QID prn DICYCLOMINE HCL 24219793803 Active Guera Bailey LEVSIN 0.125 MG TABS 1-2 po QID prn HYOSCYAMINE SULFATE 81456524425 Active Guera Bailey HYDROCODONE-ACETAMINOPHEN 5-325 MG TABS 1-2 PO Q4-6 hrs prn pain HYDROCODONE-ACETAMINOPHEN 47051654486 Active Vanna Garcia BENTYL 10 MG CAP 1 PO QID prn DICYCLOMINE HCL 31894479554 No Longer Active Guera Bailey CATAFLAM 50 MG TABS 1 PO BID prn headache DICLOFENAC POTASSIUM 92356694349 No Longer Active Guerajeanette Bailey PERCOCET 5-325 MG TAB 1 PO q6hrs prn OXYCODONE- ACETAMINOPHEN 37038264906 No Longer Active Guerajeanette Bailey ZOFRAN ODT 8 MG TBDP 1 PO Q6hrs prn nausea ONDANSETRON 27289184081 No Longer Active Guera Annel Bailey BENTYL 10 MG CAP 1 PO QID prn DICYCLOMINE HCL 74486252435 No Longer Active Guerajeanette Bailey PREMARIN 0.625 MG/GM CREA 1 gm intravaginally HS 3 times a week for 4 weeks then twice a week ESTROGENS, CONJUGATED VAGINAL 72828993294 Active Guera Bailey PHENERGAN 25 MG TAB 1 PO Q6hrs prn PROMETHAZINE HCL Active Vanna Garcia PROAIR HFA 108 (90 BASE) MCG/ACT AERS 2 puff Q4 hrs prn wheezing ALBUTEROL SULFATE 31270364958 Active Vanna Garcia REGLAN 10 MG TAB 1 PO 30 minutes before meals and at bedtime METOCLOPRAMIDE HCL 52239574373 Active Guera Bailey NEXIUM 40 MG CPDR 1 PO daily ESOMEPRAZOLE MAGNESIUM 47099619559 Active Vanna Garcia XANAX 0.5 MG TABS 1 PO TID prn ALPRAZOLAM 61940355401 Active Vanna Garcia PATANOL 0.1 % SOLN 1-2 gtts in each eye BID OLOPATADINE HCL 24693204434 No Longer Active Guerajeanette Bailey PREDNISONE 20 MG TAB 3 pills at once for 2 days then 2 pills daily for 2 days PREDNISONE 86386457487 No Longer Active Guera Bailey CYMBALTA 60 MG CPEP 1 PO daily DULOXETINE HCL 95416973834 Active Vanna Garcia ZOLOFT 25 MG TABS 1 po daily SERTRALINE HCL 72225309358 No Longer Active Guera Annel Bailey ZOLOFT 100 MG TABS 1 po daily SERTRALINE HCL 34138910325 No Longer Active Guera Annel Bailey REGLAN 10 MG TABS 1 po BID METOCLOPRAMIDE HCL 99625289192 No Longer Active Guera Annel Bailey MIDRIN 325-65-100 MG CAPS 1-2 PO Q4-6hrs prn APAP- ISOMETHEPTENE-DICHLORAL No Longer Active Guera Annel Bailey FLEXERIL 10 MG TABS 1 po HS prn CYCLOBENZAPRINE HCL 88081992602 No Longer Active Guera Annel Bailey SYMBICORT 160-4.5 MCG/ACT AERO 2 puffs BID BUDESONIDE- FORMOTEROL FUMARATE 86435057575 Active Vanna Garcia CIPRO 500 MG TABS 1 PO BID for 7 days CIPROFLOXACIN HCL 24621868642 No Longer Active Guera Annel Bailey PYRIDIUM 200 MG TABS 1 PO TID x 3 days PHENAZOPYRIDINE HCL 66650802833 No Longer Active Johana Fernandez AMPICILLIN 500 MG CAPS 1 PO BID x 7 days AMPICILLIN 81012406895 No Longer Active Johana Fernandez NORVASC 5 MG TAB 1 PO QD AMLODIPINE BESYLATE 04073977249 Active Vanna Garcia IMODIUM A-D 2 MG TABS 1 po daily LOPERAMIDE HCL 60320044969 Active Guera Annel Bailey QUESTRAN POWD 1 scoop in 4 oz of fluid BID scheduled CHOLESTYRAMINE POWD 74071528910 No Longer Active Guera Annel Bailey DYAZIDE 37.5-25 MG CAP 1 PO daily TRIAMTERENE-HCTZ 64340095267 Active Vanna Garcia ZANTAC 150 MG TABS 2 PO QD prn RANITIDINE HCL 74553810539 No Longer Active Guera Annel Bailey ZANTAC 300 MG TABS 1 PO QHS RANITIDINE HCL 07704303079 Active Vanna Garcia SINGULAIR 10 MG TABS 1 PO QHS MONTELUKAST SODIUM 60449242059 Active Vanna Garcia LORTAB 5 5-500 MG TABS 1-2 PO Q6hrs prn pain HYDROCODONE-ACETAMINOPHEN 96151398906 No Longer Active Guera Annel Bailey VALTREX 1 GM TABS 1 PO BID VALACYCLOVIR HCL 58209935431 No Longer Active Guera Annel Bailey ZOCOR 10 MG TABS 1 po daily SIMVASTATIN 22961891980 Active aVnna Garcia PROTONIX 40 MG TBEC 1 PO daily PANTOPRAZOLE SODIUM 20479380752 No Longer Active Guera Annel Bailey PREMPRO 0.3-1.5 MG TABS 1 po daily prn CONJ ESTROG- MEDROXYPROGEST PEARL 45296042208 No Longer Active Guera Annel Bailey ASPIRIN 81 MG CHEW 1 PO daily ASPIRIN 79973889164 Active Guera Annel Bailey BENAZEPRIL HCL 10 MG TABS 1 PO daily BENAZEPRIL HCL 79892263846 Active Vanna Langleytis SULAR 20 MG TB24 1 po daily NISOLDIPINE 90329175933 No Longer Active Guerajeanette Bailey NEXIUM 40 MG CPDR 1 PO QD ESOMEPRAZOLE MAGNESIUM 97811374007 No Longer Active Guera Annel Bailey NORVASC 5 MG TABS 1 po qd AMLODIPINE BESYLATE 21712136817 No Longer Active Guera Annel Bailey ALBUTEROL 90 MCG/ACT AERS 2 puffs q 4-6h prn ALBUTEROL 23993249113 No Longer Active Guera Annel Bailey ADVAIR DISKUS 100-50 MCG/DOSE MISC 1 puff bid FLUTICASONE-SALMETEROL 99706865469 No Longer Active Guera Annel Bailey PREDNISONE 20 MG TABS 2 po qd PREDNISONE 33529324383 No Longer Active Guera Annel Gonzalezner BIAXIN XL 500 MG TB24 2 po qd CLARITHROMYCIN 76230246284 No Longer Active Guera Annel Gonzalezner ZANTAC 75 75 MG TABS take 2 tabs po hs RANITIDINE HCL 63733333122 No Longer Active Guera Annel Gonzalezner ROBINUL-FORTE 2 MG TABS 1 tab at hs GLYCOPYRROLATE 58397531572 No Longer Active Guera Annel Bailey PEPCID 20 MG TAB 1 BID FAMOTIDINE 93603384723 No Longer Active Guera Annel Lynn REGLAN 10 MG TABS 1-2 tabs po daily METOCLOPRAMIDE HCL 22113626027 No Longer Active Guera Annel Lynn NEXIUM 40 MG CPDR 1 po daily ESOMEPRAZOLE MAGNESIUM 99435026421 No Longer Active Guera Annel Bailey BEXTRA 10 MG TABS 1 po daily VALDECOXIB 09863588407 No Longer Active Guera Annel Gonzalezner ZYRTEC 10 MG TABS 1 po daily [...] mm/h Encounters Code Encounter Date Provider Facility CPT-44808 Ofc Vst, Est Level IV 17:28:21 CDT Guera Bailey DO, FACP CPT-24041 Ofc Vst, Est Level IV 19:09:30 CDT Guera Bailey DO, FACP CPT-37887 Ofc Vst, Est Level IV 13:21:14 CDT Guera Bailey DO, FACP CPT-59963 Ofc Vst, Est Level III 12:25:14 CDT Guera Bailey DO, FACP CPT-84670 Ofc Vst, Est Level IV 15:40:26 CDT Guerajeanette Bailey [facility] CPT-24819 Ofc Vst, Est Level IV 14:50:06 CDT Guera Annel Bailey [facility] CPT-69899 Ofc Vst, Est Level III 20:18:26 [employer] WORK[employer] Guera Alston Bailey, DO, FACP CPT-18142 Ofc Vst, Est Level IV 16:11:03 CDT Guera Annel Alston Bailey, DO, FACP CPT-85912 Ofc Vst, Est Level V 15:32:25 CDT Guera Annel Bailey [facility] CPT-86066 Ofc Vst, Est Level IV 15:58:30 CDT Guera Annel Bailey [facility] CPT-40585 Ofc Vst, Est Level IV 15:24:03 [employer] WORK[employer] Guera Annel Alston Lynn, DO, FACP CPT-47429 Ofc Vst, Est Level IV 09:59:50 CDT Guera Annel Alston Lynn, DO, FACP CPT-76938 Ofc Vst, Est Level IV 09:51:49 CDT Guerajeanette Alston Lynn, DO, FACP CPT-09308 Ofc Vst, Est Level IV 15:30:55 [employer] WORKER Guera Annel Bailey [facility] CPT-87048 Ofc Vst, Est Level IV 09:25:23 [employer]AGE WORKER Guera Annel Alston Bailey, DO, FACP CPT-15117 Ofc Vst, Est Level III 15:30:51 CDT Guera Annel Bailey [facility] CPT-94017 Ofc Vst, Est Level IV 16:23:38 CDT Guera Annel Alston Bailey, DO, FACP CPT-24160 Ofc Vst, Est Level IV 10:25:49 [employer] WORK[employer] Guera Annel Alston Bailey, DO, FACP CPT-64749 Ofc Vst, Est Level IV 21:06:00 CDT Guera Up [place] Lynne Alecia Lynn, DO, FACP CPT-07138 Ofc Vst, Est Level IV 10:23:12 CDT Guera Up [place] Lynne Alecia Lynn, DO, FACP CPT-58437 Ofc Vst, Est Level V 12:13:16 CDT Guera Annel Gonzalezner Guera Alecia Lynn, DO, FACP CPT-93101 Ofc Vst, Est Level V 13:52:06 CDT Guera Annel Lynn Bailey, DO, FACP CPT-22405 Ofc Vst, Est Level IV 16:51:10 [employer] WORK[employer] Guera Annel Lynn Bailey, DO, FACP CPT-79368 Ofc Vst, Est Level III 12:22:44 [employer]AGE WORKER Guerajeanette Up Lynn Lynne Alecia Lynn, DO, FACP CPT-40446 Ofc Vst, Est Level III 16:45:37 CDT Guerajeanette Up Lynn Bailey, DO, FACP CPT-43561 Ofc Vst, Est Level IV 09:43:02 CDT Guera Annel Lynn Bailey, DO, FACP CPT-54544 Ofc Vst, Est Level IV 09:31:45 CDT Guera Bailey [facility] [place] CPT-47112 Ofc Vst, Est Level IV 10:42:21 [employer] WORKER Guera Bailey [facility] [place] CPT-56134 Ofc Vst, Est Level V 10:05:08 CDT Guera Bailey [facility] [place] CPT-25434 Ofc Vst, Est Level IV 14:03:45 [employer]AGE WORKER Guera Bailey [facility] [place] CPT-93862 Ofc Vst, Est Level III 13:53:55 CDT Guera Annel Bailey [facility] [place] CPT-21170 Ofc Vst, Est Level IV 09:05:54 CDT [facility] Annel Bailey [facility] [place] CPT-93262 Ofc Vst, Est Level IV 17:57:08 CDT [facility] Annel Bailey [facility] [place] CPT-12552 Ofc Vst, Est Level III 18:23:27 [employer]AGE WORKER [facility] Annel Bailey [facility] [place] CPT-98387 Ofc Vst, New Level III 17:24:59 CDT [facility] Annel Bailey [facility] [place] Procedures Code Procedure Name Date Entry Date Standard Description CPT-60765 Preventive, Est, (40-64) 16:38:00 SALVAGE WORKER CPT-55988 Preventive, Est, (40-64) 19:55:54 [employer]AGE WORKER CPT-16682 Handling of specimen from office to lab 20:59:31 SALVAGE WORKER CPT-70178 Preventive, Est, (40-64) 20:59:31 SALVAGE WORKER CPT-49247 Preventive, Est, (40-64) 13:14:46 CDT CPT-43449 Handling of specimen from office to lab 13:14:46 CDT CPT-09233 EKG w/ Interpretation 12:13:16 CDT CPT-88536 Cryopathy Skin 09:43:02 CDT CPT-12555 Handling of specimen from office to lab 14:41:29 CDT CPT-79954 Preventive, Est, (40-64) 14:17:08 CDT CPT-04251 Preventive, Est, (40-64) 14:48:08 CDT CPT-95409 Preventive, Est, (40-64) 17:22:09 CDT
--- OUTSIDE RECORDS SUMMARY | 2017-07-07 09:55 | XMS REPORT | Clinical Summary ---
Author Author User, [employer] Organization [facility] [place] Address Unknown Phone Unavailable Allergies, Adverse Reactions, [...] Bailey Esophagitis, unspecified OBESITY 278.00 Resolved Guera aBiley Obesity, unspecified OSTEOARTHRITIS 715.90 Active Guera Bailey [...] of status migrainosus DEPRESSION 311 Resolved Guera Bailye Depressive disorder, not elsewhere classified CHEST PAIN, [...] MG TABS 1/2-1 PO daily ALOSETRON HCL 43166318791 Active Guera Bailey BENTYL 10 MG CAPS 1 PO QID prn DICYCLOMINE HCL 43621260570 Active Guera Bailey LEVSIN 0.125 MG TABS 1-2 po QID prn HYOSCYAMINE SULFATE 00633180244 Active Guera Bailey HYDROCODONE-ACETAMINOPHEN 5-325 MG TABS 1-2 PO Q4-6 hrs prn pain HYDROCODONE-ACETAMINOPHEN 39911448478 Active Vanna Garcia BENTYL 10 MG CAP 1 PO QID prn DICYCLOMINE HCL 17748100828 No Longer Active Guera Bailey CATAFLAM 50 MG TABS 1 PO BID prn headache DICLOFENAC POTASSIUM 44842165868 No Longer Active Guerajeanette Bailey PERCOCET 5-325 MG TAB 1 PO q6hrs prn OXYCODONE- ACETAMINOPHEN 96641843924 No Longer Active Guera Annel Bailey ZOFRAN ODT 8 MG TBDP 1 PO Q6hrs prn nausea ONDANSETRON 17761912681 No Longer Active Guera Annel Bailey BENTYL 10 MG CAP 1 PO QID prn DICYCLOMINE HCL 20853918909 No Longer Active Guera Annel Bailey PREMARIN 0.625 MG/GM CREA 1 gm intravaginally HS 3 times a week for 4 weeks then twice a week ESTROGENS, CONJUGATED VAGINAL 28820128898 Active Guerajeanette Bailey PHENERGAN 25 MG TAB 1 PO Q6hrs prn PROMETHAZINE HCL Active Vanna Garcia PROAIR HFA 108 (90 BASE) MCG/ACT AERS 2 puff Q4 hrs prn wheezing ALBUTEROL SULFATE 63330558507 Active Vanna Garcia REGLAN 10 MG TAB 1 PO 30 minutes before meals and at bedtime METOCLOPRAMIDE HCL 62743097372 Active Guera Bailey NEXIUM 40 MG CPDR 1 PO daily ESOMEPRAZOLE MAGNESIUM 90404027009 Active Vanna Garcia XANAX 0.5 MG TABS 1 PO TID prn ALPRAZOLAM 17811341039 Active Vanna Garcia PATANOL 0.1 % SOLN 1-2 gtts in each eye BID OLOPATADINE HCL 03618769964 No Longer Active Guerajeanette Bailey PREDNISONE 20 MG TAB 3 pills at once for 2 days then 2 pills daily for 2 days PREDNISONE 85787127958 No Longer Active Guerajeanette Bailey CYMBALTA 60 MG CPEP 1 PO daily DULOXETINE HCL 40798582815 Active Vanna Garcia ZOLOFT 25 MG TABS 1 po daily SERTRALINE HCL 87375457538 No Longer Active Guera Annel Bailey ZOLOFT 100 MG TABS 1 po daily SERTRALINE HCL 11995875755 No Longer Active Guera Annel Bailey REGLAN 10 MG TABS 1 po BID METOCLOPRAMIDE HCL 57114466242 No Longer Active Guera Annel Bailey MIDRIN 325-65-100 MG CAPS 1-2 PO Q4-6hrs prn APAP- ISOMETHEPTENE-DICHLORAL No Longer Active Guera Annel Bailey FLEXERIL 10 MG TABS 1 po HS prn CYCLOBENZAPRINE HCL 98320346527 No Longer Active Guera Annel Bailey SYMBICORT 160-4.5 MCG/ACT AERO 2 puffs BID BUDESONIDE- FORMOTEROL FUMARATE 65407869533 Active Vanna Garcia CIPRO 500 MG TABS 1 PO BID for 7 days CIPROFLOXACIN HCL 18547155606 No Longer Active Guera Annel Bailey PYRIDIUM 200 MG TABS 1 PO TID x 3 days PHENAZOPYRIDINE HCL 39387423562 No Longer Active Johana Fernandez AMPICILLIN 500 MG CAPS 1 PO BID x 7 days AMPICILLIN 59675909651 No Longer Active Johana Fernandez NORVASC 5 MG TAB 1 PO QD AMLODIPINE BESYLATE 19986572653 Active Vanna Garcia IMODIUM A-D 2 MG TABS 1 po daily LOPERAMIDE HCL 65883618464 Active Guera Annel Bailey QUESTRAN POWD 1 scoop in 4 oz of fluid BID scheduled CHOLESTYRAMINE POWD 93010394621 No Longer Active Guera Annel Bailey DYAZIDE 37.5-25 MG CAP 1 PO daily TRIAMTERENE-HCTZ 98705985842 Active Vanna Garcia ZANTAC 150 MG TABS 2 PO QD prn RANITIDINE HCL 18789715885 No Longer Active Guera Annel Bailey ZANTAC 300 MG TABS 1 PO QHS RANITIDINE HCL 82555668659 Active Vanna Garcia SINGULAIR 10 MG TABS 1 PO QHS MONTELUKAST SODIUM 37023344178 Active Vanna Garcia LORTAB 5 5-500 MG TABS 1-2 PO Q6hrs prn pain HYDROCODONE-ACETAMINOPHEN 11101071927 No Longer Active Guera Annel Bailey VALTREX 1 GM TABS 1 PO BID VALACYCLOVIR HCL 47955888083 No Longer Active Guera Annel Bailey ZOCOR 10 MG TABS 1 po daily SIMVASTATIN 31883275003 Active Vanna Langleytis PROTONIX 40 MG TBEC 1 PO daily PANTOPRAZOLE SODIUM 74154965420 No Longer Active Guera Annel Bailey PREMPRO 0.3-1.5 MG TABS 1 po daily prn CONJ ESTROG- MEDROXYPROGEST PEARL 85022208164 No Longer Active Guera Annel Bailey ASPIRIN 81 MG CHEW 1 PO daily ASPIRIN 22285977774 Active Guera Annel Bailey BENAZEPRIL HCL 10 MG TABS 1 PO daily BENAZEPRIL HCL 32047866168 Active Vanna Jose SULAR 20 MG TB24 1 po daily NISOLDIPINE 24087236952 No Longer Active Guerajeanette Bailey NEXIUM 40 MG CPDR 1 PO QD ESOMEPRAZOLE MAGNESIUM 95389823449 No Longer Active Guera Annel Bailey NORVASC 5 MG TABS 1 po qd AMLODIPINE BESYLATE 69515714309 No Longer Active Guera Annel Bailey ALBUTEROL 90 MCG/ACT AERS 2 puffs q 4-6h prn ALBUTEROL 15146615247 No Longer Active Guera Annel Bailey ADVAIR DISKUS 100-50 MCG/DOSE MISC 1 puff bid FLUTICASONE-SALMETEROL 41893893534 No Longer Active Guera Annel Bailey PREDNISONE 20 MG TABS 2 po qd PREDNISONE 97124785253 No Longer Active Guera Annel Bailey BIAXIN XL 500 MG TB24 2 po qd CLARITHROMYCIN 06631464573 No Longer Active Guera Annel Bailey ZANTAC 75 75 MG TABS take 2 tabs po hs RANITIDINE HCL 65706060186 No Longer Active Guera Annel Bailey ROBINUL-FORTE 2 MG TABS 1 tab at hs GLYCOPYRROLATE 21602016604 No Longer Active Guera Annel Bailey PEPCID 20 MG TAB 1 BID FAMOTIDINE 41473916420 No Longer Active Guera Annel Gonzalezner REGLAN 10 MG TABS 1-2 tabs po daily METOCLOPRAMIDE HCL 30123659692 No Longer Active Guera Annel Bailey NEXIUM 40 MG CPDR 1 po daily ESOMEPRAZOLE MAGNESIUM 05743277131 No Longer Active Guera Annel Bailey BEXTRA 10 MG TABS 1 po daily VALDECOXIB 60916536338 No Longer Active Guera Annel Bailey ZYRTEC [...] mm/h Encounters Code Encounter Date Provider Facility CPT-60238 Ofc Vst, Est Level IV 17:28:21 CDT Guera Bailey DO, FACP CPT-51099 Ofc Vst, Est Level IV 19:09:30 CDT Guera Bailey DO, FACP CPT-21754 Ofc Vst, Est Level IV 13:21:14 CDT Guera Bailey DO, FACP CPT-24939 Ofc Vst, Est Level III 12:25:14 CDT Guera Bailey DO, FACP CPT-29567 Ofc Vst, Est Level IV 15:40:26 CDT Guerajeanette Bailey [facility] CPT-63685 Ofc Vst, Est Level IV 14:50:06 CDT Guera Annel Bailey [facility] CPT-77401 Ofc Vst, Est Level III 20:18:26 [employer] Guera Alston Bailey, DO, FACP CPT-00965 Ofc Vst, Est Level IV 16:11:03 CDT Guera Annel Alston Lynn, DO, FACP CPT-03949 Ofc Vst, Est Level V 15:32:25 CDT Guera Annel Bailey [facility] CPT-37579 Ofc Vst, Est Level IV 15:58:30 CDT Guera Annel Bailey [facility] CPT-51708 Ofc Vst, Est Level IV 15:24:03 [employer] Guera Annel Alston Lynn, DO, FACP CPT-82127 Ofc Vst, Est Level IV 09:59:50 CDT Guerajeanette Alston Lynn, DO, FACP CPT-05201 Ofc Vst, Est Level IV 09:51:49 CDT Guerajeanette Alston Lynn, DO, FACP CPT-73550 Ofc Vst, Est Level IV 15:30:55 [employer] Guera Bailey [facility] CPT-03213 Ofc Vst, Est Level IV 09:25:23 [employer] Guera Annel Alston Lynn, DO, FACP CPT-67756 Ofc Vst, Est Level III 15:30:51 CDT Guerajeanette Bailey [facility] CPT-92234 Ofc Vst, Est Level IV 16:23:38 CDT Guera Annel Alston Lynn, DO, FACP CPT-15676 Ofc Vst, Est Level IV 10:25:49 [employer] Guera Annel Alston Lynn, DO, FACP CPT-58820 Ofc Vst, Est Level IV 21:06:00 CDT Guera Annel Gonzalezner Guera Alston Lynn, DO, FACP CPT-20101 Ofc Vst, Est Level IV 10:23:12 CDT Guera Annel Gonzalezner Guera Alston Lynn, DO, FACP CPT-46081 Ofc Vst, Est Level V 12:13:16 CDT Guera Annel Alston Lynn, DO, FACP CPT-31427 Ofc Vst, Est Level V 13:52:06 CDT Guera Annel Lynn Guerajeanette Bailey, DO, FACP CPT-88948 Ofc Vst, Est Level IV 16:51:10 [employer] Guera Up Lynn Lynne Alecia Lynn, DO, FACP CPT-57089 Ofc Vst, Est Level III 12:22:44 [employer] Guerajeanette Up Bailey Gurea Alston Lynn, DO, FACP CPT-54675 Ofc Vst, Est Level III 16:45:37 CDT Guera Annel Bailey Guera Alecia Lynn, DO, FACP CPT-45134 Ofc Vst, Est Level IV 09:43:02 CDT Guerajeanette Up Lynn Bailey, DO, FACP CPT-30941 Ofc Vst, Est Level IV 09:31:45 CDT Guerajeanette Bailey [facility] [place] CPT-74006 Ofc Vst, Est Level IV 10:42:21 [employer] Guera Bailey [facility] [place] CPT-21229 Ofc Vst, Est Level V 10:05:[address] [facility] [place] CPT-97347 Ofc Vst, Est Level IV 14:03:45 [employer] Guera Bailey [facility] [place] CPT-26816 Ofc Vst, Est Level III 13:53:55 CDT Guera Annel Bailey [facility] [place] CPT-79594 Ofc Vst, Est Level IV 09:05:54 CDT Guera Gonzalezner [facility] [place] CPT-25207 Ofc Vst, Est Level IV 17:57:08 CDT Guera Bailey [facility] [place] CPT-47070 Ofc Vst, Est Level III 18:23:27 [employer] [facility] Annel Bailey [facility] [place] CPT-91838 Ofc Vst, New Level III 17:24:59 CDT [facility] Annel Bailey [facility] [place] Procedures Code Procedure Name Date Entry Date Standard Description CPT-21433 Preventive, Est, (40-64) 16:38:00 [employer] CPT-29883 Preventive, Est, (40-64) 19:55:54 [employer] CPT-01432 Handling of specimen from office to lab 20:59:31 [employer] CPT-75527 Preventive, Est, (40-64) 20:59:31 [employer] CPT-61076 Preventive, Est, (40-64) 13:14:46 CDT CPT-10239 Handling of specimen from office to lab 13:14:46 CDT CPT-70412 EKG w/ Interpretation 12:13:16 CDT CPT-15685 Cryopathy Skin 09:43:02 CDT CPT-53522 Handling of specimen from office to lab 14:41:29 CDT CPT-69535 Preventive, Est, (40-64) 14:17:08 CDT CPT-59039 Preventive, Est, (40-64) 14:48:08 CDT CPT-67271 Preventive, Est, (40-64) 17:22:09 CDT
--- OUTSIDE RECORDS SUMMARY | 2017-07-07 09:56 | XMS REPORT | Clinical Summary ---
Author Author User, [employer] Organization [facility] [place] Address Unknown Phone Unavailable Allergies, Adverse Reactions, [...] MG TABS 1/2-1 PO daily ALOSETRON HCL 23492922107 Active Guera Bailey BENTYL 10 MG CAPS 1 PO QID prn DICYCLOMINE HCL 44372125535 Active Guera Bailey LEVSIN 0.125 MG TABS 1-2 po QID prn HYOSCYAMINE SULFATE 43811466744 Active Guera Bailey HYDROCODONE-ACETAMINOPHEN 5-325 MG TABS 1-2 PO Q4-6 hrs prn pain HYDROCODONE-ACETAMINOPHEN 81641518602 Active Vanna Garcia BENTYL 10 MG CAP 1 PO QID prn DICYCLOMINE HCL 42055181869 No Longer Active Guera Bailey CATAFLAM 50 MG TABS 1 PO BID prn headache DICLOFENAC POTASSIUM 86338691440 No Longer Active Guerajeanette Bailey PERCOCET 5-325 MG TAB 1 PO q6hrs prn OXYCODONE- ACETAMINOPHEN 20235389306 No Longer Active Guera Annel Bailey ZOFRAN ODT 8 MG TBDP 1 PO Q6hrs prn nausea ONDANSETRON 16757278169 No Longer Active Guera Annel Bailey BENTYL 10 MG CAP 1 PO QID prn DICYCLOMINE HCL 91997732646 No Longer Active Guera Annel Bailey PREMARIN 0.625 MG/GM CREA 1 gm intravaginally HS 3 times a week for 4 weeks then twice a week ESTROGENS, CONJUGATED VAGINAL 59926125790 Active Guera Bailey PHENERGAN 25 MG TAB 1 PO Q6hrs prn PROMETHAZINE HCL Active Vanna Garcia PROAIR HFA 108 (90 BASE) MCG/ACT AERS 2 puff Q4 hrs prn wheezing ALBUTEROL SULFATE 82952221152 Active Vanna Garcia REGLAN 10 MG TAB 1 PO 30 minutes before meals and at bedtime METOCLOPRAMIDE HCL 25523741137 Active Guera Bailey NEXIUM 40 MG CPDR 1 PO daily ESOMEPRAZOLE MAGNESIUM 87473203112 Active Vanna Garcia XANAX 0.5 MG TABS 1 PO TID prn ALPRAZOLAM 62544406191 Active Vanna Garcia PATANOL 0.1 % SOLN 1-2 gtts in each eye BID OLOPATADINE HCL 28473649270 No Longer Active Guerajeanette Bailey PREDNISONE 20 MG TAB 3 pills at once for 2 days then 2 pills daily for 2 days PREDNISONE 13176742229 No Longer Active Guera Bailey CYMBALTA 60 MG CPEP 1 PO daily DULOXETINE HCL 63690016105 Active Vanna Garcia ZOLOFT 25 MG TABS 1 po daily SERTRALINE HCL 31804556944 No Longer Active Guera Annel Bailey ZOLOFT 100 MG TABS 1 po daily SERTRALINE HCL 83958795426 No Longer Active Guera Annel Bailey REGLAN 10 MG TABS 1 po BID METOCLOPRAMIDE HCL 97990441547 No Longer Active Guera Annel Bailey MIDRIN 325-65-100 MG CAPS 1-2 PO Q4-6hrs prn APAP- ISOMETHEPTENE-DICHLORAL No Longer Active Guera Annel Bailey FLEXERIL 10 MG TABS 1 po HS prn CYCLOBENZAPRINE HCL 36213648932 No Longer Active Guera Annel Bailey SYMBICORT 160-4.5 MCG/ACT AERO 2 puffs BID BUDESONIDE- FORMOTEROL FUMARATE 23592676531 Active Vanna Garcia CIPRO 500 MG TABS 1 PO BID for 7 days CIPROFLOXACIN HCL 88734452027 No Longer Active Guera Annel Bailey PYRIDIUM 200 MG TABS 1 PO TID x 3 days PHENAZOPYRIDINE HCL 09552993622 No Longer Active Johana Fernandez AMPICILLIN 500 MG CAPS 1 PO BID x 7 days AMPICILLIN 87974053272 No Longer Active Johana Fernandez NORVASC 5 MG TAB 1 PO QD AMLODIPINE BESYLATE 89758635510 Active Vanna Garcia IMODIUM A-D 2 MG TABS 1 po daily LOPERAMIDE HCL 69802599021 Active Guera Annel Bailey QUESTRAN POWD 1 scoop in 4 oz of fluid BID scheduled CHOLESTYRAMINE POWD 78893081659 No Longer Active Guera Annel Bailey DYAZIDE 37.5-25 MG CAP 1 PO daily TRIAMTERENE-HCTZ 41196036917 Active Vanna Garcia ZANTAC 150 MG TABS 2 PO QD prn RANITIDINE HCL 96681558588 No Longer Active Guera Annel Bailey ZANTAC 300 MG TABS 1 PO QHS RANITIDINE HCL 64081865443 Active Vanna Garcia SINGULAIR 10 MG TABS 1 PO QHS MONTELUKAST SODIUM 96793809462 Active Vanna Garcia LORTAB 5 5-500 MG TABS 1-2 PO Q6hrs prn pain HYDROCODONE-ACETAMINOPHEN 19642106006 No Longer Active Guera Annel Bailey VALTREX 1 GM TABS 1 PO BID VALACYCLOVIR HCL 12120765695 No Longer Active Guera Annel Bailey ZOCOR 10 MG TABS 1 po daily SIMVASTATIN 76980626091 Active Vanna Garcia PROTONIX 40 MG TBEC 1 PO daily PANTOPRAZOLE SODIUM 12674089803 No Longer Active Guera Annel Bailey PREMPRO 0.3-1.5 MG TABS 1 po daily prn CONJ ESTROG- MEDROXYPROGEST PEARL 42677521467 No Longer Active Guera Annel Bailey ASPIRIN 81 MG CHEW 1 PO daily ASPIRIN 73468710862 Active Guera Annel Bailey BENAZEPRIL HCL 10 MG TABS 1 PO daily BENAZEPRIL HCL 30094255407 Active Vanna Garcia SULAR 20 MG TB24 1 po daily NISOLDIPINE 48370666791 No Longer Active Guera Annel Bailey NEXIUM 40 MG CPDR 1 PO QD ESOMEPRAZOLE MAGNESIUM 10481713434 No Longer Active Guera Annel Bailey NORVASC 5 MG TABS 1 po qd AMLODIPINE BESYLATE 46987132682 No Longer Active Guera Annel Bailey ALBUTEROL 90 MCG/ACT AERS 2 puffs q 4-6h prn ALBUTEROL 10239724117 No Longer Active Guera Annel Bailey ADVAIR DISKUS 100-50 MCG/DOSE MISC 1 puff bid FLUTICASONE-SALMETEROL 68377691682 No Longer Active Guera Annel Bailey PREDNISONE 20 MG TABS 2 po qd PREDNISONE 17053966450 No Longer Active Guera Annel Bailey BIAXIN XL 500 MG TB24 2 po qd CLARITHROMYCIN 07277290687 No Longer Active Guera Annel Bailey ZANTAC 75 75 MG TABS take 2 tabs po hs RANITIDINE HCL 69381576120 No Longer Active Guera Annel Bailey ROBINUL-FORTE 2 MG TABS 1 tab at hs GLYCOPYRROLATE 22643677591 No Longer Active Guera Annel Bailey PEPCID 20 MG TAB 1 BID FAMOTIDINE 60130806800 No Longer Active Guera Annel Bailey REGLAN 10 MG TABS 1-2 tabs po daily METOCLOPRAMIDE HCL 08698600204 No Longer Active Guera Annel Bailey NEXIUM 40 MG CPDR 1 po daily ESOMEPRAZOLE MAGNESIUM 67511838866 No Longer Active Guera Annel Bailey BEXTRA 10 MG TABS 1 po daily VALDECOXIB 82729515958 No Longer Active Guera Annel Bailey ZYRTEC [...] mm/h Encounters Code Encounter Date Provider Facility CPT-30642 Ofc Vst, Est Level IV 17:28:21 CDT Guera Bailey DO, FACP CPT-52176 Ofc Vst, Est Level IV 19:09:30 CDT Guera Bailye DO, FACP CPT-74575 Ofc Vst, Est Level IV 13:21:14 CDT Guera Bailey DO, FACP CPT-86259 Ofc Vst, Est Level III 12:25:14 CDT Guera Bailey DO, FACP CPT-56500 Ofc Vst, Est Level IV 15:40:26 CDT [facility] CPT-22047 Ofc Vst, Est Level IV 14:50:06 CDT Guera Annel Bailey [facility] CPT-88777 Ofc Vst, Est Level III 20:18:26 [employer]NAG[employer] Guera Alston Lynn, DO, FACP CPT-05035 Ofc Vst, Est Level IV 16:11:03 CDT Guera Annel Alston Lynn, DO, FACP CPT-54324 Ofc Vst, Est Level V 15:32:25 CDT Guera Annel Bailey [facility] CPT-75503 Ofc Vst, Est Level IV 15:58:30 CDT Guera Annel Bailey [facility] CPT-17585 Ofc Vst, Est Level IV 15:24:03 CH[employer] MANAGEMENT Guera Annel Alston Lynn, DO, FACP CPT-76754 Ofc Vst, Est Level IV 09:59:50 CDT Guera Annel Alston Lynn, DO, FACP CPT-49037 Ofc Vst, Est Level IV 09:51:49 CDT Guera Annel Alston Lynn, DO, FACP CPT-14167 Ofc Vst, Est Level IV 15:30:55 CH[employer] MANAGEMENT Guera Annel Bailey [facility] CPT-89638 Ofc Vst, Est Level IV 09:25:23 CH[employer] MANAGEMENT Guera Annel Alston Lynn, DO, FACP CPT-21859 Ofc Vst, Est Level III 15:30:51 CDT Guera Annel Bailey [facility] CPT-54708 Ofc Vst, Est Level IV 16:23:38 CDT Guera Annel Alston Lynn, DO, FACP CPT-67517 Ofc Vst, Est Level IV 10:25:49 CH[employer] MANAGEMENT Guera Annel Alston Lynn, DO, FACP CPT-71517 Ofc Vst, Est Level IV 21:06:00 CDT Guerajeanette Up Lynn Guera Alecia Lynn, DO, FACP CPT-23365 Ofc Vst, Est Level IV 10:23:12 CDT Guera Annel yLnn Bailey, DO, FACP CPT-39972 Ofc Vst, Est Level V 12:13:16 CDT Guera Annel Gonzalezvianey Lynne Alecia Lynn, DO, FACP CPT-04193 Ofc Vst, Est Level V 13:52:06 CDT Guera Annel Lynn Bailey, DO, FACP CPT-31327 Ofc Vst, Est Level IV 16:51:10 CHANGE MANAGEMENT Guera Up Lynn Bailey, DO, FACP CPT-17382 Ofc Vst, Est Level III 12:22:44 CHANGE MANAGEMENT Guerajeanette Up Lynn Bailey, DO, FACP CPT-19601 Ofc Vst, Est Level III 16:45:37 CDT Guera Annel Lynn Bailey, DO, FACP CPT-15696 Ofc Vst, Est Level IV 09:43:02 CDT Guerajeanette Up Lynn Bailey, DO, FACP CPT-49767 Ofc Vst, Est Level IV 09:31:45 CDT Guera Bailey [facility] [place] CPT-00586 Ofc Vst, Est Level IV 10:42:21 CHANGE MANAGEMENT Guera Bailey [facility] [place] CPT-36573 Ofc Vst, Est Level V 10:05:08 CDT Guera Bailey [facility] [place] CPT-09758 Ofc Vst, Est Level IV 14:03:45 CHANGE MANAGEMENT Guera Bailey Bhc [facility] [place] CPT-20594 Ofc Vst, Est Level III 13:53:55 CDT Guera Annel Bailey [facility] [place] CPT-69808 Ofc Vst, Est Level IV 09:05:54 CDT Guera Annel Gonzalezner [facility] [place] CPT-82588 Ofc Vst, Est Level IV 17:57:08 CDT Guera Annel Bailey [facility] [place] CPT-49949 Ofc Vst, Est Level III 18:23:27 CHANGE MANAGEMENT [facility] Annel Gonzalezner [facility] [place] CPT-44604 Ofc Vst, New Level III 17:24:59 CDT [facility] Annel Bailey [facility] [place] Procedures Code Procedure Name Date Entry Date Standard Description CPT-93153 Preventive, Est, (40-64) 16:38:00 CHANGE MANAGEMENT CPT-36678 Preventive, Est, (40-64) 19:55:54 CHANGE MANAGEMENT CPT-30797 Handling of specimen from office to lab 20:59:31 CHANGE MANAGEMENT CPT-07371 Preventive, Est, (40-64) 20:59:31 CHANGE MANAGEMENT CPT-78099 Preventive, Est, (40-64) 13:14:46 CDT CPT-26656 Handling of specimen from office to lab 13:14:46 CDT CPT-11278 EKG w/ Interpretation 12:13:16 CDT CPT-42559 Cryopathy Skin 09:43:02 CDT CPT-00238 Handling of specimen from office to lab 14:41:29 CDT CPT-75627 Preventive, Est, (40-64) 14:17:08 CDT CPT-76510 Preventive, Est, (40-64) 14:48:08 CDT CPT-27957 Preventive, Est, (40-64) 17:22:09 CDT
--- OUTSIDE RECORDS SUMMARY | 2017-07-07 09:56 | XMS REPORT | Clinical Summary ---
Author Author User, Spotsetter Organization [facility] [place] Address Unknown Phone Unavailable Allergies, Adverse Reactions, [...] MG TABS 1/2-1 PO daily ALOSETRON HCL 20818180934 Active Guera Bailey BENTYL 10 MG CAPS 1 PO QID prn DICYCLOMINE HCL 66750675385 Active Guera Bailey LEVSIN 0.125 MG TABS 1-2 po QID prn HYOSCYAMINE SULFATE 68024977678 Active Guera Bailey HYDROCODONE-ACETAMINOPHEN 5-325 MG TABS 1-2 PO Q4-6 hrs prn pain HYDROCODONE-ACETAMINOPHEN 13136115576 Active Vanna Garcia BENTYL 10 MG CAP 1 PO QID prn DICYCLOMINE HCL 43056495648 No Longer Active Guera Bailey CATAFLAM 50 MG TABS 1 PO BID prn headache DICLOFENAC POTASSIUM 53494264490 No Longer Active Guerajeanette Bailey PERCOCET 5-325 MG TAB 1 PO q6hrs prn OXYCODONE- ACETAMINOPHEN 79644017021 No Longer Active Guerajeanette Bailey ZOFRAN ODT 8 MG TBDP 1 PO Q6hrs prn nausea ONDANSETRON 31693907351 No Longer Active Guera Annel Bailey BENTYL 10 MG CAP 1 PO QID prn DICYCLOMINE HCL 99899330404 No Longer Active Guerajeanette Bailey PREMARIN 0.625 MG/GM CREA 1 gm intravaginally HS 3 times a week for 4 weeks then twice a week ESTROGENS, CONJUGATED VAGINAL 16753453643 Active Guera Bailey PHENERGAN 25 MG TAB 1 PO Q6hrs prn PROMETHAZINE HCL Active Vanna Garcia PROAIR HFA 108 (90 BASE) MCG/ACT AERS 2 puff Q4 hrs prn wheezing ALBUTEROL SULFATE 18553294596 Active Vanna Garcia REGLAN 10 MG TAB 1 PO 30 minutes before meals and at bedtime METOCLOPRAMIDE HCL 70727487210 Active Guera Bailey NEXIUM 40 MG CPDR 1 PO daily ESOMEPRAZOLE MAGNESIUM 33712819160 Active Vanna Garcia XANAX 0.5 MG TABS 1 PO TID prn ALPRAZOLAM 22889042161 Active Vanna Garcia PATANOL 0.1 % SOLN 1-2 gtts in each eye BID OLOPATADINE HCL 93647800774 No Longer Active Guerajeanette Bailey PREDNISONE 20 MG TAB 3 pills at once for 2 days then 2 pills daily for 2 days PREDNISONE 89150170798 No Longer Active Guera Bailey CYMBALTA 60 MG CPEP 1 PO daily DULOXETINE HCL 61986602074 Active Vanna Garcia ZOLOFT 25 MG TABS 1 po daily SERTRALINE HCL 43170195880 No Longer Active Guera Annel Bailey ZOLOFT 100 MG TABS 1 po daily SERTRALINE HCL 17739002132 No Longer Active Guera Annel Bailey REGLAN 10 MG TABS 1 po BID METOCLOPRAMIDE HCL 34459446417 No Longer Active Guera Annel Bailey MIDRIN 325-65-100 MG CAPS 1-2 PO Q4-6hrs prn APAP- ISOMETHEPTENE-DICHLORAL No Longer Active Guera Annel Bailey FLEXERIL 10 MG TABS 1 po HS prn CYCLOBENZAPRINE HCL 74870065294 No Longer Active Guera Annel Bailey SYMBICORT 160-4.5 MCG/ACT AERO 2 puffs BID BUDESONIDE- FORMOTEROL FUMARATE 06331382369 Active Vanna Garcia CIPRO 500 MG TABS 1 PO BID for 7 days CIPROFLOXACIN HCL 53980076959 No Longer Active Guera Annel Bailey PYRIDIUM 200 MG TABS 1 PO TID x 3 days PHENAZOPYRIDINE HCL 31619413362 No Longer Active Johana Fernandez AMPICILLIN 500 MG CAPS 1 PO BID x 7 days AMPICILLIN 37623449999 No Longer Active Johana Fernandez NORVASC 5 MG TAB 1 PO QD AMLODIPINE BESYLATE 66892017511 Active Vanna Garcia IMODIUM A-D 2 MG TABS 1 po daily LOPERAMIDE HCL 08430922055 Active Guera Annel Bailey QUESTRAN POWD 1 scoop in 4 oz of fluid BID scheduled CHOLESTYRAMINE POWD 50278347964 No Longer Active Guera Annel Bailey DYAZIDE 37.5-25 MG CAP 1 PO daily TRIAMTERENE-HCTZ 37492097817 Active Vanna Garcia ZANTAC 150 MG TABS 2 PO QD prn RANITIDINE HCL 15881848392 No Longer Active Guera Annel Bailey ZANTAC 300 MG TABS 1 PO QHS RANITIDINE HCL 12536077395 Active Vanna Garcia SINGULAIR 10 MG TABS 1 PO QHS MONTELUKAST SODIUM 16927181748 Active Vanna Garcia LORTAB 5 5-500 MG TABS 1-2 PO Q6hrs prn pain HYDROCODONE-ACETAMINOPHEN 91193636610 No Longer Active Guera Annel Bailey VALTREX 1 GM TABS 1 PO BID VALACYCLOVIR HCL 50384062999 No Longer Active Guera Annel Bailey ZOCOR 10 MG TABS 1 po daily SIMVASTATIN 32243760105 Active Vanna Garcia PROTONIX 40 MG TBEC 1 PO daily PANTOPRAZOLE SODIUM 26941749762 No Longer Active Guera Annel Bailey PREMPRO 0.3-1.5 MG TABS 1 po daily prn CONJ ESTROG- MEDROXYPROGEST PEARL 10133508855 No Longer Active Guera Annel Bailey ASPIRIN 81 MG CHEW 1 PO daily ASPIRIN 02830958770 Active Guera Annel Bailey BENAZEPRIL HCL 10 MG TABS 1 PO daily BENAZEPRIL HCL 50618961521 Active Vanna Langleytis SULAR 20 MG TB24 1 po daily NISOLDIPINE 87475526029 No Longer Active Guerajeanette Bailey NEXIUM 40 MG CPDR 1 PO QD ESOMEPRAZOLE MAGNESIUM 06968982671 No Longer Active Guera Annel Bailey NORVASC 5 MG TABS 1 po qd AMLODIPINE BESYLATE 24953148539 No Longer Active Guera Annel Bailey ALBUTEROL 90 MCG/ACT AERS 2 puffs q 4-6h prn ALBUTEROL 75569569562 No Longer Active Guera Annel Bailey ADVAIR DISKUS 100-50 MCG/DOSE MISC 1 puff bid FLUTICASONE-SALMETEROL 33047439507 No Longer Active Guera Annel Bailey PREDNISONE 20 MG TABS 2 po qd PREDNISONE 59033357386 No Longer Active Guera Annel Gonzalezner BIAXIN XL 500 MG TB24 2 po qd CLARITHROMYCIN 01313570565 No Longer Active Guera Annel Gonzalezner ZANTAC 75 75 MG TABS take 2 tabs po hs RANITIDINE HCL 63513421796 No Longer Active Guera Annel Gonzalezner ROBINUL-FORTE 2 MG TABS 1 tab at hs GLYCOPYRROLATE 50009155046 No Longer Active Guera Annel Bailey PEPCID 20 MG TAB 1 BID FAMOTIDINE 07677221761 No Longer Active Guera Annel Lynn REGLAN 10 MG TABS 1-2 tabs po daily METOCLOPRAMIDE HCL 35990833489 No Longer Active [place] Annel Lynn NEXIUM 40 MG CPDR 1 po daily ESOMEPRAZOLE MAGNESIUM 45329983731 No Longer Active Guera Annel Bailey BEXTRA 10 MG TABS 1 po daily VALDECOXIB 71832795830 No Longer Active Guera Annel Gonzalezner ZYRTEC [...] mm/h Encounters Code Encounter Date Provider Facility CPT-69339 Ofc Vst, Est Level IV 17:28:21 CDT Guera Annel Bailey DO, FACP CPT-22016 Ofc Vst, Est Level IV 19:09:30 CDT Guera Annel Bailey DO, FACP CPT-87955 Ofc Vst, Est Level IV 13:21:14 CDT Guerajeanette Bailey DO, FACP CPT-80029 Ofc Vst, Est Level III 12:25:14 CDT Guera Annel Bailey DO, FACP CPT-26180 Ofc Vst, Est Level IV 15:40:26 CDT Guerajeanette Bailey [facility] CPT-23292 Ofc Vst, Est Level IV 14:50:06 CDT Guerajeanette Bailey [facility] CPT-04108 Ofc Vst, Est Level III 20:18:26 DRILL HAND Guerajeanette Bailey DO, FACP CPT-72635 Ofc Vst, Est Level IV 16:11:03 CDT Guera Bailey DO, FACP CPT-31543 Ofc Vst, Est Level V 15:32:25 CDT Guerajeanette Bailey [facility] CPT-46019 Ofc Vst, Est Level IV 15:58:30 CDT Guerajeanette Bailey [facility] CPT-62076 Ofc Vst, Est Level IV 15:24:03 DRILL HAND Guera Alston Bailey, DO, FACP CPT-90503 Ofc Vst, Est Level IV 09:59:50 CDT Guera Annel Alston Bailey, DO, FACP CPT-77724 Ofc Vst, Est Level IV 09:51:49 CDT Guera Annel Alston Lynn, DO, FACP CPT-23553 Ofc Vst, Est Level IV 15:30:55 DRILL HAND Guerajeanette Bailey [facility] CPT-22873 Ofc Vst, Est Level IV 09:25:23 DRILL HAND Guera Alston Lynn, DO, FACP CPT-68028 Ofc Vst, Est Level III 15:30:51 CDT Guera Annel Bailey [facility] CPT-87421 Ofc Vst, Est Level IV 16:23:38 CDT Guera Annel Alston Lynn, DO, FACP CPT-21387 Ofc Vst, Est Level IV 10:25:49 DRILL HAND Guera Alston Bailey, DO, FACP CPT-64861 Ofc Vst, Est Level IV 21:06:00 CDT Guerajeanette Alston Lynn, DO, FACP CPT-11848 Ofc Vst, Est Level IV 10:23:12 CDT Guera Annel Alston Bailey, DO, FACP CPT-97879 Ofc Vst, Est Level V 12:13:16 CDT Guera Annel Lynne S Bailey, DO, FACP CPT-62020 Ofc Vst, Est Level V 13:52:06 CDT Guera Annel Lynne S Bailey, DO, FACP CPT-76295 Ofc Vst, Est Level IV 16:51:10 DRILL HAND Guera Annel Alston Lynn, DO, FACP CPT-75107 Ofc Vst, Est Level III 12:22:44 DRILL HAND Guera Ribeiroanne Lynn Lynne Alecia Lynn, DO, FACP CPT-13050 Ofc Vst, Est Level III 16:45:37 CDT Guera Ribeirocolleen Lynne Alecia Lynn, DO, FACP CPT-46366 Ofc Vst, Est Level IV 09:43:02 CDT Guera Annel Lynn Lynne Alecia Lynn, DO, FACP CPT-28422 Ofc Vst, Est Level IV 09:31:45 CDT Guera Annel Bailey [facility] [place] CPT-29050 Ofc Vst, Est Level IV 10:42:21 DRILL HAND Guera Bailey [facility] CPT-88087 Ofc Vst, Est Level V 10:05:08 CDT Guerajeanette Bailey [facility] [place] CPT-42706 Ofc Vst, Est Level IV 14:03:45 DRILL HAND Guera Bailey [facility] [place] CPT-57029 Ofc Vst, Est Level III 13:53:55 CDT Guerajeanette Bailey [facility] [place] CPT-34384 Ofc Vst, Est Level IV 09:05:54 CDT Guera Bailey [facility] [place] CPT-98381 Ofc Vst, Est Level IV 17:57:08 CDT Guerajeanette Bailey [facility] [place] CPT-17040 Ofc Vst, Est Level III 18:23:27 DRILL HAND Guera Bailey [facility] CPT-73727 Ofc Vst, New Level III 17:24:59 CDT Guera Bailey [facility] Procedures Code Procedure Name Date Entry Date Standard Description CPT-15727 Preventive, Est, (40-64) 16:38:00 DRILL HAND CPT-87272 Preventive, Est, (40-64) 19:55:54 DRILL HAND CPT-16544 Handling of specimen from office to lab 20:59:31 DRILL HAND CPT-05445 Preventive, Est, (40-64) 20:59:31 DRILL HAND CPT-26240 Preventive, Est, (40-64) 13:14:46 CDT CPT-92241 Handling of specimen from office to lab 13:14:46 CDT CPT-77807 EKG w/ Interpretation 12:13:16 CDT CPT-04893 Cryopathy Skin 09:43:02 CDT CPT-95809 Handling of specimen from office to lab 14:41:29 CDT CPT-07959 Preventive, Est, (40-64) 14:17:08 CDT CPT-71003 Preventive, Est, (40-64) 14:48:08 CDT CPT-95454 Preventive, Est, (40-64) 17:22:09 CDT
--- OUTSIDE RECORDS SUMMARY | 2017-07-07 09:57 | XMS REPORT | Clinical Summary ---
Author Author User, FRS Organization [facility] Address Unknown Phone Unavailable Allergies, Adverse Reactions, [...] Guera Bailey Wheezing BRONCHITIS 490 Resolved Guera Baiely Bronchitis, not specified as acute or chronic [...] MG TABS 1/2-1 PO daily ALOSETRON HCL 66879877830 Active Guera Bailey BENTYL 10 MG CAPS 1 PO QID prn DICYCLOMINE HCL 24061781436 Active Guera Bailey LEVSIN 0.125 MG TABS 1-2 po QID prn HYOSCYAMINE SULFATE 98894733875 Active Guera Bailey HYDROCODONE-ACETAMINOPHEN 5-325 MG TABS 1-2 PO Q4-6 hrs prn pain HYDROCODONE-ACETAMINOPHEN 76050886005 Active Vanna Garcia BENTYL 10 MG CAP 1 PO QID prn DICYCLOMINE HCL 52501375814 No Longer Active Gurea Bailey CATAFLAM 50 MG TABS 1 PO BID prn headache DICLOFENAC POTASSIUM 17334072583 No Longer Active Guerajeanette Bailey PERCOCET 5-325 MG TAB 1 PO q6hrs prn OXYCODONE- ACETAMINOPHEN 85001398583 No Longer Active Guera Annel Bailey ZOFRAN ODT 8 MG TBDP 1 PO Q6hrs prn nausea ONDANSETRON 34779908691 No Longer Active Guera Annel Bailey BENTYL 10 MG CAP 1 PO QID prn DICYCLOMINE HCL 26726441481 No Longer Active Guera Annel Bailey PREMARIN 0.625 MG/GM CREA 1 gm intravaginally HS 3 times a week for 4 weeks then twice a week ESTROGENS, CONJUGATED VAGINAL 70380067760 Active Guerajeanette Bailey PHENERGAN 25 MG TAB 1 PO Q6hrs prn PROMETHAZINE HCL Active Vanna Garcia PROAIR HFA 108 (90 BASE) MCG/ACT AERS 2 puff Q4 hrs prn wheezing ALBUTEROL SULFATE 41273416823 Active Vanna Garcia REGLAN 10 MG TAB 1 PO 30 minutes before meals and at bedtime METOCLOPRAMIDE HCL 54632928011 Active Guera Bailey NEXIUM 40 MG CPDR 1 PO daily ESOMEPRAZOLE MAGNESIUM 23718932330 Active Vanna Garcia XANAX 0.5 MG TABS 1 PO TID prn ALPRAZOLAM 78358071803 Active Vanna Garcia PATANOL 0.1 % SOLN 1-2 gtts in each eye BID OLOPATADINE HCL 40372162683 No Longer Active Guerajeanette Bailey PREDNISONE 20 MG TAB 3 pills at once for 2 days then 2 pills daily for 2 days PREDNISONE 83682487375 No Longer Active Guera Bailey CYMBALTA 60 MG CPEP 1 PO daily DULOXETINE HCL 17677140405 Active Vanna Garcia ZOLOFT 25 MG TABS 1 po daily SERTRALINE HCL 49578908134 No Longer Active Guera Annel Bailey ZOLOFT 100 MG TABS 1 po daily SERTRALINE HCL 08512181983 No Longer Active Guera Annel Bailey REGLAN 10 MG TABS 1 po BID METOCLOPRAMIDE HCL 83427150500 No Longer Active Guera Annel Bailey MIDRIN 325-65-100 MG CAPS 1-2 PO Q4-6hrs prn APAP- ISOMETHEPTENE-DICHLORAL No Longer Active Guera Annel Bailey FLEXERIL 10 MG TABS 1 po HS prn CYCLOBENZAPRINE HCL 98113569709 No Longer Active Guera Annel Bailey SYMBICORT 160-4.5 MCG/ACT AERO 2 puffs BID BUDESONIDE- FORMOTEROL FUMARATE 96043849748 Active Vanna Garcia CIPRO 500 MG TABS 1 PO BID for 7 days CIPROFLOXACIN HCL 14160380357 No Longer Active Guera Annel Bailey PYRIDIUM 200 MG TABS 1 PO TID x 3 days PHENAZOPYRIDINE HCL 12745026588 No Longer Active Johana Fernandez AMPICILLIN 500 MG CAPS 1 PO BID x 7 days AMPICILLIN 35117937283 No Longer Active Johana Fernandez NORVASC 5 MG TAB 1 PO QD AMLODIPINE BESYLATE 64439717851 Active Vanna Garcia IMODIUM A-D 2 MG TABS 1 po daily LOPERAMIDE HCL 30770366967 Active Guera Annel Bailey QUESTRAN POWD 1 scoop in 4 oz of fluid BID scheduled CHOLESTYRAMINE POWD 78724050935 No Longer Active Guera Annel Bailey DYAZIDE 37.5-25 MG CAP 1 PO daily TRIAMTERENE-HCTZ 87478756311 Active Vanna Garcia ZANTAC 150 MG TABS 2 PO QD prn RANITIDINE HCL 13122926656 No Longer Active Guera Annel Bailey ZANTAC 300 MG TABS 1 PO QHS RANITIDINE HCL 54520078953 Active Vanna Garcia SINGULAIR 10 MG TABS 1 PO QHS MONTELUKAST SODIUM 72070001509 Active Vanna Garcia LORTAB 5 5-500 MG TABS 1-2 PO Q6hrs prn pain HYDROCODONE-ACETAMINOPHEN 23725769656 No Longer Active Guera Annel Bailey VALTREX 1 GM TABS 1 PO BID VALACYCLOVIR HCL 61746292714 No Longer Active Guera Annel Bailey ZOCOR 10 MG TABS 1 po daily SIMVASTATIN 61581484950 Active Vanna Langleytis PROTONIX 40 MG TBEC 1 PO daily PANTOPRAZOLE SODIUM 41527838932 No Longer Active Guera Annel Bailey PREMPRO 0.3-1.5 MG TABS 1 po daily prn CONJ ESTROG- MEDROXYPROGEST PEARL 73365784187 No Longer Active Guera Annel Bailey ASPIRIN 81 MG CHEW 1 PO daily ASPIRIN 37829760685 Active Guera Annel Bailey BENAZEPRIL HCL 10 MG TABS 1 PO daily BENAZEPRIL HCL 37353447226 Active Vanna Jose SULAR 20 MG TB24 1 po daily NISOLDIPINE 04889744446 No Longer Active Guerajeanette Bailey NEXIUM 40 MG CPDR 1 PO QD ESOMEPRAZOLE MAGNESIUM 20517280256 No Longer Active Guera Annel Bailey NORVASC 5 MG TABS 1 po qd AMLODIPINE BESYLATE 09965567954 No Longer Active Guera Annel Bailey ALBUTEROL 90 MCG/ACT AERS 2 puffs q 4-6h prn ALBUTEROL 31983511706 No Longer Active Guera Annel Bailey ADVAIR DISKUS 100-50 MCG/DOSE MISC 1 puff bid FLUTICASONE-SALMETEROL 91717007196 No Longer Active Guera Annel Bailey PREDNISONE 20 MG TABS 2 po qd PREDNISONE 47187561214 No Longer Active Guera Annel Bailey BIAXIN XL 500 MG TB24 2 po qd CLARITHROMYCIN 25232530765 No Longer Active Guera Annel Bailey ZANTAC 75 75 MG TABS take 2 tabs po hs RANITIDINE HCL 02327050931 No Longer Active Guera Annel Bailey ROBINUL-FORTE 2 MG TABS 1 tab at hs GLYCOPYRROLATE 26083975434 No Longer Active Guera Annel Bailey PEPCID 20 MG TAB 1 BID FAMOTIDINE 74900816308 No Longer Active Guera Annel Gonzalezner REGLAN 10 MG TABS 1-2 tabs po daily METOCLOPRAMIDE HCL 01426666801 No Longer Active Guera Annel Bailey NEXIUM 40 MG CPDR 1 po daily ESOMEPRAZOLE MAGNESIUM 77922948488 No Longer Active Guera Annel Bailey BEXTRA 10 MG TABS 1 po daily VALDECOXIB 28875454256 No Longer Active Guera Annel Bailey ZYRTEC [...] mm/h Encounters Code Encounter Date Provider Facility CPT-30912 Ofc Vst, Est Level IV 17:28:21 CDT Guera Bailey DO, FACP CPT-26949 Ofc Vst, Est Level IV 19:09:30 CDT Guera Bailey DO, FACP CPT-79351 Ofc Vst, Est Level IV 13:21:14 CDT Guera Bailey DO, FACP CPT-15010 Ofc Vst, Est Level III 12:25:14 CDT Guera Bailey DO, FACP CPT-40189 Ofc Vst, Est Level IV 15:40:26 CDT Guerajeanette Bailey [facility] CPT-52269 Ofc Vst, Est Level IV 14:50:06 CDT Guera Annel Bailey [facility] CPT-82329 Ofc Vst, Est Level III 20:18:26 DROP WIRER Guera Alston Bailey, DO, FACP CPT-40344 Ofc Vst, Est Level IV 16:11:03 CDT Guera Annel Alston Lynn, DO, FACP CPT-15400 Ofc Vst, Est Level V 15:32:25 CDT Guera Annel Bailey [facility] CPT-36158 Ofc Vst, Est Level IV 15:58:30 CDT Guera Annel Bailey [facility] CPT-05032 Ofc Vst, Est Level IV 15:24:03 DROP WIRER Guera Annel Alston Lynn, DO, FACP CPT-69177 Ofc Vst, Est Level IV 09:59:50 CDT Guerajeanette Alston Lynn, DO, FACP CPT-65269 Ofc Vst, Est Level IV 09:51:49 CDT Guerajeanette Alston Lynn, DO, FACP CPT-06408 Ofc Vst, Est Level IV 15:30:55 DROP WIRER Guera Bailey [facility] CPT-68350 Ofc Vst, Est Level IV 09:25:23 DROP WIRER Guera Annel Alston Lynn, DO, FACP CPT-24827 Ofc Vst, Est Level III 15:30:51 CDT Guerajeanette Bailey [facility] CPT-83504 Ofc Vst, Est Level IV 16:23:38 CDT Guera Annel Alston Lynn, DO, FACP CPT-92372 Ofc Vst, Est Level IV 10:25:49 DROP WIRER Guera Annel Alston Lynn, DO, FACP CPT-76777 Ofc Vst, Est Level IV 21:06:00 CDT Guera Annel Gonzalezner Guera Alston Lynn, DO, FACP CPT-22145 Ofc Vst, Est Level IV 10:23:12 CDT Guera Annel Gonzalezner Guera Alston Lynn, DO, FACP CPT-81535 Ofc Vst, Est Level V 12:13:16 CDT Guera Annel Alston Lynn, DO, FACP CPT-79085 Ofc Vst, Est Level V 13:52:06 CDT Guera Annel Lynn Guerajeanette Bailey, DO, FACP CPT-80522 Ofc Vst, Est Level IV 16:51:10 DROP WIRER Guera Up Lynn Lynne Alecia Lynn, DO, FACP CPT-73501 Ofc Vst, Est Level III 12:22:44 DROP WIRER Guerajeanette Up Bailey Guera Alston Lynn, DO, FACP CPT-53374 Ofc Vst, Est Level III 16:45:37 CDT Guera Annel Bailey Guera Alecia Lynn, DO, FACP CPT-48620 Ofc Vst, Est Level IV 09:43:02 CDT Guerajeanette Up Lynn Bailey, DO, FACP CPT-18622 Ofc Vst, Est Level IV 09:31:45 CDT Guerajeanette Bailey [facility] CPT-97848 Ofc Vst, Est Level IV 10:42:21 DROP WIRER Guera Bailey [facility] CPT-31789 Ofc Vst, Est Level V 10:05:08 CDT Guerajeanette Bailey [facility] CPT-78644 Ofc Vst, Est Level IV 14:03:45 DROP WIRER Guera Bailey [facility] CPT-40960 Ofc Vst, Est Level III 13:53:55 CDT Guera Annel Bailey [facility] CPT-97794 Ofc Vst, Est Level IV 09:05:54 CDT Guera Gonzalezner [facility] CPT-63495 Ofc Vst, Est Level IV 17:57:08 CDT Guera Bailey [facility] CPT-75384 Ofc Vst, Est Level III 18:23:27 DROP WIRER [facility] Annel Bailey [facility] CPT-65705 Ofc Vst, New Level III 17:24:59 CDT [facility] Annel Bailey [facility] Procedures Code Procedure Name Date Entry Date Standard Description CPT-39425 Preventive, Est, (40-64) 16:38:00 DROP WIRER CPT-06572 Preventive, Est, (40-64) 19:55:54 DROP WIRER CPT-42364 Handling of specimen from office to lab 20:59:31 DROP WIRER CPT-81045 Preventive, Est, (40-64) 20:59:31 DROP WIRER CPT-31061 Preventive, Est, (40-64) 13:14:46 CDT CPT-91197 Handling of specimen from office to lab 13:14:46 CDT CPT-73500 EKG w/ Interpretation 12:13:16 CDT CPT-07538 Cryopathy Skin 09:43:02 CDT CPT-67477 Handling of specimen from office to lab 14:41:29 CDT CPT-68131 Preventive, Est, (40-64) 14:17:08 CDT CPT-04395 Preventive, Est, (40-64) 14:48:08 CDT CPT-42896 Preventive, Est, (40-64) 17:22:09 CDT
--- OUTSIDE RECORDS SUMMARY | 2017-07-07 09:58 | XMS REPORT | Continuity of Care Document ---
Author Author [facility] Organization [facility] Address Unknown Phone Unavailable Allergies Active Description Code Type Severity Reaction Onset Reported/Identified Relationship to Patient Clinical Status Yes nisoldipine [id number] Drug Allergy Unknown N/A 04/30/2010 Yes Sulfa (Sulfonamide Antibiotics) [id number] Drug Allergy Unknown N/A 2009 Medications There is no data. Problems Date Dx Coded Attending Type Code Diagnosis Diagnosed By 04/30/2010 Ot 272.4 04/30/2010 Ot 327.23 04/30/2010 Ot 401.9 04/30/2010 Ot 493.20 04/30/2010 Ot 530.81 04/30/2010 Ot 716.90 04/30/2010 Ot 786.59 04/30/2010 Ot 794.30 04/30/2010 Ot V15.82 04/30/2010 Ot V45.89 04/30/2010 Ot V58.69 10/09/2010 Ot 535.40 10/09/2010 Ot V45.89 12/07/2011 Ot 558.9 NONINF GASTROENTERIT NEC 12/07/2011 Ot 787.02 NAUSEA ALONE 02/02/2015 JONES DO, VISHNU Ot 272.0 02/02/2015 JONES DO, VISHNU Ot 401.0 02/02/2015 JONES DO, VISHNU Ot V58.69 02/02/2015 JONES DO, VISHNU Ot V70.0 02/09/2015 JONES DO, VISHNU Ot 272.0 02/09/2015 JONES DO, VISHNU Ot 401.0 02/09/2015 JONES DO, VISHNU Ot V58.69 02/09/2015 JONES DO, VISHNU Ot V70.0 06/29/2015 Ot V76.12 06/29/2015 Ot 786.50 06/29/2015 Ot 272.0 06/29/2015 Ot 401.0 06/29/2015 Ot 530.81 06/29/2015 Ot 719.49 06/29/2015 Ot 790.29 06/29/2015 Ot 786.50 06/29/2015 Ot 272.0 06/29/2015 Ot 401.0 06/29/2015 Ot 710.0 06/29/2015 Ot V76.12 06/29/2015 Ot 599.0 06/29/2015 Ot 788.41 06/29/2015 Ot 272.0 06/29/2015 Ot 401.0 06/29/2015 Ot 729.1 06/29/2015 Ot 789.07 06/29/2015 Ot 793.6 06/29/2015 Ot 530.81 06/29/2015 Ot 553.3 06/29/2015 Ot 307.89 06/29/2015 Ot V72.60 06/29/2015 Ot 553.3 06/29/2015 Ot 783.21 06/29/2015 Ot 787.02 06/29/2015 Ot 789.07 06/29/2015 Ot V58.69 06/29/2015 Ot 599.0 06/29/2015 Ot 783.21 06/29/2015 Ot 787.02 06/29/2015 Ot 789.07 06/29/2015 Ot 272.0 06/29/2015 Ot 790.6 06/29/2015 Ot 793.89 06/29/2015 Ot V76.12 06/29/2015 Ot 793.80 06/29/2015 Ot 793.80 06/29/2015 Ot 272.0 06/29/2015 Ot 401.0 06/29/2015 Ot 786.59 06/29/2015 Ot 789.06 06/29/2015 JONES DO, VISHNU Ot 729.1 06/29/2015 JONES DO, VISHNU Ot V58.69 06/29/2015 JONES DO, VISHNU Ot 793.80 06/29/2015 JONES DO, VISHNU Ot 722.93 06/29/2015 JONES DO, VISHNU Ot 729.5 06/29/2015 JONES DO, VISHNU Ot 272.0 06/29/2015 JONES DO, VISHNU Ot 401.0 06/29/2015 JONES DO, VISHNU Ot V58.69 06/29/2015 JONES DO, VISHNU Ot 558.9 06/29/2015 JONES DO, VISHNU Ot 789.00 06/29/2015 KAREN ARIAS VISHNU Ot 558.9 06/29/2015 KAREN ARIAS, VISHNU Ot 789.04 06/29/2015 KAREN ARIAS, VISHNU Ot 268.9 06/29/2015 KAREN ARIAS, VISHNU Ot 272.0 06/29/2015 KAREN ARIAS, VISHNU Ot 401.0 06/29/2015 KAREN ARIAS, VISHNU Ot V58.69 06/29/2015 KAREN ARIAS VISHNU Ot 793.89 06/29/2015 Ot 272.0 06/29/2015 Ot 401.0 06/29/2015 Ot 496 06/29/2015 Ot V58.69 06/29/2015 Ot V70.0 06/29/2015 SYDNEE JONES DOI Ot 272.0 06/29/2015 KAREN ARIAS, VISHNU Ot 401.0 06/29/2015 SYDNEE JONES DOI Ot V58.69 06/29/2015 SYDNEE JONES DOI Ot V70.0 04/11/2016 KAREN ARIAS VISHNU Ot B19.9 UNSPECIFIED VIRAL HEPATITIS WITHOUT HEPA 04/11/2016 KAREN ARIAS VISHNU Ot D50.8 OTHER IRON DEFICIENCY ANEMIAS 04/11/2016 KAREN ARIAS VIHSNU Ot E55.9 VITAMIN D DEFICIENCY, UNSPECIFIED 04/11/2016 KAREN ARIAS VISHNU Ot E78.1 PURE HYPERGLYCERIDEMIA 04/11/2016 KAREN ARIAS VISHNU Ot Z00.00 ENCNTR FOR GENERAL ADULT MEDICAL EXAM W/ 05/09/2016 GUILLERMO SAUCEDO, DISHA Calixto Ot R63.4 ABNORMAL WEIGHT LOSS 05/09/2016 GUILLERMO SAUCEDO, DISHA Calixto Ot Z01.818 ENCOUNTER FOR OTHER PREPROCEDURAL EXAMIN 05/09/2016 Ot V76.12 OTH SCREEN MAMMO-MALIGN NEOPLASM OF PINA 05/09/2016 Ot 599.0 URIN TRACT INFECTION NOS 05/09/2016 Ot 788.41 URINARY FREQUENCY 05/09/2016 Ot 272.0 PURE HYPERCHOLESTEROLEM 05/09/2016 Ot 401.0 MALIGNANT HYPERTENSION 05/09/2016 Ot 729.1 MYALGIA AND MYOSITIS NOS 05/09/2016 Ot 789.07 ABDOMINAL PAIN, GENERALIZED 05/09/2016 Ot 793.6 NOSP (ABN) FINDINGS ON RADIOLOGICAL OT 05/09/2016 Ot 530.81 ESOPHAGEAL REFLUX 05/09/2016 Ot 553.3 DIAPHRAGMATIC HERNIA 05/09/2016 Ot 307.89 OTHER, PAIN DISORDER RELATED TO PSYCHOLO 05/09/2016 Ot V72.60 LABORATORY EXAMINATION, UNSPECIFIED 05/09/2016 Ot 553.3 DIAPHRAGMATIC HERNIA 05/09/2016 Ot 783.21 LOSS OF WEIGHT 05/09/2016 Ot 787.02 NAUSEA ALONE 05/09/2016 Ot 789.07 ABDOMINAL PAIN, GENERALIZED 05/09/2016 Ot V58.69 OTH MED,LT, CURRENT USE 05/09/2016 Ot 599.0 URIN TRACT INFECTION NOS 05/09/2016 Ot 783.21 LOSS OF WEIGHT 05/09/2016 Ot 787.02 NAUSEA ALONE 05/09/2016 Ot 789.07 ABDOMINAL PAIN, GENERALIZED 05/09/2016 Ot 272.0 PURE HYPERCHOLESTEROLEM 05/09/2016 Ot 790.6 ABN BLOOD CHEMISTRY NEC 05/09/2016 Ot 793.89 OTH (ABN) FINDINGS ON RADIOLOGICAL EXAMI 05/09/2016 Ot V76.12 OTH SCREEN MAMMO-MALIGN NEOPLASM OF PINA 05/09/2016 Ot 793.80 UNSPEC ABNORMAL MAMMOGRAM 05/09/2016 Ot 793.80 UNSPEC ABNORMAL MAMMOGRAM 05/09/2016 Ot 272.0 PURE HYPERCHOLESTEROLEM 05/09/2016 Ot 401.0 MALIGNANT HYPERTENSION 05/09/2016 Ot 786.59 CHEST PAIN NEC 05/09/2016 Ot 789.06 ABDOMINAL PAIN, EPIGASTRIC 05/09/2016 VISHNU JONES DO Ot 729.1 MYALGIA AND MYOSITIS NOS 05/09/2016 VISHNU JONES DO Ot V58.69 OTH MED,LT,CURRENT USE 05/09/2016 SYDNEE JONES DOI Ot 793.80 UNSPEC ABNORMAL MAMMOGRAM 05/09/2016 VISHNU JONES DO Ot 722.93 DISC DIS NEC/NOS-LUMBAR 05/09/2016 SYDNEE JONES DOI Ot 729.5 PAIN IN LIMB 05/09/2016 SYDNEE JONES DOI Ot 272.0 PURE HYPERCHOLESTEROLEM 05/09/2016 KAREN ARIAS VISHNU Ot 401.0 MALIGNANT HYPERTENSION 05/09/2016 VISHNU JONES DO Ot V58.69 OTH MED,LT,CURRENT USE 05/09/2016 SYDNEE JONES DOI Ot 558.9 NONINF GASTROENTERIT NEC 05/09/2016 KAREN ARIAS VISHNU Ot 789.00 ABDOMINAL PAIN, UNSPECIFIED SITE 05/09/2016 SYDNEE JONES DOI Ot 558.9 NONINF GASTROENTERIT NEC 05/09/2016 KAREN ARIAS VISHNU Ot 789.04 ABDOMINAL PAIN, LEFT LOWER QUADRANT 05/09/2016 KAREN ARIAS VISHNU Ot 268.9 VITAMIN D DEFICIENCY NOS 05/09/2016 KAREN ARIAS VISHNU Ot 272.0 PURE HYPERCHOLESTEROLEM 05/09/2016 KAREN ARIAS VISHNU Ot 401.0 MALIGNANT HYPERTENSION 05/09/2016 KAREN ARIAS VISHNU Ot V58.69 OTH MED,LT,CURRENT USE 05/09/2016 SYDNEE JONES DOI Ot 793.89 OTH (ABN) FINDINGS ON RADIOLOGICAL EXAMI 05/09/2016 Ot 272.0 PURE HYPERCHOLESTEROLEM 05/09/2016 Ot 401.0 MALIGNANT HYPERTENSION 05/09/2016 Ot 496 CHR AIRWAY OBSTRUCT NEC 05/09/2016 Ot V58.69 OTH MED,LT, CURRENT USE 05/09/2016 Ot V70.0 ROUTINE MEDICAL EXAM 05/09/2016 SYDNEE JONES DOI Ot 272.0 PURE HYPERCHOLESTEROLEM 05/09/2016 KAREN ARIAS VISHNU Ot 401.0 MALIGNANT HYPERTENSION 05/09/2016 SYDNEE JONES DOI Ot V58.69 OTH MED,LT,CURRENT USE 05/09/2016 SYDNEE JONES DOI Ot V70.0 ROUTINE MEDICAL EXAM 05/09/2016 SYDNEE JONES DOI Ot Z12.31 ENCNTR SCREEN MAMMOGRAM FOR MALIGNANT NE 05/09/2016 VISHNU JONES DO Ot E55.9 VITAMIN D DEFICIENCY, UNSPECIFIED 05/09/2016 SYDNEE JONES DOI Ot E78.0 PURE HYPERCHOLESTEROLEMIA 05/09/2016 KAREN ARIAS VISHNU Ot E78.1 PURE HYPERGLYCERIDEMIA 05/09/2016 KAREN ARIAS VISHNU Ot R73.9 HYPERGLYCEMIA, UNSPECIFIED 05/09/2016 SYDNEE JONES DOI Ot Z00.00 ENCNTR FOR GENERAL ADULT MEDICAL EXAM W/ 05/09/2016 SYDNEE JONES DOI Ot B19.9 UNSPECIFIED VIRAL HEPATITIS WITHOUT HEPA 05/09/2016 SYDNEE JONES DOI Ot D50.8 OTHER IRON DEFICIENCY ANEMIAS 05/09/2016 KAREN ARIAS VISHNU Ot E55.9 VITAMIN D DEFICIENCY, UNSPECIFIED 05/09/2016 KAREN DO VISHNU Ot E78.1 PURE HYPERGLYCERIDEMIA 05/09/2016 KAREN ARIAS VISHNU Ot Z00.00 ENCNTR FOR GENERAL ADULT MEDICAL EXAM W/ 05/09/2016 GUILLERMO SAUCEDO, DISHA Calixto Ot R63.4 ABNORMAL WEIGHT LOSS 05/09/2016 GUILLERMO SAUCEDO, DISHA Calixto Ot Z01.818 ENCOUNTER FOR OTHER PREPROCEDURAL EXAMIN 05/09/2016 GUILLERMO SAUCEDO, DISHA Calixto Ot K29.70 GASTRITIS, UNSPECIFIED, WITHOUT BLEEDING 05/09/2016 GUILLERMO SAUCEDO, DISHA Calixto Ot R63.4 ABNORMAL WEIGHT LOSS 05/15/2016 GUILLERMO SAUCEDO, DISHA Calixto Ot R10.13 EPIGASTRIC PAIN 05/15/2016 DISHA LI MD Ot R63.4 ABNORMAL WEIGHT LOSS 05/15/2016 GUILLERMO SAUCEDO, DISHA Calixto Ot Z80.0 FAMILY HISTORY OF MALIGNANT NEOPLASM OF 05/16/2016 GUILLERMO SAUCEDO, DISHA Calixto Ot K29.70 GASTRITIS, UNSPECIFIED, WITHOUT BLEEDING 05/16/2016 GUILLERMO SAUCEDO, DISHA Calixto Ot R63.4 ABNORMAL WEIGHT LOSS 07/28/2016 VISHNU JONES DO Ot R30.9 PAINFUL MICTURITION, UNSPECIFIED 01/13/2017 CARLOS LOZOYA Ot D50.9 IRON DEFICIENCY ANEMIA, UNSPECIFIED 02/23/2017 KAREN ARIAS VISHNU Ot E78.00 PURE HYPERCHOLESTEROLEMIA, UNSPECIFIED 02/23/2017 KAREN DO VISHNU Ot E78.1 PURE HYPERGLYCERIDEMIA 02/26/2017 JONES DO VISHNU Ot E78.00 PURE HYPERCHOLESTEROLEMIA, UNSPECIFIED 02/26/2017 JONES DO VISHNU Ot E78.1 PURE HYPERGLYCERIDEMIA 03/03/2017 JONES DO VISHNU Ot D50.8 OTHER IRON DEFICIENCY ANEMIAS Procedures There is no data. Results Test Result Range Automated blood complete blood count (hemogram) panel - 04/10/16 09:16 Blood leukocytes automated count (number/volume) 4.8 10*3/uL 4.3-11.0 Blood erythrocytes automated count (number/volume) 4.52 10*6/uL 4.35-5.85 Venous blood hemoglobin measurement (mass/volume) 12.9 g/dL 11.5-16.0 Blood hematocrit (volume fraction) 39 % 35-52 Automated erythrocyte mean corpuscular volume 86 [foz_us] 80-99 Automated erythrocyte mean corpuscular hemoglobin (mass per erythrocyte) 29 pg 25-34 Automated erythrocyte mean corpuscular hemoglobin concentration measurement ( mass/volume) 33 g/dL 32-36 Automated erythrocyte distribution width ratio 14.3 % 10.0-14.5 Automated blood platelet count (count/volume) 243 10*3/uL 130-400 Automated blood platelet mean volume measurement 9.8 [foz_us] 7.4-10.4 Comprehensive metabolic panel - 04/10/16 09:16 Serum or plasma sodium measurement (moles/volume) 137 mmol/L 135-145 Serum or plasma potassium measurement (moles/volume) 3.4 mmol/L 3.6-5.0 Serum or plasma chloride measurement (moles/volume) 100 mmol/L 98-107 Carbon dioxide 27 mmol/L 21-32 Serum or plasma anion gap determination (moles/volume) 10 mmol/L 5-14 Serum or plasma urea nitrogen measurement (mass/volume) 9 mg/dL 7-18 Serum or plasma creatinine measurement (mass/volume) 0.75 mg/dL 0.60-1.30 Serum or plasma urea nitrogen/creatinine mass ratio 12 NRG Serum or plasma creatinine measurement with calculation of estimated glomerular filtration rate > NRG Serum or plasma glucose measurement (mass/volume) 107 mg/dL 70-105 Serum or plasma calcium measurement (mass/volume) 9.3 mg/dL 8.5-10.1 Serum or plasma total bilirubin measurement (mass/volume) 0.5 mg/dL 0.1-1.0 Serum or plasma alkaline phosphatase measurement (enzymatic activity/volume) 75 U/L 40-136 Serum or plasma aspartate aminotransferase measurement (enzymatic activity/ volume) 19 U/L 5-34 Serum or plasma alanine aminotransferase measurement (enzymatic activity/volume ) 29 U/L 0-55 Serum or plasma protein measurement (mass/volume) 6.5 g/dL 6.4-8.2 Serum or plasma albumin measurement (mass/volume) 4.2 g/dL 3.2-4.5 Serum or plasma triglyceride measurement (mass/volume) - 04/10/16 09:16 Serum or plasma triglyceride measurement (mass/volume) 92 mg/dL <150 Serum or plasma cholesterol measurement (mass/volume) - 04/10/16 09:16 Serum or plasma cholesterol measurement (mass/volume) 173 mg/dL < 200 Hemoglobin A1c - 04/10/16 09:16 Hemoglobin A1c 5.5 % 4.5-6.2 Serum or plasma ferritin measurement (mass/volume) - 04/10/16 09:16 Serum or plasma ferritin measurement (mass/volume) 15 % 15-150 Acute hepatitis panel - 04/10/16 09:16 Confirmatory quantitative serum or plasma hepatitis B virus surface antigen measurement Non-Reactive Non-Reactive Hepatitis A virus IgM antibody assay Non-Reactive Non- Reactive Hepatitis B virus core IgM antibody assay Non-Reactive Non-Reactive Serum hepatitis C virus antibody detection Non-Reactive Non-Reactive IRON TEST - 04/10/16 09:16 Serum or plasma iron measurement (mass/volume) 63 % 35- 180 25-hydroxyvitamin D measurement - 04/10/16 09:16 25-hydroxy vitamin D measurement 35 % 30-100 Complete urinalysis with reflex to culture - 07/22/16 16:50 Urine color determination YELLOW NRG Urine clarity determination CLEAR NRG Urine pH measurement by test strip 6 5-9 Specific gravity of urine by test strip 1.015 1.016- 1.022 Urine protein assay by test strip, semi-quantitative NEGATIVE NEGATIVE Urine glucose detection by automated test strip NEGATIVE NEGATIVE Erythrocytes detection in urine sediment by light microscopy NEGATIVE NEGATIVE Urine ketones detection by automated test strip NEGATIVE NEGATIVE Urine nitrite detection by test strip NEGATIVE NEGATIVE Urine total bilirubin detection by test strip NEGATIVE NEGATIVE Urine urobilinogen measurement by automated test strip (mass/volume) NORMAL NORMAL Urine leukocyte esterase detection by dipstick NEGATIVE NEGATIVE Automated urine sediment erythrocyte count by microscopy (number/high power field) NONE NRG Automated urine sediment leukocyte count by microscopy (number/high power field ) RARE NRG Bacteria detection in urine sediment by light microscopy NEGATIVE NRG Squamous epithelial cells detection in urine sediment by light microscopy 5-10 NRG Crystals detection in urine sediment by light microscopy NONE NRG Casts detection in urine sediment by light microscopy NONE NRG Mucus detection in urine sediment by light microscopy NEGATIVE NRG Complete urinalysis with reflex to culture NO NRG Complete blood count (CBC) with automated white blood cell (WBC) differential - 09/25/16 09:18 Blood leukocytes automated count (number/volume) 5.1 10*3/uL 4.3-11.0 Blood erythrocytes automated count (number/volume) 4.36 10*6/uL 4.35-5.85 Venous blood hemoglobin measurement (mass/volume) 12.7 g/dL 11.5-16.0 Blood hematocrit (volume fraction) 38 % 35-52 Automated erythrocyte mean corpuscular volume 88 [foz_us] 80-99 Automated erythrocyte mean corpuscular hemoglobin (mass per erythrocyte) 29 pg 25-34 Automated erythrocyte mean corpuscular hemoglobin concentration measurement ( mass/volume) 33 g/dL 32-36 Automated erythrocyte distribution width ratio 13.5 % 10.0-14.5 Automated blood platelet count (count/volume) 257 10*3/uL 130-400 Automated blood platelet mean volume measurement 10.4 [foz_us] 7.4-10.4 Automated blood neutrophils/100 leukocytes 61 % 42-75 Automated blood lymphocytes/100 leukocytes 27 % 12-44 Blood monocytes/100 leukocytes 11 % 0-12 Automated blood eosinophils/100 leukocytes 1 % 0-10 Automated blood basophils/100 leukocytes 0 % 0-10 Blood neutrophils automated count (number/volume) 3.1 10*3 1.8-7.8 Blood lymphocytes automated count (number/volume) 1.4 10*3 1.0-4.0 Blood monocytes automated count (number/volume) 0.5 10*3 0.0-1.0 Automated eosinophil count 0.1 10*3/uL 0.0-0.3 Automated blood basophil count (count/volume) 0.0 10*3/uL 0.0-0.1 Comprehensive metabolic panel - 09/25/16 09:18 Serum or plasma sodium measurement (moles/volume) 136 mmol/L 135-145 Serum or plasma potassium measurement (moles/volume) 3.7 mmol/L 3.6-5.0 Serum or plasma chloride measurement (moles/volume) 96 mmol/L 98-107 Carbon dioxide 28 mmol/L 21-32 Serum or plasma anion gap determination (moles/volume) 12 mmol/L 5-14 Serum or plasma urea nitrogen measurement (mass/volume) 5 mg/dL 7-18 Serum or plasma creatinine measurement (mass/volume) 0.72 mg/dL 0.60-1.30 Serum or plasma urea nitrogen/creatinine mass ratio 7 NRG Serum or plasma creatinine measurement with calculation of estimated glomerular filtration rate > NRG Serum or plasma glucose measurement (mass/volume) 86 mg/dL 70-105 Serum or plasma calcium measurement (mass/volume) 8.8 mg/dL 8.5-10.1 Serum or plasma total bilirubin measurement (mass/volume) 0.4 mg/dL 0.1-1.0 Serum or plasma alkaline phosphatase measurement (enzymatic activity/volume) 78 U/L 40-136 Serum or plasma aspartate aminotransferase measurement (enzymatic activity/ volume) 18 U/L 5-34 Serum or plasma alanine aminotransferase measurement (enzymatic activity/volume ) 18 U/L 0-55 Serum or plasma protein measurement (mass/volume) 6.1 g/dL 6.4-8.2 Serum or plasma albumin measurement (mass/volume) 4.0 g/dL 3.2-4.5 Serum or plasma ferritin measurement (mass/volume) - 09/25/16 09:18 Serum or plasma ferritin measurement (mass/volume) 14.0 % 15.0-150.0 IRON TEST - 09/25/16 09:18 Serum or plasma iron measurement (mass/volume) 65 % 35- 180 Comprehensive metabolic panel - 02/20/17 14:10 Serum or plasma sodium measurement (moles/volume) 135 mmol/L 135-145 Serum or plasma potassium measurement (moles/volume) 3.6 mmol/L 3.6-5.0 Serum or plasma chloride measurement (moles/volume) 99 mmol/L 98-107 Carbon dioxide 28 mmol/L 21-32 Serum or plasma anion gap determination (moles/volume) 8 mmol/L 5-14 Serum or plasma urea nitrogen measurement (mass/volume) 6 mg/dL 7-18 Serum or plasma creatinine measurement (mass/volume) 0.65 mg/dL 0.60-1.30 Serum or plasma urea nitrogen/creatinine mass ratio 9 NRG Serum or plasma creatinine measurement with calculation of estimated glomerular filtration rate > NRG Serum or plasma glucose measurement (mass/volume) 102 mg/dL 70-105 Serum or plasma calcium measurement (mass/volume) 8.8 mg/dL 8.5-10.1 Serum or plasma total bilirubin measurement (mass/volume) 0.5 mg/dL 0.1-1.0 Serum or plasma alkaline phosphatase measurement (enzymatic activity/volume) 77 U/L 40-136 Serum or plasma aspartate aminotransferase measurement (enzymatic activity/ volume) 18 U/L 5-34 Serum or plasma alanine aminotransferase measurement (enzymatic activity/volume ) 21 U/L 0-55 Serum or plasma protein measurement (mass/volume) 6.1 g/dL 6.4-8.2 Serum or plasma albumin measurement (mass/volume) 3.8 g/dL 3.2-4.5 Lipid 1996 panel - 02/20/17 14:10 Serum or plasma triglyceride measurement (mass/volume) 58 mg/dL <150 Serum or plasma cholesterol measurement (mass/volume) 174 mg/dL < 200 Serum or plasma cholesterol in HDL measurement (mass/volume) 76 mg/ dL 40-60 Cholesterol in LDL [mass/volume] in serum or plasma by direct assay 89 mg/dL 1-129 Serum or plasma cholesterol in VLDL measurement (mass/volume) 12 mg/ dL 5-40 THYROID STIMULATING HORMONE - 02/20/17 14:10 THYROID STIMULATING HORMONE 1.03 u[iU]/mL 0.35-4.94 Serum or plasma ferritin measurement (mass/volume) - 02/25/17 13:57 Serum or plasma ferritin measurement (mass/volume) 304.0 % 15.0-150.0 IRON TEST - 02/25/17 13:57 Serum or plasma iron measurement (mass/volume) 109 % 35- 180 Complete urinalysis with reflex to culture - 07/06/17 17:40 Urine color determination YELLOW NRG Urine clarity determination VERY CLOUDY NRG Urine pH measurement by test strip 6.5 5-9 Specific gravity of urine by test strip 1.010 1.016- 1.022 Urine protein assay by test strip, semi-quantitative 1+ NEGATIVE Urine glucose detection by automated test strip NEGATIVE NEGATIVE Erythrocytes detection in urine sediment by light microscopy 2+ NEGATIVE Urine ketones detection by automated test strip NEGATIVE NEGATIVE Urine nitrite detection by test strip NEGATIVE NEGATIVE Urine total bilirubin detection by test strip NEGATIVE NEGATIVE Urine urobilinogen measurement by automated test strip (mass/volume) NORMAL NORMAL Urine leukocyte esterase detection by dipstick 3+ NEGATIVE Automated urine sediment erythrocyte count by microscopy (number/high power field) [HPF] NRG Automated urine sediment leukocyte count by microscopy (number/high power field ) [HPF] NRG Bacteria detection in urine sediment by light microscopy FEW NRG Squamous epithelial cells detection in urine sediment by light microscopy NONE NRG Crystals detection in urine sediment by light microscopy NONE NRG Casts detection in urine sediment by light microscopy NONE NRG Mucus detection in urine sediment by light microscopy NEGATIVE NRG Complete urinalysis with reflex to culture YES NRG Bacterial urine culture - 07/06/17 17:40 Bacterial urine culture [id number] NRG COLONY COUNT >100,000/ML NRG Encounters ACCT No. Visit Date/Time Discharge Status Pt. Type Provider Facility Loc./Unit Complaint [id number] 02/25/2017 12:55:00 02/25/2017 23:59:59 CLS Outpatient JONES DO, VISHNU [facility] LAB [id number] 02/20/2017 13:50:00 02/20/2017 23:59:59 CLS Outpatient JONES DO, VISHNU [facility] LAB E78.00,E78.1,Z00.00 [id number] 01/14/2017 00:10:00 01/14/2017 23:59:59 CLS Preadmit DEVORACARLOS [facility] ONC [id number] 10/22/2016 15:52:00 01/13/2017 00:01:00 DIS Outpatient DEVORACARLOS CH [facility] ONC [id number] 10/21/2016 13:12:00 10/21/2016 23:59:59 CLS Outpatient JONES DO, VISHNU [facility] CARD I97.3 POSTPROCEDURAL HYPERTENSION [id number] 09/26/2016 15:22:00 09/26/2016 23:59:59 CLS Outpatient BREANA PFEIFFER MD [facility] RAD M48.02,R20.0 [id number] 09/25/2016 14:08:00 09/25/2016 23:59:59 CLS Outpatient JNOES DO, VISHNU [facility] LAB [id number] 09/12/2016 14:48:00 09/12/2016 23:59:59 CLS Outpatient BELINDA MROGAN [facility] RAD RLQ FULLNESS [id number] 07/22/2016 16:11:00 07/22/2016 23:59:59 CLS Outpatient JONES DO, VISHNU [facility] LAB [id number] 05/12/2016 14:14:00 05/12/2016 23:59:59 CLS Outpatient DISHA LI MD [facility] RAD UPPER ABDOMINAL PAIN, WEIGHT LOSS [id number] 05/09/2016 14:36:00 05/09/2016 16:45:00 DIS Outpatient DISHA LI MD [facility] SDC WEIGHT LOSS [id number] 05/08/2016 13:29:00 05/08/2016 23:59:59 CLS Outpatient DISHA LI MD [facility] PREOP WEIGHT LOSS [id number] 04/10/2016 08:03:00 04/10/2016 23:59:59 CLS Outpatient JONES DO, VISHNU [facility] LAB [id number] 09/13/2015 09:10:00 09/13/2015 23:59:59 CLS Outpatient JONES DO, VISHNU [facility] [id number] 06/29/2015 11:13:00 06/29/2015 23:59:59 CLS Outpatient JONES DO, VISHNU [facility] RAD SCREENING [id number] 01/30/2015 09:28:00 01/30/2015 23:59:59 CLS Outpatient JONES DO, VISHNU [facility] LAB [id number] 03/22/2014 13:10:00 03/22/2014 23:59:59 CLS Outpatient JONES DO, VISHNU [facility] RAD 12 MONTH F/U ABNORMAL MAMMO [id number] 01/31/2014 10:56:00 01/31/2014 23:59:59 CLS Outpatient JONES DO, VISHNU [facility] LAB [id number] 09/13/2013 14:37:00 09/13/2013 23:59:59 CLS Outpatient JONES DO, VISHNU [facility] RAD ABD PAIN [id number] 09/08/2013 16:21:00 09/08/2013 23:59:59 CLS Outpatient JONES DO, VISHNU [facility] ABD PAIN [id number] 08/02/2013 09:23:00 08/02/2013 23:59:59 CLS Outpatient JONES DO, VISHNU [facility] [id number] 03/11/2013 08:00:00 03/11/2013 23:59:59 CLS Outpatient JONES DO, VISHNU [facility] RAD ABNORMAL MAMMO [id number] 03/04/2013 12:32:00 03/04/2013 23:59:59 CLS Outpatient JONES DO, VISHNU [facility] RAD L SIDED RADICULOPATHY, LEG PAIN [id number] 11/29/2012 14:51:00 11/29/2012 23:59:59 CLS Outpatient JONES DO, VISHNU [facility] [id number] 07/06/2017 18:02:00 Document Registration [id number] 07/31/2014 16:40:00 Document Registration [id number] 06/30/2012 08:18:00 Document Registration [id number] 05/26/2012 08:24:00 Document Registration [id number] 02/11/2012 07:41:00 Document Registration [id number] 01/30/2012 13:50:00 Document Registration [id number] 01/19/2012 08:51:00 Document Registration [id number] 12/06/2011 21:17:00 Document Registration [id number] 09/09/2011 08:17:00 Document Registration [id number] 09/08/2011 09:04:00 Document Registration [id number] 05/22/2011 11:02:00 Document Registration [id number] 04/14/2011 08:14:00 Document Registration [id number] 03/28/2011 15:59:00 Document Registration [id number] 03/27/2011 08:42:00 Document Registration [id number] 01/24/2011 15:25:00 Document Registration [id number] 01/20/2011 12:32:00 Document Registration [id number] 10/09/2010 06:29:00 Document Registration [id number] 10/02/2010 13:25:00 Document Registration [id number] 04/29/2010 14:37:00 Document Registration [id number] 04/29/2010 07:41:00 Document Registration [id number] 04/25/2010 10:26:00 Document Registration [id number] 04/25/2010 09:56:00 Document Registration [id number] 01/18/2010 12:52:00 Document Registration
--- OUTSIDE RECORDS SUMMARY | 2017-07-07 09:58 | XMS REPORT | Clinical Summary ---
Author Author User, [employer] Organization [facility] Address Unknown Phone Unavailable Allergies, Adverse Reactions, [...] acute or chronic COUGH 786.2 Resolved Guera Baiely Cough FEVER 780.6 Resolved Guera Bailey Fever and other physiologic disturbances of temperature regulation HYPERTENSION, ACCELERATED OR MALIGNANT 401.0 Active Guera Bailye Malignant essential hypertension HEADACHE 784.0 Resolved Guera [...] MG TABS 1/2-1 PO daily ALOSETRON HCL 73068203544 Active Guera Bailey BENTYL 10 MG CAPS 1 PO QID prn DICYCLOMINE HCL 64630106710 Active Guera Bailey LEVSIN 0.125 MG TABS 1-2 po QID prn HYOSCYAMINE SULFATE 21993338083 Active Guera Bailey HYDROCODONE-ACETAMINOPHEN 5-325 MG TABS 1-2 PO Q4-6 hrs prn pain HYDROCODONE-ACETAMINOPHEN 52106278844 Active Vanna Garcia BENTYL 10 MG CAP 1 PO QID prn DICYCLOMINE HCL 66000199274 No Longer Active Guera Bailey CATAFLAM 50 MG TABS 1 PO BID prn headache DICLOFENAC POTASSIUM 16606490701 No Longer Active Guerajeanette Bailey PERCOCET 5-325 MG TAB 1 PO q6hrs prn OXYCODONE- ACETAMINOPHEN 97419311639 No Longer Active Guerajeanette Bailey ZOFRAN ODT 8 MG TBDP 1 PO Q6hrs prn nausea ONDANSETRON 63492736205 No Longer Active Guera Annel Bailey BENTYL 10 MG CAP 1 PO QID prn DICYCLOMINE HCL 23208095178 No Longer Active Guerajeanette Bailey PREMARIN 0.625 MG/GM CREA 1 gm intravaginally HS 3 times a week for 4 weeks then twice a week ESTROGENS, CONJUGATED VAGINAL 60093649916 Active Guera Bailey PHENERGAN 25 MG TAB 1 PO Q6hrs prn PROMETHAZINE HCL Active Vanna Garcia PROAIR HFA 108 (90 BASE) MCG/ACT AERS 2 puff Q4 hrs prn wheezing ALBUTEROL SULFATE 94164664215 Active Vanna Garcia REGLAN 10 MG TAB 1 PO 30 minutes before meals and at bedtime METOCLOPRAMIDE HCL 47182475467 Active Guera Bailey NEXIUM 40 MG CPDR 1 PO daily ESOMEPRAZOLE MAGNESIUM 60103885772 Active Vanna Garcia XANAX 0.5 MG TABS 1 PO TID prn ALPRAZOLAM 01188241381 Active Vanna Garcia PATANOL 0.1 % SOLN 1-2 gtts in each eye BID OLOPATADINE HCL 08289004534 No Longer Active Guerajeanette Bailey PREDNISONE 20 MG TAB 3 pills at once for 2 days then 2 pills daily for 2 days PREDNISONE 46630413617 No Longer Active Guera Bailey CYMBALTA 60 MG CPEP 1 PO daily DULOXETINE HCL 42355734812 Active Vanna Garcia ZOLOFT 25 MG TABS 1 po daily SERTRALINE HCL 02704843867 No Longer Active Guera Annel Bailey ZOLOFT 100 MG TABS 1 po daily SERTRALINE HCL 28622444931 No Longer Active Guera Annel Bailey REGLAN 10 MG TABS 1 po BID METOCLOPRAMIDE HCL 16614507073 No Longer Active Guera Annel Bailey MIDRIN 325-65-100 MG CAPS 1-2 PO Q4-6hrs prn APAP- ISOMETHEPTENE-DICHLORAL No Longer Active Guera Annel Bailey FLEXERIL 10 MG TABS 1 po HS prn CYCLOBENZAPRINE HCL 31749612391 No Longer Active Guera Annel Bailey SYMBICORT 160-4.5 MCG/ACT AERO 2 puffs BID BUDESONIDE- FORMOTEROL FUMARATE 39003601817 Active Vanna Garcia CIPRO 500 MG TABS 1 PO BID for 7 days CIPROFLOXACIN HCL 29840200169 No Longer Active Guera Annel Bailey PYRIDIUM 200 MG TABS 1 PO TID x 3 days PHENAZOPYRIDINE HCL 37770711222 No Longer Active Johana Fernandez AMPICILLIN 500 MG CAPS 1 PO BID x 7 days AMPICILLIN 08335845930 No Longer Active Johana Fernandez NORVASC 5 MG TAB 1 PO QD AMLODIPINE BESYLATE 11572216480 Active Vanna Garcia IMODIUM A-D 2 MG TABS 1 po daily LOPERAMIDE HCL 63202572086 Active Guera Annel Bailey QUESTRAN POWD 1 scoop in 4 oz of fluid BID scheduled CHOLESTYRAMINE POWD 18177837512 No Longer Active Guera Annel Bailey DYAZIDE 37.5-25 MG CAP 1 PO daily TRIAMTERENE-HCTZ 76718864777 Active Vanna Garcia ZANTAC 150 MG TABS 2 PO QD prn RANITIDINE HCL 94090491187 No Longer Active Guera Annel Bailey ZANTAC 300 MG TABS 1 PO QHS RANITIDINE HCL 68307504969 Active Vanna Garcia SINGULAIR 10 MG TABS 1 PO QHS MONTELUKAST SODIUM 11506353326 Active Vanna Garcia LORTAB 5 5-500 MG TABS 1-2 PO Q6hrs prn pain HYDROCODONE-ACETAMINOPHEN 92649733486 No Longer Active Guera Annel Bailey VALTREX 1 GM TABS 1 PO BID VALACYCLOVIR HCL 39354508206 No Longer Active Guera Annel Bailey ZOCOR 10 MG TABS 1 po daily SIMVASTATIN 46615913669 Active Vanna Garcia PROTONIX 40 MG TBEC 1 PO daily PANTOPRAZOLE SODIUM 36952646831 No Longer Active Guera Annel Bailey PREMPRO 0.3-1.5 MG TABS 1 po daily prn CONJ ESTROG- MEDROXYPROGEST PEARL 31853442486 No Longer Active Guera Annel Bailey ASPIRIN 81 MG CHEW 1 PO daily ASPIRIN 51529195230 Active Guera Annel Bailey BENAZEPRIL HCL 10 MG TABS 1 PO daily BENAZEPRIL HCL 20487027277 Active Vanna Langleytis SULAR 20 MG TB24 1 po daily NISOLDIPINE 94653236887 No Longer Active Guerajeanette Bailey NEXIUM 40 MG CPDR 1 PO QD ESOMEPRAZOLE MAGNESIUM 76669024280 No Longer Active Guera Annel Bailey NORVASC 5 MG TABS 1 po qd AMLODIPINE BESYLATE 83689647505 No Longer Active Guera Annel Bailey ALBUTEROL 90 MCG/ACT AERS 2 puffs q 4-6h prn ALBUTEROL 62380312846 No Longer Active Guera Annel Bailey ADVAIR DISKUS 100-50 MCG/DOSE MISC 1 puff bid FLUTICASONE-SALMETEROL 84996048310 No Longer Active Guera Annel Bailey PREDNISONE 20 MG TABS 2 po qd PREDNISONE 23239176007 No Longer Active Guera Annel Gonzalezner BIAXIN XL 500 MG TB24 2 po qd CLARITHROMYCIN 11051121676 No Longer Active Guera Annel Gonzalezner ZANTAC 75 75 MG TABS take 2 tabs po hs RANITIDINE HCL 47000728016 No Longer Active Guera Annel Gonzalezner ROBINUL-FORTE 2 MG TABS 1 tab at hs GLYCOPYRROLATE 16984506621 No Longer Active Guera Annel Bailey PEPCID 20 MG TAB 1 BID FAMOTIDINE 94512357990 No Longer Active Guera Annel Lynn REGLAN 10 MG TABS 1-2 tabs po daily METOCLOPRAMIDE HCL 68272939027 No Longer Active Guera Annel Lynn NEXIUM 40 MG CPDR 1 po daily ESOMEPRAZOLE MAGNESIUM 62751322563 No Longer Active Guera Annel Bailey BEXTRA 10 MG TABS 1 po daily VALDECOXIB 02501860725 No Longer Active Guera Annel Gonzalezner ZYRTEC 10 MG TABS 1 po daily CETIRIZINE HCL Active Guera Annel yLnn Immunizations Vaccine Administration Date Value Standard Description [...] mm/h Encounters Code Encounter Date Provider Facility CPT-64507 Ofc Vst, Est Level IV 17:28:21 CDT Guera Bailey DO, FACP CPT-67053 Ofc Vst, Est Level IV 19:09:30 CDT Guera Bailey DO, FACP CPT-49309 Ofc Vst, Est Level IV 13:21:14 CDT Guera Bailey DO, FACP CPT-95053 Ofc Vst, Est Level III 12:25:14 CDT Guera Bailey DO, FACP CPT-79372 Ofc Vst, Est Level IV 15:40:26 CDT Guerajeanette Bailey [facility] CPT-00938 Ofc Vst, Est Level IV 14:50:06 CDT Guera Annel Bailey [facility] CPT-81971 Ofc Vst, Est Level III 20:18:26 PRODUCTION GRIP Guera Alston Bailey, DO, FACP CPT-01203 Ofc Vst, Est Level IV 16:11:03 CDT Guera Annel Alston Bailey, DO, FACP CPT-95951 Ofc Vst, Est Level V 15:32:25 CDT Guera Annel Bailey [facility] CPT-51183 Ofc Vst, Est Level IV 15:58:30 CDT Guera Annel Bailey [facility] CPT-02925 Ofc Vst, Est Level IV 15:24:03 PRODUCTION GRIP Guera Annel Alston Lynn, DO, FACP CPT-25156 Ofc Vst, Est Level IV 09:59:50 CDT Guera Annel Alston Lynn, DO, FACP CPT-12679 Ofc Vst, Est Level IV 09:51:49 CDT Guerajeanette Alston Lynn, DO, FACP CPT-86203 Ofc Vst, Est Level IV 15:30:55 PRODUCTION GRIP Guera Annel Bailey [facility] CPT-24424 Ofc Vst, Est Level IV 09:25:23 PRODUCTION GRIP Guera Annel Alston Bailey, DO, FACP CPT-19633 Ofc Vst, Est Level III 15:30:51 CDT Guera Annel Bailey [facility] CPT-26770 Ofc Vst, Est Level IV 16:23:38 CDT Guera Annel Alston Bailey, DO, FACP CPT-20377 Ofc Vst, Est Level IV 10:25:49 PRODUCTION GRIP Guera Annel Alston Bailey, DO, FACP CPT-27916 Ofc Vst, Est Level IV 21:06:00 CDT Guera Up Lynn Lynne Alecia Lynn, DO, FACP CPT-35742 Ofc Vst, Est Level IV 10:23:12 CDT Guera Up Lynn Lynne Alecia Lynn, DO, FACP CPT-63611 Ofc Vst, Est Level V 12:13:16 CDT Guera Annel Gonzalezner Guera Alecia Lynn, DO, FACP CPT-78954 Ofc Vst, Est Level V 13:52:06 CDT Guera Annel Lynn Bailey, DO, FACP CPT-43114 Ofc Vst, Est Level IV 16:51:10 PRODUCTION GRIP Guera Annel Lynn Bailey, DO, FACP CPT-46934 Ofc Vst, Est Level III 12:22:44 PRODUCTION GRIP Guerajeanette Up Lynn Lynne Alecia Lynn, DO, FACP CPT-91722 Ofc Vst, Est Level III 16:45:37 CDT Guerajeanette Up Lynn Bailey, DO, FACP CPT-98207 Ofc Vst, Est Level IV 09:43:02 CDT Guera Annel Lynn Bailey, DO, FACP CPT-82956 Ofc Vst, Est Level IV 09:31:45 CDT Guera Bailey [facility] CPT-08180 Ofc Vst, Est Level IV 10:42:21 PRODUCTION GRIP Guera Bailey [facility] CPT-99087 Ofc Vst, Est Level V 10:05:[address] [facility] CPT-93766 Ofc Vst, Est Level IV 14:03:[address] [facility] CPT-72069 Ofc Vst, Est Level III 13:53:55 CDT Guera Annel Bailey [facility] CPT-46847 Ofc Vst, Est Level IV 09:05:54 CDT [facility] Annel Bailey [facility] CPT-68239 Ofc Vst, Est Level IV 17:57:08 CDT [facility] Annel Bailey [facility] CPT-29779 Ofc Vst, Est Level III 18:23:27 PRODUCTION GRIP [facility] Annel Bailey [facility] CPT-23266 Ofc Vst, New Level III 17:24:59 CDT [facility] Annel Bailey [facility] Procedures Code Procedure Name Date Entry Date Standard Description CPT-81856 Preventive, Est, (40-64) 16:38:00 PRODUCTION GRIP CPT-13391 Preventive, Est, (40-64) 19:55:54 PRODUCTION GRIP CPT-46826 Handling of specimen from office to lab 20:59:31 PRODUCTION GRIP CPT-45749 Preventive, Est, (40-64) 20:59:31 PRODUCTION GRIP CPT-16366 Preventive, Est, (40-64) 13:14:46 CDT CPT-55878 Handling of specimen from office to lab 13:14:46 CDT CPT-80536 EKG w/ Interpretation 12:13:16 CDT CPT-56355 Cryopathy Skin 09:43:02 CDT CPT-76560 Handling of specimen from office to lab 14:41:29 CDT CPT-33232 Preventive, Est, (40-64) 14:17:08 CDT CPT-20189 Preventive, Est, (40-64) 14:48:08 CDT CPT-38040 Preventive, Est, (40-64) 17:22:09 CDT
--- NOTE | 2017-07-07 10:11 | ED GU-Female ---
General Chief Complaint: Abdominal/GI Problems Stated Complaint: LOW PELVIC PAIN,LOW BACK PAIN,CANNOT URINATE Nursing Triage Note: Pt c/o pelvic pain and pain radiating to bilat flank x2-3 days. Pt reporting inability to completely empty bladder when urinating. Pt reports pain continues to get worse. Pt had UA done by PCP yesterday and just received a call that she needs antibiotics. Nursing Sepsis Screen: No Definite Risk Source: patient Exam Limitations: no limitations History of Present Illness Date Seen by Provider: Jul 07, 2017 Time Seen by Provider: 10:09 Initial Comments To ER with suprapubic abdominal pain and midline low back pain for 2-3 days becoming much worse last night. No nausea or vomiting. She denies flank pain. She had significant pain last night and still rates her pain an 8 out of 10, feels as though her ladder is full and she is unable to urinate. She has not had any fevers or chills with this. She had urinalysis done here last night by her primary care provider Dr. Bailey, however by the time it was resulted it was late at night and she is not currently on any antibiotics. Timing/Duration: constant Severity/Quality: cramping Location: suprapubic Radiation: none Associated Symptoms: abdominal pain, dysuria, No fever/chills, lower back pain , No nausea/vomiting, urinary frequency Allergies and Home Medications Allergies Coded Allergies: Sulfa (Sulfonamide Antibiotics) (Unverified Allergy, Unknown, 04/30/10) nisoldipine (Unverified Allergy, Unknown, 04/30/10) Home Medications Alprazolam 0.5 Mg Tablet, 0.5 MG PO HS, (Reported) Amlodipine Besylate 5 Mg Tablet, 2.5 MG PO DAILY, (Reported) Aspirin 81 Mg Tabec, 81 MG PO DAILY, (Reported) Budesonide/Formoterol Fumarate 10.2 Gm Hfa.aer.ad, 10.2 GM IH BID, (Reported) 2 PUFFS Ca Cmb No.1/Vit D3/B-6/Fa/B12 1 Each Tablet, 2,000 UNIT PO DAILY, (Reported) Calcium Carbonate/Vitamin D3 1 Tab Tablet, 1 TAB PO DAILY, (Reported) Cefuroxime Axetil 250 Mg Tablet, 250 MG PO BID, #10 Prescribed by: YVONNE MCKEE on 1/30/18 1052 Cetirizine Hcl 10 Mg Tablet, 10 MG PO DAILY, (Reported) Cyclosporine 32 Ea Droperette, 32 EA OP, (Reported) Duloxetine Hcl 60 Mg Capsule.dr, 60 MG PO DAILY, (Reported) Esomeprazole Mag Trihydrate 40 Mg Capsule.dr, 1 CAP PO DAILY, #30 (Reported) Glucosamine Sulfate 750 Mg Tablet, 1,500 MG PO DAILY, (Reported) Hydrocodone Bit/Acetaminophen 1 Each Tablet, 1 TAB PO Q4HR PRN, (Reported) Ibuprofen/Diphenhydramine 1 Each Tablet, 2 TAB PO HS, (Reported) Lisinopril 10 Mg Tablet, 10 MG PO DAILY, (Reported) Montelukast Sodium 10 Mg Tablet, 10 MG PO DAILY, (Reported) [place]-3/Dha/Epa/Fish Oil 1,000 Mg Capsule, 1,000 MG PO DAILY, (Reported) Phenazopyridine HCl 100 Mg Tablet, 100 MG PO TID, #9 Prescribed by: YVONNE MCKEE on 07/07/17 1052 Promethazine Hcl 25 Mg/Supp.rect Supp.rect, 1 SUPP WI QID PRN, #10 FOR NAUSEA AND VOMITING Prescribed by: LUIS ROMAN on 12/07/11 0028 Ranitidine Hcl 150 Mg Tablet, 300 MG PO HS, (Reported) Simvastatin 10 Mg Tab, 10 MG PO HS, (Reported) Triamterene/Hctz 1 Each Capsule, 1 EACH PO DAILY, (Reported) Constitutional: see HPI, No chills, No fever EENTM: see HPI Respiratory: no symptoms reported Cardiovascular: no symptoms reported Genitourinary: see HPI, dysuria Musculoskeletal: no symptoms reported Skin: no symptoms reported Psychiatric/Neurological: No Symptoms Reported Endocrine: No Symptoms Reported Hematologic/Lymphatic: No Symptoms Reported Past [id number]-[id number] Hx Patient Social History Recent Foreign Travel: No Contact w/Someone Who Travel: No Recent Infectious Disease Expo: No Recent Hopitalizations: No Immunizations Up To Date Date of Pneumonia Vaccine: Mar 08, 2003 Date of Influenza Vaccine: Mar 08, 2011 Seasonal Allergies Seasonal Allergies: No Reproductive System Hx Reproductive Disorders: No Sexually Transmitted Disease: No Female Reproductive Disorders: Denies Gastrointestinal Gastrointestinal Disorders: Gastroesophageal Reflux Physical Exam Vital Signs Vital Sign - Last 12Hours 07/07/17 09:54 Temp 98.5 Pulse 119 Resp 18 B/P (MAP) 110/75 (87) Pulse Ox 97 O2 Delivery Room Air Capillary Refill : Less Than 3 Seconds General Appearance: WD/WN, no apparent distress HEENT: PERRL/EOMI, normal ENT inspection Neck: non-tender, full range of motion Cardiovascular: no murmur, tachycardia Respiratory: normal breath sounds, no respiratory distress, no accessory muscle use Gastrointestinal: normal bowel sounds, soft, tenderness (suprapubic) Back: No CVA tenderness (R), No CVA tenderness (L) Extremities: normal range of motion, non-tender Neurologic/Psychiatric: alert, normal mood/affect, oriented x 3 Skin: normal color, warm/dry Progress/Results/Core Measures Suspected Sepsis Recent Fever Within 48 Hours: No Infection Criteria Present: Suspected New Infection New/Unexplained Altered Menta: No Sepsis Screen: No Definite Risk Sepsis Diagnosis: SIRS Temperature:98.5 Pulse: 119 Respiratory Rate: 18 Laboratory Tests 07/07/17 10:27: White Blood Count 9.4 Blood Pressure 110 /75 Mean: 87 Laboratory Tests 07/07/17 10:27: Creatinine 0.70, Platelet Count 250, Total Bilirubin 0.6 Results/Orders Lab Results Laboratory Tests Test 07/07/17 10:27 Range/Units White Blood Count 9.4 4.3-11.0 10^3/uL Red Blood Count 3.96 L 4.35-5.85 10^6/uL Hemoglobin 12.8 11.5-16.0 G/DL Hematocrit 36 35-52 % Mean Corpuscular Volume 91 80-99 FL Mean Corpuscular Hemoglobin 32 25-34 PG Mean Corpuscular Hemoglobin Concent 35 32-36 G/DL Red Cell Distribution Width 12.0 10.0-14.5 % Platelet Count 250 130-400 10^3/uL Mean Platelet Volume 9.3 7.4-10.4 FL Neutrophils (%) (Auto) 86 H 42-75 % Lymphocytes (%) (Auto) 7 L 12-44 % Monocytes (%) (Auto) 7 0-12 % Eosinophils (%) (Auto) 0 0-10 % Basophils (%) (Auto) 0 0-10 % Neutrophils # (Auto) 8.1 H 1.8-7.8 X 10^3 Lymphocytes # (Auto) 0.7 L 1.0-4.0 X 10^3 Monocytes # (Auto) 0.6 0.0-1.0 X 10^3 Eosinophils # (Auto) 0.0 0.0-0.3 10^3/uL Basophils # (Auto) 0.0 0.0-0.1 10^3/uL Neutrophils % (Manual) 88 % Lymphocytes % (Manual) 8 % Monocytes % (Manual) 3 % Eosinophils % (Manual) 0 % Basophils % (Manual) 0 % Band Neutrophils 1 % Blood Morphology Comment NORMAL Sodium Level 132 L 135-145 MMOL/L Potassium Level 3.5 L 3.6-5.0 MMOL/L Chloride Level 96 L 98-107 MMOL/L Carbon Dioxide Level 28 21-32 MMOL/L Anion Gap 8 5-14 MMOL/L Blood Urea Nitrogen 9 7-18 MG/DL Creatinine 0.70 0.60-1.30 MG/DL Estimat Glomerular Filtration Rate > 60 BUN/Creatinine Ratio 13 Glucose Level 102 70-105 MG/DL Calcium Level 8.9 8.5-10.1 MG/DL Total Bilirubin 0.6 0.1-1.0 MG/DL Aspartate Amino Transf (AST/SGOT) 14 5-34 U/L Alanine Aminotransferase (ALT/SGPT) 25 0-55 U/L Alkaline Phosphatase 80 40-136 U/L Total Protein 6.1 L 6.4-8.2 GM/DL Albumin 3.7 3.2-4.5 GM/DL My Orders Orders - YVONNE MCKEE APRN Cbc With Automated Diff (07/07/17 09:57) Comprehensive Metabolic Panel (07/07/17 09:57) Ketorolac Injection (Toradol Injection) (07/07/17 10:15) Ns Iv 1000 Ml (Sodium Chloride 0.9%) (07/07/17 10:15) Manual Differential (07/07/17 10:27) Ceftriaxone Injection (Rocephin Injectio (07/07/17 11:00) Phenazopyridine Tablet (Pyridium Tablet) (07/07/17 11:00) Fentanyl Injection (Sublimaze Injection (07/07/17 11:15) Medications Given in ED Current Medications Medications Dose Ordered Sig/Rayna Route Start Time Stop Time Status Last Admin Dose Admin Ketorolac Tromethamine 30 mg ONCE ONCE IVP 07/07/17 10:15 07/07/17 10:16 DC 07/07/17 10:29 30 MG Vital Signs/I&O Vital Sign - Last 12Hours 07/07/17 09:54 Temp 98.5 Pulse 119 Resp 18 B/P (MAP) 110/75 (87) Pulse Ox 97 O2 Delivery Room Air Capillary Refill : Less Than 3 Seconds Blood Pressure Mean: 87 Departure Impression Impression: Primary Impression: Urinary tract infection Disposition: 01 HOME, SELF-CARE Condition: Stable Departure-Patient Inst. Decision time for Depature: 10:51 Referrals: VISHNU BAILEY DO (PCP/Family) Primary Care Physician Patient Instructions: Urinary Tract Infection, Adult (DC) Add. Discharge Instructions: 1. Medication as directed 2. Return to ER for any concerns 3. All discharge instructions reviewed with patient and/or family. Voiced understanding. Scripts Hydrocodone/Acetaminophen (Medanales 5-325 Tablet) 1 Each Tablet 1 EACH PO Q4H Y for PAIN-MODERATE, #10 TAB Prov: YVONNE MCKEE PACKAGING CLERK 07/07/17 Phenazopyridine HCl (Pyridium) 100 Mg Tablet 100 MG PO TID, #9 TAB Prov: YVONNE MCKEE PACKAGING CLERK 07/07/17 Cefuroxime Axetil (Cefuroxime) 250 Mg Tablet 250 MG PO BID, #10 TAB Prov: YVONNE MCKEE PACKAGING CLERK 07/07/17 Copy Copies To 1: VISHNU BAILEY PETER J APRN Jul 07, 2017 10:11
[2017-07-07] MEDS ORDERED: NS IV 1000 ML 1,000 ML IV SCH (10:15)
[2017-07-07] MEDS ORDERED: KETOROLAC 30 MG/ML VIAL IVP ONE (10:15)
[2017-07-07 10:39] LABS: BASOPHILS % (AUTO) 0 % (0-10); EOSINOPHILS % (AUTO) 0 % (0-10); HEMATOCRIT 36 % (35-52); HEMOGLOBIN 12.8 G/DL (11.5-16.0); LYMPHOCYTES # (AUTO) 0.7 X 10^3 (1.0-4.0); LYMPHOCYTES % (AUTO) 7 % (12-44); MEAN CORPUSCULAR HEMOGLOBIN 32 PG (25-34); MEAN CORPUSCULAR HGB CONC 35 G/DL (32-36); MEAN CORPUSCULAR VOLUME 91 FL (80-99); MEAN PLATELET VOLUME 9.3 FL (7.4-10.4); MONOCYTES # (AUTO) 0.6 X 10^3 (0.0-1.0); MONOCYTES % (AUTO) 7 % (0-12); NEUTROPHILS # (AUTO) 8.1 X 10^3 (1.8-7.8); NEUTROPHILS % (AUTO) 86 % (42-75); PLATELET COUNT 250 10^3/uL (130-400); RED BLOOD COUNT 3.96 10^6/uL (4.35-5.85); WHITE BLOOD COUNT 9.4 10^3/uL (4.3-11.0)
[2017-07-07] MEDS ORDERED: PHEN-639 PO (10:52)
[2017-07-07] MEDS ORDERED: CEFU250T80 PO (10:52)
[2017-07-07 10:58] LABS: BAND NEUTROPHILS 1 %; LYMPHOCYTES % (MANUAL) 8 %; MONOCYTES % (MANUAL) 3 %; NEUTROPHILS % (MANUAL) 88 %
[2017-07-07 10:59] LABS: BASOPHILS % (MANUAL) 0 %; EOSINOPHILS % (MANUAL) 0 %; RBC MORPH NORMAL
[2017-07-07] MEDS ORDERED: cefTRIAXone INJECTION 1,000 MG in NS (IVPB) 50 ML IV ONE (11:00)
[2017-07-07] MEDS ORDERED: PHENAZOPYRIDINE 100 MG (PYRIDIUM) TABLET PO ONE (11:00)
[2017-07-07 11:02] LABS: ALANINE AMINOTRANSFERASE 25 U/L (0-55); ALBUMIN 3.7 GM/DL (3.2-4.5); ALKALINE PHOSPHATASE 80 U/L (40-136); BILIRUBIN,TOTAL 0.6 MG/DL (0.1-1.0); BUN/CREATININE RATIO 13; CALCIUM 8.9 MG/DL (8.5-10.1); CARBON DIOXIDE 28 MMOL/L (21-32); CHLORIDE 96 MMOL/L (98-107); GFR ESTIMATED > 60; GLUCOSE 102 MG/DL (70-105); POTASSIUM 3.5 MMOL/L (3.6-5.0); SODIUM 132 MMOL/L (135-145); TOTAL PROTEIN 6.1 GM/DL (6.4-8.2)
[2017-07-07] MEDS ORDERED: HYDR-757 PO (11:10)
[2017-07-07] MEDS ORDERED: fentaNYL INJECTION 100 MCG/2 ML AMP IVP ONE (11:15)
[2017-07-07 12:11] VITALS: BP 109/64
== END 2017-07-07 12:15 | disposition home or self-care (01) ==
LOC: EDUNIT# 09:40 → ER 09:42
DX: N39.0 Urinary tract infection, site not specified (principal); K21.9 Gastro-esophageal reflux disease without esophagitis; Z88.2 Allergy status to sulfonamides; Z88.8 Allergy status to other drugs, medicaments and biological substances; Z79.82 Long term (current) use of aspirin
CPT/HCPCS: 36415; 80053; 85007; 85027; 96361; 96374; 96375

== ENCOUNTER → 2017-08-19 | Outpatient (CLI) | payer OTHER ==
[~2017-08-19] MED LIST changes: +CEFU250T80 PO; +HYDR-757 PO; +PHEN-639 PO
[2017-08-19 10:20] LABS: BASOPHILS % (AUTO) 1 % (0-10); EOSINOPHILS # (AUTO) 0.2 10^3/uL (0.0-0.3); EOSINOPHILS % (AUTO) 3 % (0-10); HEMATOCRIT 39 % (35-52); HEMOGLOBIN 13.9 G/DL (11.5-16.0); LYMPHOCYTES # (AUTO) 1.5 X 10^3 (1.0-4.0); LYMPHOCYTES % (AUTO) 29 % (12-44); MEAN CORPUSCULAR HEMOGLOBIN 32 PG (25-34); MEAN CORPUSCULAR HGB CONC 35 G/DL (32-36); MEAN CORPUSCULAR VOLUME 92 FL (80-99); MONOCYTES # (AUTO) 0.6 X 10^3 (0.0-1.0); MONOCYTES % (AUTO) 11 % (0-12); NEUTROPHILS % (AUTO) 57 % (42-75); PLATELET COUNT 253 10^3/uL (130-400); RED BLOOD COUNT 4.29 10^6/uL (4.35-5.85); RED CELL DISTRIBUTION WIDTH 12.6 % (10.0-14.5); WHITE BLOOD COUNT 5.3 10^3/uL (4.3-11.0)
[2017-08-19 10:38] LABS: ALANINE AMINOTRANSFERASE 22 U/L (0-55); ALBUMIN 4.1 GM/DL (3.2-4.5); ALKALINE PHOSPHATASE 77 U/L (40-136); BILIRUBIN,TOTAL 0.6 MG/DL (0.1-1.0); BUN/CREATININE RATIO 10; CALCIUM 8.9 MG/DL (8.5-10.1); CARBON DIOXIDE 29 MMOL/L (21-32); CHLORIDE 97 MMOL/L (98-107); CHOLESTEROL 195 MG/DL (< 200); CREATININE SERUM 0.78 MG/DL (0.60-1.30); GFR ESTIMATED > 60; GLUCOSE 109 MG/DL (70-105); HDL CHOLESTEROL 68 MG/DL (40-60); POTASSIUM 3.7 MMOL/L (3.6-5.0); SODIUM 135 MMOL/L (135-145); TOTAL PROTEIN 6.4 GM/DL (6.4-8.2); TRIGLYCERIDES 69 MG/DL (<150); VLDL CHOLESTEROL 14 MG/DL (5-40)
== END ==
LOC: LAB 09:52
PROVIDERS: ATTEND Internal Medicine
DX: Z00.00 Encounter for general adult medical examination without abnormal findings (principal); E78.00 Pure hypercholesterolemia, unspecified; E78.1 Pure hyperglyceridemia; D50.8 Other iron deficiency anemias; R73.9 Hyperglycemia, unspecified
CPT/HCPCS: 36415; 80053; 80061; 82728; 85025

== ENCOUNTER 2017-09-14 10:47 | Emergency (ER) | payer OTHER ==
[~2017-09-14] VITALS: Ht 157.5 cm; Wt 72.6 kg
--- OUTSIDE RECORDS SUMMARY | 2017-09-14 10:54 | XMS REPORT | Continuity of Care Document ---
Author Author [employer] Organization [facility] Address Unknown Phone Unavailable Care Team Providers Care Transformer Assembler Name Role Phone [employer] Unavailable Unavailable Problems Medications Allergies, Adverse Reactions, Alerts Immunizations Results Vital Signs Encounters Location Location Details Encounter Type Encounter Number Reason For Visit Attending Provider ADM Date DC Date Status Source OUTPATIENT [id number] STACIE OLYAEE 06/20/2016 06/20/2016 Active [facility] OUTPATIENT [id number] 02/27/2017 Active [facility] INPATIENT [id number] JEYSON RICHARDSON 03/26/20172016 Active [facility] OUTPATIENT [id number] TING MONTOYA 04/13/2017 04/13/2017 Active [facility] OP SURGERY [id number] 06/11/2017 06/11/2017 Active [facility] CA SERIES [id number] [facility] 08/07/20172017 Active [facility] OUTPATIENT [id number] 08/28/2017 Active [facility] INPATIENT [id number] [facility] 09/03/20172017 Active [facility] O Active [facility] Procedures Plan of Care Social History Assessment and Plan Family History Advance Directives Functional Status
--- OUTSIDE RECORDS SUMMARY | 2017-09-14 10:55 | XMS REPORT | Clinical Summary ---
Author Author [facility] Organization [facility] Address Unknown Phone Unavailable Care Team Providers Care Edger Tailer Name Role Phone Guera Bailey PCP Felipa [...] in the Health Information Management department at [phone] for further assistance in locating additional records.[facility] Allergies Active Allergy Reactions Severity Noted Date Comments Sulfa (Sulfonamide RASH, SEE COMMENTS, Medium 05/16/2011 Facial swelling Antibiotics) REDNESS Current Medications Prescription Sig. Disp. Refills Start End Date Status Date triamterene-hydrochloroth Take 1 Cap by mouth every Active iazide (DYAZIDE) 37.5-25 morning. mg per capsule budesonide/formoterol Inhale 2 Puffs by mouth Active (SYMBICORT HFA) 80-4.5 twice daily. mcg/actuation inhalation montelukast (SINGULAIR) Take 10 mg by mouth at Active 10 mg tablet bedtime daily. ALPRAZolam (XANAX) 0.5 mg Take 0.5-1 mg by mouth at Active tablet bedtime as needed for Sleep. DULoxetine DR (CYMBALTA) Take 60 mg by mouth Active 60 mg capsule daily. Administer 60mg dosage with 30mg dosage esomeprazole DR(+) Take 20 mg by mouth every Active (NEXIUM) 20 mg capsule morning. cycloSPORINE(+) Apply 1 drop [...] Tab 2 09/16/19 Active tablet daily. 17 metoclopramide (REGLAN) 5 Take 5-10 mg by mouth Active mg tablet twice daily. dicyclomine (BENTYL) 10 Take 10 mg by mouth twice Active mg capsule daily as needed. fluticasone (FLONASE) 50 Apply 1 spray to each Active mcg/actuation nasal spray nostril as directed daily as needed. Shake bottle gently before using. duloxetine DR (CYMBALTA) Take 30 mg by mouth Active 30 mg capsule daily. Administered in combination with 60mg dosage cholecalciferol(+) Take 2,000 Units by mouth Active (VITAMIN D3) 2,000 unit daily. tablet lactobacillus rhamnosus Take 1 capsule by mouth Active GG (LACTOBACILLUS as directed daily. RHAMNOSUS (GG)) 15 billion cell cpSP capsule LORazepam (ATIVAN) 2 Take 1 mg by mouth daily Active mg/mL conc oral solution as needed for Nausea or Vomiting. vitamins, multiple tablet Take 1 tablet by mouth at Active bedtime daily. LORazepam (ATIVAN) 0.5 mg Take 1 tablet by mouth Active tablet daily as needed for Nausea. polyethylene glycol 3350 Take 1 packet by mouth 30 each 1 03/29/20 Active (MIRALAX) 17 g packet twice daily. Hold for 17 loose stools scopolamine APPLY 1 PATCH TO SKIN PRN 1 05/11/20 Active (TRANSDERM-SCOP) 1.5 mg 3 Q 72 HOURS as needed 17 day patch alfuzosin(+) (UROXATRAL) Take 1 tablet by mouth 90 tablet 3 06/26/19 Active 10 mg tabletIndications: daily. 18 Urinary retention primidone (MYSOLINE) 50 Take 1 tablet by mouth 60 tablet 5 08/29/19 Active mg tablet twice daily. 18 HYDROcodone/acetaminophen Take 0.5-1 tablets by Active (NORCO) 7.5/325 mg tablet mouth every 6 hours as needed for Pain dronabinol (MARINOL) 2.5 Take 2.5 mg by mouth Active mg capsule twice daily. loteprednol(+) (LOTEMAX) Apply 1 drop to both eyes Active 0.5 % ophthalmic four times daily as suspension needed. oxyCODONE (ROXICODONE, Take 1-2 tablets by mouth 50 tablet 0 09/06/19 Active OXY-IR) 5 mg every 4 hours as needed 18 tabletIndications: Rectal Earliest Fill Date: prolapse 09/05/17 senna/docusate Take 1 tablet by mouth 50 tablet 0 09/06/19 Active (SENOKOT-S) 8.6/50 mg daily. 18 tablet psyllium (METAMUCIL) Take 3.4 g by mouth 300 g 3 09/06/19 Active powder daily. 18 granisetron(+) (KYTRIL) 1 Take 1 mg by mouth every 08/21/19 Discontin mg tablet 12 hours as needed for 18 ued Nausea. HYDROcodone/acetaminophen Take 0.5-1 tablets by 08/29/19 Discontin (+) (NORCO) 10/325 mg mouth daily as needed for 18 ued tablet Pain docusate (COLACE) 100 mg Take 100 mg by mouth 08/29/19 Discontin capsule daily as needed for 18 ued Constipation. oxyCODONE (ROXICODONE, Take 1-2 tablets by mouth 60 tablet 0 03/29/20 08/29/19 Discontin OXY-IR) 5 mg tablet every 4 hours as needed 17 18 ued Active Problems Problem Noted Date Constipation 02/27/2017 Urinary retention 02/27/2017 Benign essential tremor 02/27/2017 Rectal prolapse 02/16/2017 Overview: Added automatically from request for surgery [id number] Encounters Date Type Specialty Care Team Description 09/03/2017 Hospital Kane Ya DO Rectal prolapse - Encounter 09/05/2017 09/03/2017 Procedure Pass 09/03/2017 Surgery Kane Ya DO ROBOTIC ASSISTED VENTRAL MESH RECTOPEXY 08/28/2017 PAC Office Anesthesiology Kane Ya DO Rectal prolapse (Primary Visit Dx) 08/28/2017 Office Visit Neurology Nestor Szymanski MD Benign essential tremor (Primary Dx); Urinary retention; Chronic idiopathic constipation 08/28/2017 Anesthesia Lizbeth Aden, ASSIGNMENT OFFICER Event 08/20/2017 Office Visit Gastroenterology Semaj De La Rosa MD Chronic idiopathic constipation (Primary Dx) 08/12/2017 Telephone Oncology Kane Ya DO General Question 08/07/2017 Office Visit Oncology Kane Ya DO Rectal prolapse 08/07/2017 Prep for Case Oncology Kane Ya, Rectal prolapse (Primary Dx) 08/04/2017 Telephone Oncology Kane Ya, DO General Question from Last 3 Months Family History Medical [...] Vital Sign Reading Time Taken Blood Pressure 102/69 09/05/2017 7:48 AM CDT Pulse 92 09/05/2017 7:48 AM CDT Temperature 36.4 C (97.6 F) 09/05/2017 7:48 AM CDT Respiratory Rate 12 08/20/2017 1:32 PM CDT Oxygen Saturation 96% 09/05/2017 7:48 AM CDT Inhaled Oxygen - - Concentration Weight 73.1 kg (161 lb 2.5 oz) 09/03/2017 6:51 AM CDT Height 157.5 cm (5' 2") 09/03/2017 6:51 AM CDT Body Mass Index 29.48 09/03/2017 6:51 AM CDT Plan of Treatment Health Maintenance Due Date Last Done Comments HEPATITIS C SCREENING 1956 PHYSICAL (COMPREHENSIVE) 1963 EXAM PERTUSSIS VACCINE 1967 HIV SCREENING 1971 TETANUS VACCINE 1973 CERVICAL CANCER SCREENING 1986 BREAST CANCER SCREENING 1996 COLORECTAL CANCER 2006 SCREENING SHINGLES VACCINE 2016 INFLUENZA VACCINE 03/08/2018 Implants Implanted Type Area Film And Video Editor Device Expiration Model / Identifier Date Serial / Lot [id number] - [id number] Mesh N/A: ETHICON 04/07/2022 [id number] / Implanted: Qty: 1 on 09/03/2017 by [employer]vis [id number] / Kane Ya DO [id number] Procedures Procedure Name Priority Date/Time Associated Diagnosis Comments PROCEDURE RECORD-SCAN 06/17/2017 Results for this 3:07 PM [facility] procedure are in the results section. from Last 3 Months Results * CBC (09/05/2017 4:41 AM) Only the most recent of 2 results within the time period is included. Component Value Ref Range White Blood Cells 5.9 4.5 - 11.0 K/UL RBC 3.43 (L) 4.0 - 5.0 M/UL Hemoglobin 11.1 (L) 12.0 - 15.0 GM/DL Hematocrit 32.0 (L) 36 - 45 % MCV 93.4 80 - 100 FL MCH 32.3 26 - 34 PG MCHC 34.5 32.0 - 36.0 G/DL RDW 13.7 11 - 15 % Platelet Count 183 150 - 400 K/UL MPV 7.7 7 - 11 FL Specimen Performing Laboratory [facility] [address] [place] [address] * PHOSPHORUS (09/05/2017 4:41 AM) Only the most recent of 2 results within the time period is included. Component Value Ref Range Phosphorus 2.9 2.0 - 4.0 MG/DL Specimen Performing Laboratory [facility] [address] [place] [address] * MAGNESIUM (09/05/2017 4:41 AM) Only the most recent of 2 results within the time period is included. Component Value Ref Range Magnesium 2.0 1.6 - 2.6 mg/dL Specimen Performing Laboratory [facility] [address] [place] [address] * BASIC METABOLIC PANEL (09/05/2017 4:41 AM) Only the most recent of 2 results within the time period is included. Component Value Ref Range Sodium 134 (L) 137 - 147 MMOL/L Potassium 4.0 3.5 - 5.1 MMOL/L Chloride 101 98 - 110 MMOL/L CO2 29 21 - 30 MMOL/L Anion Gap 4 3 - 12 Glucose 86 70 - 100 MG/DL Blood Urea Nitrogen 8 7 - 25 MG/DL Creatinine 0.61 0.4 - 1.00 MG/DL Calcium 8.1 (L) 8.5 - 10.6 MG/DL eGFR Non >60 >60 mL/min Comment: The eGFR is not validated for use in drug dosing adjustments. Continue to use estimated creatinine clearance per dosing reference text. Please contact the Clinical Pharmacist for questions. eGFR >60 >60 mL/min Comment: The eGFR is not validated for use in drug dosing adjustments. Continue to use estimated creatinine clearance per dosing reference text. Please contact the Clinical Pharmacist for questions. Specimen Performing Laboratory [facility] [address] [place] [address] * TYPE & CROSSMATCH (09/03/2017 7:03 AM) Component Value Ref Range Units Ordered 0 Crossmatch Expires 09/06/2017 Record Check 2ND TYPE REQUIRED ABO/RH(D) A NEG Antibody Screen NEG Electronic Crossmatch YES Specimen Performing Laboratory [facility] [address] [place] [address] * PROCEDURE RECORD-SCAN (06/17/2017 3:07 PM) Narrative Ordered by an unspecified provider. from Last 3 Months
--- OUTSIDE RECORDS SUMMARY | 2017-09-14 10:56 | XMS REPORT | Encounter Summary ---
Author Author [facility] Organization [facility] Address Unknown Phone Unavailable Care Team Providers Care Butcher Supervisor Name Role Phone BaileyGuera winters PCP Felipa Easton MD Unavailable Steve Clifford MD Unavailable Unavailable Star Styles MD Unavailable Semaj De La Rosa MD Unavailable Alber Piña MD Unavailable Fco Ramsey MD Unavailable Remigio Lakhani MD 21 Reason for Visit * Auth/Cert Status Reason Specialty Diagnoses / Referred By Referred To Procedures Contact Contact Diagnoses Rectal prolapse Rectal prolapse [K62.3] P rocedures [place] LAPAROSCOPY PROCTOPEXY PROLAPSE ROBOTIC ASSISTED VENTRAL MESH RECTOPEXY, POSSILBE OPEN Encounter Details Date Type Department Care Team Description 09/03/2017 Hospital [facility] Jeyson Ya DO Rectal prolapse - Encounter [id number] [facility] [address] 09/05/2017 [place] [address] [address] [place] [address] [phone] Social History Tobacco Use Types Packs/Day Years [...] F) 09/05/2017 7:48 AM CDT Respiratory Rate - - Oxygen Saturation 96% 09/05/2017 7:48 AM CDT Inhaled Oxygen - - Concentration Weight 73.1 kg (161 lb 2.5 oz) 09/03/2017 6:51 AM CDT Height 157.5 cm (5' 2") 09/03/2017 6:51 AM CDT Body Mass Index 29.48 09/03/2017 6:51 AM CDT in this encounter Functional Status Functional Status Response Date of Assessment Does the patient have a hearing impairment: No 09/03/2017 Does the patient have a visual impairment: Yes 05/18/2017 Does the patient have impaired ambulation: No 05/18/2017 Does the patient have an activity of daily living No 05/18/2017 (ADL) impairment: Does the patient have an instrumental activity of No 05/18/2017 daily living (IADL) impairment: Cognitive Status Response Date of Assessment Does the patient have a cognitive impairment: No 05/18/2017 as of this encounter Discharge Summaries * Benjamin Mandujano DO - 09/05/2017 9:32 AM CDT Formatting of this note may be different from the original. Physician Discharge Summary Name: Luis Blood Date Of : 1955 Age: 62 years Admit date: 09/03/2017 Discharge date: 09/05/2017 9:32 AM Attending Physician: Dr. Jeyson Ya DO Service: Surgery- Oncology Physician Summary completed by: Benjamin Mandujano DO Reason for hospitalization: Rectal prolapse; Rectal prolapse Significant PMH: Past Medical History: Diagnosis Date Abnormal involuntary movement Arthritis Asthma Essential tremor Fibromyalgia Gastroparesis GERD (gastroesophageal reflux disease) History of blood transfusion after childbirth History of hiatal hernia HLD (hyperlipidemia) HTN (hypertension) Iron deficiency anemia NICANOR (obstructive sleep apnea) Psychiatric illness depression Vision decreased Allergies: Sulfa (sulfonamide antibiotics) Admission Physical Exam notable for: Physical Exam Constitutional: She is oriented to person, place, and time. She appears well- developedand well-nourished. HENT: Head: Normocephalicand atraumatic. Eyes: Conjunctivaeand EOMare normal. Right eye exhibits no discharge. Left eye exhibits no discharge. No scleral icterus. Neck: Normal range of motion. No tracheal deviationpresent. Cardiovascular: Normal rate. Pulmonary/Chest: Effort normal. Abdominal: Soft. Bowel sounds are normal. Genitourinary: Genitourinary Comments: 3 cm anterior prolapse only, no masses, no vaginal prolapse Musculoskeletal: Normal range of motion. Neurological: She is alertand oriented to person, place, and time. Skin: Skin is warmand dry. No rashnoted. No erythema. No pallor. Psychiatric: She has a normal mood and affect. Her behavior is normal. Thought contentnormal. Vitalsreviewed. Admission Lab/Radiology studies notable for: Results for orders placed or performed during the hospital encounter of (from the past 24 hour(s)) BASIC METABOLIC PANEL Result Value Ref Range Sodium 134 (L) 137 [...] 10.6 MG/DL eGFR Non >60 >60 mL/min eGFR >60 >60 mL/min CBC Result Value Ref Range White Blood Cells 5.9 [...] K/UL MPV 7.7 7 - 11 FL MAGNESIUM Result Value Ref Range Magnesium 2.0 1.6 - 2.6 mg/dL PHOSPHORUS Result Value Ref Range Phosphorus 2.9 2.0 - 4.0 MG/DL Brief Hospital Course: The patient was admitted and the following issues were addressed during this hospitalization: (with pertinent details). Patient is 62-year-old female with a history of rectal prolapse. On 09/03/2017 she was taken to the OR and underwent robotic-assisted rectopexy with mesh placement. She was admitted postoperatively as planned for postoperative care. She tolerated the procedure well. On the floor she progressed by tolerating a regular diet, ambulating well, passing flatus but she did not admitted to a bowel movement yet. She states that she will likely have a bowel movement later in the day but would feel more comfortable going home. Thus, she was in stable condition and was discharged on postoperative day 2 which was 09/05/2017. Prior to discharge her postoperative care plan was explained and she verbally admitted to understanding. She will call with any questions or concerns. She has a two-week follow-up with Dr. Ya. Condition at Discharge: Stable Discharge Diagnoses: Hospital Problems Active Problems * (Principal)Rectal prolapse Principal Problem: Rectal prolapse Surgical Procedures: Procedure(s) (LRB): ROBOTIC ASSISTED VENTRAL MESH RECTOPEXY (N/A) Significant Diagnostic Studies and Procedures: noted in brief hospital course Consults: CONSULT DIETITIAN Patient Disposition: Home Patient instructions/medications: Activity as Tolerated It is important to keep increasing your activity level after you leave the hospital. Moving around can help prevent blood clots, lung infection (pneumonia ) and other problems. Gradually increasing the number of times you are up moving around will help you return to your normal activity level more quickly. Continue to increase the number of times you are up to the chair and walking daily to return to your normal activity level. Begin to work toward your normal activity level after follow-up appointment Driving Restrictions No driving while taking pain medication. Lifting Restrictions Do not lift more than 10 pounds for 6 week(s). Report These Signs and Symptoms Please contact your doctor if you have any of the following symptoms: temperature higher than 100 degrees F, uncontrolled pain, persistent nausea and/ or vomiting, difficulty breathing, chest pain, severe abdominal pain, headache, unable to urinate, unable to have bowel movement or drainage with a foul odor Questions About Your Stay For questions or concerns regarding your hospital stay. Call [phone] Discharging attending physician: JEYSON YA [[id number]] Regular Diet You have no dietary restriction. Please continue with a healthy balanced diet. Incision Care *Keep your incision clean and dry. *May shower 1 days following procedure. Avoid direct water contact to the incision. *Do not submerge incision in tub, pool, hot tub, or frank for 4 weeks. *Usually there are not stitches to be removed. *Your incision should gradually look better each day. If you notice unusual swelling, redness, drainage, have increasing pain at the site, or have a fever greater than 100 degrees, notify your physician immediately. Opioid (Narcotic) Safety Information OPIOID (NARCOTIC) PAIN MEDICATION SAFETY We care about your comfort, and believe you need opioid medications at this time to treat your pain. An opioid is a strong pain medication. It is only available by prescription for moderate to severe pain. Usually these medications are used for only a short time to treat pain, but sometimes will be prescribed for longer. Talk with your doctor or nurse about how long they expect you to need this medication. When used the right way, opioids are safe and effective medications to treat your pain, even when used for a long time. Yet, when used in the wrong way, opioids can be dangerous for you or others. Opioids do not work for everyone. Most patients do not get full relief of their pain from opioid medication; full relief of your pain may not be possible. For your safety, we ask you to follow these instructions: *Only take your opioid medication as prescribed. If your pain is not controlled with the prescribed dose, or the medication is not lasting long enough, call your doctor. *Do not break or crush your opioid medication unless your doctor or pharmacist says you can. With certain medications, this can be dangerous, and may cause . *Never share your medications with others, even if they appear to have a good reason. Never take someone else's pain medication-this is dangerous, and illegal (a crime). Overdoses and deaths have occurred. *Keep your opioid medications safe, as you would with [place], in a lock box or similar container. *Make sure your opioids are going to be secure, especially if you are around children or teens. *Talk with your doctor or pharmacist before you take other medications. *Avoid driving, operating machinery, or drinking alcohol while taking opioid pain medication. This may be unsafe. Pain medications can cause constipation. Constipation is bowel movements that are less often than normal. Stools often become very hard and difficult to pass. This may lead to stomach pain and bloating. It may also cause pain when trying to use the bathroom. Constipation may be treated with suppositories, laxatives or stool softeners. A diet high in fiber with plenty of fluids helps to maintain regular, soft bowel movements. Current Discharge Medication List START taking these medications Details oxyCODONE (ROXICODONE, OXY-IR) 5 mg tablet Take 1-2 tablets by mouth every 4 hours as needed Earliest Fill Date: 09/05/17 Qty: 50 tablet, Refills: 0 PRESCRIPTION TYPE: Print Associated Diagnoses: Rectal prolapse psyllium (METAMUCIL) powder Take 3.4 g by mouth daily. Qty: 300 g, Refills: 3 PRESCRIPTION TYPE: Print senna/docusate (SENOKOT-S) 8.6/50 mg tablet Take 1 tablet by mouth daily. Qty: 50 tablet, Refills: 0 PRESCRIPTION TYPE: Print Comments: Utilize while taking pain medication. Hold for multiple loose stools. CONTINUE these medications which have NOT CHANGED Details alfuzosin(+) (UROXATRAL) 10 mg tablet Take 1 tablet by mouth daily. Qty: 90 tablet, Refills: 3 PRESCRIPTION TYPE: Normal Associated Diagnoses: Urinary retention ALPRAZolam (XANAX) 0.5 mg tablet Take 0.5-1 mg by mouth at bedtime as needed for Sleep. PRESCRIPTION TYPE: Historical Med benazepril(+) (LOTENSIN) 10 mg tablet Take 10 mg by mouth daily. PRESCRIPTION TYPE: Historical Med budesonide/formoterol (SYMBICORT HFA) 80-4.5 mcg/actuation inhalation Inhale 2 Puffs by mouth twice daily. PRESCRIPTION TYPE: Historical Med busPIRone (BUSPAR) 30 mg tablet Take 1 Tab by mouth twice daily. Qty: 60 Tab, Refills: 2 PRESCRIPTION TYPE: Normal cetirizine (ZYRTEC) 10 mg tablet Take 10 mg by mouth daily. PRESCRIPTION TYPE: Historical Med cholecalciferol(+) (VITAMIN D3) 2,000 unit tablet Take 2,000 Units by mouth daily. PRESCRIPTION TYPE: Historical Med cycloSPORINE(+) (RESTASIS) 0.05 % ophthalmic solution Apply 1 drop to both eyes twice daily. PRESCRIPTION TYPE: Historical Med dicyclomine (BENTYL) 10 mg capsule Take 10 mg by mouth twice daily as needed. PRESCRIPTION TYPE: Historical Med dronabinol (MARINOL) 2.5 mg capsule Take 2.5 mg by mouth twice daily. PRESCRIPTION TYPE: Historical Med !! duloxetine DR (CYMBALTA) 30 mg capsule Take 30 mg by mouth daily. Administered in combination with 60mg dosage PRESCRIPTION TYPE: Historical Med !! DULoxetine DR (CYMBALTA) 60 mg capsule Take 60 mg by mouth daily. Administer 60mg dosage with 30mg dosage PRESCRIPTION TYPE: Historical Med esomeprazole DR(+) (NEXIUM) 20 mg capsule Take 20 mg by mouth every morning. PRESCRIPTION TYPE: Historical Med fluticasone (FLONASE) 50 mcg/actuation nasal spray Apply 1 spray to each nostril as directed daily as needed. Shake bottle gently before using. PRESCRIPTION TYPE: Historical Med gabapentin (NEURONTIN) 300 mg capsule Take 1 Cap by mouth three times daily. Qty: 90 Cap, Refills: 2 PRESCRIPTION TYPE: Normal HYDROcodone/acetaminophen (NORCO) 7.5/325 mg tablet Take 0.5-1 tablets by mouth every 6 hours as needed for Pain PRESCRIPTION TYPE: Historical Med hyoscyamine (ANASPAZ; NULEV; SYMAX FASTABS; HYOMAX-FT; ED-SPAZ; OSCIMIN) 0.125 mg rapid dissolve tablet Place 125 mcg under tongue every 4 hours as needed for Cramps. PRESCRIPTION TYPE: Historical Med lactobacillus rhamnosus GG (LACTOBACILLUS RHAMNOSUS (GG)) 15 billion cell cpSP capsule Take 1 capsule by mouth as directed daily. PRESCRIPTION TYPE: Historical Med LORazepam (ATIVAN) 0.5 mg tablet Take 1 tablet by mouth daily as needed for Nausea. PRESCRIPTION TYPE: Historical Med LORazepam (ATIVAN) 2 mg/mL conc oral solution Take 1 mg by mouth daily as needed for Nausea or Vomiting. PRESCRIPTION TYPE: Historical Med loteprednol(+) (LOTEMAX) 0.5 % ophthalmic suspension Apply 1 drop to both eyes four times daily as needed. PRESCRIPTION TYPE: Historical Med metoclopramide (REGLAN) 5 mg tablet Take 5-10 mg by mouth twice daily. PRESCRIPTION TYPE: Historical Med montelukast (SINGULAIR) 10 mg tablet Take 10 mg by mouth at bedtime daily. PRESCRIPTION TYPE: Historical Med polyethylene glycol 3350 (MIRALAX) 17 g packet Take 1 packet by mouth twice daily. Hold for loose stools Qty: 30 each, Refills: 1 PRESCRIPTION TYPE: Print primidone (MYSOLINE) 50 mg tablet Take 1 tablet by mouth twice daily. Qty: 60 tablet, Refills: 5 PRESCRIPTION TYPE: Normal ranitidine hcl(+) (ZANTAC) 300 mg tablet Take 300 mg by mouth at bedtime daily. PRESCRIPTION TYPE: Historical Med scopolamine (TRANSDERM-SCOP) 1.5 mg 3 day patch APPLY 1 PATCH TO SKIN PRN Q 72 HOURS as needed Refills: 1 PRESCRIPTION TYPE: Historical Med simvastatin (ZOCOR) 20 mg tablet Take 20 mg by mouth at bedtime daily. PRESCRIPTION TYPE: Historical Med triamterene-hydrochlorothiazide (DYAZIDE) 37.5-25 mg per capsule Take 1 Cap by mouth every morning. PRESCRIPTION TYPE: Historical Med vitamins, multiple tablet Take 1 tablet by mouth at bedtime daily. PRESCRIPTION TYPE: Historical Med !! - Potential duplicate medications found. Please discuss with provider. Future Appointments Date Time Provider Department Center 09/24/2017 2:45 PM Remigio Lakhani MD UROLGYCL [facility] Urology 09/25/2017 11:45 AM Jeyson Ya DO [facility] Exam 10/13/2017 3:00 PM Jeyson Ozuna MD IMRHEUM [facility] IM 11/19/2017 3:30 PM Semaj De La Rosa MD [facility] Pending items needing follow up: None Signed: Benjamin Mandujano DO 09/05/2017 cc: Primary Care Physician: Guera Bailey Verified Referring physicians: Additional provider(s): in this encounter Discharge Instructions * Pre-Anesthesia Medication Instructions - Jillian Flores RN - 08/18/2017 12:42 PM CDT Formatting of this note may be different from the original. YOUR MEDICATIONS: alfuzosin(+) (UROXATRAL) 10 mg tablet Take 1 tablet by mouth daily. ALPRAZolam (XANAX) 0.5 mg tablet Take 0.5 [...] mg capsule Take 10 mg by mouth daily. docusate (COLACE) 100 mg capsule Take 100 mg by mouth daily as needed for Constipation. duloxetine DR (CYMBALTA) 30 mg capsule Take 30 mg by mouth daily. Administered in combination with 60mg dosage DULoxetine DR (CYMBALTA) 60 mg capsule Take 60 mg by mouth daily. Administer 60mg dosage with 30mg dosage esomeprazole DR(+) (NEXIUM) 40 mg capsule Take 20 mg by mouth every morning. fluticasone (FLONASE) [...] mg tablet Take 1 tablet by mouth daily as needed. LORazepam (ATIVAN) 2 mg/mL conc oral solution Take 1 mg by mouth at bedtime as needed for Nausea or Vomiting. metoclopramide (REGLAN) 5 mg tablet Take 5-10 mg by mouth twice daily. montelukast (SINGULAIR) 10 mg tablet Take 10 mg by mouth at bedtime daily. oxyCODONE (ROXICODONE, OXY-IR) 5 mg tablet Take 1-2 tablets by mouth every 4 hours as needed polyethylene glycol 3350 (MIRALAX) 17 g packet Take 1 packet by mouth twice daily. Hold for loose stools (Patient taking differently: Take 17 g by mouth daily as needed. Hold for loose stools) ranitidine hcl(+) (ZANTAC) 300 mg tablet Take 300 mg by mouth at bedtime daily. scopolamine (TRANSDERM-SCOP) 1.5 mg 3 day patch APPLY 1 PATCH TO SKIN PRN Q 72 HOURS simvastatin (ZOCOR) 20 mg tablet Take 20 mg by mouth at bedtime daily. triamterene-hydrochlorothiazide (DYAZIDE) 37.5-25 mg per capsule Take 1 Cap by mouth every morning. vitamins, multiple tablet Take 1 tablet by mouth at bedtime daily. YOUR MEDICATION INSTRUCTIONS FOR SURGERY: Before surgery Stop the following vitamins, herbals, and natural supplements 14 days before surgery: Stop the following medications 7 days before surgery: Anti-inflammatory medications such as ibuprofen (Advil, Motrin) and naproxen (Aleve) You may use acetaminophen (Tylenol) Please follow these instructions regarding your blood thinner medications: Please follow these instructions regarding your insulin: Morning of surgery On the morning of surgery, do NOT take these medications: Remaining vitamins/supplements Ointments/creams/lotions On the morning of surgery, take ONLY these medications with a sip (1-2 ounces) of water: Other information Before surgery, please contact the clinic pharmacist with any medicine updates or questions. E-mail: [email or web address] Before going home from the hospital, please ask your doctor when you should re- start your medicines that were stopped before surgery. in this encounter Medications at Time of Discharge Medication Sig. Disp. Refills Start Date End Date alfuzosin(+) (UROXATRAL) Take 1 tablet by mouth 90 tablet 3 2017 10 mg tabletIndications: daily. Urinary retention ALPRAZolam (XANAX) 0.5 mg Take 0.5-1 mg by mouth at tablet bedtime as needed for Sleep. benazepril(+) (LOTENSIN) Take 10 mg by mouth 10 mg tablet daily. budesonide/formoterol Inhale 2 Puffs by mouth (SYMBICORT HFA) 80-4.5 twice daily. mcg/actuation inhalation busPIRone (BUSPAR) 30 mg Take 1 [...] Take 10 mg by mouth twice mg capsule daily as needed. dronabinol (MARINOL) 2.5 Take 2.5 mg by mouth mg capsule twice daily. duloxetine DR (CYMBALTA) Take 30 mg by mouth 30 mg capsule daily. Administered in combination with 60mg dosage DULoxetine DR (CYMBALTA) Take 60 mg by mouth 60 mg capsule daily. Administer 60mg dosage with 30mg dosage esomeprazole DR(+) Take 20 mg by mouth every (NEXIUM) 20 mg capsule morning. fluticasone (FLONASE) 50 Apply 1 spray to each mcg/actuation nasal spray nostril as directed daily as needed. Shake bottle gently before using. gabapentin (NEURONTIN) Take 1 Cap by mouth three 90 Cap 2 05/10/2015 300 mg capsule times daily. HYDROcodone/acetaminophen Take 0.5-1 tablets by (NORCO) 7.5/325 mg tablet mouth every 6 hours as needed for Pain hyoscyamine (ANASPAZ; Place 125 mcg under NULEV; SYMAX FASTABS; tongue every 4 hours as HYOMAX-FT; ED-SPAZ; needed for Cramps. OSCIMIN) 0.125 mg rapid dissolve tablet lactobacillus rhamnosus Take 1 capsule by mouth GG (LACTOBACILLUS as directed daily. RHAMNOSUS (GG)) 15 billion cell cpSP capsule LORazepam (ATIVAN) 0.5 mg Take 1 tablet by mouth tablet daily as needed for Nausea. LORazepam (ATIVAN) 2 Take 1 mg by mouth daily mg/mL conc oral solution as needed for Nausea or Vomiting. loteprednol(+) (LOTEMAX) Apply 1 drop to both eyes 0.5 % ophthalmic four times daily as suspension needed. metoclopramide (REGLAN) 5 Take 5-10 mg by mouth mg tablet twice daily. montelukast (SINGULAIR) Take 10 mg by mouth at 10 mg tablet bedtime daily. oxyCODONE (ROXICODONE, Take 1-2 tablets by mouth 50 tablet 0 2017 OXY-IR) 5 mg every 4 hours as needed tabletIndications: Rectal Earliest Fill Date: prolapse 09/05/17 polyethylene glycol 3350 Take 1 packet by mouth 30 each 1 03/29/2017 (MIRALAX) 17 g packet twice daily. Hold for loose stools primidone (MYSOLINE) 50 Take 1 tablet by mouth 60 tablet 5 08/28/2017 mg tablet twice daily. psyllium (METAMUCIL) Take 3.4 g by mouth 300 g 3 09/05/2017 powder daily. ranitidine hcl(+) Take 300 mg by mouth at (ZANTAC) 300 mg tablet bedtime daily. scopolamine APPLY 1 PATCH TO SKIN PRN 1 05/11/2017 (TRANSDERM-SCOP) 1.5 mg 3 Q 72 HOURS as needed day patch senna/docusate Take 1 tablet by mouth 50 tablet 0 09/05/2017 (SENOKOT-S) 8.6/50 mg daily. tablet simvastatin (ZOCOR) 20 mg Take 20 mg by mouth at tablet bedtime daily. triamterene-hydrochloroth Take 1 Cap by mouth every iazide (DYAZIDE) 37.5-25 morning. mg per capsule vitamins, multiple tablet Take 1 tablet by mouth at bedtime daily. as of this encounter Progress Notes * Sonali Frankel RN - 09/05/2017 9:32 AM CDT RN educated pt on activity, diet, medications, signs and symptoms to watch out for, and when to call the doctor. Pt verbalizes understanding. PIVs removed without complication. Pt left floor via wheelchair with all belongings. * Dia Messer, AMADOU - 09/04/2017 10:05 PM CDT Pt complaining of itching and asking for another dose of Benadryl. Surg-onc paged. * Jeffery Cummings, - 09/04/2017 6:40 PM CDT Formatting of this note may be different from the original. Oncology Surgery Progress Note 09/04/2017 Patient: Luis Blood Admission date 09/03/2017, LOS: 1 day ASSESSMENT Luis Blood is a 62 y.o. Female with Rectal prolapse [K62.3] Principal Problem: Rectal prolapse 62F s/p robotic rectopexy with mesh placement PLAN: ADAT to regular SLIVF PO pain DC Boo Resume [employer] medications Increase ambulation DC today vs tomorrow Discussed plan of care with Dr. Ya SUBJECTIVE: No acute issues over night. patient states that she is tolerating CLD with no nausea or vomiting. She states that her pain is well controlled. She states that she has passed flatus, no bowel movements. OBJECTIVE: Vital Signs: Last Filed Vital Signs: 24 Hour Range BP: 96/49 (09/04 1826) Temp: 36.7 C (98.1 F) (09/04 1826) Pulse: 105 (09/04 1826) Respirations: 18 PER MINUTE (09/04 1826) SpO2: 94 % (09/04 1826) O2 Delivery: None (Room Air) (09/04 1826) BP: (93-109)/(49-67) Temp: [36.6 C (97.9 F)-37.1 C (98.8 F)] Pulse: [84-112] Respirations: [16 PER MINUTE-18 PER MINUTE] SpO2: [93 %-100 %] O2 Delivery: None (Room Air) Intensity Pain Scale 0-10 (Pain 1): (not recorded) Stool Occurrence: 0 General: A&Ox3, NAD HEENT: Neck supple, no JVD Pulmonary: CTAB, no R/R/W, unlabored Cardiovascular: RRR, no M/R/G Abdomen: Soft, distended, minimal pain. incisions are clean, dry and intact with dermabond in place : Boo in place with yellow urine in bag Extremities: No C/C/E Neuro: Grossly intact Skin: Warm and dry Intake/Output Summary (Last 24 hours) at 09/04/17 1840 Last data filed at 09/04/17 1828 Gross per 24 hour Intake 340 ml Output 1090 ml Net -750 ml Stool Occurrence: 0 Scheduled Medications: budesonide/formoterol (SYMBICORT HFA) 80-4.5 mcg/actuation inhalation 2 puff 2 puff Inhalation BID busPIRone (BUSPAR) tablet 30 mg 30 mg Oral BID cyclosporine (RESTASIS) 0.05 % ophthalmic emulsion 1 drop 1 drop Both Eyes BID duloxetine DR (CYMBALTA) capsule 90 mg 90 mg Oral QDAY enoxaparin (LOVENOX) syringe 40 mg 40 mg Subcutaneous QDAY(21) fluticasone (FLONASE) nasal spray 1 spray 1 spray Each Nostril QDAY gabapentin (NEURONTIN) capsule 300 mg 300 mg Oral TID metoclopramide (REGLAN) tablet 5-10 mg 5-10 mg Oral BID before meals montelukast (SINGULAIR) tablet 10 mg 10 mg Oral QHS primidone (MYSOLINE) tablet 50 mg 50 mg Oral QHS simvastatin (ZOCOR) tablet 20 mg 20 mg Oral QHS tamsulosin (FLOMAX) capsule 0.4 mg 0.4 mg Oral QDAY after breakfast PRN Medications: fentaNYL citrate PF 25-50 mcg Intravenous Q1H PRN ondansetron (ZOFRAN) IV 4 mg Intravenous Q6H PRN oxyCODONE 5-10 mg Oral Q4H PRN phenol 2 spray Mouth/Throat PRN Current Infusions: Glucose Monitoring: Glucose: 95 (09/04/17424) Recent Laboratory Studies: Recent Labs 09/04/17424 HGB 11.8* HCT 33.8* WBC 7.3 PLTCT 177 NA 131* K 3.7 CL 97* CO2 27 BUN 6* CR 0.49 GLU 95 CA 8.5 MG 2.0 PO4 4.2* Jeffery Cummings DO Pager: [phone] * Yolande Washington, PT - 09/04/2017 1:50 PM CDT PHYSICAL THERAPY ASSESSMENT MOBILITY: Mobility Progressive Mobility Level: Walk in hallway Distance Walked (feet): 150 ft Level of Assistance: Independent Assistive Device: None Time Tolerated: 0-10 minutes Activity Limited By: No limitations SUBJECTIVE: Subjective Significant hospital events: Hx of rectal prolapse, s/p ventral mesh rectopexy ( 09/03). Mental / Cognitive Status: Alert;Cooperative;Follows Commands Ambulation Assist: Independent Mobility in Community without Device Patient Owned Equipment: None Type of Home: House Entry Stairs: 1-2 Stairs Comments: Pt reports that she has had some falls but they are due to trips on objects on the stephon and she was "moving too fast". STRENGTH: Strength Overall Strength: WFL;No Focal Deficits Noted BED MOBILITY/TRANSFERS: Bed Mobility/Transfers Bed Mobility: Supine to Sit: Independent Bed Mobility: Sit to Supine: Independent Transfer Type: Sit to/from Stand Transfer: Assistance Level: To/From;Bed;Independent Transfer: Assistive Device: None GAIT: Gait Gait Distance: 150 feet Gait: Assistance Level: Independent Gait: Assistive Device: None Gait: Descriptors: Swing-Through Gait;No balance loss;Normal step length Stairs: Number Climbed: 3 Stairs: Descriptors: Ascend;Descend;Non-Reciprocal Stairs: Assistance Level: Standby Assist Stairs: Assistive Device: One Rail EDUCATION: Education Persons Educated: Patient Patient Barriers To Learning: None Noted Patient Response: Verbalized Understanding;Return Demonstration Topics: Plan/Goals of PT Interventions ASSESSMENT/PROGRESS: Assessment/Progress Assessment/Progress: Patient level of independence and safety is consistent with prior level of function and does not require physical therapy intervention PLAN: Plan Treatment Interventions: Mobility Training Plan Frequency: No Further Treatment RECOMMENDATIONS: PT Discharge Recommendations PT Discharge Recommendations: Home;No Further PT Indicated Equipment Recommendations: None Therapist: Yolande [place], PT Date: 09/04/2017 * Lexy Low - 09/04/2017 11:10 AM CDT Formatting of this note may be different from the original. OCCUPATIONAL THERAPY ASSESSMENT / DISCHARGE NOTE Patient Name: Luis Blood Room/Bed: GW1605/01 Admitting Diagnosis: Rectal prolapse [K62.3] Rectal prolapse Past Medical History: Diagnosis Date Abnormal involuntary movement Arthritis Asthma Essential tremor Fibromyalgia Gastroparesis GERD (gastroesophageal reflux disease) History of blood transfusion after childbirth History of hiatal hernia HLD (hyperlipidemia) HTN (hypertension) Iron deficiency anemia NICANOR (obstructive sleep apnea) Psychiatric illness depression Vision decreased Mobility Progressive Mobility Level: Walk in room Level of Assistance: Independent Assistive Device: None Time Tolerated: 0-10 minutes Activity Limited By: Fatigue (Patient choice) Subjective Pertinent Dx per Physician: Hx of rectal prolapse, s/p ventral mesh rectopexy (). Precautions: Standard;Falls Pain / Complaints: Patient agrees to participate in therapy Comments: Patient participation limited d/t fatigue and requesting to rest d/t multiple disciplines in and out of patient's room today. Objective Psychosocial Status: Willing and Cooperative to Participate Persons Present: None Home Living Type of Home: House Home Layout: One Level ("A couple stairs") Bathroom Toilet: Standard Prior Function Level Of [place]: Independent with ADLs and functional transfers; Independent with homemaking w/ ambulation Lives With: Spouse Receives Help From: None Needed Other Function Comments: Independent with ADLs, IADLs, and mobility at baseline. Will have assistance, as needed, at discharge. Vision Current Vision: (No c/o acute changes) ADL's Where Assessed: Edge of Bed (In room) Eating Deficits: No Assist Needed Grooming Deficits: No Assist Needed LE Dressing Assist: Independent LE Dressing Deficits: Don/Doff R Sock;Don/Doff L Sock (Demonstrated reach for tasks to adjust socks) Toileting Assist: (Pt reports she has been completing independently) Functional Transfer Assist: Independent Functional Transfer Deficits: No Assist Needed Comment: Patient completed supine to sit and in-room mobility independently. Demonstrated item retrieval from floor (w/o being instructed to do so) independently. Patient demonstrated reach for independent completion of lower body dressing tasks. She reports she has been ambulating independently and completing ADLs during acute stay. Activity Tolerance Endurance: 3/5 Tolerates 25-30 Minutes Exercise w/Multiple Rests Sitting Balance: 4/5 Moves/Returns Trunkal Midpoint 1-2 Inches in Multiple Planes Cognition Overall Cognitive Status: WFL to Adequately Complete Self Care Tasks Safely UE AROM Overall BUE AROM WNL: Yes Sensory Overall Sensory: (No c/o acute changes) UE Strength / Tone Overall Strength / Tone: WFL Able to Perform ADL Tasks Education Persons Educated: Patient Topics: Role of OT, Goals for Therapy;ADL Compensatory Techniques;Home safety Assessment Assessment: Decreased Endurance Prognosis: Good;w/ Family Goal Formulation: Patient AM-PAC 6 Clicks Daily Activity Inpatient Putting on and taking off regular lower body clothes?: None Bathing (Including washing, rinsing, drying): None Toileting, which includes using toilet, bedpan, or urinal: None Putting on and taking off regular upper body clothing: None Taking care of personal grooming such as brushing teeth: None Eating meals?: None Daily Activity Raw Score: 24 Standardized (t-scale) score: 57.54 CMS 0-100% Score: 0 CMS G Code Modifier: CH Plan OT Frequency: No Further Treatment OT Discharge Recommendations OT Discharge Recommendations: Home with family assist, Available help at home, No further OT goals identified at this time Equipment Recommendations: None Additional Information: Occupational Therapy will sign off at this time as no skilled goals are identified. Patient reports anticipated discharge home today. She denies concerns with return to functional tasks in home setting. Please re- consult, as indicated, if patient has a change in functional status. Recommend ongoing assistance for: In and out of house; IADLs Therapist: Lexy Low, YAHAIRAR/Karthik [id number] Date: 09/04/2017 * Yolande [place], PT - 09/04/2017 9:18 AM CDT PHYSICAL THERAPY NOTE Pt declines physical therapy evaluation and mobility this am. Pt reports she has already ambulated in the room with very little assistance but declines currently as she is not a "morning person". Will continue to follow but pt likely will not require DME or have additional therapy needs based on procedure and level of independence prior to admission. Pt has 2 steps to enter home, no history of DME. Therapist: Yolande [place], PT Date: 09/04/2017 * Carson Berry, RT - 09/03/2017 6:55 PM CDT Formatting of this note may be different from the original. RESPIRATORY THERAPY ADULT PROTOCOL EVALUATION RESPIRATORY PROTOCOL PLAN Medications Note: If indicated by protocol, medication orders will be placed by therapist. Procedures PAP: Place a nursing order for "IS Q1h While Awake" for any of Lung Expansion indicators Oxygen/Humidity: O2 to keep SpO2 > 92% Monitoring: Pulse oximetry BID & PRN Comment: History of NICANOR, uses symbicort at home PATIENT EVALUATION RESULTS Chart Review * Pulmonary Hx: Hx pulmonary disease, hx reactive or obstructive airway disease (PEFR & AM) OR regular home use of bronchodilators (AM) OR inhaled or systemic steroid use for lungs < or equal to 4 times/yr (AM) (History of Asthma) * Surgical Hx: Thoracic or abdominal surgery/injury (LE) * Chest X-Ray: Clear OR not available (X-ray not available at this time) * PFT/Oxygenation: FEV1, PEFR < 70% OR Pa02 < 70 RA OR Sp02 <92% RA OR Fi02 > 0.21 to keep Sp02 > 92% OR < 24 hours post-op (02 & oxim) OR chronic C02 retention (C02) (Post-op) Patient Assessment * Respiratory Pattern: Regular pattern and rate OR good chest excursion with deep breathing * Breath Sounds: Clear apically, but diminished in bases (LE) OR CHF related crackles (02) (oximetry) * Cough / Sputum: Good effective cough OR occasional or minimal sputum OR thin sputum * Mental Status: Alert, oriented, cooperative * Activity Level: Ambulatory with assistance Priority Index Total Points: 11 Points * Priority Index: 2+ PRIORITY INDEX GUIDELINES* Priority Points 1 0-9 points 2 9-18 points 3 > 18 points + Pulm Dx or Home Rx *Higher points indicate higher acuity. Therapist: Carson Berry, RT Date: 09/03/2017 Flores AC=Airway clearance AM=Aerosolized medication BA=[place] aerosol DB&C=Deep breathe & cough FEV1=Forced expiratory volume in first second) IC=Inspiratory capacity LE=Lung expansion MDI=Metered dose inhaler Neb=Nebulizer O2=Oxygen Oxim=Oximetry PEFR=Peak expiratory flow rate PLANER SETTER=Rapid Response Team * Stephani Maharaj RN - 09/03/2017 2:48 PM CDT Patient arrived on unit accompanied by pacu staff. Patient arrived in bed. Assessment completed, refer to flowsheet for details. Orders released, reviewed , and implemented as appropriate. Oriented to surroundings, call light within reach. Plan of care reviewed. Will continue to monitor and assess. * Jillian Flores, AMADOU - 08/21/2017 2:52 PM CDT A PAC appointment has been scheduled for this patient after consulting with Dr. Loli Campbell. Her last PAC visit was 02/27/17 with surgery on 03/26/17. She does not exercise And would get SOA going up a couple flight of stairs. She is a former smoker with Asthma and NICANOR. She has HTN, HLD, GERD, Gastroparesis, Fibromyalgia, Arthritis, Depression and anxiety. in this encounter H&P Notes * Benjamin Mandujano DO - 09/03/2017 6:59 AM CDT Formatting of this note may be different from the original. History and Physical Update Note Allergies: Sulfa (sulfonamide antibiotics) Lab/Radiology/Other Diagnostic Tests: 24-hour labs: No results found for this visit on 09/03/17 (from the past 24 hour(s)). Point of Care Testing: (Last 24 hours): I have examined the patient, and there are no significant changes in their condition, from the previous H&P performed on 08/07/2017. OR today for robotic assisted ventral mesh rectopexy; Possible open rectopexy Risk and benefits of operative procedure were discussed in detail with the patient, and after all questions were answered, the patient elected to proceed with surgery and informed consent was provided. Benjamin Mandujano DO Pager [phone] Progress Notes Creation Time: 08/07/17 1108 Jeyson Ya DO Surgical Oncology Expand All Collapse All []Hide copied text []Hover for attribution information Name: Luis Blood : 1955 AGE: 62 y.o. DATE OF SERVICE: 08/07/2017 Subjective: Reason for Visit: RECURRENT PROLAPSE Heme/Onc Care Luis Blood is a 62 y.o. female. No matching staging information was found for the patient. History of Present Illness 62-year-old female with a history of rectal prolapse. In March of this past year she underwent a resection rectopexy robotically for this. She did very well with that she completed anorectal manometry in January 2017. A repeat revealed pelvic floor dyssynergy and ability to pass the balloon and 17 seconds. When she follow-up with me in May she had no episodes of fecal incontinence no urgency. She had some redundant tissue along the anterior anal canal that she felt at times but could not reproduce from in clinic. Encouraged her to stay on MiraLAX and avoid straining and stay off the commode. Since then unfortunately she indicates that she has to strain with every bowel movement she still sits on the commode for prolonged periods of time. She has bleeding at this time with wiping. She showed me pictures of an anterior rectal prolapse approximately 4 cm nothing from the posterior. We did repeated her anorectal manometry June 2017 and this revealed a weak anal sphincter. Also it was a the sphincter was not able to relax during defecation. Currently she has 2-3 bowel movements per day. She thinks they are about 2-3 cm in length. She feels that they are much smaller. And again she has to strain significantly with these bowel movements. She is on MiraLAX on an occasional basis. She is refraining from heavy lifting. She does have fibromyalgia which causes her some difficulty. Past Medical History: Diagnosis Date Abnormal involuntary movement Arthritis Asthma Fibromyalgia Gastroparesis GERD (gastroesophageal reflux disease) HLD (hyperlipidemia) HTN (hypertension) Psychiatric illness depression Vision decreased Past Surgical History: Procedure Laterality Date [place] ANORECTAL MANOMETRY N/A 01/23/2017 ARM on a Thursday for obstructive defecation, rectal prolapse. Can you try to see if Randee or Sintia can work her in soon please per Dr. Styles performed by Felipa Easton MD at ENDO/GI RECTAL SURGERY N/A 03/26/2017 ROBOTIC RESECTION RECTOPEXY performed by Jeyson Ya DO at [facility]/ Periop ANORECTAL MANOMETRY N/A 06/11/2017 MANOMETRY ANORECTAL performed by Ashly Singleton MD at ENDO/GI ESOPHAGOGASTRIC FUNDOPLICATION 2004, 2011 x 2 Family [...] Years of education: N/A Occupational History [employer] Social History Main Topics Smoking status: Former Smoker Packs/day: 0.50 Years: 5.00 Quit date: 10/08/1990 Smokeless tobacco: Never Used Alcohol use 1.2 oz/week 2 Shots of liquor per week Comment: 2 per month Drug use: No Sexual activity: Not on file Other Topics Concern Not on file Social History Narrative No narrative on file Review of Systems Constitutional: Negative for activity change, chills, fatigue and fever. HENT: Negative for congestion. Eyes: Negative. Respiratory: Negative for cough, choking, chest tightness and shortness of breath. Cardiovascular: Negative for chest pain and leg swelling. Gastrointestinal: Positive for anal bleeding, blood in stool and constipation. Negative for abdominal distention, abdominal pain, diarrhea, nausea, rectal pain and vomiting. Endocrine: Negative for polydipsia and polyphagia. Genitourinary: Negative for difficulty urinating, dysuria and frequency. Musculoskeletal: Negative for arthralgias and myalgias. Skin: Negative for pallor and rash. Neurological: Negative for dizziness and light-headedness. Hematological: Negative for adenopathy. Does not bruise/bleed easily. Psychiatric/Behavioral: Negative for agitation, behavioral problems and confusion. Objective: alfuzosin(+) (UROXATRAL) 10 mg tablet Take 1 tablet by mouth daily. ALPRAZolam (XANAX) 0.5 mg tablet Take 0.5 [...] esomeprazole DR(+) (NEXIUM) 40 mg capsule Take 20 mg by mouth every morning. fluticasone (FLONASE) [...] 300 mg by mouth at bedtime daily. rifAXIMin (XIFAXAN) 550 mg tablet Take 1 tablet by mouth three times daily. Indications: DIARRHEA PREDOMINANT IRRITABLE BOWEL SYNDROME scopolamine (TRANSDERM-SCOP) 1.5 mg 3 day patch APPLY 1 PATCH TO SKIN PRN Q 72 HOURS silodosin(+) (RAPAFLO) 8 mg capsule Take 1 Cap by mouth daily. simvastatin (ZOCOR) 20 mg tablet Take 20 mg by mouth at bedtime daily. triamterene-hydrochlorothiazide (DYAZIDE) 37.5-25 mg per capsule Take 1 Cap by mouth every morning. vitamins, multiple tablet Take 1 tablet by mouth daily. Vitals: 08/07/17 1052 BP: 117/74 Pulse: 83 Resp: 16 Temp: 36.7 C (98 F) TempSrc: Oral SpO2: 97% Weight: 73.5 kg (162 lb) Body mass index is 29.14 kg/m. Pain Score: Zero Pain Addressed: N/A Patient Evaluated for a Clinical Trial: No treatment clinical trial available for this patient. Eastern Cooperative Oncology Group performance status is 0, Fully active, able to carry on all pre-disease performance without restriction.. Physical Exam Constitutional: She is oriented to person, place, and time. She appears well- developed and well-nourished. HENT: Head: Normocephalic and atraumatic. Eyes: Conjunctivae and EOM are normal. Right eye exhibits no discharge. Left eye exhibits no discharge. No scleral icterus. Neck: Normal range of motion. No tracheal deviation present. Cardiovascular: Normal rate. Pulmonary/Chest: Effort normal. Abdominal: Soft. Bowel sounds are normal. Genitourinary: Genitourinary Comments: 3 cm anterior prolapse only, no masses, no vaginal prolapse Musculoskeletal: Normal range of motion. Neurological: She is alert and oriented to person, place, and time. Skin: Skin is warm and dry. No rash noted. No erythema. No pallor. Psychiatric: She has a normal mood and affect. Her behavior is normal. Thought content normal. Vitals reviewed. Assessment and Plan: 62-year-old female with a recurrent anterior rectal prolapse. This would be an ideal situation form of ventral mesh rectopexy. I discussed this with her. It would require mesh placement in the pelvis. I usually do not proceed with this on an initial surgery as I do not like placements in the pelvis however I think in her situation is to be required. All of her questions were answered up with surgery. She understands that this would lead to no change for her incontinence and should resolve her symptoms. I would like to proceed with this robotically. She has had 2 robotic surgeries in the past I think will be able to proceed with this method. All of her questions were answered. in this encounter Consult Notes * Radha Yu - 09/04/2017 9:49 AM CDT Associated Order(s): CONSULT DIETITIAN CLINICAL NUTRITION Clinical Nutrition Assessment Summary Nutrition Assessment of Patient: BMI Categories Adult: Over Weight: 25-29.9 (29.5) Malnutrition Assessment: Does not meet criteria Current Oral Intake: Inadequate Estimated Calorie Needs: 6829-3014 (25-30 kcal/kg desired wt 59.5kg) Estimated Protein Needs: 77 (1.3 gm/kg desired wt 59.5kg) Oral Diet Order: Regular 62 yo F with PMH of gastroparesis, GERD, HLD, HTN, iron deficiency anemia, esophageal fundoplication in 2004 (revision in 2011), rectal prolapse s/p resection rectopexy in Mar 2017 who presents again with rectal prolapse and is s /p rectopexy with mesh placement on 09/03/17. Consult received for nutritional assessment. Pt reports stable/normal appetite [employer]. Denies unintentional weight loss as of recent, usual weight is 155-160 lb. 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 She is also not a "breakfast eater", but states she takes her meds with milk before leaving for work. Pt eats lunch each day which is usually something soft like chicken/tuna salad, mach and cheese. States that after 3pm she has been told to consume liquids only so she has yogurt, pudding, soups. Used to make fruit smoothies in the past and drink oral nutrition supplements, but has not been keeping up with this recently. Has tried fruit/vegetable juices like V8 and bolthouse but does not like much. Discussed strategies for consuming smaller/more frequent meals with her busy work schedule. Encouraged cooked/peeled vegetables, and peeled fruits. Suggested she make a smoothie in the morning and drink on her way to work, but pt states she does not have time to do this. Suggested taking milk and carnation breakfast essentials to work and drink once she gets to work, but pt states she does not have time for this either. She does report that she plans to start making smoothies again after work, and consume oral nutrition supplements like carnation breakfast essentials. She also used to bring small snacks like yogurt to work to eat when she had down time, and she is thinking about starting this again too. RD offered to provide handouts for meal/snack options with gastroparesis, but pt politely declined stating she has done a lot of research and that "doing it" is the hard part. Pt and spouse were told how to get in contact with RD if any questions arise. Recommendation: Continue regular diet as ordered with encouragmenet of small/frequent meals. Encourage carnation breakfast essentials between meals. Intervention / Plan: Discussed various strategies for complying with gastroparesis diet based on pt's work schedule. Encouraged good PO intakes post-op, encouraging continuation of gastroparesis recommendations and discussed importance of adequate protein for healing. Monitor PO intakes, weight trends, labs, meds, GI health. Nutrition Diagnosis: Nutrition Diagnosis: Inadequate protein-energy intake Etiology: rectal prolapse s/p rectopexy Signs & Symptoms: pt has only taken in water since admission Goals: Patient to consume >75% of meals/supplements Time Frame: Within [address], LD Pager: [phone] in this encounter Miscellaneous Notes * Care Plan - Sonali Frankel RN - 09/05/2017 9:32 AM CDT Problem: Respiratory Impairment (Non-Ventilated Patient) Goal: Effective gas exchange Outcome: Goal Achieved Date Met: 09/05/17 Pt showing signs of adequate oxygenation. Clear lung sounds [place]. O2 sat >92% on RA. Goal: Effective breathing pattern Outcome: Goal Achieved Date Met: 09/05/17 Pt showing signs of adequate oxygenation. Clear lung sounds [place]. O2 sat >92% on RA. Problem: Nutrition Deficit Goal: Adequate nutritional intake Outcome: Goal Achieved Date Met: 09/05/17 Pt able to tolerate PO intake with no complications. Goal: Body weight within specified parameters Outcome: Goal Achieved Date Met: 09/05/17 Body weight monitored. Pt tolerating PO intake with no complications. Problem: Discharge Planning Goal: Participation in plan of care Outcome: Goal Achieved Date Met: 09/05/17 See d/c note Goal: Knowledge regarding plan of care Outcome: Goal Achieved Date Met: 09/05/17 See d/c note Goal: Prepared for discharge Outcome: Goal Achieved Date Met: 09/05/17 See d/c note * Case Mgmt DC Plan - Dionna Bryson - 09/04/2017 3:50 PM CDT Case Management Admission Assessment NAME:Luis Blood :[birth year] AGE: 62 y.o. ADMISSION DATE: 09/03/2017 DAYS ADMITTED: LOS: 1 day Todays Date: 09/04/2017 Source of Information: Pt in presence of Omer. Plan: Anticipate DC home tomorrow without case management needs. to transport. PT/OT signed off on pt. Plan: CM Assessment Patient Address/Phone [address] [facility] [address] (home) [phone] (work) Emergency Contact Extended Emergency Contact Information Primary Emergency Contact: Omer Blood Address: [address] [place] [address] [facility] [place] Relation: Spouse Healthcare Directive Healthcare Directive: No, patient does not have a healthcare directive Would patient like to fill out a (a new) Healthcare Directive?: No, patient declined Psych Advance Directive (Psych unit only): No, patient does not have a Psych Advance Directive Transportation Does the patient need discharge transport arranged?: No Transportation Name, Phone and Availability #1: Omer de la cruz: at bedside Does the patient use Medicaid Transportation?: No Expected Discharge Date Expected Discharge Date: 09/05/17 Living Situation Prior to Admission ? Living Arrangements Type of Residence: Home, independent Living Arrangements: Spouse/significant other (Resides with Omer de la cruz) How many levels in the residence?: 2 Can patient live on one level if needed?: Yes Does residence have entry and/or side stairs?: Yes ("A couple" entry stairs. Denies concerns regarding these stairs upon returning home.) Assistance needed prior to admit or anticipated on discharge: No Can support system provide 24/7 care if needed?: (Not assessed as pt remains independent ) ? Level of Function Prior level of function: Independent ? Cognitive Abilities Cognitive Abilities: Alert and Oriented, Engages in problem solving and planning , Participates in decision making, Recognizes impact of health condition on lifestyle, Understands nature of health condition Financial Resources ? Coverage Primary Insurance: Commercial insurance (BCBS) Secondary Insurance: No insurance Additional Coverage: RX (Pt reports that her copayments for medications are more expensive in 2018, however she makes copayments a priority so as to not miss a medication.) ? 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 She is considering retiring when she is 63 due to concerns for need to keep stools loose but being able to still see pts.) ? Financial Assistance Needed? No Needs Identified. Pt expressed concern that upon admission to [facility] yesterday, she was told that her insurance is not in network. She noted that she has not previously had this problem, even within the year of 2018. RHONDA checked [facility] Account notes. [facility] Account identifies pt as in-network for insurance, having met deductible and OOP Max. SW provided update to pt who was appreciative. SW encouraged pt to phone Billing Department upon receipt of any bill she feels may be in error. Psychosocial Needs ? Mental Health Mental Health History: (Pt has depression diagnosis. Mood appeared stable while in room. Pt with good insight into life stressors and action plans to manage them. No concerns with coping noted in EMR.) ? Substance Use History Substance Use History Screen: (Did not address.) ? Other No Needs Identified. Current/Previous Services ? PCP Guera Bailey, , ? Pharmacy [facility] #[id number] [facility] [address] [address] [facility] [address] [place] [address] AT [facility] [address] [facility] [address] ? Durable Medical Equipment Durable Medical Equipment at home: (none) ? Home Health Receiving home health: No ? Hemodialysis or Peritoneal Dialysis Undergoing hemodialysis or peritoneal dialysis: No ? Tube/Enteral Feeds Receive tube/enteral feeds: No ? Infusion Receive infusions: No ? Private Duty Private duty help used: No ? Home and Community Based Services Home and community based services: No ? Fabian White Fabian White: No ? Hospice Hospice: No ? Outpatient Therapy PT: No OT: No APRON OPERATOR: No ? Shelter Facility/Alf SNF: No NH: No ? Inpatient Rehab IPR: No ? [facility] Acute [facility] Hospital LTACH: No ? Acute Hospital Stay Acute Hospital Stay: In the past Was patient's stay within the last 30 days?: No Dionna Bryson LMSW Phone: * Anesthesia Post Op Day 1 - Alina Schaeffer FRANKLIN - 09/04/2017 8:10 AM CDT Formatting of this note may be different from the original. Anesthesia Follow-Up Evaluation: Post-Procedure Day One Name: Luis Blood : 1955 Age: 62 y.o. Sex: female Procedure Date: 09/03/2017 Procedure: Procedure(s) with comments: ROBOTIC ASSISTED VENTRAL MESH RECTOPEXY, POSSIBLE OPEN - CASE LENGTH 3 HOURS, DR DIAZ IS CO-SURGEON Physical Assessment Height: 157.5 cm (62") Weight: 73.1 kg (161 lb 2.5 oz) Vital Signs (Last Filed in 24 hours) BP: 97/56 (09/04 716) Temp: 36.9 C (98.5 F) (09/04 716) Pulse: 105 (09/04 716) Respirations: 18 PER MINUTE (09/04 716) SpO2: 94 % (09/04 716) O2 Delivery: Nasal Cannula (09/04 716) SpO2 Pulse: 98 (09/03 1345) Patient History Allergies Allergies Allergen Reactions Sulfa (Sulfonamide Antibiotics) RASH, SEE COMMENTS and REDNESS Facial swelling Medications Scheduled Meds: budesonide/formoterol (SYMBICORT HFA) 80-4.5 mcg/actuation inhalation 2 puff 2 puff Inhalation BID busPIRone (BUSPAR) tablet 30 mg 30 mg Oral BID cyclosporine (RESTASIS) 0.05 % ophthalmic emulsion 1 drop 1 drop Both Eyes BID duloxetine DR (CYMBALTA) capsule 90 mg 90 mg Oral QDAY enoxaparin (LOVENOX) syringe 40 mg 40 mg Subcutaneous QDAY(21) fluticasone (FLONASE) nasal spray 1 spray 1 spray Each Nostril QDAY gabapentin (NEURONTIN) capsule 300 mg 300 mg Oral TID metoclopramide (REGLAN) tablet 5-10 mg 5-10 mg Oral BID before meals montelukast (SINGULAIR) tablet 10 mg 10 mg Oral QHS primidone (MYSOLINE) tablet 50 mg 50 mg Oral QHS simvastatin (ZOCOR) tablet 20 mg 20 mg Oral QHS tamsulosin (FLOMAX) capsule 0.4 mg 0.4 mg Oral QDAY after breakfast Continuous Infusions: PRN and Respiratory Meds:fentaNYL citrate PF Q1H PRN, ondansetron (ZOFRAN) IV Q6H PRN, oxyCODONE Q4H PRN, phenol PRN Diagnostic Tests Hematology: Lab Results Component Value Date HGB 11.8 09/04/2017 HCT 33.8 09/04/2017 PLTCT 177 09/04/2017 WBC 7.3 09/04/2017 NEUT 76 10/30/2011 ANC 5.06 10/30/2011 ALC 1.05 10/30/2011 XAVIER 8 10/30/2011 AMC 0.53 10/30/2011 EOSA 0 10/30/2011 ABC 0.01 10/30/2011 MCV 93.1 09/04/2017 MCH 32.5 09/04/2017 MCHC 34.9 09/04/2017 MPV 8.4 09/04/2017 RDW 13.1 09/04/2017 General Chemistry: Lab Results Component Value Date NA 131 09/04/2017 K 3.7 09/04/2017 CL 97 09/04/2017 CO2 27 09/04/2017 GAP 7 09/04/2017 BUN 6 09/04/2017 CR 0.49 09/04/2017 GLU 95 09/04/2017 CA 8.5 09/04/2017 ALBUMIN 4.0 02/27/2017 MG 2.0 09/04/2017 TOTBILI 0.4 02/27/2017 PO4 4.2 09/04/2017 Coagulation: Lab Results Component Value Date PTT 32.4 10/09/2011 INR 1.0 10/09/2011 Follow-Up Assessment Patient location during evaluation: floor Anesthetic Complications: Anesthetic complications: The patient did not experience any anesthestic complications. Pain: Score: 4 Management:adequate Level of Consciousness: awake and alert Hydration:acceptable Airway Patency: patent Respiratory Status: spontaneous ventilation, nonlabored ventilation and nasal cannula (2L NC) Cardiovascular Status:acceptable, stable, blood pressure returned to baseline and hemodynamically stable Regional/Neuroaxial: * Operative Report (DICTATED ONLY) - Jeyson Ya DO - 09/04/2017 7:47 AM CDT Formatting of this note may be different from the original. THE [address] [id number] PATIENT NAME: LUIS BLOOD MR#/PT#: [id number] Page 3 OPERATIVE REPORT DATE OF OPERATION: 09/03/2017 SURGEON: Jeyson Ya DO SHADING PAINTER(S): Damian Diaz MD PREOPERATIVE DIAGNOSIS: Recurrent rectal prolapse. POSTOPERATIVE DIAGNOSIS: Same. OPERATIVE PROCEDURE: Robotic ventral mesh rectopexy. ANESTHESIA: General endotracheal anesthesia. INDICATIONS FOR OPERATIVE PROCEDURE: This is a 62-year-old female with a history of rectal prolapse status post resection rectopexy. She developed a recurrent rectal prolapse in the anterior position. She now presents for ventral mesh rectopexy. DESCRIPTION AND FINDINGS OF OPERATIVE PROCEDURE: After a full discussion with the patient, we obtained informed consent by the patient and the patient was taken back to the operating room. Once in the operating theater, she was placed under general endotracheal anesthesia in the lithotomy position. All pressure points were carefully padded. A beanbag was used for padding and stabilization. We also used foam around her shoulders as well as around her wrists and elbows. Her abdomen was prepped with ChloraPrep prep and draped in the usual sterile fashion. We had a careful time-out, which verified personnel , position, patient, location, all the pertinent information. A small supraumbilical incision was made. The Veress needle was introduced and pneumoperitoneum was established. Once pneumoperitoneum was established, an 8 mm trocar was introduced superior to the right of the umbilicus. Then, the peritoneal cavity explored. There was no evidence of Veress needle or trocar injury. We used the previous trocar sites to place our other ports and a 12 mm periodicals library assistant port was placed in the right upper quadrant. The robot was docked on without any difficulty. Once the robot was docked, we were able to visualize some scar tissue down in the pelvis and this was all incised. The rectum was normalized as well as the sigmoid colon, which was noticed to be have some redundancy to it. The anastomosis was easily visualized and intact. Once the adhesions were taken down, the lateral attachments were released along the patient's right side of the mesorectum. The right ureter was identified during the dissection and protected throughout the case. The anterior sacral ligament was exposed during the dissection in preparation for anchoring our suture mesh. Dissection was carried distally down to the pelvic floor. Once in the pelvic floor, the anterior dissection was performed at the level of the anorectal junction. Levators were exposed on either side of the mesorectum. A lightweight macro porous polypropylene mesh known as PRODUCTION CELL LEADER mesh was placed in the pelvis after it was trimmed to the appropriate size and length. The levators were sutured to the elbow of the mesh using 2-0 Ethibond sutures in interrupted fashion. The mesh was sutured to the anterior rectum using multiple interrupted 3-0 PDS sutures. Once this was secured in place, the mesh was placed under little bit of attention to suture it to the sacral spinous ligament. This was done with 2-0 Ethibond sutures. After confirming the appropriate orientation everything was in place and the mesh was secured appropriately. Hemostasis was verified. The perineum was then closed with a running 3-0 V-Loc stitch. The mesh was cut to the appropriate length so that no visible mesh was seen. A Justo-Shantanu with an 0 Vicryl was used to close the 12 mm trocar site. 4-0 Monocryls were used to close all trocar sites and Dermabond was placed. The patient was transferred to PACU in safe and stable condition. I was present for the entirety of the procedure. All needle and sponge counts were correct prior to leaving the OR. ESTIMATED BLOOD LOSS: 50 mL. SPECIMENS REMOVED: None. COMPLICATIONS: None. DRAINS: None. ATTESTATION I performed this procedure with a resident. and I was present for the entire procedure. Staff name: Jeyson Ya DO Date: 09/04/2017 DO PAMELA Kiser / MEDQ /[id number] cc: - Jeyson Ya DO * Procedures (Immed Post or Bedside) - Jeffery Cummings DO - 09/03/2017 11: 41 AM CDT Brief Operative Note Name: Luis Blood is a 62 y.o. female : 1955 DATE OF OPERATION: 09/03/2017 Date: 09/03/2017 Preoperative Dx: Rectal prolapse [K62.3] Post-op Diagnosis * Rectal prolapse [K62.3] Procedure: 1. Robotic assisted rectopexy with mesh placement Anesthesia Type: General with ETT Surgeon(s) and Role: * Damian Diaz MD - Co-Surgeon * Jeffery Cummings, - Resident - Assisting * Jeyson Ya DO - Primary Findings: See operative dictation Fluids: 2200mL Estimated Blood Loss: 50mL Specimen(s) Removed/Disposition: * No specimens in log * Complications: None Implants: [id number] gynemesh PS Drains: Boo Catheter: 220 mL Disposition: PACU - stable Jeffery Cummings DO Pager [phone] * Operative Report (Direct Entry) - Damian Diaz MD - 09/03/2017 8:12 AM CDT Formatting of this note may be different from the original. OPERATIVE REPORT Name: Luis Blood is a 62 y.o. female : 1955 DATE OF OPERATION: 09/03/2017 Surgeon(s) and Role: * Damian Diaz MD - Co-Surgeon * Jeyson Ya DO - Co-Surgeon * Jeffery Cummings, - Resident - Assisting Preoperative Diagnosis: 1. Recurrent rectal prolapse Postoperative Diagnosis: 1. Recurrent rectal prolapse Operative Procedure: Robotic ventral mesh rectopexy Anesthesia: General Indications for Operative Procedure: This is a 62 year old female with a history of rectal prolapse status post resection rectopexy. She developed a recurrent rectal prolapse. She presents now for ventral mesh rectopexy. Findings: A ventral mesh rectopexy was completed robotically. Description of Operative Procedure: After obtaining informed consent, the patient was taken to the operating room where she underwent induction of general anesthesia. She was prepped and draped in a sterile fashion in lithotomy position. A standard timeout was performed to verify patient and procedure. A Veress needle was inserted and the abdomen insufflated. The robotic trocars were placed at the previous trocar site scars. A 12 mm port was placed on the right. The robot was docked. Visualization of the abdomen revealed scar tissue within the pelvis. The rectum was redundant but otherwise healthy in appearance. The anastomosis was visualized and was intact. The pelvic adhesions were released. The lateral attachments were released along the right side of the mesorectum. The right ureter was identified during initiation of the dissection and protected throughout the case. The anterior sacral ligament was exposed early during this dissection in preparation for the anchoring sutures for the mesh. Dissection was continued distally to the pelvic floor. The anterior dissection was performed to a level near the anorectal junction. The levators were exposed on either side of the mesorectum. A lightweight, macroporous polypropylene mesh was cut to an appropriate size and inserted into the abdomen. The distal aspect of the mesh was secured to the levators bilaterally using 2-0 Ethibond suture. The mesh was secured to the distal anterior rectum using multiple, interrupted 3-0 PDS sutures. Two 0-Ethibond sutures were placed into the anterior sacral ligament. After confirming orientation and appropriate positioning, the mesh was secured to the anterior sacral ligament with the 0-Ethibond sutures. Hemostasis was confirmed. The peritoneum was closed with a running 3-0 V-lock suture to completely extraperitonealize the mesh. Care was taken to ensure the ureters were not incorporated into the closure. Hemostasis was again confirmed. The 12 mm port site was closed with 0-Vicryl suture in a figure of eight fashion using the Justo Srinivasan device. The wounds were irrigated and the skin incisions closed with 4-0 Monocryl suture. Dermabond was applied. The patient was awakened in the operating room and transferred back to recovery in stable condition. All sponge, instrument, and needle counts were correct at the end of the case. I was present for all flores portions of the procedure. I participated as a co-surgeon due to the complexity of the case and the lack of an available, qualified resident. Estimated Blood Loss: 50 ml Specimen(s) Removed/Disposition: None Attestation: I was present for all flores portions of the procedure. I participated as a co-surgeon due to the complexity of the case and the lack of an available, qualified resident. Staff name: Damian Diaz MD Date: 09/03/2017 in this encounter Plan of Treatment Not on fileas of this encounter Results * PHOSPHORUS (09/05/2017 4:41 AM) Component Value Ref Range Phosphorus 2.9 2.0 - 4.0 MG/DL Specimen Performing Laboratory [facility] [address] [place] [address] * MAGNESIUM (09/05/2017 4:41 AM) Component Value Ref Range Magnesium 2.0 1.6 - 2.6 mg/dL Specimen Performing Laboratory [facility] [address] [place] [id number] * CBC (09/05/2017 4:41 AM) Component Value Ref Range White Blood Cells [...] - 11 FL Specimen Performing Laboratory [facility] [address] [place] [id number] * BASIC METABOLIC PANEL (09/05/2017 4:41 AM) Component Value Ref Range Sodium 134 (L) [...] Pharmacist for questions. Specimen Performing Laboratory [facility] [address] [place] [address] * PHOSPHORUS (09/04/2017 4:25 AM) Component Value Ref Range Phosphorus 4.2 (H) 2.0 - 4.0 MG/DL Specimen Performing Laboratory [facility] [address] [place] [address] * MAGNESIUM (09/04/2017 4:25 AM) Component Value Ref Range Magnesium 2.0 1.6 - 2.6 mg/dL Specimen Performing Laboratory [facility] [address] [place] [address] * CBC (09/04/2017 4:25 AM) Component Value Ref Range White Blood Cells 7.3 4.5 - 11.0 K/UL RBC 3.63 (L) 4.0 - 5.0 M/UL Hemoglobin 11.8 (L) 12.0 - 15.0 GM/DL Hematocrit 33.8 (L) 36 - 45 % MCV 93.1 80 - 100 FL MCH 32.5 26 - 34 PG MCHC 34.9 32.0 - 36.0 G/DL RDW 13.1 11 - 15 % Platelet Count 177 150 - 400 K/UL MPV 8.4 7 - 11 FL Specimen Performing Laboratory [facility] [address] [place] [id number] * BASIC METABOLIC PANEL (09/04/2017 4:25 AM) Component Value Ref Range Sodium 131 (L) 137 - 147 MMOL/L Potassium 3.7 3.5 - 5.1 MMOL/L Chloride 97 (L) 98 - 110 MMOL/L CO2 27 21 - 30 MMOL/L Anion Gap 7 3 - 12 Glucose 95 70 - 100 MG/DL Blood Urea Nitrogen 6 (L) 7 - 25 MG/DL Creatinine 0.49 0.4 - 1.00 MG/DL Calcium 8.5 8.5 - 10.6 MG/DL eGFR Non >60 [...] Pharmacist for questions. Specimen Performing Laboratory [facility] [address] [place] [id number] * TYPE & CROSSMATCH (09/03/2017 7:03 AM) Component Value Ref Range Units Ordered 0 Crossmatch Expires 09/06/2017 Record Check 2ND TYPE REQUIRED ABO/RH(D) A NEG Antibody Screen NEG Electronic Crossmatch YES Specimen Performing Laboratory [facility] [address] [place] [address] in this encounter Visit Diagnoses Diagnosis Rectal prolapse - Primary Admitting Diagnoses Diagnosis Rectal prolapse - Rectal prolapse [K62.3] Rectal prolapse Administered Medications Medication Order MAR Action Action Date Dose Rate Site acetaminophen (TYLENOL) tablet 1,000 mg Given 09/03/2017 1,000 mg 1,000 mg, Oral, ONCE, 1 dose, Irina 07:25 CDT 09/03/17 at 0715, TOTAL ACETAMINOPHEN DOSE NOT TO EXCEED 4GM DAILY aluminum/magnesium hydroxide (MAALOX) Given 09/04/2017 30 mL oral suspension 30 mL 06:02 CDT 30 mL, Oral, ONCE, 1 dose, Thu09/04/17 at 0545 budesonide/formoterol (SYMBICORT HFA) Given 09/04/2017 2 puffs 80-4.5 mcg/actuation inhalation 2 puff 06:30 CDT 2 puff, Inhalation, TWICE DAILY, First dose on Irina 09/03/17 at 1245, Until Discontinued, When administered by RT, will be per RT policy. Given 09/04/2017 2 puffs 17:15 CDT Given 09/05/2017 2 puffs 06:03 CDT busPIRone (BUSPAR) tablet 30 mg Given 09/04/2017 30 mg 30 mg, Oral, TWICE DAILY, First dose on 08:26 CDT Irina 09/03/17 at 2100, Until Discontinued Given 09/04/2017 30 mg 21:18 CDT Given 09/05/2017 30 mg 08:35 CDT cefOXitin (MEFOXIN) IVP 2 g Given 09/03/2017 2 g 2 g, Intravenous, EVERY 6 HOURS, 3 18:23 CDT doses, First dose on Irina 09/03/17 at 1730, Last dose on Thu09/04/17 at 0530, IV PUSH -- RECONSTITUTE 2 g vial by adding 20 mL 0.9% NACL Given 09/04/2017 2 g 00:13 CDT Given 09/04/2017 2 g 06:02 CDT cyclosporine (RESTASIS) 0.05 % Given 09/04/2017 1 drop ophthalmic emulsion 1 drop 08:27 CDT 1 drop, Both Eyes, TWICE DAILY, First dose on Irina 09/03/17 at 2100, Until Discontinued Given 09/04/2017 1 drop 21:19 CDT Given 09/05/2017 1 drop 08:37 CDT diphenhydrAMINE (BENADRYL) capsule 25 mg Given 09/04/2017 25 mg 25 mg, Oral, ONCE, 1 dose, Thu09/04/17 16:35 CDT at 1645 diphenhydrAMINE (BENADRYL) capsule 25 mg Given 09/04/2017 25 mg 25 mg, Oral, ONCE, 1 dose, Thu09/04/17 22:13 CDT at [address] (CYMBALTA) capsule 90 mg Given 09/04/2017 90 mg 90 mg, Oral, DAILY, First dose on Thu 08:26 CDT 09/04/17 at 0900, Until Discontinued, Swallow whole - DO NOT open or crush capsule Given 09/05/2017 90 mg 08:35 CDT enoxaparin (LOVENOX) syringe 40 mg Given 09/03/2017 40 mg Abdominal 40 mg, Subcutaneous, DAILY, First dose 20:38 CDT Tissue on Irina 09/03/17 at 2100, Until Discontinued, For patients undergoing surgery: Consult physician in advance -- enoxaparin is an anticoagulant and may need to be held for 12hr prior to surgery or invasive procedures. NOTE: This is a HIGH ALERT Medication. Given 09/04/2017 40 mg Abdominal 21:18 CDT Tissue FENTANYL CITRATE (PF) 50 MCG/ML IJ SOLN (Cabinet Override) NOW, 1 dose, Irina 09/03/17 at 1500, Created by cabinet override fentaNYL citrate PF (SUBLIMAZE) Given 09/03/2017 25 mcg injection 25 mcg 12:17 CDT 25 mcg, Intravenous, EVERY 5 MIN PRN, Starting Irina 09/03/17 at 1143, Until Irina 09/03/17 at 1443, Pain Injectable, For Pain Score < 4, Maximum total dose of 200 mcg Hold for RR < 10 Given 09/03/2017 25 mcg 12:27 CDT fentaNYL citrate PF (SUBLIMAZE) Given 09/03/2017 25 mcg injection 25-50 mcg 14:55 CDT 25-50 mcg, Intravenous, EVERY 1 HOUR PRN, Starting Irina 09/03/17 at 1148, Until 09/05/17 at 1132, Pain Injectable fluticasone (FLONASE) nasal spray 1 Given 09/04/2017 1 spray spray 08:26 CDT 1 spray, Each Nostril, DAILY, First dose on Irina 09/03/17 at 1300, Until Discontinued gabapentin (NEURONTIN) capsule 300 mg Given 09/03/2017 300 mg 300 mg, Oral, ONCE, 1 dose, Irina 09/03/17 07:25 CDT at 0715, Pre-Op gabapentin (NEURONTIN) capsule 300 mg Given 09/04/2017 300 mg 300 mg, Oral, THREE TIMES DAILY, First 15:30 CDT dose on Irina 09/03/17 at 2100, Until Discontinued Given 09/04/2017 300 mg 21:18 CDT Given 09/05/2017 300 mg 08:35 CDT INHALATIONAL SPACING DEVICE [facility] Given 09/03/2017 (Cabinet Override) 18:27 CDT NOW, 1 dose, Irina 09/03/17 at 1830, Carson Berry: cabinet override lactated ringers infusion Given - New 09/03/2017 1,000 mL 20 mL/hr 1,000 mL, 1,000 mL, Intravenous, at 20 Bag 07:00 CDT mL/hr, CONTINUOUS, Starting Irina 09/03/17 at 0645, Until Thu09/03/17 at 1509, Pre-Op lactated ringers infusion Given - New 09/03/2017 50 mL/hr 1,000 mL, Intravenous, at 50 mL/hr, Bag 13:07 CDT CONTINUOUS, Starting Irina 09/03/17 at 1200, Until Thu09/04/17 at 0649 Given - New Bag 09/04/2017 50 mL/hr 04:59 CDT metoclopramide (REGLAN) tablet 5-10 mg Given 09/03/2017 5 mg 5-10 mg, Oral, TWICE DAILY BEFORE MEALS, 18:23 CDT First dose on Irina 09/03/17 at 1700, Until Discontinued Given 09/04/2017 5 mg 12:37 CDT Given 09/04/2017 5 mg 17:27 CDT montelukast (SINGULAIR) tablet 10 mg Given 09/03/2017 10 mg 10 mg, Oral, AT BEDTIME DAILY, First 20:38 CDT dose on Irina 09/03/17 at 2100, Until Discontinued Given 09/04/2017 10 mg 21:19 CDT oxyCODONE (ROXICODONE, OXY-IR) tablet Given 09/03/2017 10 mg 5-10 mg 12:44 CDT 5-10 mg, Oral, ONCE PRN, 1 dose, Starting Irina 09/03/17 at 1143, Until Irina 09/03/17 at 2359, For VAS score < 4, PACU (only) oxyCODONE (ROXICODONE, OXY-IR) tablet Given 09/04/2017 10 mg 5-10 mg 12:36 CDT 5-10 mg, Oral, EVERY 4 HOURS PRN, Starting Irina 09/03/17 at 1148, Until 09/05/17 at 1132, Pain PO Given 09/04/2017 10 mg 19:56 CDT Given 09/05/2017 10 mg 08:39 CDT oxyCODONE SR (OXYCONTIN) tablet 10 mg Given 09/03/2017 10 mg 10 mg, Oral, ONCE, 1 dose, Irina 09/03/17 07:25 CDT at 0715, DO NOT crush, break, or chew. NOTE: This is a HIGH ALERT Medication. potassium chloride SR (K-DUR) tablet 30 Given 09/04/2017 30 mEq mEq 06:02 CDT 30 mEq, Oral, ONCE, 1 dose, 09/04/17 at 0545, - Tablet may be dispersed in water. Place tab in 30 mL of water for 40-60 seconds. - Gently swirl until fully dispersed. If particles remain after admin, add small amount of water and admin remaining content. - DO NOT CRUSH. Tablet may be split in half. primidone (MYSOLINE) tablet 50 mg Given 09/03/2017 50 mg 50 mg, Oral, AT BEDTIME DAILY, First 20:38 CDT dose on Irina 09/03/17 at 2100, Until Discontinued Given 09/04/2017 50 mg 22:02 CDT scopolamine (TRANSDERM-SCOP) patch 1 Patch 09/03/2017 1 patch Other patch Applied 07:06 CDT 1 patch, Transdermal, Administer over 72 Hours, ONCE, 1 dose, Irina 09/03/17 at 0645, Pre-Op simvastatin (ZOCOR) tablet 20 mg Given 09/03/2017 20 mg 20 mg, Oral, AT BEDTIME DAILY, First 20:38 CDT dose on Irina 09/03/17 at 2100, Until Discontinued, NURSING: Please educate patient and document: Avoid taking grapefruit juice. Given 09/04/2017 20 mg 21:18 CDT tamsulosin (FLOMAX) capsule 0.4 mg Given 09/04/2017 0.4 mg 0.4 mg, Oral, DAILY AFTER BREAKFAST, 08:26 CDT First dose on Thu09/04/17 at 0900, Until Discontinued Given 09/05/2017 0.4 mg 08:35 CDT in this encounter
--- OUTSIDE RECORDS SUMMARY | 2017-09-14 10:57 | XMS REPORT | Encounter Summary ---
Author Author [facility] Organization [facility] Address Unknown Phone Unavailable Care Team Providers Care Lead Inspector Name Role Phone BaileyGuera winters PCP Felipa Easton MD Unavailable Steve Clifford MD Unavailable Unavailable Star Styles MD Unavailable Semaj De La Rosa MD Unavailable Alber Piña MD Unavailable Fco Ramsey MD Unavailable Remigio Lakhani MD 21 Reason for Visit * Auth/Cert Status Reason Specialty Diagnoses / Referred By Referred To Procedures Contact Contact Diagnoses Rectal prolapse Rectal prolapse [K62.3] P rocedures IA LAPAROSCOPY PROCTOPEXY PROLAPSE ROBOTIC ASSISTED VENTRAL MESH RECTOPEXY, POSSILBE OPEN Encounter Details Date Type Department Care Team Description 09/03/2017 Surgery Main Operating Room Jeyson Ya DO ROBOTIC ASSISTED VENTRAL [address] [address] [address] [place] [address] [phone] Social History Tobacco Use Types Packs/Day Years [...] the patient have a visual impairment: Yes 08/20/2017 Does the patient have impaired ambulation: No 08/20/2017 Does the patient have an activity of daily living No 08/20/2017 (ADL) impairment: Does the patient have an instrumental activity of No 08/20/2017 daily living (IADL) impairment: Cognitive Status Response Date of Assessment Does the patient have a cognitive impairment: No 08/20/2017 as of this encounter Discharge Summaries * [...] or concerns regarding your hospital stay. Call [phone] Discharging attending physician: JEYSON YA [[id number]] Regular Diet You have no dietary restriction. [...] 09/24/2017 2:45 PM Remigio Lakhani MD UROLGYCL [facility] Urology 09/25/2017 11:45 AM Jeyson Ya DO CCC2 [facility] Exam 10/13/2017 3:00 PM Jeyson Ozuna MD IMRHEUM [facility] IM 11/19/2017 3:30 PM Semaj De La Rosa MD [facility] Pending items needing follow up: None Signed: [...] with any medicine updates or questions. 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 Increase ambulation DC today vs tomorrow [...] 2.0 PO4 4.2* Jeffery Cummings DO Pager: [phone] * Yolande Washington, PT - 09/04/2017 1:50 [...] DISCHARGE NOTE Patient Name: Luis Blood Room/Bed: NL5556/01 Admitting Diagnosis: Rectal prolapse [K62.3] Rectal prolapse [...] Bathroom Toilet: Standard Prior Function Level Of [place]: Independent with ADLs and functional transfers; Independent [...] Date: 09/03/2017 Flores AC=Airway clearance AM=Aerosolized medication BA=[place] aerosol DB&C=Deep breathe & cough FEV1=Forced expiratory volume in first second) IC=Inspiratory capacity LE=Lung expansion MDI=Metered dose inhaler Neb=Nebulizer O2=Oxygen Oxim=Oximetry PEFR=Peak expiratory flow rate DIRECT SALES PROFESSIONAL=Rapid Response Team * Stephani Maharaj RN - [...] consent was provided. Benjamin Mandujano DO Pager [phone] Progress Notes Creation Time: 08/07/17 1108 Jeyson [...] decreased Past Surgical History: Procedure Laterality Date IA ANORECTAL MANOMETRY N/A 01/23/2017 ARM on a [...] Years of education: N/A Occupational History [employer] Social History Main Topics Smoking status: Former [...] Current Oral Intake: Inadequate Estimated Calorie Needs: 9784-7433 (25-30 kcal/kg desired wt 59.5kg) Estimated Protein [...] for nutritional assessment. 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 She is considering retiring when she is 63 due to concerns for need to keep stools loose but being able to still see pts.) ? Financial Assistance Needed? No Needs Identified. Pt expressed concern that upon admission to [facility] yesterday, she was told that her insurance is not in network. She noted that she has not previously had this problem, even within the year of 2018. RHONDA checked [facility] Account notes. [facility] Account identifies pt as in-network for insurance, [...] ? PCP Guera Bailey, , ? Pharmacy [facility] #[id number] [facility] [address] [address] [facility] [address] [place] [address] [address] [facility] & [address] [facility] [address] ? Durable Medical Equipment Durable Medical Equipment [...] ? Outpatient Therapy PT: No OT: No TURNING SANDER TENDER: No ? Intermediate Facility/Fpc SNF: No NH: No ? Inpatient Rehab [...] may be different from the original. THE [address] [address] PATIENT NAME: LUIS BLOOD MR#/PT#: [id number] Page 3 OPERATIVE REPORT DATE OF OPERATION: 09/03/2017 SURGEON: Jeyson Ya DO CABLE HOOKER(S): Damian Diaz MD PREOPERATIVE DIAGNOSIS: Recurrent rectal [...] our other ports and a 12 mm critical care physician assistant port was placed in the right [...] lightweight macro porous polypropylene mesh known as MANAGED SERVICES SALES CONSULTANT mesh was placed in the pelvis after [...] Date: 09/04/2017 DO PAMELA Kiser / MEDQ /[id number] cc: - Jeyson Ya DO * Procedures [...] specimens in log * Complications: None Implants: [id number] gynemesh PS Drains: Boo Catheter: 220 mL Disposition: PACU - stable Jeffery Cummings DO Pager [phone] * Operative Report (Direct Entry) - Damian [...] Performing Laboratory [facility] [address] [place] [address] * MAGNESIUM (09/05/2017 4:41 AM) Component Value Ref Range Magnesium 2.0 1.6 - 2.6 mg/dL Specimen Performing Laboratory [facility] [address] [place] [address] * CBC (09/05/2017 4:41 AM) Component Value [...] FL Specimen Performing [facility] [address] [place] [address] * BASIC METABOLIC PANEL (09/05/2017 4:41 AM) [...] Performing Laboratory [facility] [address] [place] [address] * PHOSPHORUS (09/04/2017 4:25 AM) Component Value Ref Range Phosphorus 4.2 (H) 2.0 - 4.0 MG/DL Specimen Performing Laboratory [facility] [address] [place] [address] * MAGNESIUM (09/04/2017 4:25 AM) Component Value Ref Range Magnesium 2.0 1.6 - 2.6 mg/dL Specimen Performing Laboratory [facility] [address] [place] [address] * CBC (09/04/2017 4:25 AM) Component Value [...] Performing Laboratory [facility] [address] [place] [id number] * BASIC METABOLIC PANEL (09/04/2017 4:25 AM) [...] Performing Laboratory [facility] [address] [place] [id number] * TYPE & CROSSMATCH (09/03/2017 7:03 AM) Component Value Ref Range Units Ordered 0 Crossmatch Expires 09/06/2017 Record Check 2ND TYPE REQUIRED ABO/RH(D) A NEG Antibody Screen NEG Electronic Crossmatch YES Specimen Performing Laboratory [facility] [address] [place] [address] in this encounter Visit Diagnoses Diagnosis Rectal prolapse Admitting Diagnoses Diagnosis Rectal prolapse - Rectal prolapse [K62.3] Rectal prolapse Administered Medications Medication Order MAR Action Action Date Dose Rate Site budesonide/formoterol (SYMBICORT HFA) Given 09/04/2017 2 puffs [...] CDT Given 09/05/2017 30 mg 08:35 CDT cyclosporine (RESTASIS) 0.05 % Given 09/04/2017 1 drop ophthalmic emulsion 1 drop 08:27 CDT 1 drop, Both Eyes, TWICE DAILY, First dose on Irina 09/03/17 at 2100, Until Discontinued Given 09/04/2017 1 drop 21:19 CDT Given 09/05/2017 1 drop 08:[address] (CYMBALTA) capsule 90 mg Given [...] 09/04/2017 40 mg Abdominal 21:18 CDT Tissue fentaNYL citrate PF (SUBLIMAZE) Given 09/03/2017 25 mcg injection 25-50 mcg 14:55 CDT 25-50 mcg, Intravenous, EVERY 1 HOUR PRN, Starting Irina 09/03/17 at 1148, Until 09/05/17 at 1132, Pain Injectable fluticasone (FLONASE) nasal spray 1 Given 09/04/2017 1 spray spray 08:26 CDT 1 spray, Each Nostril, DAILY, First dose on Irina 09/03/17 at 1300, Until Discontinued gabapentin (NEURONTIN) capsule 300 mg Given 09/04/2017 300 mg 300 mg, Oral, THREE TIMES DAILY, First 15:30 CDT dose on Irina 09/03/17 at 2100, Until Discontinued Given 09/04/2017 300 mg 21:18 CDT Given 09/05/2017 300 mg 08:35 CDT metoclopramide (REGLAN) tablet 5-10 mg Given [...] 21:19 CDT oxyCODONE (ROXICODONE, OXY-IR) tablet Given 09/04/2017 10 mg 5-10 mg 12:36 CDT 5-10 mg, Oral, EVERY 4 HOURS PRN, Starting Irina 09/03/17 at 1148, Until 09/05/17 at 1132, Pain PO Given 09/04/2017 10 mg 19:56 CDT Given 09/05/2017 10 mg 08:39 CDT primidone (MYSOLINE) tablet 50 mg Given 09/03/2017 50 mg 50 mg, Oral, AT BEDTIME DAILY, First 20:38 CDT dose on Irina 09/03/17 at 2100, Until Discontinued Given 09/04/2017 50 mg 22:02 CDT simvastatin (ZOCOR) tablet 20 mg Given 09/03/2017 [...]
--- OUTSIDE RECORDS SUMMARY | 2017-09-14 10:57 | XMS REPORT | Encounter Summary ---
Author Author [facility] Organization [facility] Address Unknown Phone Unavailable Care Team Providers Care Senior Technical Program Manager Name Role Phone Guera Bailey DO PCP Felipa Easton MD Unavailable Steve Clifford MD Unavailable Unavailable Star Styles MD Unavailable Semaj De La Rosa MD Unavailable Alber Piña MD Unavailable Fco Ramsey MD Unavailable Remigio Lakhani MD 21 Encounter Details Date Type Department Care Team Description 08/28/2017 PAC Office Preoperative Assessment Kane Ya DO Rectal prolapse (Primary Visit Clinic [address]) [address] [place] [address] [place] [address] [phone] Anesthesia Record Procedure Name Responsible Anesthesia Start Time Anesthesia Stop Time Anesthesiologist ROBOTIC ASSISTED VENTRAL Michelle Shearer MD 09/03/17 0741 1200 MESH RECTOPEXY (N/A Abdomen) Date Time Event Comment 621 AN Equip Check 2017 0741 Anes Start 0741 An Start Data 0745 An Induction The patient was reevaluated immediately before moderate or deep sedation use and before anesthesia induction. 0752 An Intubation 0752 Anesthesia Ready 0800 Antibiotic Given 0800 An Extubation 0812 Proc Start 0925 Quick Note Warm blankets used to cover patient's head. 0944 Quick Note Increased room temperature to facilitate normothermia. 1154 an stop data 1159 Handoff to RN I completed my SBAR handoff to the receiving nurse. 1200 An Stop Meds * No agents on file. * No blood administrations on file. Type Details Placement Removal Wounds 09/03/17; 1154; Abdomen; Surgical 09/03/17 1154 by Aroldo, (NOT for Incision; ABDOMINAL PORT SITES X6, AMADOU Sylvester Pressure CLOSED WITH SUTURES Injuries) Wounds 10/28/11; 1446; M, LO; Abdomen; Puncture 10/28/11 1446 by 1549 by Gildardo, (NOT for Wound; port sites x6; 09/03/17; 1549 Lexy Luis , AMADOU Pressure Injuries) Wounds 03/26/17; 1039; Abdomen; Surgical 03/26/17 1039 by Aroldo, 1549 by Gildardo, (NOT for Incision; 09/03/17; 1549; ABDOMINAL AMADOU Sylvester, RN Pressure PORT SITES X4 CLOSED WITH SUTURES, Injuries) DERMABONDLOWER ABDOMINAL INCISION CLOSED WITH SUTURES, 4X4, TEGADERMRIGHT ABDOMINAL DRAIN, DRAIN SPONGE, TEGADERM APPLIED Wounds 03/26/17; 1048; Mid, Lower; Abdomen; 03/26/17 1048 by Justice, 09/03 1549 by Gildardo, (NOT for Surgical Incision; 09/03/17; 1549 AMADOU Nation, RN Pressure Injuries) Peripheral 09/03/17; 0700; RN; R; Hand; 20 G; No; 09/03/17 0700 by Edy, 09/05/17 0900 by IV 1; 09/05/17; 0900 AMADOU Garcia Kaitlin, RN Peripheral 09/03/17; 0747; IV Therapy; L; Hand; 18 09/03/17 0747 by Shaheen , 09/03/17 1236 by Reilly, IV G; 1; 09/03/17; 1236 (charted in error) FRANKLIN Brower, AMADOU ETT 09/03/17; 0752; Ventilated by mask (1); 09/03/17 0752 by Shaheen, 1549 by Gildardo, Direct laryngoscopy, Stylet; FRANKLIN Brower RN Single-Lumen, Cuffed; 7mm; Mac; 3; 1-Full view of the glottis; 1 insertion attempt; Auscultation, ETCO2 Detector; 21 centimeters; intubation atraumatic, dentition unchanged; 09/03/17; 1549 Peripheral 09/03/17; 0754; (SRNA); L; Hand; 20 G; 09/03/17 0754 by Shaheen , 09/05/17 0900 by IV 1; 09/05/17; 0900 FRANKLIN Brower Kaitlin, AMADOU Indwelling 09/03/17; 0759; 16 FR; Regular 09/03/17 0759 by Fesen, 0702 by Urinary (Two-way); 09/04/17; 0702 Sonali Nice, AMADOU Catheter NG/OG Tube 09/03/17; 0802; Oral; 18FR; 09/03/17; 09/03/17 0802 by Shaheen, 09/03/17 1115 by Reilly 1115 (removed prior to arrival to pacu) FRANKLIN Brower RN in this encounter Social History Tobacco Use Types Packs/Day Years Used Date Former Smoker 0.5 5 Quit: 10/08/1990 Smokeless Tobacco: Never Used Alcohol Use Drinks/Week oz/Week Comments Yes 2 Shots of 1.2 2 per month liquor Sex Assigned at Date Recorded Not on file as of this encounter Last Filed Vital Signs Vital Sign Reading Time Taken Blood Pressure 109/70 08/28/2017 1:48 PM CDT Pulse 90 08/28/2017 1:48 PM CDT Temperature 36.9 C (98.4 F) 08/28/2017 1:48 PM CDT Respiratory Rate - - Oxygen Saturation 99% 08/28/2017 1:48 PM CDT Inhaled Oxygen - - Concentration Weight 73.8 kg (162 lb 9.6 oz) 08/28/2017 1:48 PM CDT Height 157.5 cm (5' 2") 08/28/2017 1:48 PM CDT Body Mass Index 29.74 08/28/2017 1:48 PM CDT in this encounter Functional Status Functional Status Response Date of Assessment Does the patient have a hearing impairment: No 08/20/2017 Does the patient have a visual impairment: Yes 08/20/2017 Does the patient have impaired ambulation: No 08/20/2017 Does the patient have an activity of daily living No 08/20/2017 (ADL) impairment: Does the patient have an instrumental activity of No 08/20/2017 daily living (IADL) impairment: Cognitive Status Response Date of Assessment Does the patient have a cognitive impairment: No 08/20/2017 as of this encounter Instructions * Pre-Anesthesia Patient Instructions - Kaela Marc RN - 08/28/2017 2:10 PM CDT GENERAL INFORMATION Before you come to the hospital Make arrangements for a responsible adult to drive you home and stay with you for 24 hours following surgery. Bath/Shower Instructions Take a bath or shower using the special soap given to you in PAC. Use half the bottle the night before, and the other half the morning of your procedure. Use clean towels with each bath or shower. Put on clean clothes after bath or shower. Avoid using lotion and oils. Sleep on clean sheets if bath or shower is done the night before procedure. Leave money, credit cards, jewelry, and any other valuables at home. The [facility] is not responsible for the loss or breakage of personal items. Remove nail norwegian, makeup and all jewelry (including piercings) before coming to the hospital. The morning of your procedure: brush your teeth and tongue do not smoke do not shave the area where you will have surgery What to bring to the hospital ID/ Insurance Card Workforce Management Manager card Official documents for legal guardianship Copy of your Living Will, Advanced Directives, and/or Durable Power of Cyber Security Consultant Small bag with a few personal belongings CPAP/BiPAP machine (including all supplies) Walker,cane, or motorized scooter Cases for glasses/hearing aids/contact lens (bring solutions for contacts) Dress in clean, loose, comfortable clothing Eating or drinking before surgery Do not eat or drink anything after 11:00 p.m. the day before your procedure ( including gum, mints, candy, or chewing tobacco) OR follow the specific instructions you were given by your Surgeon. You may have WATER ONLY up to 2 hours before arriving at the hospital. Other instructions Notify your surgeon if: you become ill with a cough, fever, sore throat, nausea, vomiting or flu- like symptoms you have any open wounds/sores that are red, painful, draining, or are new since you last saw the doctor you need to cancel your procedure Notify us at [facility]: if you need to cancel your procedure if you are going to be late Arrival at the [facility]: You will receive your arrival time from your surgeon or from the Preoperative Assessment Clinic the afternoon before your procedure. If you have not been contacted between 2:30 and 4 p.m. on the last business day before your procedure, call the Preoperative Assessment Clinic to confirm your arrival time. Before 4:30 p.m., call [phone]. After 4:30 p.m., call [phone]. Park in the Parking Garage, located directly across from the main entrance to the hospital. [employer] parking is available from 7 AM to 4 PM Thursday through Thursday. Validate your parking ticket at the Information Desk in the hospital lobby. Proceed to Admissions located across the lobby from the Information Desk. * Pre-Anesthesia Medication Instructions - Damian Williamson, PHARMD - 08/28/2017 1 :40 PM CDT Formatting of this note may be different from the original. YOUR MEDICATIONS: alfuzosin(+) (UROXATRAL) 10 mg tablet Take 1 tablet by mouth daily. ALPRAZolam (XANAX) 0.5 mg tablet Take 0.5-1 mg by mouth at bedtime as needed for Sleep. benazepril(+) (LOTENSIN) 10 mg tablet Take 10 mg by mouth daily. budesonide/formoterol (SYMBICORT HFA) 80-4.5 mcg/actuation inhalation Inhale [...] mg by mouth twice daily as needed. dronabinol (MARINOL) 2.5 mg capsule Take 2.5 mg by mouth twice daily. duloxetine DR (CYMBALTA) 30 mg capsule Take 30 mg by mouth daily. Administered in combination with 60mg dosage DULoxetine DR (CYMBALTA) 60 mg capsule Take 60 mg by mouth daily. Administer 60mg dosage with 30mg dosage esomeprazole DR(+) (NEXIUM) 20 mg capsule Take 20 mg by mouth every morning. fluticasone (FLONASE) 50 mcg/actuation nasal spray Apply 1 spray to each nostril as directed daily as needed. Shake bottle gently before using. gabapentin (NEURONTIN) 300 mg capsule Take 1 Cap by mouth three times daily. HYDROcodone/acetaminophen (NORCO) 7.5/325 mg tablet Take 0.5-1 tablets by mouth every 6 hours as needed for Pain hyoscyamine (ANASPAZ; NULEV; SYMAX FASTABS; HYOMAX-FT; ED-SPAZ; OSCIMIN) 0.125 [address] dissolve tablet Place 125 mcg under tongue every 4 hours as needed for Cramps. lactobacillus rhamnosus GG (LACTOBACILLUS RHAMNOSUS (GG)) 15 billion cell cpSP capsule Take 1 capsule by mouth as directed daily. LORazepam (ATIVAN) 0.5 mg tablet Take 1 tablet by mouth daily as needed for Nausea. LORazepam (ATIVAN) 2 mg/mL conc oral solution Take 1 mg by mouth daily as needed for Nausea or Vomiting. loteprednol(+) (LOTEMAX) 0.5 % ophthalmic suspension Apply 1 drop to both eyes four times daily as needed. metoclopramide (REGLAN) 5 mg tablet Take 5-10 mg by mouth twice daily. montelukast (SINGULAIR) 10 mg tablet Take 10 mg by mouth at bedtime daily. polyethylene glycol 3350 (MIRALAX) 17 g packet Take 1 packet by mouth twice daily. Hold for loose stools (Patient taking differently: Take 17 g by mouth daily as needed. Hold for loose stools) primidone (MYSOLINE) 50 mg tablet Take 1 tablet by mouth twice daily. ranitidine hcl(+) (ZANTAC) 300 mg tablet Take 300 mg by mouth at bedtime daily. scopolamine (TRANSDERM-SCOP) 1.5 mg 3 day patch APPLY 1 PATCH TO SKIN PRN Q 72 HOURS as needed simvastatin (ZOCOR) 20 mg tablet Take 20 mg by mouth at bedtime daily. triamterene-hydrochlorothiazide (DYAZIDE) 37.5-25 mg per capsule Take 1 Cap by mouth every morning. vitamins, multiple tablet Take 1 tablet by mouth at bedtime daily. YOUR MEDICATION INSTRUCTIONS FOR SURGERY: Before surgery Stop the following vitamins, herbals, and natural supplements 14 days before surgery: Multivitamin Stop the following medications 7 days before surgery: Anti-inflammatory medications such as ibuprofen (Advil, Motrin) and naproxen (Aleve) You may use acetaminophen (Tylenol) Morning of surgery On the morning of surgery, do NOT take these medications: Remaining vitamins/supplements Ointments/creams/lotions Benazepril Docusate Probiotic Metoclopramide Miralax Triamterene/HCTZ Marinol Dicyclomine On the morning of surgery, take ONLY these medications with a sip (1-2 ounces) of water: Inhaler, eye drops, and nasal spray as usual Alfuzosin Buspirone Cetirizine Duloxetine Esomeprazole Gabapentin If needed: Hydrocodone/APAP Hyoscyamine I Lorazepam May wear Transderm-Scop patch Other information Before surgery, please contact the clinic pharmacist with any medicine updates or questions. E-mail: [email or web address] Before going home from the hospital, please ask your doctor when you should re- start your medicines that were stopped before surgery. in this encounter Plan of Treatment Not on fileas of this encounter Visit Diagnoses Diagnosis Rectal prolapse - Primary
--- OUTSIDE RECORDS SUMMARY | 2017-09-14 10:57 | XMS REPORT | Encounter Summary ---
Author Author [facility] Organization [facility] Address Unknown Phone Unavailable Care Team Providers Care Clay Mixer Name Role Phone Guera Bailey DO PCP Felipa Easton MD Unavailable Steve Clifford MD Unavailable Unavailable Star Styles MD Unavailable Semaj De La Rosa MD Unavailable Alber Piña MD Unavailable Fco Ramsey MD Unavailable Remigio Lakhani MD 21 Encounter Details Date Type Department Care Team Description 09/03/2017 Procedure Pass Main Operating Room [address] [place] [address] Social History Tobacco Use Types [...] impairment: No 08/20/2017 as of this encounter Plan of Treatment Not on fileas of this encounter Visit Diagnoses Not on filein this encounter
--- OUTSIDE RECORDS SUMMARY | 2017-09-14 10:57 | XMS REPORT | Encounter Summary ---
Author Author [facility] Organization [facility] Address Unknown Phone Unavailable Care Team Providers Care Brush Head Maker Name Role Phone Guera Bailey DO PCP Felipa Easton MD Unavailable Steve Clifford MD Unavailable Unavailable Star Styles MD Unavailable Semaj De La Rosa MD Unavailable Alber Piña MD Unavailable Fco Ramsey MD Unavailable Remigio Lakhani MD 21 Reason for Visit * Auth/Cert Status Reason Specialty Diagnoses / Referred By Referred To Procedures Contact Contact Diagnoses Rectal prolapse Rectal prolapse [K62.3] P rocedures [place] LAPAROSCOPY PROCTOPEXY PROLAPSE ROBOTIC ASSISTED VENTRAL MESH RECTOPEXY, POSSILBE OPEN Encounter Details Date Type Department Care Team Description 09/03/2017 Anesthesia Main Operating Room Inocente Jamison SRNA Event [address] [place], [place] [id number] Anesthesia Record Procedure Name Responsible Anesthesia Start [...] the receiving nurse. 1200 An Stop Meds Name Total midazolam (VERSED) 1 mg/mL injection 2 mg fentaNYL PF (SUBLIMAZE) injection 175 mcg lidocaine (2%) 200 mg/10mL Injection 100 mg syringe propofol (DIPRIVAN) 200 mg/ 20 mL 200 mg injection (VIAL) rocuronium (ZEMURON) injection 120 mg ondansetron (ZOFRAN) injection 4 mg dexamethasone (DECADRON) 4 mg/mL 4 mg injection phenylephrine (SHYLA-SYNEPHRINE) 0.1 mg/mL 200 mcg injection (SYRINGE) sugammadex (BRIDION) 100 mg/mL iv soln 300 mg propofol (DIPRIVAN) infusion 1,997.46 mg remifentanil (ULTIVA) 1 mg/3 mL 1,000 1,535.1 mcg mcg in sodium chloride 0.9% (NS) 20 mL Injection cefOXitin (MEFOXIN) 2 g injection 4 g ePHEDrine 50 mg/mL 50 mg in sodium 10 mg chloride PF 0.9% 5 mL IV syringe lactated ringers infusion 700 mL electrolyte-A (PLASMA-LYTE A PH 7.4) 1,600 mL infusion * Name O2 N2O Inspired N2O Air Sevoflurane Inspired Sevoflurane * No blood administrations on file. Type Details Placement Removal Wounds 09/03/17; 1154; Abdomen; Surgical 09/03/17 1154 by Aroldo, (NOT for Incision; ABDOMINAL PORT SITES X6, AMADOU Sylvester Pressure CLOSED WITH SUTURES Injuries) Wounds 10/28/11; 1446; M, LO; Abdomen; Puncture 10/28/11 1446 by 1549 by Gildardo, (NOT for Wound; port sites x6; 09/03/17; 1549 Lexy Luis RN Pressure Injuries) Wounds 03/26/17; 1039; Abdomen; Surgical [...] (NOT for Surgical Incision; 09/03/17; 1549 AMADOU Nation RN Pressure Injuries) Peripheral 09/03/17; 0700; RN; R; Hand; 20 G; No; 09/03/17 0700 by Edy, 09/05/17 0900 by IV 1; 09/05/17; 0900 AMADOU Garcia Kaitlin, RN Peripheral 09/03/17; 0747; IV Therapy; L; Hand; 18 09/03/17 0747 by Shaheen , 09/03/17 1236 by Reilly, IV G; 1; 09/03/17; 1236 (charted in error) FRANKLIN Brower RN ETT 09/03/17; 0752; Ventilated by mask (1); [...] IV 1; 09/05/17; 0900 FRANKLIN Brower Kaitlin, RN Indwelling 09/03/17; 0759; 16 FR; Regular 09/03/17 0759 by Fesen, 0702 by Urinary (Two-way); 09/04/17; 0702 Sonali Nice, AMADOU Catheter NG/OG Tube 09/03/17; 0802; Oral; 18FR; 09/03/17; 09/03/17 0802 by Shaheen, 09/03/17 1115 by [place], 1115 (removed prior to arrival to pacu) [...] impairment: No 08/20/2017 as of this encounter OR Notes * Anesthesia Postprocedure Evaluation - Konrad Juarez MD - 09/03/2017 1:45 PM CDT Post-Anesthesia Evaluation Name: Luis Alejandro : 1955 Age: 62 y.o. Sex: female Procedure Date: 09/03/2017 Procedure: Procedure(s) with comments: ROBOTIC ASSISTED VENTRAL MESH RECTOPEXY, POSSIBLE OPEN - CASE LENGTH 3 HOURS, DR DIAZ IS CO-SURGEON Surgeon: Surgeon(s): Damian Diaz MD Ashcraft, John H, Jeffery Bella, Post-Anesthesia Vitals BP: (106-119)/(64-80) Pulse: [92-95] Respirations: [12 PER MINUTE-18 PER MINUTE] SpO2: [95 %-98 %] O2 Delivery: Nasal Cannula (09/03 1330) SpO2 Pulse: [92-96] Post Anesthesia Evaluation Note Evaluation location: pre/post Patient participation: recovered; patient participated in evaluation Level of consciousness: alert Pain score: 2 Pain management: adequate Hydration: normovolemia Temperature: 36.0C - 38.4C Airway patency: adequate Perioperative Events Perioperative events: no Post-op nausea and vomiting: no PONV Postoperative Status Cardiovascular status: hemodynamically stable Respiratory status: spontaneous ventilation Follow-up needed: none Perioperative Events Perioperative Event: No Emergency Case Activation: No Associated attestation - Gunner Tran MD - 09/03/2017 1:46 PM CDT Formatting of this note may be different from the original. ATTESTATION Post-Anesthesia Evaluation Attestation: I reviewed and agree the indicated post- anesthesia care was provided. Staff name: Gunner Tran MD Date: 09/03/2017 * Anesthesia Preprocedure Evaluation - Michelle Shearer MD - 08/28/2017 1 :59 PM CDT Formatting of this note may be different from the original. Anesthesia Pre-Procedure Evaluation Name: Luis Alejandro : 1955 Age: 62 y.o. Sex: female Procedure Date: 09/03/2017 Procedure: Procedure(s) with comments: ROBOTIC ASSISTED VENTRAL MESH RECTOPEXY, POSSILBE OPEN - CASE LENGTH 3 HOURS, DR DIAZ IS CO-SURGEON Physical Assessment Vital Signs (last filed in past 24 hours): BP: 109/70 (08/29 1347) Temp: 36.9 C (98.4 F) (08/29 1347) Pulse: 90 (08/29 1347) Respirations: 15 PER MINUTE (08/29 1347) SpO2: 99 % (08/29 1347) O2 Delivery: None (Room Air) (08/29 1347) Height: 157.5 cm (62") (08/29 1347) Weight: 73.8 kg (162 lb 9.6 oz) (08/29 1347) Dosing / Dry Weight: 73.8 kg (162 lb 9.6 oz) (08/28 1348) Patient History Allergies Allergen Reactions Sulfa (Sulfonamide Antibiotics) RASH, SEE COMMENTS and REDNESS Facial swelling Current Medications Medication Directions alfuzosin(+) (UROXATRAL) 10 mg tablet Take 1 [...] 1 Cap by mouth three times daily. HYDROcodone/acetaminophen(+) (NORCO) 10/325 mg tablet Take 0.5-1 [...] mouth twice daily. Hold for loose stools Patient taking differently: Take 17 g by mouth daily as needed. Hold for loose stools primidone (MYSOLINE) 50 mg tablet Take 1 [...] 1 tablet by mouth at bedtime daily. Past Medical History: Diagnosis Date Abnormal involuntary movement Arthritis Asthma Essential tremor Fibromyalgia Gastroparesis GERD (gastroesophageal reflux disease) History of blood transfusion after childbirth History of hiatal hernia HLD (hyperlipidemia) HTN (hypertension) Iron deficiency anemia NICANOR (obstructive sleep apnea) Psychiatric illness depression Vision decreased Past Surgical History: Procedure Laterality Date [place] ANORECTAL MANOMETRY N/A 01/23/2017 ARM on a Thursday for obstructive defecation, rectal prolapse. Can you try to see if Randee or Sintia can work her in soon please per Dr. Styles performed by Felipa Easton MD at ENDO/GI RECTAL SURGERY N/A 03/26/2017 ROBOTIC RESECTION RECTOPEXY performed by Kane Ya DO at Main OR/ Periop ANORECTAL MANOMETRY N/A 06/11/2017 MANOMETRY ANORECTAL performed by Ashly Singleton MD at ENDO/GI ESOPHAGOGASTRIC FUNDOPLICATION 2004, 2012 x 2 1ST IN [place] -- 2ND ONE HERE AT Social History Substance Use Topics Smoking status: Former Smoker Packs/day: 0.50 Years: 5.00 Quit date: 10/08/1990 Smokeless tobacco: Never Used Alcohol use 1.2 oz/week 2 Shots of liquor per week Comment: 2 per month Review of Systems/Medical History Patient summary reviewed Nursing notes reviewed Pertinent labs reviewed PONV Screening: Hx PONV/motion sickness, Female gender and Non-smoker History of anesthetic complications (h/o PONV-reports zofran has not been beneficial in past; scopolamine patch worked well last procedure) No family history of anesthetic complications Airway TMJ (Remote h/o lock jaw requiring manipulation to relocate x 1, no subsequent problems) Pulmonary Asthma (Asthma well controlled; rare use of albuterol inhaler, no recent exacerbations) Sleep apnea; noncompliant Cardiovascular Exercise tolerance: >4 METS Hypertension (on HCTZ), Hyperlipidemia (statin) Pt denies CP, SOB, palpitations, edema, orthopnea, claudication, syncope 2013: episode CP with Cardiology evaluation-negative cath and cardiology f/u. No recurrent issues GI/Hepatic/Renal GERD (s/p Fredy fundiplication x 2 (2012 most recent), still has some reflux related to the food that she eats.), well controlled Nausea (with gastrparesis-takes reglan) Gastroparesis, nausea without vomiting, not nausea this morning. Neuro/Psych Neuromuscular disease (Benign essential tremor) Chronic benzodiazepine use (ativan for nausea) Fibromyalgia Musculoskeletal Arthritis (knees, hands, wrists) Endocrine/Other Anemia (h/o JACLYN 2/2 rectal bleeding, Hgb 12.5) Physical Exam Airway Findings Mallampati: II TM distance: >3 FB Neck ROM: full Mouth opening: good Airway patency: adequate Dental Findings: Negative Cardiovascular Findings: Rhythm: regular Rate: normal No murmur, no carotid bruit, no peripheral edema Pulmonary Findings: Breath sounds clear to auscultation. Neurological Findings: Normal mental status Diagnostic Tests Hematology: Lab Results Component Value Date HGB 12.5 03/27/2017 HCT 35.3 03/27/2017 PLTCT 201 03/27/2017 WBC 8.4 03/27/2017 NEUT 76 10/30/2011 ANC 5.06 10/30/2011 ALC 1.05 10/30/2011 XAVIER 8 10/30/2011 AMC 0.53 10/30/2011 EOSA 0 10/30/2011 ABC 0.01 10/30/2011 MCV 94.0 03/27/2017 MCH 33.3 03/27/2017 MCHC 35.4 03/27/2017 MPV 7.9 03/27/2017 RDW 12.8 03/27/2017 General Chemistry: Lab Results Component Value Date NA 136 03/29/2017 K 4.2 03/29/2017 CL 102 03/29/2017 CO2 27 03/29/2017 GAP 7 03/29/2017 BUN 4 03/29/2017 CR 0.51 03/29/2017 GLU 99 03/29/2017 CA 8.2 03/29/2017 ALBUMIN 4.0 02/27/2017 MG 2.0 03/29/2017 TOTBILI 0.4 02/27/2017 PO4 2.8 10/30/2011 Coagulation: Lab Results Component Value Date PTT 32.4 10/09/2011 INR 1.0 10/09/2011 Anesthesia Plan ASA score: 3 Plan: general Induction method: intravenous Comments: (Will plan for TIVA with pre-op tyleno, neurontin, and oxycontin. ) Informed Consent Anesthetic plan and risks discussed with patient. Use of blood products discussed with patient; consented to blood products. Labs: T&C DOS ordered; outside labs from 08/19/17 reviewed and wnl EKG: deferred JOEL: None Consults: None in this encounter Plan of Treatment Not on fileas of this encounter Visit Diagnoses Not on filein this encounter Administered Medications Medication Order MAR Action Action Date Dose Rate Site cefOXitin (MEFOXIN) injection Given 09/03/2017 2 g INTRA-PROCEDURE MED, Starting Irina 08:00 CDT 09/03/17 at 0800, Until Irina 09/03/17 at 1204, Anesthesia Intra-op Given 09/03/2017 2 g 09:59 CDT dexamethasone (DECADRON) injection Given 09/03/2017 4 mg Intravenous, INTRA-PROCEDURE MED, 08:33 CDT Starting Irina 09/03/17 at 0833, Until Irina 09/03/17 at 1204, Nausea/Vomiting Injectable, Anesthesia Intra-op electrolyte-A (PLASMA-LYTE A PH 7.4) Given - New 09/03/2017 injection Bag 08:02 CDT INTRA-PROCEDURE MED(CONT), Starting Irina 09/03/17 at 0802, Until Irina 09/03/17 at 1204, Anesthesia Intra-op Given - New Bag 09/03/2017 09:34 CDT ePHEDrine 50 mg/mL 50 mg in sodium Given - New 09/03/2017 10 mg chloride PF 0.9% 5 mL IV syringe Bag 08:24 CDT 5 mL, INTRA-PROCEDURE MED(CONT), Starting Irina 09/03/17 at 0824, Until Irina 09/03/17 at 1204, Anesthesia Intra-op fentaNYL citrate PF (SUBLIMAZE) Given 09/03/2017 25 mcg injection 11:26 CDT INTRA-PROCEDURE MED, Starting Irina 09/03/17 at 0745, Until Irina 09/03/17 at 1204, Pain Injectable, Anesthesia Intra-op Given 09/03/2017 25 mcg 11:30 CDT Given 09/03/2017 25 mcg 11:43 CDT lidocaine (PF) injection Given 09/03/2017 100 mg INTRA-PROCEDURE MED, Starting Irina 07:46 CDT 09/03/17 at 0746, Until Irina 09/03/17 at 1204, Anesthesia Intra-op midazolam (VERSED) injection Given 09/03/2017 2 mg Intravenous, INTRA-PROCEDURE MED, 07:38 CDT Starting Irina 09/03/17 at 0738, Until Irina 09/03/17 at 1204, Agitation Injectable, Anxiety Injectable, Anesthesia Intra-op ondansetron (ZOFRAN) injection Given 09/03/2017 4 mg Intravenous, INTRA-PROCEDURE MED, 11:24 CDT Starting Irina 09/03/17 at 1124, Until Irina 09/03/17 at 1204, Nausea/Vomiting Injectable, Anesthesia Intra-op phenylephrine in NS Injection Given 09/03/2017 100 mcg Intravenous, INTRA-PROCEDURE MED, 08:12 CDT Starting Irina 09/03/17 at 0812, Until Irina 09/03/17 at 1204, Symptomatic Hypotension, Anesthesia Intra-op Given 09/03/2017 100 mcg 09:07 CDT propofol (DIPRIVAN) infusion Dose/Rate 09/03/2017 100 43.9 mL/hr 50 mL, INTRA-PROCEDURE MED(CONT), Change 10:35 CDT mcg/kg/min Starting Irina 09/03/17 at 0750, Until Irina 09/03/17 at 1204, Anesthesia Intra-op Dose/Rate Change 09/03/2017 150 65.8 mL/hr 11:06 CDT mcg/kg/min Dose/Rate Change 09/03/2017 100 43.9 mL/hr 11:25 CDT mcg/kg/min propofol (DIPRIVAN) injection Given 09/03/2017 200 mg INTRA-PROCEDURE MED, Starting Irina 07:46 CDT 09/03/17 at 0746, Until Irina 09/03/17 at 1204, Anesthesia Intra-op remifentanil (ULTIVA) 1 mg/3 mL 1,000 Given - New 09/03/2017 0.1 8.8 mL /hr mcg in sodium chloride 0.9% (NS) 20 mL Bag 08:01 CDT mcg/kg/min Injection INTRA-PROCEDURE MED(CONT), Starting Irina 09/03/17 at 0801, Until Irina 09/03/17 at 1204, Anesthesia Intra-op Given - New Bag 09/03/2017 10:01 CDT rocuronium (ZEMURON) injection Given 09/03/2017 40 mg Intravenous, INTRA-PROCEDURE MED, 08:59 CDT Starting Irina 09/03/17 at 0747, Until Irina 09/03/17 at 1204, Anesthesia Intra-op Given 09/03/2017 20 mg 10:25 CDT Given 09/03/2017 10 mg 11:14 CDT sugammadex (BRIDION) injection Given 09/03/2017 300 mg Intravenous, INTRA-PROCEDURE MED, 11:35 CDT Starting Irina 09/03/17 at 1135, Until Irina 09/03/17 at 1204, Anesthesia Intra-op in this encounter
--- OUTSIDE RECORDS SUMMARY | 2017-09-14 10:57 | XMS REPORT | Encounter Summary ---
Author Author [facility] Organization [facility] Address Unknown Phone Unavailable Care Team Providers Care Full Time Babysitter Name Role Phone Guera Bailey PCP Felipa Easton MD Unavailable Steve Clifford MD Unavailable Unavailable Star Styles MD Unavailable Semaj De La Rosa MD Unavailable Alber Piña MD Unavailable Fco Ramsey MD Unavailable Remigio Lakhani MD 21 Reason for Visit * Reason Comments Follow Up 6 mo Encounter Details Date Type Department Care Team Description 08/28/2017 Office Visit [facility] Nestor Szymanski MD Benign essential tremor Physicians-Neurology [address] (Primary Dx); [facility] [place] [address] Urinary retention; [address] [phone] Chronic idiopathic [place], [place] constipation [id number] Social History Tobacco Use Types Packs/Day Years Used Date Former Smoker 0.5 5 Quit: 10/08/1990 Smokeless Tobacco: Never Used Alcohol Use Drinks/Week oz/Week Comments Yes 2 Shots of 1.2 2 per month liquor Sex Assigned at Date Recorded Not on file as of this encounter Last Filed Vital Signs Vital Sign Reading Time Taken Blood Pressure 108/74 08/28/2017 11:54 AM CDT Pulse 75 08/28/2017 11:54 AM CDT Temperature - - Respiratory Rate - - Oxygen Saturation - - Inhaled Oxygen - - Concentration Weight 73.5 kg (162 lb) 08/28/2017 11:54 AM CDT Height - - Body Mass Index 29.16 08/28/2017 11:54 AM CDT in this encounter Functional Status [...] 08/20/2017 as of this encounter Instructions * Patient Instructions - Nestor Szymanski MD - 08/28/2017 11:45 AM CDT Try cutting down the caffeine to help the tremor. Try taking the primidone, 1 tablet at night. If after 1-2 weeks you aren't drowsy and the tremor is still bothering you try taking twice daily. Avoid taking with xanax. Have your PCP check liver function in 1 month or so in this encounter Progress Notes * Nelson Masters MD - 08/28/2017 11:45 AM CDT I have personally interviewed and examined Luis Alejandro and reviewed the history, examination, impression, and plan of care as outlined by Dr.Trevor Stephon MD. I personally participated in patient counseling and coordination of care. I agree with the assessment and plan as documented by Dr. Nestor Szymanski MD. * Nestor Szymanski MD - 08/28/2017 11:45 AM CDT Formatting of this note may be different from the original. Subjective: History of Present Illness Luis Alejandro is a 62 y.o. female. Doing well post-rectopexy, but still has significant difficulty. Will be having more surgery soon, then pelvic floor rehab. Having some difficulty with word substitutions rarely. She attributes this to stress (past and upcoming surgeries, trouble with her son with Aspergers). She is also having worsening tremor, now affecting her more at work. Has to have a nurse do nasal swabs, removing sutures. Noticing her teeth chattering a bit at night. Right handed, left hand is a bit worse. Difficulty holding a styrofoam cup 1-handed. Does drink multiple cups of coffee per day, tea. Rare EtOH, unsure of the effect of this on tremor. Review of Systems Constitutional: Positive for fatigue. HENT: Positive for mouth sores. Eyes: Positive for itching and visual disturbance. Gastrointestinal: Positive for abdominal pain, anal bleeding, blood in stool, constipation, nausea and rectal pain. Genitourinary: Positive for difficulty urinating and dyspareunia. Musculoskeletal: Positive for arthralgias and myalgias. Allergic/Immunologic: Positive for environmental allergies. Neurological: Positive for tremors and light-headedness. Psychiatric/Behavioral: Positive for decreased concentration. The patient is nervous/anxious. All other systems reviewed and are negative. Past Medical History: Diagnosis Date Abnormal involuntary movement Arthritis Asthma Fibromyalgia Gastroparesis GERD (gastroesophageal reflux disease) HLD (hyperlipidemia) HTN (hypertension) Psychiatric illness depression Vision decreased Past Surgical History: Procedure Laterality Date [place] ANORECTAL MANOMETRY N/A 01/23/2017 ARM on a [...] FUNDOPLICATION 2004, [address] x [address] [facility] -- 2ND ONE HERE AT Family History Problem Relation Age of Onset [...] Years of education: N/A Occupational History [employer] Social History Main Topics Smoking status: Former Smoker Packs/day: 0.50 Years: 5.00 Quit date: 10/08/1990 Smokeless tobacco: Never Used Alcohol use 1.2 oz/week 2 Shots of liquor per week Comment: 2 per month Drug use: No Sexual activity: Not on file Other Topics Concern Not on file Social History Narrative No narrative on file Objective: alfuzosin(+) (UROXATRAL) 10 mg tablet Take [...] 1 tablet by mouth at bedtime daily. Vitals: 08/28/17 1154 BP: 108/74 Pulse: 75 Weight: 73.5 kg (162 lb) Body mass index is 29.16 kg/m. Physical Exam Constitutional: She appears well-developed and well-nourished. HENT: Head: Normocephalic. Eyes: Conjunctivae are normal. Cardiovascular: Normal rate, regular rhythm and normal heart sounds. Pulmonary/Chest: Effort normal. Musculoskeletal: Normal range of motion. Skin: Skin is warm and dry. No rash noted. Psychiatric: She has a normal mood and affect. Her behavior is normal. Vitals reviewed. Neurological: Mental status: Patient is alert and oriented to time, place, person and situation. Speech: Fluent, with normal naming, comprehension, articulation and repetition CN II-XII: Visual porter intact to confrontation, PERRL (4->2), EOMI, facial sensation intact. Symmetrical facial movement. Hearing grossly intact. Strong cough, elevates palate, uvula midline. Strong shoulder shrug. Tongue midline. Motor: (R/L) b/l UE/LE 5/5. Normal tone and bulk. Minimal LUE>RUE action tremor , no rest tremor. Archimedes spiral (R hand) without significant tremor. No cogwheeling SA EF EE FF TA HF REYNOLDS HE KF KE DF PF R 5 5 5 5 5 5 5 5 5 5 5 5 L 5 5 5 5 5 5 5 5 5 5 5 5 Sensory: intact light touch. Without sensory level. Romberg sign absent. Reflexes: (R/L) Bj, Trj, Brj, Knj, Aj. No clonus, tonya, cross adductor. Babinski negative. Right Left Triceps 2 2 Biceps 3 3 Brachioradialis 3 3 Patella 3 3 Ankle 2 2 Plantar Coordination/ fine movement: normal finger to nose Gait: normal Assessment and Plan: Luis Alejandro is a 61 y.o. female with a PMH of asthma, fibromyalgia, GERD, HTN, HLD, who comes for followup of gastroparesis, bladder, and bowel problems now s/p rectopexy after normal neurological workup (EMG due to hyperreflexia, MRI head at [facility], MRI C/T/L spine at OSH). She will continue to followup with her GI, , surgical teams for this. Essential tremor (positive family history in brothers, son) worsening in the setting of worsening stress. She does desire pharmacological management at this time. BP borderline low, making propranolol less desirable. Discussed starting primidone, 50mg QHS and increasing to BID as tolerated/if needed. We discussed she should avoid xanax at bedtime with this. Recommend PCP to check LFTs in 1 month or so. Occasional word-finding difficulty may be medication-related, stress related. No sign of ischemic event, seizure, or other malignant etiology at this time. Will monitor. Minimizing stress and xanax (as above) may help. RTC in 6 months Pt seen by and discussed with Dr Masters in this encounter Plan of Treatment Not on fileas of this encounter Visit Diagnoses Diagnosis Benign essential tremor - Primary Essential and other specified forms of tremor Urinary retention Retention of urine, unspecified Chronic idiopathic constipation Unspecified constipation
--- OUTSIDE RECORDS SUMMARY | 2017-09-14 10:58 | XMS REPORT | Encounter Summary ---
Author Author [facility] Organization [facility] Address Unknown Phone Unavailable Care Team Providers Care Underwear Hemmer Name Role Phone BaileyGuera winters DO PCP Felipa Easton MD Unavailable Steve Clifford MD Unavailable Unavailable Star Styles MD Unavailable Semaj De La Rosa MD Unavailable Alber Piña MD Unavailable Fco Ramsey MD Unavailable Remigio Lakhani MD 21 Encounter Details Date Type Department Care Team Description 08/07/2017 Prep for Case [facility] Kane Ya DO Rectal prolapse ([facility] Exam [address] Dx) [address] [place] [address] [place] [address] [phone] Social History Tobacco Use Types Packs/Day Years [...]
--- OUTSIDE RECORDS SUMMARY | 2017-09-14 10:58 | XMS REPORT | Encounter Summary ---
Author Author [facility] Organization [facility] Address Unknown Phone Unavailable Care Team Providers Care Mine Laborer Name Role Phone LynnGuera PCP Felipa Easton MD Unavailable Steve Clifford MD Unavailable Unavailable Star Styles MD Unavailable Semaj De La Rosa MD Unavailable Alber Piña MD Unavailable Fco Ramsey MD Unavailable Remigio Lakhani MD 21 Reason for Visit * Reason Comments General Question Encounter Details Date Type Department Care Team Description 08/04/2017 Telephone [facility] Kane Ya DO General Question [facility] Exam [address] [place] [address] [place] [address] [phone] Social History Tobacco Use Types Packs/Day Years [...] encounter Miscellaneous Notes * Telephone Encounter - Yanet Williamson, RN - 08/04/2017 1:36 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 Discussed with Dr. Ya who wishes to see this pt in clinic. I have talked about this with this pt and she is ok coming in to clinic this Thursday, 08/07 at 1045 at . I gave her directions to this location. in this encounter Plan of Treatment Not on fileas of this encounter Visit Diagnoses Not on filein this encounter
--- OUTSIDE RECORDS SUMMARY | 2017-09-14 10:58 | XMS REPORT | Encounter Summary ---
Author Author [facility] Organization [facility] Address Unknown Phone Unavailable Care Team Providers Care Dye House Hand Name Role Phone LynnGuera PCP Felipa Easton MD Unavailable Steve Clifford MD Unavailable Unavailable Star Styles MD Unavailable Semaj De La Rosa MD Unavailable Alber Piña MD Unavailable Fco Ramsey MD Unavailable Remigio Lakhani MD 21 Reason for Visit * Reason Comments General Question Encounter Details Date Type Department Care Team Description 08/12/2017 Telephone [facility] Kane Ya DO General Question [facility] Exam [address] [place] [address] [place] [address] [phone] Social History Tobacco Use Types Packs/Day Years [...] Miscellaneous Notes * Telephone Encounter - Yanet Williamson RN - 08/12/2017 8:46 AM 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 Ya. I told her she would be on a 10 lb. Lifting restriction for 6 wks. I left her a VM. I encouraged her to call me back with any more questions or concerns. in this encounter Plan of Treatment Not on fileas of this encounter Visit Diagnoses Not on filein this encounter
--- OUTSIDE RECORDS SUMMARY | 2017-09-14 10:58 | XMS REPORT | Encounter Summary ---
Author Author [facility] Organization [facility] Address Unknown Phone Unavailable Care Team Providers Care Caramel Cutter Helper Name Role Phone Guera Bailey PCP Felipa Easton MD Unavailable Steve Clifford MD Unavailable Unavailable Star Styles MD Unavailable Semaj De La Rosa MD Unavailable Alber Piña MD Unavailable Fco Ramsey MD Unavailable Remigio Lakhani MD 21 Reason for Visit * Reason Comments Nausea Other Gastroparesis Anal Bleeding Encounter Details Date Type Department Care Team Description 08/20/2017 Office Visit [facility] Semaj De La Rosa MD Chronic idiopathic Physicians - Internal [address] constipation (Primary Dx) [place] [address] [phone] [place] [address] [phone] Social History Tobacco Use Types Packs/Day Years Used Date Former Smoker 0.5 5 Quit: 10/08/1990 Smokeless Tobacco: Never Used Alcohol Use Drinks/Week oz/Week Comments Yes 2 Shots of 1.2 2 per month liquor Sex Assigned at Date Recorded Not on file as of this encounter Last Filed Vital Signs Vital Sign Reading Time Taken Blood Pressure 108/70 08/20/2017 1:32 PM CDT Pulse 99 08/20/2017 1:32 PM CDT Temperature 36.8 C (98.2 F) 08/20/2017 1:32 PM CDT Respiratory Rate 12 08/20/2017 1:32 PM CDT Oxygen Saturation - - Inhaled Oxygen - - Concentration Weight 73 kg (161 lb) 08/20/2017 1:32 PM CDT Height 158.8 cm (5' 2.5") 08/20/2017 1:32 PM CDT Body Mass Index 28.98 08/20/2017 1:32 PM CDT in this encounter Functional Status [...] - Semaj De La Rosa MD - 08/20/2017 1:30 PM CDT Call my nurse at [phone] if you have any troubles or questions in this encounter Progress Notes * Semaj De La Rosa MD - 08/20/2017 1:30 PM CDT Formatting of this note may be different from the original. Date of Service: 08/20/2017 Subjective: Luis Alejandro is a 62 y.o. female. History of Present Illness 62-year-old white female with a history of gastroparesis diagnosed by gastric emptying test with 88% retention at 4 hours, small intestinal bacterial overgrowth positive by hydrogen breath test May 2016, pelvic floor dysfunction, rectal prolapse status post rectopexy January [address] Ya , GERD status post Fredy fundoplication and redo (2011), chronic nausea here for follow-up. Her specific concern today is recurrent rectal prolapse and pelvic floor dysfunction. We last saw her June 2017 about 2 months after she had had rectopexy completed. At that time, she reported that the prolapse did resolve completely. 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 At that time, she was going several days without a bowel movement and that would take MiraLAX over the weekend to "empty and ". At the present time, stool consistency is anywhere between formed/soft and hard. She was seen on the toilet anywhere from 5-15 minutes each time proximally 5 times per day and will often need to push and strain in order to have a small bowel movement. By the end of the day , she does have complete evacuation. She is taking MiraLAX intermittently. She is not having any episodes of fecal incontinence however states that she cannot sense when she has passed stool sitting on the toilet. She is also having trouble with urinary retention also related to pelvic floor dysfunction. She was strain to have urination as well. Unfortunately, she is developed recurrent rectal prolapse especially over the past couple of months. She has noted a small amount of bloody oozing during this time. She denies any symptoms of anemia but is concerned about this and therefore is getting labs with her primary care doctor including CBC and iron panel next week. Regarding nausea, this is unchanged. She continues to take Reglan 5 mg twice daily as needed. She really does not complain very much of early satiety or epigastric fullness. She did take rifaximin 550 mg 3 times a day for period of about 2 weeks which did not really improve symptoms of nausea or bloating. Again, she has had a complete evaluation with neurology which has been unrevealing. She is still not yet gotten the a.m. cortisol completed. She has tried a variety of different medications but has not yet tried Marinol, acupuncture, Iberogast. Past studies: 1. Colonoscopy [address] [...] years ago and redo fundoplication here at [facility] 2011 5. Chronic nausea 6. Intention tremor 7. Micturition difficulties. Followed by urology. 8. Rectopexy March [address] Ya 9. 2 first-degree relatives with pancreatic cancer 10. Fibromyalgia Review of Systems Constitutional: Positive for fatigue. HENT: Positive for mouth sores. Gastrointestinal: Positive for anal bleeding, blood in stool, constipation, diarrhea, nausea and rectal pain. Genitourinary: Positive for difficulty urinating. Musculoskeletal: Positive for joint swelling and myalgias. Neurological: Positive for tremors. All other systems reviewed and are negative. Objective: alfuzosin(+) (UROXATRAL) 10 mg tablet Take [...] tablet by mouth at bedtime daily. Vitals: 08/20/17 1332 BP: 108/70 Pulse: 99 Resp: 12 Temp: 36.8 C (98.2 F) TempSrc: Oral Weight: 73 kg (161 lb) Height: 158.8 cm (62.5") Body mass index is 28.98 kg/m. Physical Exam Constitutional: She is oriented to person, place, and time. She appears well- developed and well-nourished. Accompanied by HENT: Head: Normocephalic and atraumatic. Eyes: EOM [...] exhibits no distension. There is no tenderness. Musculoskeletal: Normal range of motion. Neurological: She is alert and oriented to person, place, and time. Skin: Skin is warm and dry. Nursing note and vitals reviewed. Assessment and Plan: 62-year-old white female with a history of gastroparesis diagnosed by gastric emptying test with 88% retention at 4 hours, small intestinal bacterial overgrowth positive by hydrogen breath test May 2016, pelvic floor dysfunction, rectal prolapse status post rectopexy January [address] Ya , GERD status post Fredy fundoplication and redo (2011), chronic nausea. Since her last visit with us she is developed unfortunately recurrent rectal prolapse following rectopexy March 2017 And is scheduled to have a redo procedure with mesh placement September 03. She has not yet attended pelvic floor physical therapy for very poor anal sphincter resting and squeeze pressure. We will plan on doing the following: Next 1. Rectopexy with mesh placement Dr. Ya September 03. 2. Patient has concerns regarding small caliber stool, specifically as a sign of malignancy. We very much doubt this is as she had a colonoscopy were only lymph polyps were removed (no adenomas) in 2013. However, we will ask Dr. Ya if he can perform a flexible sigmoidoscopy at the time of the rectopexy. 3. Importantly, she needs to attend physical therapy/biofeedback as soon as possible following rectopexy in order to avoid recurrent problems. She has previously looked into doing this locally in [facility] however it is not available. Therefore she will attend here at [facility] and information regarding the facility was given to her today. 4. She is to visit with her primary care doctor Lynn in next week. We have instructed her to get an a.m. cortisol that time in order to complete evaluation for chronic nausea. Also at that time she should obtain a CBC and iron panel given that she has had chronic bloody oozing from the rectal prolapse over the past several weeks. She also has history of iron deficiency anemia for which she has required IV iron. 5. Continue with Reglan 5 mg twice daily as needed for nausea. In the future might consider acupuncture, Marinol,Iberogast. 6. Given family history of pancreatic cancer in 2 first-degree relatives will plan on getting an endoscopic ultrasound every 2 years the next would be June 2018. 7. Follow-up colonoscopy (full colonoscopy) due 2023. 8. Follow-up with us in 3 months. Semaj De La Rosa MD GI Fellow [id number] GI STAFF ATTESTATION I personally performed the flores portions of the E/M visit, discussed case with resident and concur with resident documentation of history, physical exam, assessment, and treatment plan unless otherwise noted. We last saw Lius on 06/11/2017. She has seen Dr. Ya and is scheduled for robotic repair of her recurrent rectal prolapse with mesh. She has not yet undergone any pelvic floor retraining. Xifaxan did not really help with her nausea. At this point in time, I think it would be reasonable to consider Marinol for her chronic nausea and she will discuss this with Dr. Bailey. I also think a trial of acupuncture and acupressure is worth a try as well as consideration for Iberogast. We discussed the importance of pelvic floor retraining even if she undergoes rectal prolapse repair, the underlying problem is pelvic floor dysfunction and therefore we have to treat this. She is still checking to see if this may be possible closer to home in [place], [place], but we have also given her foundational concepts, contact information. We will review with Dr. Ya to see if he could do at least a flexible sigmoidoscopy. If not, full colonoscopy at the time of her surgery. We will plan on seeing her back in about 2 months. I had a long discussion with Luis and her and all questions were answered. Staff name: Star Styles MD Date: 08/20/2017 in this encounter Plan of Treatment Not on fileas of this encounter Visit Diagnoses Diagnosis Chronic idiopathic constipation - Primary Unspecified constipation
--- OUTSIDE RECORDS SUMMARY | 2017-09-14 10:58 | XMS REPORT | Encounter Summary ---
Author Author [facility] Organization [facility] Address Unknown Phone Unavailable Care Team Providers Care Restorative Art Embalmer Name Role Phone LynnGuera PCP Felipa Easton MD Unavailable Steve Clifford MD Unavailable Unavailable Star Styles MD Unavailable Semaj De La Rosa MD Unavailable Alber Piña MD Unavailable Fco Ramsey MD Unavailable Remigio Lakhani MD 21 Reason for Visit * Reason Comments Heme/Onc Care Encounter Details Date Type Department Care Team Description 08/07/2017 Office Visit [facility] Kane Ya DO Rectal prolapse [facility] Exam [address] [place] [address] [place] [address] [phone] Social History Tobacco Use Types Packs/Day Years Used Date Former Smoker 0.5 5 Quit: 10/08/1990 Smokeless Tobacco: Never Used Alcohol Use Drinks/Week oz/Week Comments Yes 2 Shots of 1.2 2 per month liquor Sex Assigned at Date Recorded Not on file as of this encounter Last Filed Vital Signs Vital Sign Reading Time Taken Blood Pressure 117/74 08/07/2017 10:52 AM DEVULCANIZER LOADER Pulse 83 08/07/2017 10:52 AM DEVULCANIZER LOADER Temperature 36.7 C (98 F) 08/07/2017 10:52 AM DEVULCANIZER LOADER Respiratory Rate 16 08/07/2017 10:52 AM DEVULCANIZER LOADER Oxygen Saturation 97% 08/07/2017 10:52 AM DEVULCANIZER LOADER Inhaled Oxygen - - Concentration Weight 73.5 kg (162 lb) 08/07/2017 10:52 AM DEVULCANIZER LOADER Height - - Body Mass Index 29.14 08/07/2017 10:52 AM DEVULCANIZER LOADER in this encounter Functional Status Functional Status [...] this encounter Instructions * Patient Instructions - Yanet Williamson RN - 08/07/2017 10:45 AM DEVULCANIZER LOADER Spoke with . Luis Alejandro regarding ROBOTIC ASSISTED VENTRAL MESH RECTOPEXY , POSSIBLE OPEN. The patient was informed that she would receive a call from the surgery department the day prior to surgery to confirm time of arrival. The patient was given detailed instructions about where and when to check in the day of surgery. Pre op paperwork describing the pre operative instructions has been given to the patient and reviewed in detail. Informed pt that we will see her 2 weeks post op. The patient has been informed of the medications that need to be stopped 7-10 days prior to surgery and the NPO requirements starting at midnight the night before surgery. Also informed that a production truck driver will need to accompany pt due to the influence of anesthesia including narcotics post procedure. Informed pt that the PAT department will call to schedule pre operative appointment which will include lab work, medication review, health history, anesthesia/ surgical history, and any other additional recommended testing. The patient verbalized understanding of the information given. The patient was encouraged to call with any questions or concerns. in this encounter Progress Notes * Kane Ya DO - 08/07/2017 10:45 AM DEVULCANIZER LOADER Formatting of this note may be different from the original. Name: Luis Alejandro : 1955 AGE: 62 y.o. DATE OF SERVICE: 08/07/2017 Subjective: Reason for Visit: RECURRENT PROLAPSE Heme/Onc Care Luis Alejandro is a 62 y.o. female. No matching [...] decreased Past Surgical History: Procedure Laterality Date [place] ANORECTAL MANOMETRY N/A 01/23/2017 ARM on a [...] Years of education: N/A Occupational History [employer] Social History Main Topics Smoking status: Former [...] her questions were answered. in this encounter Plan of Treatment Not on fileas of this encounter Visit Diagnoses Diagnosis Rectal prolapse
--- OUTSIDE RECORDS SUMMARY | 2017-09-14 11:08 | XMS REPORT | Continuity of Care Document ---
Author Author [facility] Organization [facility] Address Unknown Phone Unavailable Allergies Active Description Code Type Severity Reaction Onset Reported/Identified Relationship to Patient Clinical Status Yes nisoldipine [id number] Drug Allergy Unknown N/A 04/30/2010 Yes Sulfa (Sulfonamide Antibiotics) [id number] Drug Allergy Unknown N/A 2009 Medications There [...] OTHER IRON DEFICIENCY ANEMIAS 04/11/2016 KAREN ARIAS VISHNU Ot E55.9 VITAMIN D DEFICIENCY, UNSPECIFIED 04/11/2016 [...] Ot V70.0 ROUTINE MEDICAL EXAM 05/09/2016 SYDNEE JOENS DOI Ot 272.0 PURE HYPERCHOLESTEROLEM 05/09/2016 KAREN [...] Ot D50.8 OTHER IRON DEFICIENCY ANEMIAS 05/09/2016 JONES DO, VISHNU Ot E55.9 VITAMIN D DEFICIENCY, UNSPECIFIED 05/09/2016 JONES DO, VISHNU Ot E78.1 PURE HYPERGLYCERIDEMIA 05/09/2016 JONES DO VISHNU Ot Z00.00 ENCNTR FOR GENERAL ADULT MEDICAL EXAM W/ 05/09/2016 GUILLERMO SAUCEDO, DISHA Calixto Ot R63.4 ABNORMAL WEIGHT LOSS 05/09/2016 GUILLERMO SAUCEDO, DISHA M Ot Z01.818 ENCOUNTER FOR OTHER PREPROCEDURAL EXAMIN 05/09/2016 GUILLERMO SAUCEDO, DISHA M Ot K29.70 GASTRITIS, UNSPECIFIED, WITHOUT BLEEDING 05/09/2016 GUILLERMO SAUCEDO, DISHA M Ot R63.4 ABNORMAL WEIGHT LOSS 05/15/2016 GUILLERMO SAUCEDO, DISHA M Ot R10.13 EPIGASTRIC PAIN 05/15/2016 GUILLERMO SAUCEDO, DISHA Calixto Ot R63.4 ABNORMAL WEIGHT LOSS 05/15/2016 GUILLERMO SAUCEDO, DISHA M Ot Z80.0 FAMILY HISTORY OF MALIGNANT NEOPLASM OF 05/16/2016 GUILLERMO SAUCEDO, DISHA M Ot K29.70 GASTRITIS, UNSPECIFIED, WITHOUT BLEEDING 05/16/2016 GUILLERMO SAUCEDO, DISHA M Ot R63.4 ABNORMAL WEIGHT LOSS 07/28/2016 JONES DO, VISHNU Ot R30.9 PAINFUL MICTURITION, UNSPECIFIED 01/13/2017 CARLOS LOZOYA Ot D50.9 IRON DEFICIENCY ANEMIA, UNSPECIFIED 02/23/2017 JONES DO, VISHNU Ot E78.00 PURE HYPERCHOLESTEROLEMIA, UNSPECIFIED 02/23/2017 JONES DO, VISHNU Ot E78.1 PURE HYPERGLYCERIDEMIA 02/26/2017 JONES DO, VISHNU Ot E78.00 PURE HYPERCHOLESTEROLEMIA, UNSPECIFIED 02/26/2017 JONES DO, VISHNU Ot E78.1 PURE HYPERGLYCERIDEMIA 03/03/2017 JONES DO, VISHNU Ot D50.8 OTHER IRON DEFICIENCY ANEMIAS 07/07/2017 YVONNE MCKEE CHILDREN'S SERVICE SUPERVISOR Ot K21.9 GASTRO-ESOPHAGEAL REFLUX DISEASE WITHOUT 07/07/2017 YVONNE MCKEE CHILDREN'S SERVICE SUPERVISOR Ot N39.0 URINARY TRACT INFECTION, SITE NOT SPECIF 07/07/2017 YVONNE MCKEE CHILDREN'S SERVICE SUPERVISOR Ot R10.30 LOWER ABDOMINAL PAIN, UNSPECIFIED 07/07/2017 YVONNE MCKEE CHILDREN'S SERVICE SUPERVISOR Ot Z79.82 FCI (CURRENT) USE OF ASPIRIN 07/07/2017 YVONNE MCKEE APRN Ot Z88.2 ALLERGY STATUS TO SULFONAMIDES STATUS 07/07/2017 YVONNE MCKEE APRN Ot Z88.8 ALLERGY STATUS TO OTH DRUG/MEDS/BIOL SUB 07/07/2017 KAREN ARIAS VISHNU Ot R30.9 PAINFUL MICTURITION, UNSPECIFIED 07/09/2017 YVONNE MCKEE APRN Ot K21.9 GASTRO-ESOPHAGEAL REFLUX DISEASE WITHOUT 07/09/2017 YVONNE MCKEE APRN Ot N39.0 URINARY TRACT INFECTION, SITE NOT SPECIF 07/09/2017 YVONNE MCKEE APRN Ot R10.30 LOWER ABDOMINAL PAIN, UNSPECIFIED 07/09/2017 YVONNE MCKEE APRN Ot 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93 DISC DIS NEC/NOS-LUMBAR 08/12/2017 KAREN ARIAS VISHNU Ot 729.5 PAIN IN LIMB 08/12/2017 SYDNEE JONES DOI Ot 272.0 PURE HYPERCHOLESTEROLEM 08/12/2017 KAREN ARIAS VISHNU Ot 401.0 MALIGNANT HYPERTENSION 08/12/2017 VISHNU JONES DO Ot V58.69 OTH MED,LT,CURRENT USE 08/12/2017 SYDNEE JONES DOI Ot 558.9 NONINF GASTROENTERIT NEC 08/12/2017 KAREN ARIAS VISHNU Ot 789.00 ABDOMINAL PAIN, UNSPECIFIED SITE 08/12/2017 SYDNEE JONES DOI Ot 558.9 NONINF GASTROENTERIT NEC 08/12/2017 KAREN ARIAS VISHNU Ot 789.04 ABDOMINAL PAIN, LEFT LOWER QUADRANT 08/12/2017 KAREN ARIAS VISHNU Ot 268.9 VITAMIN D DEFICIENCY NOS 08/12/2017 KAREN ARIAS VISHNU Ot 272.0 PURE HYPERCHOLESTEROLEM 08/12/2017 KAREN ARIAS VISHNU Ot 401.0 MALIGNANT HYPERTENSION 08/12/2017 VISHNU JONES DO Ot V58.69 OTH MED,LT,CURRENT USE 08/12/2017 KAREN ARIAS VISHNU Ot 793.89 OTH (ABN) FINDINGS ON RADIOLOGICAL EXAMI 08/12/2017 Ot 272.0 PURE HYPERCHOLESTEROLEM 08/12/2017 Ot 401.0 MALIGNANT HYPERTENSION 08/12/2017 Ot 496 CHR AIRWAY OBSTRUCT NEC 08/12/2017 Ot V58.69 OTH MED,LT, CURRENT USE 08/12/2017 Ot V70.0 ROUTINE MEDICAL EXAM 08/12/2017 VISHNU JONES DO Ot 272.0 PURE HYPERCHOLESTEROLEM 08/12/2017 KAREN ARIAS VISHNU Ot 401.0 MALIGNANT HYPERTENSION 08/12/2017 KAREN ARIAS VISHNU Ot V58.69 OTH MED,LT,CURRENT USE 08/12/2017 SYDNEE JONES DOI Ot V70.0 ROUTINE MEDICAL EXAM 08/12/2017 SYDNEE JONES DOI Ot Z12.31 ENCNTR SCREEN MAMMOGRAM FOR MALIGNANT NE 08/12/2017 VISHNU JONES DO Ot E55.9 VITAMIN D DEFICIENCY, UNSPECIFIED 08/12/2017 SYDNEE JONES DOI Ot E78.0 PURE HYPERCHOLESTEROLEMIA 08/12/2017 KAREN ARIAS VISHNU Ot E78.1 PURE HYPERGLYCERIDEMIA 08/12/2017 KAREN ARIAS VISHNU Ot R73.9 HYPERGLYCEMIA, UNSPECIFIED 08/12/2017 KAREN ARIAS VISHNU Ot Z00.00 ENCNTR FOR GENERAL ADULT MEDICAL EXAM W/ 08/12/2017 SYDNEE JONES DOI Ot B19.9 UNSPECIFIED VIRAL HEPATITIS WITHOUT HEPA 08/12/2017 KAREN ARIAS VISHNU Ot D50.8 OTHER IRON DEFICIENCY ANEMIAS 08/12/2017 KAREN ARIAS VISHNU Ot E55.9 VITAMIN D DEFICIENCY, UNSPECIFIED 08/12/2017 JONES DO, VISHNU Ot E78.1 PURE HYPERGLYCERIDEMIA 08/12/2017 JONES DO, VISHNU Ot Z00.00 ENCNTR FOR GENERAL ADULT MEDICAL EXAM W/ 08/12/2017 GUILLERMO SAUCEDO, DISHA Calixto Ot R63.4 ABNORMAL WEIGHT LOSS 08/12/2017 GUILLERMO SAUCEDO, DISHA Calixto Ot Z01.818 ENCOUNTER FOR OTHER PREPROCEDURAL EXAMIN 08/12/2017 GUILLERMO SAUCEDO, DISHA Calixto Ot R10.13 EPIGASTRIC PAIN 08/12/2017 GUILLERMO SAUCEDO, DISHA Calixto Ot R63.4 ABNORMAL WEIGHT LOSS 08/12/2017 GUILLERMO SAUCEDO, DISHA Calixto Ot Z80.0 FAMILY HISTORY OF MALIGNANT NEOPLASM OF 08/12/2017 KAREN DO VISHNU Ot R30.9 PAINFUL MICTURITION, UNSPECIFIED 08/12/2017 BELINDA MORGAN Ot R19.8 OTH SYMPTOMS AND SIGNS INVOLVING THE DGS 08/12/2017 BELINDA MORGAN Ot Z12.31 ENCNTR SCREEN MAMMOGRAM FOR MALIGNANT NE 08/12/2017 KENTRELL SAUCEDO, BREANA Guerrero Ot M48.02 SPINAL STENOSIS, CERVICAL REGION 08/12/2017 KENTRELL SAUCEDO, BREANA Guerrero Ot R20.0 ANESTHESIA OF SKIN 08/12/2017 JONES DO, VISHNU Ot D50.8 OTHER IRON DEFICIENCY ANEMIAS 08/12/2017 JONES DO, VISHNU Ot E78.00 PURE HYPERCHOLESTEROLEMIA, UNSPECIFIED 08/12/2017 JONES DO VISHNU Ot K75.9 INFLAMMATORY LIVER DISEASE, UNSPECIFIED 08/12/2017 KAREN DO VISHNU Ot R73.9 HYPERGLYCEMIA, UNSPECIFIED 08/12/2017 JONES DO, VISHNU Ot I97.3 POSTPROCEDURAL HYPERTENSION 08/12/2017 CARLOS LOZOYA Ot D50.9 IRON DEFICIENCY ANEMIA, UNSPECIFIED 08/12/2017 JONES DO, VISHNU Ot E78.00 PURE HYPERCHOLESTEROLEMIA, UNSPECIFIED 08/12/2017 JONES DO, IVSHNU Ot E78.1 PURE HYPERGLYCERIDEMIA 08/12/2017 JONES DO, VISHNU Ot D50.8 OTHER IRON DEFICIENCY ANEMIAS 08/12/2017 JONES DO, VISHNU Ot R30.9 PAINFUL MICTURITION, UNSPECIFIED 08/20/2017 JONES DO VISHNU Ot D50.8 OTHER IRON DEFICIENCY ANEMIAS 08/20/2017 VISHNU JONES DO Ot E78.00 PURE HYPERCHOLESTEROLEMIA, UNSPECIFIED 08/20/2017 VISHNU JONES DO Ot E78.1 PURE HYPERGLYCERIDEMIA 08/20/2017 VISHNU JONES DO Ot R73.9 HYPERGLYCEMIA, UNSPECIFIED 08/20/2017 VISHNU JONES DO Ot Z00.00 ENCNTR FOR GENERAL ADULT MEDICAL EXAM W/ Procedures There is no data. Results Test [...] culture - 07/06/17 17:40 Bacterial urine culture [id number] NRG COLONY COUNT >100,000/ML NR Bacterial susceptibility panel - 07/06/17 17:40 Gentamicin susceptibility test by minimum inhibitory concentration < = NRG Trimethoprim/sulfamethoxazole susceptibility test by minimum inhibitoryconcentration S NRG Ampicillin susceptibility test by minimum inhibitory concentration > = NRG Tobramycin susceptibility test by minimum inhibitory concentration < = NRG Cefazolin susceptibility test by minimum inhibitory concentration 16 NRG Ceftriaxone susceptibility test by minimum inhibitory concentration <= NRG Ampicillin/sulbactam susceptibility test by minimum inhibitory concentration R NRG Piperacillin/tazobactam susceptibility test by minimum inhibitory concentration S NRG Ciprofloxacin susceptibility test by minimum inhibitory concentration <= NRG Meropenem susceptibility test by minimum inhibitory concentration < = NRG Nitrofurantoin susceptibility test by minimum inhibitory concentration <= NRG Aztreonam susceptibility test by minimum inhibitory concentration < = NRG Extended spectrum beta lactamase (ESBL) producing bacteria susceptibility test by minimum inhibitory concentration - NR Complete blood count (CBC) with automated white blood cell (WBC) differential - 07/07/17 10:27 Blood leukocytes automated count (number/volume) 9.4 10*3/uL 4.3-11.0 Blood erythrocytes automated count (number/volume) 3.96 10*6/uL 4.35-5.85 Venous blood hemoglobin measurement (mass/volume) 12.8 g/dL 11.5-16.0 Blood hematocrit (volume fraction) 36 % 35-52 Automated erythrocyte mean corpuscular volume 91 [foz_us] 80-99 Automated erythrocyte mean corpuscular hemoglobin (mass per erythrocyte) 32 pg 25-34 Automated erythrocyte mean corpuscular hemoglobin concentration measurement ( mass/volume) 35 g/dL 32-36 Automated erythrocyte distribution width ratio 12.0 % 10.0-14.5 Automated blood platelet count (count/volume) 250 10*3/uL 130-400 Automated blood platelet mean volume measurement 9.3 [foz_us] 7.4-10.4 Automated blood neutrophils/100 leukocytes 86 % 42-75 Automated blood lymphocytes/100 leukocytes 7 % 12-44 Blood monocytes/100 leukocytes 7 % 0-12 Automated blood eosinophils/100 leukocytes 0 % 0-10 Automated blood basophils/100 leukocytes 0 % 0-10 Blood neutrophils automated count (number/volume) 8.1 10*3 1.8-7.8 Blood lymphocytes automated count (number/volume) 0.7 10*3 1.0-4.0 Blood monocytes automated count (number/volume) 0.6 10*3 0.0-1.0 Automated eosinophil count 0.0 10*3/uL 0.0-0.3 Automated blood basophil count (count/volume) 0.0 10*3/uL 0.0-0.1 Blood manual differential performed detection - 07/07/17 10:27 Blood monocytes/100 leukocytes 3 % NRG Manual blood segmented neutrophils/100 leukocytes 88 % NRG Blood band neutrophils/100 leukocytes 1 % NRG Manual blood lymphocytes/100 leukocytes 8 % NRG Manual eosinophils/100 leukocytes in nose 0 % NRG Manual blood basophils/100 leukocytes 0 % NRG Blood erythrocyte morphology finding identification [facility] Comprehensive metabolic panel - 07/07/17 10:27 Serum or plasma sodium measurement (moles/volume) 132 mmol/L 135-145 Serum or plasma potassium measurement (moles/volume) 3.5 mmol/L 3.6-5.0 Serum or plasma chloride measurement (moles/volume) 96 mmol/L 98-107 Carbon dioxide 28 mmol/L 21-32 Serum or plasma anion gap determination (moles/volume) 8 mmol/L 5-14 Serum or plasma urea nitrogen measurement (mass/volume) 9 mg/dL 7-18 Serum or plasma creatinine measurement (mass/volume) 0.70 mg/dL 0.60-1.30 Serum or plasma urea nitrogen/creatinine mass ratio 13 NRG Serum or plasma creatinine measurement with calculation of estimated glomerular filtration rate > NRG Serum or plasma glucose measurement (mass/volume) 102 mg/dL 70-105 Serum or plasma calcium measurement (mass/volume) 8.9 mg/dL 8.5-10.1 Serum or plasma total bilirubin measurement (mass/volume) 0.6 mg/dL 0.1-1.0 Serum or plasma alkaline phosphatase measurement (enzymatic activity/volume) 80 U/L 40-136 Serum or plasma aspartate aminotransferase measurement (enzymatic activity/ volume) 14 U/L 5-34 Serum or plasma alanine aminotransferase measurement (enzymatic activity/volume ) 25 U/L 0-55 Serum or plasma protein measurement (mass/volume) 6.1 g/dL 6.4-8.2 Serum or plasma albumin measurement (mass/volume) 3.7 g/dL 3.2-4.5 Complete blood count (CBC) with automated white blood cell (WBC) differential - 08/19/17 09:59 Blood leukocytes automated count (number/volume) 5.3 10*3/uL 4.3-11.0 Blood erythrocytes automated count (number/volume) 4.29 10*6/uL 4.35-5.85 Venous blood hemoglobin measurement (mass/volume) 13.9 g/dL 11.5-16.0 Blood hematocrit (volume fraction) 39 % 35-52 Automated erythrocyte mean corpuscular volume 92 [foz_us] 80-99 Automated erythrocyte mean corpuscular hemoglobin (mass per erythrocyte) 32 pg 25-34 Automated erythrocyte mean corpuscular hemoglobin concentration measurement ( mass/volume) 35 g/dL 32-36 Automated erythrocyte distribution width ratio 12.6 % 10.0-14.5 Automated blood platelet count (count/volume) 253 10*3/uL 130-400 Automated blood platelet mean volume measurement 10.0 [foz_us] 7.4-10.4 Automated blood neutrophils/100 leukocytes 57 % 42-75 Automated blood lymphocytes/100 leukocytes 29 % 12-44 Blood monocytes/100 leukocytes 11 % 0-12 Automated blood eosinophils/100 leukocytes 3 % 0-10 Automated blood basophils/100 leukocytes 1 % 0-10 Blood neutrophils automated count (number/volume) 3.0 10*3 1.8-7.8 Blood lymphocytes automated count (number/volume) 1.5 10*3 1.0-4.0 Blood monocytes automated count (number/volume) 0.6 10*3 0.0-1.0 Automated eosinophil count 0.2 10*3/uL 0.0-0.3 Automated blood basophil count (count/volume) 0.0 10*3/uL 0.0-0.1 Comprehensive metabolic panel - 08/19/17 09:59 Serum or plasma sodium measurement (moles/volume) 135 mmol/L 135-145 Serum or plasma potassium measurement (moles/volume) 3.7 mmol/L 3.6-5.0 Serum or plasma chloride measurement (moles/volume) 97 mmol/L 98-107 Carbon dioxide 29 mmol/L 21-32 Serum or plasma anion gap determination (moles/volume) 9 mmol/L 5-14 Serum or plasma urea nitrogen measurement (mass/volume) 8 mg/dL 7-18 Serum or plasma creatinine measurement (mass/volume) 0.78 mg/dL 0.60-1.30 Serum or plasma urea nitrogen/creatinine mass ratio 10 NRG Serum or plasma creatinine measurement with calculation of estimated glomerular filtration rate > NRG Serum or plasma glucose measurement (mass/volume) 109 mg/dL 70-105 Serum or plasma calcium measurement (mass/volume) 8.9 mg/dL 8.5-10.1 Serum or plasma total bilirubin measurement (mass/volume) 0.6 mg/dL 0.1-1.0 Serum or plasma alkaline phosphatase measurement (enzymatic activity/volume) 77 U/L 40-136 Serum or plasma aspartate aminotransferase measurement (enzymatic activity/ volume) 18 U/L 5-34 Serum or plasma alanine aminotransferase measurement (enzymatic activity/volume ) 22 U/L 0-55 Serum or plasma protein measurement (mass/volume) 6.4 g/dL 6.4-8.2 Serum or plasma albumin measurement (mass/volume) 4.1 g/dL 3.2-4.5 Lipid 1996 panel - 08/19/17 09:59 Serum or plasma triglyceride measurement (mass/volume) 69 mg/dL <150 Serum or plasma cholesterol measurement (mass/volume) 195 mg/dL < 200 Serum or plasma cholesterol in HDL measurement (mass/volume) 68 mg/ dL 40-60 Cholesterol in LDL [mass/volume] in serum or plasma by direct assay 111 mg/dL 1-129 Serum or plasma cholesterol in VLDL measurement (mass/volume) 14 mg/ dL 5-40 Serum or plasma ferritin measurement (mass/volume) - 08/19/17 09:59 Serum or plasma ferritin measurement (mass/volume) 222.0 % 15.0-150.0 Encounters ACCT No. Visit Date/Time Discharge Status Pt. Type Provider Facility Loc./Unit Complaint [id number] 08/19/2017 09:52:00 08/19/2017 23:59:59 CLS Outpatient JONES DO, VISHNU [facility] LAB [id number] 07/07/2017 09:42:00 07/07/2017 12:15:00 DIS Emergency YVONNE MCKEE APRN [facility] ER LOW PELVIC PAIN,LOW BACK PAIN,CANNOT URINATE [id number] 07/06/2017 16:26:00 07/06/2017 23:59:59 CLS Outpatient JONES DO, VISHNU [facility] LAB [id number] 02/25/2017 12:55:00 02/25/2017 23:59:59 CLS Outpatient JONES DO, VISHNU [facility] [id number] 02/20/2017 13:50:00 02/20/2017 23:59:59 CLS Outpatient JONES DO, VISHNU [facility] LAB E78.00,E78.1,Z00.00 [id number] 01/14/2017 00:10:00 01/14/2017 23:59:59 CLS Preadmit CARLOS LOZOYA [facility] ONC [id number] 10/22/2016 15:52:00 01/13/2017 00:01:00 DIS Outpatient CARLOS LOZOYA [facility] ONC [id number] 10/21/2016 13:12:00 10/21/2016 23:59:59 CLS Outpatient JONES DO, VISHNU [facility] CARD I97.3 POSTPROCEDURAL HYPERTENSION [id number] 09/26/2016 15:22:00 09/26/2016 23:59:59 CLS Outpatient BREANA PFEIFFER MD [facility] RAD M48.02,R20.0 [id number] 09/25/2016 14:08:00 09/25/2016 23:59:59 CLS Outpatient JONES DO, VISHNU [facility] LAB [id number] 09/12/2016 14:48:00 09/12/2016 23:59:59 CLS Outpatient EDDIE BELINDAWilli DOMINGUEZ [facility] RAD RLQ FULLNESS [id number] 07/22/2016 16:11:00 07/22/2016 23:59:59 CLS Outpatient JONES DO, VISHNU [facility] [id number] 05/12/2016 14:14:00 05/12/2016 23:59:59 CLS Outpatient DISHA LI MD [facility] RAD UPPER ABDOMINAL PAIN, WEIGHT LOSS [id number] 05/09/2016 14:36:00 05/09/2016 16:45:00 DIS Outpatient DISHA LI MD [facility] SDC WEIGHT LOSS [id number] 05/08/2016 13:29:00 05/08/2016 23:59:59 CLS Outpatient DISHA LI MD [facility] PREOP WEIGHT LOSS [id number] 04/10/2016 08:03:00 04/10/2016 23:59:59 CLS Outpatient JONES DO, VISHNU [facility] [id number] 09/13/2015 09:10:00 09/13/2015 23:59:59 CLS Outpatient JONSE DO, VISHNU [facility] [id number] 06/29/2015 11:13:00 06/29/2015 23:59:59 CLS Outpatient JONES DO, VISHNU [facility] SCREENING [id number] 01/30/2015 09:28:00 01/30/2015 23:59:59 CLS Outpatient JONES DO, VISHNU [facility] [id number] 03/22/2014 13:10:00 03/22/2014 23:59:59 CLS Outpatient JONES DO, VISHNU [facility] RAD 12 MONTH F/U ABNORMAL MAMMO [id number] 01/31/2014 10:56:00 01/31/2014 23:59:59 CLS Outpatient JONES DO, VISHNU [facility] [id number] 09/13/2013 14:37:00 09/13/2013 23:59:59 CLS Outpatient JONES DO, VISHNU [facility] RAD ABD PAIN [id number] 09/08/2013 16:21:00 09/08/2013 23:59:59 CLS Outpatient JONES DO, VISHNU [facility] ABD PAIN [id number] 08/02/2013 09:23:00 08/02/2013 23:59:59 CLS Outpatient JONES DO, VISHNU [facility] [id number] 03/11/2013 08:00:00 03/11/2013 23:59:59 CLS Outpatient JONES DO, VISHNU [facility] RAD ABNORMAL MAMMO [id number] 03/04/2013 12:32:00 03/04/2013 23:59:59 CLS Outpatient JONES DO, VISHNU [facility] RAD L SIDED RADICULOPATHY, LEG PAIN [id number] 11/29/2012 14:51:00 11/29/2012 23:59:59 CLS Outpatient JONES DO, VISHNU [facility] [id number] 07/31/2014 16:40:00 Document Registration [id number] 06/30/2012 08:18:00 Document Registration [id number] 05/26/2012 08:24:00 Document Registration [id number] 02/11/2012 07:41:00 Document Registration [id number] 01/30/2012 13:50:00 Document Registration [id number] 01/19/2012 08:51:00 Document Registration [id number] 12/06/2011 21:17:00 Document Registration [id number] 09/09/2011 08:17:00 Document Registration [id number] 09/08/2011 09:04:00 Document Registration [id number] 05/22/2011 11:02:00 Document Registration [id number] 04/14/2011 08:14:00 Document Registration [id number] 03/28/2011 15:59:00 Document Registration [id number] 03/27/2011 08:42:00 Document Registration [id number] 01/24/2011 15:25:00 Document Registration [id number] 01/20/2011 12:32:00 Document Registration [id number] 10/09/2010 06:29:00 Document Registration [id number] 10/02/2010 13:25:00 Document Registration [id number] 04/29/2010 14:37:00 Document Registration [id number] 04/29/2010 07:41:00 Document Registration [id number] 04/25/2010 10:26:00 Document Registration [id number] 04/25/2010 09:56:00 Document Registration [id number] 01/18/2010 12:52:00 Document Registration
[2017-09-14] MEDS ORDERED: NS IV 1000 ML 1,000 ML IV ONE (11:09)
[2017-09-14] MEDS ORDERED: fentaNYL INJECTION 100 MCG/2 ML AMP IVP STA (11:09)
[2017-09-14] MEDS ORDERED: PROMETHAZINE INJ 25 MG/ML (PHENERGAN) AMP ONE (11:21)
[2017-09-14] MEDS ORDERED: DRON2.5C11 PO (11:22)
[2017-09-14] MEDS ORDERED: [UNRECOGNIZED DRUG - OTHER] PO (11:22)
[2017-09-14 11:37] LABS: BASOPHILS # (AUTO) 0.1 10^3/uL (0.0-0.1); BASOPHILS % (AUTO) 1 % (0-10); EOSINOPHILS # (AUTO) 0.5 10^3/uL (0.0-0.3); EOSINOPHILS % (AUTO) 11 % (0-10); HEMATOCRIT 37 % (35-52); HEMOGLOBIN 12.9 G/DL (11.5-16.0); LYMPHOCYTES # (AUTO) 1.5 X 10^3 (1.0-4.0); LYMPHOCYTES % (AUTO) 32 % (12-44); MEAN CORPUSCULAR HEMOGLOBIN 32 PG (25-34); MEAN CORPUSCULAR HGB CONC 35 G/DL (32-36); MEAN CORPUSCULAR VOLUME 92 FL (80-99); MEAN PLATELET VOLUME 9.4 FL (7.4-10.4); MONOCYTES # (AUTO) 0.4 X 10^3 (0.0-1.0); MONOCYTES % (AUTO) 9 % (0-12); NEUTROPHILS # (AUTO) 2.2 X 10^3 (1.8-7.8); NEUTROPHILS % (AUTO) 48 % (42-75); PLATELET COUNT 172 10^3/uL (130-400); RED BLOOD COUNT 4.07 10^6/uL (4.35-5.85); RED CELL DISTRIBUTION WIDTH 12.7 % (10.0-14.5); WHITE BLOOD COUNT 4.6 10^3/uL (4.3-11.0)
--- NOTE | 2017-09-14 11:45 | ED Abdominal Pain ---
General Chief Complaint: Abdominal/GI Problems Stated Complaint: ABD PAIN,BACK PAIN Nursing Triage Note: PT CO OF ABD PAIN IN R LOWER QUAD, PT STATES STARTED A COUPLE DAYS AGO. HAS HAD RECENT SURG RECTOPLEXY SEPTEMBER 03. Sepsis Screen: No Definite Risk Source of Information: Patient Exam Limitations: No Limitations History of Present Illness Date Seen by Provider: Sep 14, 2017 Time Seen by Provider: 11:28 Initial Comments Here with report of abdominal pain in the right lower quadrant area. She did have rectopexy on September 03 via robotic-assisted laparoscopic surgery. She did arrive for a couple days after that and then started declining afterwards. Does have some nausea but no vomiting. Pain has worsened steadily and now is radiating to her back on the right side. Has not had appendectomy. Did have urinary tract infection in June which was Escherichia coli positive. Denies fever or chills. She has been passing stools. Timing/Duration: 6-7 Days, Getting Worse Severity/Quality: Moderate, Aching Location: RUQ, RLQ Radiation: Back Activities at Onset: None Modifying Factors: Worsens With Movement; Improves With Resting Associated Symptoms: Back Pain; No Chest Pain, No Fever/Chills; Nausea/Vomiting ; No Shortness of Air, No Swelling/Mass in Abdomen, No Weakness Allergies and Home Medications Allergies Coded Allergies: Sulfa (Sulfonamide Antibiotics) (Unverified Allergy, Unknown, 04/30/10) nisoldipine (Unverified Allergy, Unknown, 04/30/10) Home Medications Alprazolam 0.5 Mg Tablet, 0.5 MG PO HS, (Reported) Amlodipine Besylate 5 Mg Tablet, 2.5 MG PO DAILY, (Reported) Aspirin 81 Mg Tabec, 81 MG PO DAILY, (Reported) Budesonide/Formoterol Fumarate 10.2 Gm Hfa.aer.ad, 10.2 GM IH BID, (Reported) 2 PUFFS Ca Cmb No.1/Vit D3/B-6/Fa/B12 1 Each Tablet, 2,000 UNIT PO DAILY, (Reported) Calcium Carbonate/Vitamin D3 1 Tab Tablet, 1 TAB PO DAILY, (Reported) Cetirizine Hcl 10 Mg Tablet, 10 MG PO DAILY, (Reported) Duloxetine Hcl 60 Mg Capsule.dr, 60 MG PO DAILY, (Reported) Esomeprazole Mag Trihydrate 40 Mg Capsule.dr, 1 CAP PO DAILY, (Reported) Glucosamine Sulfate 750 Mg Tablet, 1,500 MG PO DAILY, (Reported) Ibuprofen/Diphenhydramine 1 Each Tablet, 2 TAB PO HS, (Reported) Lisinopril 10 Mg Tablet, 10 MG PO DAILY, (Reported) Montelukast Sodium 10 Mg Tablet, 10 MG PO DAILY, (Reported) Monarch-3/Dha/Epa/Fish Oil 1,000 Mg Capsule, 1,000 MG PO DAILY, (Reported) Promethazine Hcl 25 Mg/Supp.rect Supp.rect, 1 SUPP IA QID PRN FOR NAUSEA AND VOMITING Prescribed by: LUIS ROMAN on 12/07/11 0028 Ranitidine Hcl 150 Mg Tablet, 300 MG PO HS, (Reported) Simvastatin 10 Mg Tab, 10 MG PO HS, (Reported) Triamterene/Hctz 1 Each Capsule, 1 EACH PO DAILY, (Reported) [Pimbrinate] , Unknown Dose PO HS, (Reported) Patient Home Medication List Home Medication List Reviewed: Yes Review of Systems Constitutional: see HPI; No chills, No fever EENTM: No Symptoms Reported Respiratory: No Symptoms Reported Cardiovascular: No Symptoms Reported Gastrointestinal: See HPI, Abdominal Pain; Denies Diarrhea; Nausea Genitourinary: No Symptoms Reported Musculoskeletal: see HPI, back pain; No muscle cramps Skin: no symptoms reported Psychiatric/Neurological: No Symptoms Reported All Other Systems Reviewed Negative Unless Noted: Yes Past Duhehzd-Rywjjr-Eolphp Hx Past Med/Social Hx: Reviewed Nursing Past Med/Soc Hx Patient Social History Alcohol Use: Rarely Uses Recreational Drug Use: No Smoking Status: Never a Smoker Recent Foreign Travel: No Contact w/Someone Who Travel: No Recent Infectious Disease Expo: No Recent Hopitalizations: No Physical Abuse: No Sexual Abuse: No Immunizations Up To Date Date of Pneumonia Vaccine: Mar 08, 2003 Date of Influenza Vaccine: Mar 08, 2011 Seasonal Allergies Seasonal Allergies: No Past Medical History Surgeries: Yes (NIRANJAN; RE-DO NIRANJAN) Respiratory: No Cardiac: No Neurological: No Reproductive Disorders: No Female Reproductive Disorders: Denies Sexually Transmitted Disease: No Gastrointestinal: Yes Gastroesophageal Reflux Musculoskeletal: No Endocrine: No Cancer: No Psychosocial: No Nursing Suicide Risk Score: 0 Integumentary: No Blood Disorders: No Family Medical History Reviewed Nursing Family Hx No Pertinent Family Hx Physical Exam Vital Signs Vital Signs - First Documented 4/9/18 11:00 Temp 97.5 Pulse 71 Resp 18 B/P (MAP) 132/87 (102) Pulse Ox 97 Capillary Refill : Less Than 3 Seconds General Appearance: WD/WN, no apparent distress HEENT: PERRL/EOMI, pharynx normal Neck: full range of motion, supple Respiratory: lungs clear, normal breath sounds Cardiovascular: regular rate, rhythm, no murmur Gastrointestinal: soft; No guarding, No rebound; tenderness (central right sided abdomen), other (postoperative laparoscopic wound to the anterior abdomen clean, dry and intact without signs of symptoms of infection.) Extremities: non-tender, normal inspection Back: normal inspection, no CVA tenderness, no vertebral tenderness Neurologic/Psychiatric: alert, oriented x 3 Skin: normal color, warm/dry Progress/Results/Core Measures Lab Results Laboratory Tests Test 09/14/17 11:05 09/14/17 11:32 09/14/17 12:20 Range/Units Sodium Level 130 L 135-145 MMOL/L Potassium Level 4.0 3.6-5.0 MMOL/L Chloride Level 98 98-107 MMOL/L Carbon Dioxide Level 21 21-32 MMOL/L Anion Gap 11 5-14 MMOL/L Blood Urea Nitrogen 8 7-18 MG/DL Creatinine 0.69 0.60-1.30 MG/DL Estimat Glomerular Filtration Rate > 60 BUN/Creatinine Ratio 12 Glucose Level 93 70-105 MG/DL Calcium Level 8.6 8.5-10.1 MG/DL Total Bilirubin 0.4 0.1-1.0 MG/DL Aspartate Amino Transf (AST/SGOT) 23 5-34 U/L Alanine Aminotransferase (ALT/SGPT) 28 0-55 U/L Alkaline Phosphatase 73 40-136 U/L C-Reactive Protein High Sensitivity 0.25 0.00-0.50 MG/DL Total Protein 6.0 L 6.4-8.2 GM/DL Albumin 3.8 3.2-4.5 GM/DL White Blood Count 4.6 4.3-11.0 10^3/uL Red Blood Count 4.07 L 4.35-5.85 10^6/uL Hemoglobin 12.9 11.5-16.0 G/DL Hematocrit 37 35-52 % Mean Corpuscular Volume 92 80-99 FL Mean Corpuscular Hemoglobin 32 25-34 PG Mean Corpuscular Hemoglobin Concent 35 32-36 G/DL Red Cell Distribution Width 12.7 10.0-14.5 % Platelet Count 172 130-400 10^3/uL Mean Platelet Volume 9.4 7.4-10.4 FL Neutrophils (%) (Auto) 48 42-75 % Lymphocytes (%) (Auto) 32 12-44 % Monocytes (%) (Auto) 9 0-12 % Eosinophils (%) (Auto) 11 H 0-10 % Basophils (%) (Auto) 1 0-10 % Neutrophils # (Auto) 2.2 1.8-7.8 X 10^3 Lymphocytes # (Auto) 1.5 1.0-4.0 X 10^3 Monocytes # (Auto) 0.4 0.0-1.0 X 10^3 Eosinophils # (Auto) 0.5 H 0.0-0.3 10^3/uL Basophils # (Auto) 0.1 0.0-0.1 10^3/uL Urine Color YELLOW Urine Clarity CLEAR Urine pH 8 5-9 Urine Specific [place] 1.015 L 1.016-1.022 Urine Protein NEGATIVE NEGATIVE Urine Glucose (UA) NEGATIVE NEGATIVE Urine Ketones NEGATIVE NEGATIVE Urine Nitrite NEGATIVE NEGATIVE Urine Bilirubin NEGATIVE NEGATIVE Urine Urobilinogen NORMAL NORMAL MG/DL Urine Leukocyte Esterase 3+ H NEGATIVE Urine RBC (Auto) NEGATIVE NEGATIVE Urine RBC RARE /HPF Urine WBC 2-5 /HPF Urine Squamous Epithelial Cells 2-5 /HPF Urine Crystals NONE /LPF Urine Bacteria TRACE /HPF Urine Casts NONE /LPF Urine Mucus NEGATIVE /LPF Urine Culture Indicated YES Micro Results Microbiology 09/14/17 Urine Culture - Preliminary, Resulted Escherichia coli Probable Enterococcus Species Strep Or Related Genus My Orders Orders - MESERET KULKARNI MD Cbc With Automated Diff (09/14/17 11:09) Comprehensive Metabolic Panel (09/14/17 11:09) Hs C Reactive Protein (09/14/17 11:09) Ua Culture If Indicated (09/14/17 11:09) Saline Lock/Iv-Start (09/14/17 11:09) Ns Iv 1000 Ml (Sodium Chloride 0.9%) (09/14/17 11:09) Fentanyl Injection (Sublimaze Injection (09/14/17 11:09) Promethazine Injection (Phenergan Injec (09/14/17 11:21) Ct Abdomen/Pelvis W (09/14/17 12:14) Iohexol Injection (Omnipaque 350 Mg/Ml 1 (09/14/17 12:30) Ns (Ivpb) (Sodium Chloride 0.9%) (09/14/17 12:30) Pharmacy Communication (Pharmacy Communi (09/14/17 12:22) Urine Culture (09/14/17 12:20) Promethazine Injection (Phenergan Injec (09/14/17 13:17) Ketorolac Injection (Toradol Injection) (09/14/17 13:17) Morphine Injection (Morphine Injection (09/14/17 13:17) Medications Given in ED Vital Signs/I&O 09/14/17 09/14/17 11:00 14:11 Temp 97.5 Pulse 71 80 Resp 18 18 B/P (MAP) 132/87 (102) 118/78 (102) Pulse Ox 97 95 Blood Pressure Mean: 102 Progress Note : Progress Note Seen and evaluated. IV, labs, normal saline 1 L bolus, fentanyl 75 g IV and Phenergan 12.5 mg IV ordered. Monitor patient. CT abdomen pelvis ordered. Repeat dosing of Phenergan 12.5 mg IV ordered. Morphine 8 mg IV and Toradol 30 mg IV ordered. I did discuss the case with Dr. Ya, surgeon at , at 1327 and reviewed the case and results. Apparently patient did have intraoperative injection around the surgical site and that pain medicine would have lasted a few days and then started to wear off and this may be why she started feeling the pain at that time and has worsened some since. He recommends continued no lifting and no straining and follow-up as needed. All this was discussed with the patient and family who agree and are much more comfortable now with the CT results. Pain is improved. Discharged home with return precautions. Patient and family verbalize understanding of instructions and agreement with plan. Diagonstic Imaging: CT Plain Films/CT/US/NM/MRI: abdomen, pelvis Comments VIA [facility]. [place], [place] NAME: [facility] REC#: [id number] PT STATUS: REG ER : [id number] PHYSICIAN: MESERET KULKARNI MD ADMIT DATE: 09/14/17/ER Draft Date of Exam:09/14/17 CT ABDOMEN/PELVIS W PROCEDURE: CT abdomen and pelvis with contrast. TECHNIQUE: Multiple contiguous axial images were obtained through the abdomen and pelvis after administration of intravenous contrast. INDICATION: Pain, nausea, previous surgeries to the rectosigmoid; most recently September 03, 2017. FINDINGS: There is presumed postoperative edema in the pelvis with thickening of the mesorectal fascia bilaterally, becoming inseparable from the cervix and superiorly dissecting to terminate ventral to the lumbosacral junction where there were few tiny bubbles of air. These are presumptively on a postsurgical basis and no findings that were felt suggestive of an abscess or drainable fluid collection are found at this time. The edematous and inflammatory changes are well separable from the postoperative sigmoid colon itself without evidence suggestive of anastomotic leak, breakdown, or obstruction. There is no free intraperitoneal air. A subcutaneous distortion and a small amount of nonloculated fluid in the subcutaneous fat of the right upper quadrant is presumed a port site for laparoscopic-assisted surgery. No evidence for rectus sheath hematoma. There are no findings of abdominal intra or retroperitoneal hemorrhage. There is no contrast extravasation. The urinary tracts are unobstructed, the urinary bladder appeared intact without extravasation. The appendix is normal. There is no evidence for ileus or bowel obstruction. There is a mildly elevated proximal colonic fecal load, likely insignificant. There are few hepatic cysts, stable, simple, and benign. There is a tiny hiatal hernia, stable. Spleen and adrenals are negative. The pancreas appeared homogeneous and showed normal enhancement. No pancreatic mass or nodule. There is no abdominopelvic mesenteric or retroperitoneal lymphadenopathy. No bony destructive process. The lung bases were nonacute. IMPRESSION: Pelvic infiltration and edema, likely on a postoperative basis without loculated formed or drainable fluid collection to suggest an abscess. No free air, bowel, biliary, or urinary tract obstruction. No findings of an anastomotic leak or breakdown. Borderline proximal colonic constipation. Fatty umbilical hernia, chronic. Presumed postoperative change to the right upper quadrant subcutaneous fat without rectus sheath collection. Pertinent results discussed by phone with the ER physician prior to this dictation. Dictated on workstation # [id number] Dict: 09/14/17 1249 Trans: 09/14/17 1332 [id number] Interpreted by: MACIEL TURNER Electronically signed by: Departure Communication (Admissions) 09/16/17 at 0 900: I did review the urine culture results. Escherichia coli and enterococcus species noted. I have talked with the patient and have sent prescription for Macrobid for 7 days which should cover the enterococcus and does cover the Escherichia coli. Patient will pick that up and started this morning. States she is doing about the same. This may assist her with recovery. Impression Primary Impression: Postoperative lower abdominal pain Additional Impression: Urinary tract infection Qualified Codes: N30.00 - Acute cystitis without hematuria Disposition: HOME, SELF-CARE Condition: Stable Departure-Patient Inst. Decision time for Depature: 13:55 Referrals: VISHNU OJNES DO (PCP/Family) Primary Care Physician Patient Instructions: Acute Abdomen (Belly Pain), Adult (DC) Add. Discharge Instructions: All discharge instructions reviewed with patient and/or family. Voiced understanding. Continue home medication regimen. Follow-up with your doctor as scheduled. Return for worsening, fever, vomiting, weakness, breathing problems or other concerns as needed. Your urine culture should be resulted by Thursday I will call you with results and for antibiotic as needed. Scripts Nitrofurantoin Macrocrystal (Nitrofurantoin) 100 Mg Capsule 100 MG PO BID, #14 CAP 0 Refills Prov: MESERET KULKARNI MD 09/16/17 MESERET KULKARNI MD Sep 14, 2017 11:45
[2017-09-14 11:47] LABS: ALANINE AMINOTRANSFERASE 28 U/L (0-55); ALBUMIN 3.8 GM/DL (3.2-4.5); ALKALINE PHOSPHATASE 73 U/L (40-136); BILIRUBIN,TOTAL 0.4 MG/DL (0.1-1.0); BUN/CREATININE RATIO 12; CALCIUM 8.6 MG/DL (8.5-10.1); CARBON DIOXIDE 21 MMOL/L (21-32); CHLORIDE 98 MMOL/L (98-107); CREATININE SERUM 0.69 MG/DL (0.60-1.30); GFR ESTIMATED > 60; GLUCOSE 93 MG/DL (70-105); SODIUM 130 MMOL/L (135-145)
[2017-09-14] MEDS ORDERED: NS 250 ML (IVPB) BAG IV ONE (12:30)
[2017-09-14] MEDS ORDERED: IOHEXOL 350 MG/ML 100 ML (OMNIPAQUE 350) VIAL IV ONE (12:30)
[2017-09-14 12:31] LABS: BILIRUBIN,URINE NEGATIVE (NEGATIVE); CLARITY,URINE CLEAR; COLOR,URINE YELLOW; GLUCOSE, URINE (UA) NEGATIVE (NEGATIVE); KETONES,URINE NEGATIVE (NEGATIVE); LEUKOCYTE ESTERASE ,URINE 3+ (NEGATIVE); NITRITE,URINE NEGATIVE (NEGATIVE); PH,URINE 8 (5-9); PROTEIN,URINE NEGATIVE (NEGATIVE); UROBILINOGEN,URINE NORMAL (NORMAL)
[2017-09-14 13:02] LABS: BACTERIA,URINE TRACE /HPF; RBC,URINE RARE /HPF
[2017-09-14] MEDS ORDERED: morphine INJ 10 MG/ML 1ML (SYR OR VIAL) IVP STA (13:17)
[2017-09-14] MEDS ORDERED: PROMETHAZINE INJ 25 MG/ML (PHENERGAN) AMP IVP STA (13:17)
[2017-09-14] MEDS ORDERED: KETOROLAC 30 MG/ML VIAL IVP STA (13:17)
--- NOTE | 2017-09-14 13:32 | Diagnostic Imaging Report ---
PROCEDURE: CT abdomen and pelvis with contrast. TECHNIQUE: Multiple contiguous axial images were obtained through the abdomen and pelvis after administration of intravenous contrast. INDICATION: Pain, nausea, previous surgeries to the rectosigmoid; most recently September 03, 2017. FINDINGS: There is presumed postoperative edema in the pelvis with thickening of the mesorectal fascia bilaterally, becoming inseparable from the cervix and superiorly dissecting to terminate ventral to the lumbosacral junction where there were few tiny bubbles of air. These are presumptively on a postsurgical basis and no findings that were felt suggestive of an abscess or drainable fluid collection are found at this time. The edematous and inflammatory changes are well separable from the postoperative sigmoid colon itself without evidence suggestive of anastomotic leak, breakdown, or obstruction. There is no free intraperitoneal air. A subcutaneous distortion and a small amount of nonloculated fluid in the subcutaneous fat of the right upper quadrant is presumed a port site for laparoscopic-assisted surgery. No evidence for rectus sheath hematoma. There are no findings of abdominal intra or retroperitoneal hemorrhage. There is no contrast extravasation. The urinary tracts are unobstructed, the urinary bladder appeared intact without extravasation. The appendix is normal. There is no evidence for ileus or bowel obstruction. There is a mildly elevated proximal colonic fecal load, likely insignificant. There are few hepatic cysts, stable, simple, and benign. There is a tiny hiatal hernia, stable. Spleen and adrenals are negative. The pancreas appeared homogeneous and showed normal enhancement. No pancreatic mass or nodule. There is no abdominopelvic mesenteric or retroperitoneal lymphadenopathy. No bony destructive process. The lung bases were nonacute. IMPRESSION: Pelvic infiltration and edema, likely on a postoperative basis without loculated formed or drainable fluid collection to suggest an abscess. No free air, bowel, biliary, or urinary tract obstruction. No findings of an anastomotic leak or breakdown. Borderline proximal colonic constipation. Fatty umbilical hernia, chronic. Presumed postoperative change to the right upper quadrant subcutaneous fat without rectus sheath collection. Pertinent results discussed by phone with the ER physician prior to this dictation. Dictated by: Dictated on workstation # [id number]
[2017-09-14 14:11] VITALS: BP 118/78
[2017-09-16] MEDS ORDERED: NITR100C PO (08:57)
== END 2017-09-14 14:11 | disposition home or self-care (01) ==
LOC: EDUNIT# 10:47 → ER 10:49
DX: G89.18 Other acute postprocedural pain (principal); R10.11 Right upper quadrant pain; R10.31 Right lower quadrant pain; K21.9 Gastro-esophageal reflux disease without esophagitis; Z98.890 Other specified postprocedural states; Z79.82 Long term (current) use of aspirin; Z88.8 Allergy status to other drugs, medicaments and biological substances; Z88.2 Allergy status to sulfonamides
CPT/HCPCS: 36415; 74177; 80053; 81000; 85025; 86141; 87077; 87088; 87186; 96361; 96374; 96375

== ENCOUNTER → 2018-01-04 | Outpatient (CLI) | payer OTHER ==
[~2018-01-04] MED LIST changes: +DRON2.5C11 PO; +NITR100C PO; +[UNRECOGNIZED DRUG - OTHER] PO
[2018-01-04 09:11] LABS: BASOPHILS % (AUTO) 1 % (0-10); EOSINOPHILS # (AUTO) 0.1 10^3/uL (0.0-0.3); EOSINOPHILS % (AUTO) 3 % (0-10); HEMATOCRIT 36 % (35-52); HEMOGLOBIN 13.1 G/DL (11.5-16.0); LYMPHOCYTES # (AUTO) 1.6 X 10^3 (1.0-4.0); LYMPHOCYTES % (AUTO) 32 % (12-44); MEAN CORPUSCULAR HEMOGLOBIN 33 PG (25-34); MEAN CORPUSCULAR HGB CONC 36 G/DL (32-36); MEAN CORPUSCULAR VOLUME 92 FL (80-99); MEAN PLATELET VOLUME 9.5 FL (7.4-10.4); MONOCYTES # (AUTO) 0.5 X 10^3 (0.0-1.0); MONOCYTES % (AUTO) 9 % (0-12); NEUTROPHILS # (AUTO) 2.9 X 10^3 (1.8-7.8); NEUTROPHILS % (AUTO) 57 % (42-75); PLATELET COUNT 223 10^3/uL (130-400); RED BLOOD COUNT 3.95 10^6/uL (4.35-5.85); RED CELL DISTRIBUTION WIDTH 12.5 % (10.0-14.5); WHITE BLOOD COUNT 5.2 10^3/uL (4.3-11.0)
[2018-01-04 09:33] LABS: ALANINE AMINOTRANSFERASE 18 U/L (0-55); ALKALINE PHOSPHATASE 72 U/L (40-136); BILIRUBIN,TOTAL 0.4 MG/DL (0.1-1.0); BUN/CREATININE RATIO 12; CALCIUM 9.2 MG/DL (8.5-10.1); CARBON DIOXIDE 27 MMOL/L (21-32); CHLORIDE 97 MMOL/L (98-107); CHOLESTEROL 188 MG/DL (< 200); CREATININE SERUM 0.74 MG/DL (0.60-1.30); GFR ESTIMATED > 60; GLUCOSE 131 MG/DL (70-105); HDL CHOLESTEROL 56 MG/DL (40-60); POTASSIUM 4.1 MMOL/L (3.6-5.0); SODIUM 132 MMOL/L (135-145); TOTAL PROTEIN 6.2 GM/DL (6.4-8.2); TRIGLYCERIDES 100 MG/DL (<150); VLDL CHOLESTEROL 20 MG/DL (5-40)
== END ==
LOC: LAB 08:53
PROVIDERS: ATTEND Internal Medicine
DX: Z00.00 Encounter for general adult medical examination without abnormal findings (principal); E78.00 Pure hypercholesterolemia, unspecified; E78.1 Pure hyperglyceridemia; D50.8 Other iron deficiency anemias; R11.0 Nausea
CPT/HCPCS: 36415; 80053; 80061; 82533; 82728; 83540; 84443; 85025

== ENCOUNTER → 2018-03-26 | Outpatient (CLI) | payer OTHER ==
[~2018-03-26] MED LIST changes: +HYDR-4226 PO; -HYDR-757 PO
--- NOTE | 2018-03-26 13:56 | Diagnostic Imaging Report ---
INDICATION: Cough. TIME OF EXAM: 2:12 PM Correlation is made with prior chest radiograph from 12/06/2011. FINDINGS: The heart size is stable. The lungs are clear. No infiltrates are detected. No effusion or pneumothorax is seen. The pulmonary vascularity is within normal limits. IMPRESSION: No acute cardiopulmonary process is detected. Dictated by: Dictated on workstation # [id number]
== END ==
LOC: CARD 13:40
DX: M35.00 Sjogren syndrome, unspecified (principal); K31.84 Gastroparesis; R05 Cough; R13.12 Dysphagia, oropharyngeal phase
CPT/HCPCS: 71046; 93005

== ENCOUNTER → 2018-04-15 | Outpatient (CLI) | payer OTHER ==
[2018-04-15 15:26] LABS: BUN/CREATININE RATIO 12; CALCIUM 9.4 MG/DL (8.5-10.1); CARBON DIOXIDE 23 MMOL/L (21-32); CHLORIDE 94 MMOL/L (98-107); CREATININE SERUM 0.69 MG/DL (0.60-1.30); GFR ESTIMATED > 60; GLUCOSE 106 MG/DL (70-105); POTASSIUM 3.4 MMOL/L (3.6-5.0); SODIUM 130 MMOL/L (135-145)
== END ==
LOC: LAB 14:49
PROVIDERS: ATTEND Internal Medicine
DX: E78.00 Pure hypercholesterolemia, unspecified (principal); E78.1 Pure hyperglyceridemia
CPT/HCPCS: 36415; 80048

== ENCOUNTER → 2018-04-16 | Outpatient (CLI) | payer OTHER ==
[~2018-04-16] MED LIST changes: +IOHEXOL 350 MG/ML 100 ML (OMNIPAQUE 350) VIAL IV ONE; +NS 250 ML (IVPB) BAG IV ONE; +RECEIVED CONTRAST (Hold Metformin) IV SCH
--- NOTE | 2018-04-16 14:23 | Diagnostic Imaging Report ---
PROCEDURE: CT abdomen and pelvis with and without contrast. TECHNIQUE: Precontrast acquisitions were acquired through the abdomen and pelvis. Multiple contiguous axial images were obtained through the abdomen and pelvis after the administration of intravenous contrast. INDICATION: Abdominal pain to the left of the umbilicus. Patient underwent hernia surgery in February. Comparison is made with prior CT from 09/14/2017. The lung bases are clear. Small low densities in the liver are stable in appearance and consistent with cysts. No new liver mass is seen. Gallbladder is unremarkable. No biliary duct dilatation is seen. The pancreas and spleen are unremarkable. No adrenal mass is identified. The kidneys are unremarkable. The aorta is nonaneurysmal. No central, retroperitoneal or mesenteric lymphadenopathy is seen. Postsurgical changes with anastomotic sutures at sigmoid colon are noted. Bowel loops appear to be nonobstructive. Moderate stool in the right colon and transverse colon is seen. There is no ascites. The bladder is unremarkable. No pelvic lymphadenopathy is seen. Bony structures are nonacute. IMPRESSION: Postsurgical changes. No acute abnormality is detected. Dictated by: Dictated on workstation # [id number]
== END ==
LOC: RAD 13:38
PROVIDERS: ATTEND Surgery
DX: R10.9 Unspecified abdominal pain (principal); Z98.890 Other specified postprocedural states
CPT/HCPCS: 74178

== ENCOUNTER → 2018-09-09 | Outpatient (CLI) | payer OTHER ==
[~2018-09-09] MED LIST changes: -IOHEXOL 350 MG/ML 100 ML (OMNIPAQUE 350) VIAL IV ONE; -NS 250 ML (IVPB) BAG IV ONE; -RECEIVED CONTRAST (Hold Metformin) IV SCH
[2018-09-09 13:31] LABS: BASOPHILS % (AUTO) 0 % (0-10); EOSINOPHILS # (AUTO) 0.1 10^3/uL (0.0-0.3); EOSINOPHILS % (AUTO) 1 % (0-10); HEMATOCRIT 38 % (35-52); HEMOGLOBIN 13.3 G/DL (11.5-16.0); LYMPHOCYTES # (AUTO) 0.9 X 10^3 (1.0-4.0); LYMPHOCYTES % (AUTO) 19 % (12-44); MEAN CORPUSCULAR HEMOGLOBIN 32 PG (25-34); MEAN CORPUSCULAR HGB CONC 35 G/DL (32-36); MEAN CORPUSCULAR VOLUME 90 FL (80-99); MEAN PLATELET VOLUME 8.9 FL (7.4-10.4); MONOCYTES # (AUTO) 0.5 X 10^3 (0.0-1.0); MONOCYTES % (AUTO) 11 % (0-12); NEUTROPHILS # (AUTO) 3.1 X 10^3 (1.8-7.8); NEUTROPHILS % (AUTO) 69 % (42-75); PLATELET COUNT 276 10^3/uL (130-400); RED CELL DISTRIBUTION WIDTH 12.9 % (10.0-14.5); WHITE BLOOD COUNT 4.5 10^3/uL (4.3-11.0)
[2018-09-09 13:55] LABS: ALANINE AMINOTRANSFERASE 16 U/L (0-55); ALBUMIN 4.1 GM/DL (3.2-4.5); ALKALINE PHOSPHATASE 75 U/L (40-136); BILIRUBIN,TOTAL 0.4 MG/DL (0.1-1.0); BUN/CREATININE RATIO 14; CALCIUM 9.3 MG/DL (8.5-10.1); CARBON DIOXIDE 25 MMOL/L (21-32); CHLORIDE 95 MMOL/L (98-107); CHOLESTEROL 203 MG/DL (< 200); CREATININE SERUM 0.63 MG/DL (0.60-1.30); GFR ESTIMATED > 60; GLUCOSE 103 MG/DL (70-105); HDL CHOLESTEROL 77 MG/DL (40-60); POTASSIUM 3.6 MMOL/L (3.6-5.0); SODIUM 128 MMOL/L (135-145); TOTAL PROTEIN 6.2 GM/DL (6.4-8.2); TRIGLYCERIDES 60 MG/DL (<150); VLDL CHOLESTEROL 12 MG/DL (5-40)
== END ==
LOC: LAB 13:18
PROVIDERS: ATTEND Internal Medicine
DX: Z00.00 Encounter for general adult medical examination without abnormal findings (principal); D50.8 Other iron deficiency anemias; E78.00 Pure hypercholesterolemia, unspecified; E78.1 Pure hyperglyceridemia
CPT/HCPCS: 36415; 80053; 80061; 82728; 83540; 85025

== ENCOUNTER → 2018-10-01 | Outpatient (CLI) | payer OTHER ==
--- NOTE | 2018-10-04 11:39 | Diagnostic Imaging Report ---
INDICATION: Screening. COMPARISON: 09/30/2017, 09/12/2016, and 06/29/2015. TECHNIQUE: Bilateral CC and MLO 3D mammography was performed. The current study was also evaluated with a Computer Aided Detection (CAD) system. FINDINGS: There are scattered fibroglandular densities bilaterally. There are a few benign type calcifications. There is no dominant mass, spiculated lesion, or suspicious calcifications identified. The skin, nipples, and axillae are unremarkable. IMPRESSION: Benign findings. ACR BI-RADS Category 2: Benign findings. Result letter will be mailed to the patient. Note: At least 10% of breast cancer is not imaged by mammography. Dictated by: Dictated on workstation # [id number]
== END ==
LOC: RAD 13:12
PROVIDERS: ATTEND Internal Medicine
DX: Z12.31 Encounter for screening mammogram for malignant neoplasm of breast (principal); R00.0 Tachycardia, unspecified; R00.2 Palpitations
CPT/HCPCS: 77067

== ENCOUNTER → 2018-10-14 | Outpatient (CLI) | payer OTHER | LOC: LABNPT 19:51 | PROVIDERS: ATTEND Nurse Practitioner Family | DX: R39.9 Unspecified symptoms and signs involving the genitourinary system (principal) | CPT/HCPCS: 87077; 87088 ==

== ENCOUNTER 2018-11-16 11:53 | Outpatient (RCR) | payer OTHER | END 2018-12-14 09:01 | disposition home or self-care (01) | PROVIDERS: ATTEND Orthopaedic Surgery Orthopaedic Surgery of the Spine | DX: M54.5 Low back pain (principal); R20.0 Anesthesia of skin ==

== ENCOUNTER → 2018-12-16 | Outpatient (CLI) | payer OTHER | LOC: LAB 14:33 | PROVIDERS: ATTEND Internal Medicine | DX: R35.0 Frequency of micturition (principal) ==

== ENCOUNTER → 2018-12-16 | Outpatient (CLI) | payer OTHER ==
[2018-12-16 17:25] LABS: BILIRUBIN,URINE NEGATIVE (NEGATIVE); CLARITY,URINE CLEAR; COLOR,URINE YELLOW; GLUCOSE, URINE (UA) NEGATIVE (NEGATIVE); KETONES,URINE NEGATIVE (NEGATIVE); LEUKOCYTE ESTERASE ,URINE NEGATIVE (NEGATIVE); NITRITE,URINE NEGATIVE (NEGATIVE); PH,URINE 6.5 (5-9); PROTEIN,URINE NEGATIVE (NEGATIVE); UROBILINOGEN,URINE NORMAL (NORMAL)
[2018-12-16 17:34] LABS: BACTERIA,URINE TRACE /HPF
== END ==
LOC: LABNPT 17:20
PROVIDERS: ATTEND Internal Medicine
DX: R35.0 Frequency of micturition (principal)
CPT/HCPCS: 81000

== ENCOUNTER → 2019-01-31 | Outpatient (CLI) | payer OTHER ==
--- NOTE | 2019-01-31 17:04 | Diagnostic Imaging Report ---
CLINICAL INDICATION: Patient having left arm numbness. No known injury. EXAM: MRI of the cervical spine performed without IV contrast. Sequences include sagittal T1, sagittal T2, sagittal stir, axial gradient echo sequence, and axial T2. COMPARISON: MRI of the cervical spine without and with contrast dated 09/26/2016. FINDINGS: There is no acute cervical spine fracture. There is straightening of the cervical spine posture similar to the prior study. Limited visualization of the posterior fossa shows no significant abnormality. Cervical spinal cord has normal cord caliber with no abnormal signal changes. Stable small bilateral perineural cysts at the C6-C7 and C7-T1 levels. There is no significant paraspinal soft tissue abnormality. There are degenerative spurs involving the cervical spine and facet arthropathy/hypertrophy. C1-C2: There are degenerative spurs involving the atlantoodontoid interval. There is no significant central canal narrowing. C2-C3: There is moderate right facet arthropathy and mild to moderate left facet arthropathy. There is no significant central canal narrowing. There is mild to moderate right neural foramen narrowing which is not significantly changed. C3-C4: There is moderate bilateral facet arthropathy/hypertrophy, moderate right neural foramen narrowing and mild to moderate left neural foramen narrowing which is stable. There is no significant central canal narrowing. C4-C5: Stable subtle grade I anterolisthesis of C4 on C5. There is a small diffuse disc bulge with hypertrophic left uncinate spurs. There is severe left neural foramen narrowing and no significant right neural foramen narrowing. There is no significant central canal narrowing. C5-C6: There is grade I anterolisthesis of C5 on C6 which has developed in the interim. There is a diffuse disc bulge. There is severe right facet arthropathy/hypertrophy which has progressed. There is mild left facet arthropathy. There is severe right neural foramen narrowing and right sided uncinate spurs which has progressed. There is progression of mild central canal narrowing, and mild to moderate left neural foramen narrowing which is stable. C6-C7: There is mild to moderate bilateral facet arthropathy and ligament flavum buckling again seen. There is mild to moderate bilateral neural foramen narrowing stable. There is mild to moderate central canal narrowing which appears stable. C7-T1: There is no significant central spinal canal or neural foramen narrowing. IMPRESSION: 1: There is multilevel cervical spine degenerative disc disease which has progressed at the C5-C6 level. This is described in detail above. 2: There is development of grade I anterolisthesis of C5 on C6 with progression of facet arthropathy. There is now severe right neural foramen narrowing with right-sided uncinate spurs which has progressed. There is progression of mild central canal narrowing. There is a diffuse disc bulge at this level. 3: The remainder of the cervical spinal findings are described above. Dictated by: Dictated on workstation # [id number]
== END ==
LOC: RAD 15:31
PROVIDERS: ATTEND Orthopaedic Surgery Orthopaedic Surgery of the Spine
DX: M50.122 Cervical disc disorder at C5-C6 level with radiculopathy (principal); M43.12 Spondylolisthesis, cervical region; M48.02 Spinal stenosis, cervical region; M50.121 Cervical disc disorder at C4-C5 level with radiculopathy
CPT/HCPCS: 72141

== ENCOUNTER 2019-05-17 13:01 | Outpatient (RCR) | payer OTHER | END 2019-06-01 | disposition home or self-care (01) | PROVIDERS: ATTEND Orthopaedic Surgery Orthopaedic Surgery of the Spine | DX: M54.12 Radiculopathy, cervical region (principal) ==

== ENCOUNTER 2019-06-06 05:54 | Outpatient (CLI) | payer OTHER ==
[~2019-06-06] VITALS: Ht 160 cm; Wt 70.4 kg
[2019-06-06] MEDS ORDERED: MONT10TA24 PO (15:54)
[2019-06-06] MEDS ORDERED: ALFU10TA11 PO (15:54)
[2019-06-06] MEDS ORDERED: CHOL200014 PO (15:54)
[2019-06-06] MEDS ORDERED: LINA72CA PO (15:54)
[2019-06-06] MEDS ORDERED: HYDR-3816 PO (15:54)
[2019-06-06] MEDS ORDERED: CALC-6 PO (15:54)
[2019-06-06] MEDS ORDERED: BENA10TA9 PO (15:54)
[2019-06-06] MEDS ORDERED: HYOS-6 PO (15:54)
[2019-06-06] MEDS ORDERED: DULO30CA3 PO (15:54)
[2019-06-06] MEDS ORDERED: DULO60CA6 PO (15:54)
[2019-06-06] MEDS ORDERED: CYCL1DRO OP (15:54)
[2019-06-06] MEDS ORDERED: TRIA1CAP4 PO (15:54)
[2019-06-06] MEDS ORDERED: ALPR0.5T7 PO (15:54)
[2019-06-06] MEDS ORDERED: LORA2DIS5 PO (15:54)
[2019-06-06] MEDS ORDERED: L.AC1CAP6 PO (15:54)
[2019-06-06] MEDS ORDERED: BUDE10.2 IH (15:54)
[2019-06-06] MEDS ORDERED: FLUT9.9S NS (15:54)
[2019-06-06] MEDS ORDERED: GABA-488 PO (15:54)
[2019-06-06] MEDS ORDERED: POLY17PO6 PO (15:54)
[2019-06-06] MEDS ORDERED: MULT-178 PO (15:54)
[2019-06-06] MEDS ORDERED: DRON2.5C10 PO (15:54)
[2019-06-06] MEDS ORDERED: RANI300T4 PO (15:54)
[2019-06-06] MEDS ORDERED: METO5TAB75 PO (15:54)
[2019-06-06] MEDS ORDERED: PRIM50TA33 PO (15:54)
[2019-06-06] MEDS ORDERED: METH-336 PO (15:54)
[2019-06-06] MEDS ORDERED: CETI10TA17 PO (15:54)
[2019-06-06] MEDS ORDERED: SIMV10TA3 PO (15:54)
[2019-06-06] MEDS ORDERED: NF-ESOM40C PO (15:54)
[2019-06-06] MEDS ORDERED: DICY10CA12 PO (15:54)
== END 2019-06-06 08:41 | disposition home or self-care (01) ==
LOC: PREOP 05:54
PROVIDERS: ATTEND Specialist
DX: Z01.818 Encounter for other preprocedural examination (principal)

== ENCOUNTER 2019-06-10 07:41 | Day surgery (SDC) | payer OTHER ==
[~2019-06-10] VITALS: Ht 160 cm; Wt 70.4 kg
[~2019-06-10 07:41] MED LIST changes: +ALFU10TA11 PO; +ALPR0.5T7 PO; +BENA10TA9 PO; +BUDE10.2 IH; +CALC-6 PO; +CHOL200014 PO; +DICY10CA12 PO; +DRON2.5C10 PO; +DULO30CA3 PO; +FLUT9.9S NS; +GABA-488 PO; +HYDR-3816 PO; +HYOS-6 PO; +L.AC1CAP6 PO; +LINA72CA PO; +LORA2DIS5 PO; +METH-336 PO; +METO5TAB75 PO; +MONT10TA24 PO; +MULT-178 PO; +POLY17PO6 PO; +PRIM50TA33 PO; +RANI300T4 PO; +SIMV10TA3 PO; +TRIA1CAP4 PO
[2019-06-10 07:55] VITALS: BP 117/71
[2019-06-10] MEDS: TETRACAINE 0.5% OPHTH SOLN 4 ML BTL (SINGLE DOSE ONLY) OU PRN ×4 (07:56→08:19)
[2019-06-10] MEDS ORDERED: LIDOCAINE PF 1% 2 ML VIAL IR PRN (08:00)
[2019-06-10] MEDS ORDERED: MOXIFLOXACIN OPHTH SOLN 5 MG/ML 0.3 ML SYRINGE OP ONE (08:00)
[2019-06-10] MEDS ORDERED: TIMOLOL MALEATE 0.5% 5 ML (TIMOPTIC) BTL OU PRN (08:00)
[2019-06-10] MEDS ORDERED: POVIDONE (BETADINE) OPHTH SOLN 5% 30 ML OP ONE (08:00)
[2019-06-10] MEDS: PHENYLEPHRINE 10% OPHTH (NEO-SYN) 5 ML BTL OU SCH ×3 (08:09→08:19)
[2019-06-10] MEDS: CYCLOPENTOLATE 1% (CYCLOGYL) 2 ML DROPS OP SCH ×3 (08:09→08:19)
[2019-06-10] MEDS ORDERED: MIDAZOLAM 2 MG/2 ML (VERSED) VIAL ONE (08:24)
[2019-06-10 08:55] VITALS: BP 106/84
--- NOTE | 2019-06-10 10:06 | Ophthalmologist Pre-Op Note ---
Pre-Operative Progress Note H&P Reviewed The H&P was reviewed, patient examined and no changes noted. Date H&P Reviewed: Jun 10, 2019 Time H&P Reviewed: 08:20 Pre-Op Dx Cataract, Left Eye DANNIE KOCH MD Jun 10, 2019 10:06
--- NOTE | 2019-06-10 10:07 | Ophthalmology Operative Report ---
Cataract removal/placement IOL PREOPERATIVE DIAGNOSIS: Cataract Left Eye POSTOPERATIVE DIAGNOSIS: Cataract Left Eye PROCEDURE: Cataract removal and placement of posterior chamber implant, left eye SURGEON: Clyde Koch ANESTHESIA: Topical with sedation COMPLICATIONS: None ESTIMATED BLOOD LOSS: Minimal DESCRIPTION OF PROCEDURE: After proper informed consent was obtained, the patient, a 64 female, was taken to the Operating Room and the left eye was anesthetized with tetracaine. The left eye was then prepped and draped in the usual manner. A wire lid speculum was placed. A paracentesis was made at the left hand position. Preservative free lidocaine was injected into the anterior chamber followed by viscoelastic. A clear corneal incision was made in the temporal position. A capsulorrhexis was preformed and the central nuclear and cortical material were removed. The posterior capsule was polished and an Anthony 20.0 AU00T0 was placed into the capsular bag. The residual viscoelastic was aspirated and balanced saline solution was injected into the anterior chamber. Moxifloxacin was injected into the anterior chamber. The wound was checked and found to be water tight. The patient tolerated the procedure well without complications. CLYDE KOCH MD Jun 10, 2019 10:07
--- NOTE | 2019-06-10 11:09 | Anesthesia-General Post-Op ---
MAC Patient Condition Mental Status/LOC: Same as Preop Cardiovascular: Satisfactory Nausea/Vomiting: Absent Respiratory: Satisfactory Pain: Controlled Complications: Absent Post Op Complications Complications None Follow Up Care/Instructions Patient Instructions None needed. Anesthesiology Discharge Order Discharge Order Patient was seen after the procedure and she was doing well, no complaints, stable vital signs, no apparent adverse anesthesia problems. SERJIO TURNER DO Jun 10, 2019 11:09
== END 2019-06-10 08:55 | disposition home or self-care (01) ==
LOC: SDC 07:41
PROVIDERS: ATTEND Specialist
DX: H25.12 Age-related nuclear cataract, left eye (principal); K31.84 Gastroparesis; I10 Essential (primary) hypertension; J45.909 Unspecified asthma, uncomplicated; E78.5 Hyperlipidemia, unspecified; Z79.899 Other long term (current) drug therapy; Z88.2 Allergy status to sulfonamides; Z88.8 Allergy status to other drugs, medicaments and biological substances; Z87.891 Personal history of nicotine dependence; Z80.9 Family history of malignant neoplasm, unspecified; Z83.3 Family history of diabetes mellitus

== ENCOUNTER 2019-06-24 07:30 | Day surgery (SDC) | payer OTHER ==
[~2019-06-24] VITALS: Ht 160 cm; Wt 70.4 kg
[~2019-06-24 07:30] MED LIST changes: -ALFU10TA11 PO; +ALFU10TA12 PO; +SIMV10TA26 PO; -SIMV10TA3 PO
[2019-06-24 07:33] VITALS: BP 111/77
[2019-06-24] MEDS: TETRACAINE 0.5% OPHTH SOLN 4 ML BTL (SINGLE DOSE ONLY) OU PRN ×4 (07:43→08:21)
[2019-06-24] MEDS ORDERED: TIMOLOL MALEATE 0.5% 5 ML (TIMOPTIC) BTL OU PRN (07:45)
[2019-06-24] MEDS ORDERED: LIDOCAINE PF 1% 2 ML VIAL IR PRN (07:45)
[2019-06-24] MEDS ORDERED: POVIDONE (BETADINE) OPHTH SOLN 5% 30 ML OP ONE (07:45)
[2019-06-24] MEDS ORDERED: MOXIFLOXACIN OPHTH SOLN 5 MG/ML 0.3 ML SYRINGE OP ONE (07:45)
[2019-06-24] MEDS: PHENYLEPHRINE 10% OPHTH (NEO-SYN) 5 ML BTL OU SCH ×3 (07:58→08:21)
[2019-06-24] MEDS: CYCLOPENTOLATE 1% (CYCLOGYL) 2 ML DROPS OP SCH ×3 (07:58→08:21)
[2019-06-24] MEDS ORDERED: MIDAZOLAM 2 MG/2 ML (VERSED) VIAL ONE (09:03)
--- NOTE | 2019-06-24 09:07 | Ophthalmologist Pre-Op Note ---
Pre-Operative Progress Note H&P Reviewed The H&P was reviewed, patient examined and no changes noted. Date H&P Reviewed: Jun 24, 2019 Time H&P Reviewed: 09:01 Pre-Op Dx Cataract, Right Eye DANNIE KOCH MD Jun 24, 2019 09:07
--- NOTE | 2019-06-24 09:26 | Ophthalmology Operative Report ---
Cataract removal/placement IOL PREOPERATIVE DIAGNOSIS: Cataract Right Eye POSTOPERATIVE DIAGNOSIS: Cataract Right Eye PROCEDURE: Cataract removal and placement of posterior chamber implant, right eye SURGEON: Clyde Koch ANESTHESIA: Topical with sedation COMPLICATIONS: None ESTIMATED BLOOD LOSS: Minimal DESCRIPTION OF PROCEDURE: After proper informed consent was obtained, the patient, a 64 female, was taken to the Operating Room and the right eye was anesthetized with tetracaine. The right eye was then prepped and draped in the usual manner. A wire lid speculum was placed. A paracentesis was made at the left hand position. Preservative free lidocaine was injected into the anterior chamber followed by viscoelastic. A clear corneal incision was made in the temporal position. A capsulorrhexis was preformed and the central nuclear and cortical material were removed. The posterior capsule was polished and Anthony 19.5 AU00T0 IOL was placed into the capsular bag. The residual viscoelastic was aspirated and balanced saline solution was injected into the anterior chamber. Moxifloxacin was injected into the anterior chamber. The wound was checked and found to be water tight. The patient tolerated the procedure well without complications. CLYDE KOCH MD Jun 24, 2019 09:25
[2019-06-24 09:30] VITALS: BP 105/72
--- NOTE | 2019-06-24 15:09 | Anesthesia-General Post-Op ---
MAC Patient Condition Mental Status/LOC: Same as Preop Cardiovascular: Satisfactory Nausea/Vomiting: Absent Respiratory: Satisfactory Pain: Controlled Complications: Absent Post Op Complications Complications None Follow Up Care/Instructions Patient Instructions None needed. Anesthesiology Discharge Order Discharge Order Patient is doing well, no complaints, stable vital signs, no apparent adverse anesthesia problems. No complications reported per nursing. DEBRA ABRAMS CRNA Jun 24, 2019 15:09
== END 2019-06-24 09:30 | disposition home or self-care (01) ==
LOC: SDC 07:30
PROVIDERS: ATTEND Specialist
DX: H25.11 Age-related nuclear cataract, right eye (principal); I10 Essential (primary) hypertension; E78.5 Hyperlipidemia, unspecified; J45.909 Unspecified asthma, uncomplicated; K31.84 Gastroparesis; Z88.8 Allergy status to other drugs, medicaments and biological substances; Z87.891 Personal history of nicotine dependence; Z88.2 Allergy status to sulfonamides; Z79.899 Other long term (current) drug therapy; Z83.3 Family history of diabetes mellitus; Z80.9 Family history of malignant neoplasm, unspecified

== ENCOUNTER → 2019-08-03 | Outpatient (CLI) | payer OTHER ==
[~2019-08-03] MED LIST changes: +BENA10TA66 PO; -BENA10TA9 PO; -MONT10TA24 PO; +MONT10TA26 PO
[2019-08-03 10:27] LABS: BASOPHILS % (AUTO) 1 % (0-10); EOSINOPHILS # (AUTO) 0.2 10^3/uL (0.0-0.3); EOSINOPHILS % (AUTO) 5 % (0-10); HEMATOCRIT 41 % (35-52); HEMOGLOBIN 14.5 G/DL (11.5-16.0); LYMPHOCYTES % (AUTO) 23 % (12-44); MEAN CORPUSCULAR HEMOGLOBIN 30 PG (25-34); MEAN CORPUSCULAR HGB CONC 35 G/DL (32-36); MEAN CORPUSCULAR VOLUME 87 FL (80-99); MEAN PLATELET VOLUME 9.1 FL (7.4-10.4); MONOCYTES # (AUTO) 0.5 X 10^3 (0.0-1.0); MONOCYTES % (AUTO) 11 % (0-12); NEUTROPHILS # (AUTO) 2.6 X 10^3 (1.8-7.8); NEUTROPHILS % (AUTO) 60 % (42-75); PLATELET COUNT 262 10^3/uL (130-400); RED CELL DISTRIBUTION WIDTH 12.7 % (10.0-14.5); WHITE BLOOD COUNT 4.4 10^3/uL (4.3-11.0)
[2019-08-03 11:00] LABS: ALANINE AMINOTRANSFERASE 15 U/L (0-55); ALBUMIN 4.6 GM/DL (3.2-4.5); ALKALINE PHOSPHATASE 93 U/L (40-136); BILIRUBIN,TOTAL 0.5 MG/DL (0.1-1.0); BUN/CREATININE RATIO 8; CALCIUM 9.7 MG/DL (8.5-10.1); CARBON DIOXIDE 27 MMOL/L (21-32); CHLORIDE 91 MMOL/L (98-107); CHOLESTEROL 203 MG/DL (< 200); CREATININE SERUM 0.74 MG/DL (0.60-1.30); GFR ESTIMATED > 60; GLUCOSE 113 MG/DL (70-105); HDL CHOLESTEROL 71 MG/DL (40-60); POTASSIUM 3.4 MMOL/L (3.6-5.0); SODIUM 128 MMOL/L (135-145); TOTAL PROTEIN 7.2 GM/DL (6.4-8.2); TRIGLYCERIDES 86 MG/DL (<150); VLDL CHOLESTEROL 17 MG/DL (5-40)
== END ==
LOC: LAB 08:44
PROVIDERS: ATTEND Internal Medicine
DX: Z00.00 Encounter for general adult medical examination without abnormal findings (principal); D50.8 Other iron deficiency anemias; E78.2 Mixed hyperlipidemia
CPT/HCPCS: 36415; 80053; 80061; 82728; 83540; 84443; 85025

== ENCOUNTER → 2019-10-06 | Outpatient (CLI) | payer OTHER ==
[~2019-10-06] MED LIST changes: +HYDR-34 PO; -HYDR-3816 PO
[2019-10-06 14:57] LABS: BUN/CREATININE RATIO 13; CALCIUM 8.8 MG/DL (8.5-10.1); CARBON DIOXIDE 24 MMOL/L (21-32); CHLORIDE 100 MMOL/L (98-107); CREATININE SERUM 0.69 MG/DL (0.60-1.30); GFR ESTIMATED > 60; GLUCOSE 108 MG/DL (70-105); SODIUM 134 MMOL/L (135-145)
== END ==
LOC: LAB 13:50
PROVIDERS: ATTEND Internal Medicine
DX: R73.9 Hyperglycemia, unspecified (principal); K75.9 Inflammatory liver disease, unspecified
CPT/HCPCS: 36415; 80048; 83036

== ENCOUNTER → 2019-11-04 | Outpatient (CLI) | payer OTHER | LOC: RAD 15:31 | PROVIDERS: ATTEND Internal Medicine | DX: Z13.6 Encounter for screening for cardiovascular disorders (principal) | CPT/HCPCS: 93005 ==

== ENCOUNTER → 2019-12-22 | Outpatient (CLI) | payer OTHER ==
--- NOTE | 2019-12-23 09:45 | Diagnostic Imaging Report ---
INDICATION: Routine screening. COMPARISON is made with prior mammogram from 10/01/2018 and 09/30/2017. 2-D and 3-D bilateral screening mammography was performed with CAD. Both breasts remain heterogeneously dense, limiting the sensitivity of mammography. The overall breast parenchymal pattern appears to be stable. Density in the outer right breast may be slightly more prominent and additional views are recommended. No corresponding density on the MLO view is identified and this may represent superimposed tissue. No suspicious microcalcifications are seen. Axillae are unremarkable. IMPRESSION: BI-RADS 0 Right breast density. Additional views including spot compression and rolled CC views are recommended for further evaluation. ACR BI-RADS Category 0: Incomplete. (Needs additional imaging evaluation). Result letter will be mailed to the patient. Note: At least 10% of breast cancer is not imaged by mammography. Dictated by: Dictated on workstation # [id number]
== END ==
LOC: RAD 15:02
PROVIDERS: ATTEND Internal Medicine
DX: Z12.31 Encounter for screening mammogram for malignant neoplasm of breast (principal); R92.8 Other abnormal and inconclusive findings on diagnostic imaging of breast
CPT/HCPCS: 77063; 77067

== ENCOUNTER → 2020-01-05 | Outpatient (CLI) | payer OTHER ==
--- NOTE | 2020-01-05 19:57 | Diagnostic Imaging Report ---
INDICATION: Abnormal mammogram. EXAMINATION: Ultrasound of the right breast, limited. FINDINGS: The screening mammogram performed on 12/22/2019 noted a density in the outer aspect of the right breast that did seem more prominent than on the previous study. The diagnostic mammogram performed earlier today in conjunction with the study failed to show any sign of malignancy in this area. On this exam, there is no discrete solid or cystic mass in the lateral aspect of the right breast. I suspect that the finding of the screening mammogram was secondary to fibroglandular tissue alone. Even so, I would recommend that a short-term (6 month) follow up mammogram of the right breast be obtained for continued evaluation. IMPRESSION: There is no evidence for malignancy. Recommendations as above. ACR BI-RADS Category 3: Probably benign findings. Result letter will be mailed to the patient. Note: At least 10% of breast cancer is not imaged by mammography. Dictated by: Dictated on workstation # [id number]
--- NOTE | 2020-01-05 20:38 | Diagnostic Imaging Report ---
INDICATION: Abnormal screening mammogram. EXAMINATION: Right breast digital diagnostic mammogram with CAD. 3D tomographic images were obtained and reviewed. The current study was also evaluated with a Computer Aided Detection (CAD) system. FINDINGS: The recent screening mammogram performed on 12/22/2019 noted a slightly more prominent density in the outer right right breast. This is only seen on the craniocaudad view. The compression views of this portion of the breast in the CC projection and the rolled projections show no definite abnormality in this area. There is no finding on the MLO compression view or true lateral view to indicate malignancy either. Even so, ultrasound would be recommended for further study. IMPRESSION: There is no evidence of malignancy. Ultrasound would be recommended for further evaluation. ACR BI-RADS Category 0: Incomplete. (Needs additional imaging evaluation). Result letter will be mailed to the patient. Note: At least 10% of breast cancer is not imaged by mammography. Dictated by: Dictated on workstation # [id number]
== END ==
LOC: RAD 14:15
PROVIDERS: ATTEND Internal Medicine
DX: R92.8 Other abnormal and inconclusive findings on diagnostic imaging of breast (principal)
CPT/HCPCS: 76642; 77065; G0279

== ENCOUNTER → 2020-01-09 | Outpatient (CLI) | payer OTHER | LOC: LABNPT 06:44 | PROVIDERS: ATTEND Hospitalist | DX: Z01.812 Encounter for preprocedural laboratory examination (principal); Z20.828 Contact with and (suspected) exposure to other viral communicable diseases | CPT/HCPCS: 87635 ==

== ENCOUNTER → 2020-01-23 | Outpatient (CLI) | payer OTHER | LOC: LABNPT 06:47 | PROVIDERS: ATTEND Hospitalist | DX: Z11.59 Encounter for screening for other viral diseases (principal); Z20.828 Contact with and (suspected) exposure to other viral communicable diseases | CPT/HCPCS: 87635 ==

== ENCOUNTER → 2020-02-22 | Outpatient (CLI) | payer OTHER ==
[2020-02-22 09:15] LABS: BASOPHILS % (AUTO) 0 % (0-10); EOSINOPHILS # (AUTO) 0.2 10^3/uL (0.0-0.3); EOSINOPHILS % (AUTO) 3 % (0-10); HEMATOCRIT 40 % (35-52); HEMOGLOBIN 13.3 G/DL (11.5-16.0); LYMPHOCYTES # (AUTO) 1.7 X 10^3 (1.0-4.0); LYMPHOCYTES % (AUTO) 35 % (12-44); MEAN CORPUSCULAR HEMOGLOBIN 31 PG (25-34); MEAN CORPUSCULAR HGB CONC 33 G/DL (32-36); MEAN CORPUSCULAR VOLUME 91 FL (80-99); MEAN PLATELET VOLUME 9.6 FL (7.4-10.4); MONOCYTES # (AUTO) 0.5 X 10^3 (0.0-1.0); MONOCYTES % (AUTO) 11 % (0-12); NEUTROPHILS # (AUTO) 2.4 X 10^3 (1.8-7.8); NEUTROPHILS % (AUTO) 51 % (42-75); PLATELET COUNT 269 10^3/uL (130-400); WHITE BLOOD COUNT 4.8 10^3/uL (4.3-11.0)
[2020-02-22 09:44] LABS: ALANINE AMINOTRANSFERASE 18 U/L (0-55); ALBUMIN 4.1 GM/DL (3.2-4.5); ALKALINE PHOSPHATASE 88 U/L (40-136); BILIRUBIN,TOTAL 0.5 MG/DL (0.1-1.0); BUN/CREATININE RATIO 8; CALCIUM 8.8 MG/DL (8.5-10.1); CARBON DIOXIDE 25 MMOL/L (21-32); CHLORIDE 98 MMOL/L (98-107); CHOLESTEROL 208 MG/DL (< 200); CREATININE SERUM 0.75 MG/DL (0.60-1.30); GFR ESTIMATED > 60; GLUCOSE 96 MG/DL (70-105); POTASSIUM 3.8 MMOL/L (3.6-5.0); SODIUM 134 MMOL/L (135-145); TOTAL PROTEIN 6.7 GM/DL (6.4-8.2); TRIGLYCERIDES 76 MG/DL (<150)
== END ==
LOC: LAB 09:13
PROVIDERS: ATTEND Internal Medicine
DX: E78.00 Pure hypercholesterolemia, unspecified (principal); E78.1 Pure hyperglyceridemia; D50.8 Other iron deficiency anemias; I10 Essential (primary) hypertension
CPT/HCPCS: 36415; 80053; 82465; 82728; 83540; 84478; 85025

== ENCOUNTER → 2020-05-17 | Outpatient (CLI) | payer OTHER ==
[~2020-05-17] MED LIST changes: -CALC-6 PO; +CALC1TAB84 PO; -MONT10TA26 PO; +MONT10TA97 PO
[2020-05-17 09:11] LABS: BASOPHILS % (AUTO) 1 % (0-10); EOSINOPHILS # (AUTO) 0.1 10^3/uL (0.0-0.3); EOSINOPHILS % (AUTO) 2 % (0-10); HEMATOCRIT 39 % (35-52); HEMOGLOBIN 12.9 g/dL (11.5-16.0); LYMPHOCYTES # (AUTO) 1.6 10^3/uL (1.0-4.0); LYMPHOCYTES % (AUTO) 36 % (12-44); MEAN CORPUSCULAR HEMOGLOBIN 31 pg (25-34); MEAN CORPUSCULAR HGB CONC 33 g/dL (32-36); MEAN CORPUSCULAR VOLUME 93 fL (80-99); MEAN PLATELET VOLUME 9.7 fL (9.0-12.2); MONOCYTES # (AUTO) 0.4 10^3/uL (0.0-1.0); MONOCYTES % (AUTO) 9 % (0-12); NEUTROPHILS # (AUTO) 2.3 10^3/uL (1.8-7.8); NEUTROPHILS % (AUTO) 52 % (42-75); PLATELET COUNT 231 10^3/uL (130-400); WHITE BLOOD COUNT 4.5 10^3/uL (4.3-11.0)
[2020-05-17 09:35] LABS: ALANINE AMINOTRANSFERASE 13 U/L (0-55); ALKALINE PHOSPHATASE 79 U/L (40-136); BILIRUBIN,TOTAL 0.5 MG/DL (0.1-1.0); BUN/CREATININE RATIO 11; CALCIUM 8.7 MG/DL (8.5-10.1); CARBON DIOXIDE 26 MMOL/L (21-32); CHLORIDE 102 MMOL/L (98-107); CHOLESTEROL 197 MG/DL (< 200); CREATININE SERUM 0.75 MG/DL (0.60-1.30); GFR ESTIMATED > 60; GLUCOSE 102 MG/DL (70-105); HDL CHOLESTEROL 75 MG/DL (40-60); POTASSIUM 3.6 MMOL/L (3.6-5.0); SODIUM 137 MMOL/L (135-145); TOTAL PROTEIN 6.4 GM/DL (6.4-8.2); TRIGLYCERIDES 68 MG/DL (<150); VLDL CHOLESTEROL 14 MG/DL (5-40)
== END ==
LOC: LAB 09:23
PROVIDERS: ATTEND Internal Medicine
DX: E78.00 Pure hypercholesterolemia, unspecified (principal); E78.1 Pure hyperglyceridemia; D50.8 Other iron deficiency anemias; I10 Essential (primary) hypertension
CPT/HCPCS: 36415; 80053; 80061; 82728; 83540; 85025

== ENCOUNTER → 2020-06-21 | Outpatient (CLI) | payer OTHER ==
--- NOTE | 2020-06-21 14:21 | Diagnostic Imaging Report ---
Unilateral diagnostic right mammogram This study was compared to the prior exams of 12/22/2019, 10/01/2018, 09/30/2017 and 09/12/2016. At this time, there are no current complaints. The previous exam of 12/22/2019 noted a density in the outer aspect of the right breast. This was only seen on the craniocaudad view. The subsequent diagnostic mammogram and ultrasound exam of 01/05/2020 failed to show any sign of malignancy in this region. On this study, the asymmetry in the lateral aspect of the right breast seen previously is again evident and does not appear to have changed adversely. I do suspect that this asymmetry is secondary to fibroglandular tissue. Ultrasound is pending for further study however. The overall appearance of the right breast itself is also stable. The fibroglandular tissue in the right breast is heterogeneously dense and this does limit the sensitivity of this exam. There is no primary or secondary sign of malignancy noted. IMPRESSION: There is no evidence of malignancy. Ultrasound is pending for further study. ACR category 0 ACR BI-RADS Category 0: Incomplete. (Needs additional imaging evaluation). Result letter will be mailed to the patient. Note: At least 10% of breast cancer is not imaged by mammography. Dictated by: Dictated on workstation # [id number]
--- NOTE | 2020-06-21 16:17 | Diagnostic Imaging Report ---
Limited right breast ultrasound INDICATION: Abnormal mammogram The previous right breast ultrasound exam of 01/05/2020 failed to show any sign of malignancy. On this exam, there is still no discrete solid or cystic mass visualized. I suspect that the asymmetry in the lateral aspect of the right breast seen on the mammogram was secondary to fibroglandular tissue alone. Even so, I would recommend that this area be reevaluated by ultrasound when the patient has her annual bilateral mammogram in December of this year. If this area remains stable, then the patient can return to the routine screening mammogram schedule. IMPRESSION: There is no evidence of malignancy. Recommendations as above. ACR category 3 ACR BI-RADS Category 3: Probably benign findings. Result letter will be mailed to the patient. Note: At least 10% of breast cancer is not imaged by mammography. Dictated by: Dictated on workstation # [id number]
== END ==
LOC: RAD 14:15
PROVIDERS: ATTEND Internal Medicine
DX: N63.10 Unspecified lump in the right breast, unspecified quadrant (principal)
CPT/HCPCS: 76642; 77065; G0279

== ENCOUNTER → 2020-07-25 | Outpatient (CLI) | payer OTHER ==
[~2020-07-25] MED LIST changes: +MONT10TA32 PO; -MONT10TA97 PO
== END ==
LOC: CARD 14:54
PROVIDERS: ATTEND Internal Medicine
DX: I10 Essential (primary) hypertension (principal)
CPT/HCPCS: 93005

== ENCOUNTER → 2020-08-15 | Outpatient (CLI) | payer OTHER ==
[2020-08-15 09:59] LABS: BASOPHILS % (AUTO) 1 % (0-10); EOSINOPHILS # (AUTO) 0.1 10^3/uL (0.0-0.3); EOSINOPHILS % (AUTO) 3 % (0-10); HEMATOCRIT 41 % (35-52); HEMOGLOBIN 13.6 g/dL (11.5-16.0); LYMPHOCYTES # (AUTO) 1.1 10^3/uL (1.0-4.0); LYMPHOCYTES % (AUTO) 26 % (12-44); MEAN CORPUSCULAR HEMOGLOBIN 31 pg (25-34); MEAN CORPUSCULAR HGB CONC 33 g/dL (32-36); MEAN CORPUSCULAR VOLUME 92 fL (80-99); MEAN PLATELET VOLUME 9.7 fL (9.0-12.2); MONOCYTES # (AUTO) 0.4 10^3/uL (0.0-1.0); MONOCYTES % (AUTO) 9 % (0-12); NEUTROPHILS # (AUTO) 2.7 10^3/uL (1.8-7.8); NEUTROPHILS % (AUTO) 61 % (42-75); PLATELET COUNT 248 10^3/uL (130-400); WHITE BLOOD COUNT 4.4 10^3/uL (4.3-11.0)
[2020-08-15 10:24] LABS: ALANINE AMINOTRANSFERASE 15 U/L (0-55); ALBUMIN 4.1 GM/DL (3.2-4.5); ALKALINE PHOSPHATASE 90 U/L (40-136); BILIRUBIN,TOTAL 0.4 MG/DL (0.1-1.0); BUN/CREATININE RATIO 8; CALCIUM 8.9 MG/DL (8.5-10.1); CARBON DIOXIDE 25 MMOL/L (21-32); CHLORIDE 103 MMOL/L (98-107); CHOLESTEROL 204 MG/DL (< 200); CREATININE SERUM 0.76 MG/DL (0.60-1.30); GFR ESTIMATED > 60; GLUCOSE 107 MG/DL (70-105); HDL CHOLESTEROL 72 MG/DL (40-60); POTASSIUM 4.1 MMOL/L (3.6-5.0); SODIUM 137 MMOL/L (135-145); TOTAL PROTEIN 6.6 GM/DL (6.4-8.2); TRIGLYCERIDES 78 MG/DL (<150); VLDL CHOLESTEROL 16 MG/DL (5-40)
== END ==
LOC: LAB 09:54
PROVIDERS: ATTEND Internal Medicine
DX: Z00.00 Encounter for general adult medical examination without abnormal findings (principal); D50.8 Other iron deficiency anemias; E78.1 Pure hyperglyceridemia
CPT/HCPCS: 36415; 80053; 80061; 82728; 83540; 84443; 85025

== ENCOUNTER → 2020-11-14 | Outpatient (CLI) | payer OTHER ==
[2020-11-14 10:04] LABS: BASOPHILS % (AUTO) 1 % (0-10); EOSINOPHILS # (AUTO) 0.1 10^3/uL (0.0-0.3); EOSINOPHILS % (AUTO) 2 % (0-10); HEMATOCRIT 40 % (35-52); HEMOGLOBIN 13.5 g/dL (11.5-16.0); LYMPHOCYTES % (AUTO) 21 % (12-44); MEAN CORPUSCULAR HEMOGLOBIN 31 pg (25-34); MEAN CORPUSCULAR HGB CONC 34 g/dL (32-36); MEAN CORPUSCULAR VOLUME 92 fL (80-99); MEAN PLATELET VOLUME 9.6 fL (9.0-12.2); MONOCYTES # (AUTO) 0.4 10^3/uL (0.0-1.0); MONOCYTES % (AUTO) 10 % (0-12); NEUTROPHILS % (AUTO) 66 % (42-75); PLATELET COUNT 274 10^3/uL (130-400); WHITE BLOOD COUNT 4.5 10^3/uL (4.3-11.0)
[2020-11-14 10:24] LABS: ALANINE AMINOTRANSFERASE 14 U/L (0-55); ALBUMIN 4.2 GM/DL (3.2-4.5); ALKALINE PHOSPHATASE 88 U/L (40-136); BILIRUBIN,TOTAL 0.4 MG/DL (0.1-1.0); BUN/CREATININE RATIO 10; CALCIUM 9.6 MG/DL (8.5-10.1); CARBON DIOXIDE 27 MMOL/L (21-32); CHLORIDE 101 MMOL/L (98-107); CHOLESTEROL 192 MG/DL (< 200); CREATININE SERUM 0.77 MG/DL (0.60-1.30); GFR ESTIMATED > 60; GLUCOSE 106 MG/DL (70-105); HDL CHOLESTEROL 76 MG/DL (40-60); POTASSIUM 3.9 MMOL/L (3.6-5.0); SODIUM 135 MMOL/L (135-145); TOTAL PROTEIN 6.6 GM/DL (6.4-8.2); TRIGLYCERIDES 71 MG/DL (<150); VLDL CHOLESTEROL 14 MG/DL (5-40)
== END ==
LOC: EDSTATUS 10:21 → ONC 10:22
PROVIDERS: ATTEND Internal Medicine
DX: Z13.6 Encounter for screening for cardiovascular disorders (principal); I10 Essential (primary) hypertension; D50.8 Other iron deficiency anemias; M25.50 Pain in unspecified joint
CPT/HCPCS: 36415; 80053; 80061; 82728; 83540; 83550; 85025; 86038

== ENCOUNTER → 2021-01-17 | Outpatient (CLI) | payer OTHER ==
--- NOTE | 2021-01-17 15:28 | Diagnostic Imaging Report ---
INDICATION: Six-month follow-up. EXAMINATION: 2D and 3D bilateral diagnostic mammography was performed with CAD. The current study was also evaluated with a Computer Aided Detection (CAD) system. COMPARISON: Correlation is made with prior mammogram from 06/21/2020 and 12/22/2019. FINDINGS: Scattered fibrolinear densities are identified, bilaterally. Area of asymmetry in the upper outer right breast is stable. No new mass or malignant appearing microcalcifications are seen. Axillae are unremarkable. IMPRESSION: Stable bilateral mammograms with no mammographic features suspicious for malignancy. Sonographic interrogation of the area of asymmetry in the upper outer right breast is scheduled for today. ACR BI-RADS Category 0: Incomplete. (Needs additional imaging evaluation). Result letter will be mailed to the patient. Note: At least 10% of breast cancer is not imaged by mammography. Dictated by: Dictated on workstation # [id number]
--- NOTE | 2021-01-17 16:02 | Diagnostic Imaging Report ---
INDICATION: Right breast asymmetry. CORRELATION is made with prior right breast ultrasound from 06/21/2020 as well as the diagnostic mammogram from earlier the same day. Sonographic interrogation upper outer right breast was performed. No sonographic abnormality is seen. No solid or cystic mass is detected. IMPRESSION: BI-RADS Category 2 Continued unremarkable right breast ultrasound. Patient can return to routine screening mammography. ACR BI-RADS Category 2: Benign findings. Result letter will be mailed to the patient. Note: At least 10% of breast cancer is not imaged by mammography. Dictated by: Dictated on workstation # [id number]
== END ==
LOC: RAD 14:15
PROVIDERS: ATTEND Internal Medicine
DX: Z12.31 Encounter for screening mammogram for malignant neoplasm of breast (principal); N63.10 Unspecified lump in the right breast, unspecified quadrant; I10 Essential (primary) hypertension
CPT/HCPCS: 76642; 77066; G0279; 77062

== ENCOUNTER → 2021-02-13 | Outpatient (CLI) | payer OTHER ==
[2021-02-13 09:51] LABS: BILIRUBIN,TOTAL 0.4 MG/DL (0.1-1.0); CALCIUM 9.4 MG/DL (8.5-10.1); CREATININE SERUM 0.7 MG/DL (0.60-1.30); POTASSIUM 3.9 MMOL/L (3.6-5.0); TOTAL PROTEIN 6.3 GM/DL (6.4-8.2)
== END ==
LOC: LAB 09:11
PROVIDERS: ATTEND Internal Medicine
DX: I10 Essential (primary) hypertension (principal); E78.1 Pure hyperglyceridemia
CPT/HCPCS: 36415; 80053; 82465; 84478

== ENCOUNTER → 2021-07-05 | Outpatient (CLI) | payer OTHER ==
[~2021-07-05] MED LIST changes: +DULO60CA7 PO; +MONT-40 PO; -MONT10TA32 PO
--- NOTE | 2021-07-05 14:50 | Diagnostic Imaging Report ---
INDICATION: Right-sided SI joint pain. TIME OF EXAM: 1:45 PM Curvature and alignment of the lumbar spine is normal. Vertebral body heights are well maintained. No acute compression fracture seen. There is some mild generalized degenerative disc disease with variable disc space narrowing and marginal spurring. There are some atherosclerotic calcifications in the abdominal aorta. There is a calcific density adjacent to the left transverse process of L2 which is indeterminate. No other abnormal calcifications are seen. IMPRESSION: 1. Lumbar spondylosis but no acute fracture seen. 2. Indeterminate calcific density medial to the left renal shadow and adjacent to the left L2 transverse process. 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 CT may be useful for further characterization. Dictated by: Dictated on workstation # [id number]
--- NOTE | 2021-07-05 14:56 | Diagnostic Imaging Report ---
INDICATION: Right-sided SI joint pain. TIME OF EXAM: 1:44 PM Single view of the pelvis demonstrates normal femoral acetabular alignment bilaterally. Hip joint spaces are well maintained. Both femoral heads and necks are intact. Rami are intact. SI joints and symphysis are unremarkable. No fractures are seen. IMPRESSION: No acute bony abnormality is detected. Dictated by: Dictated on workstation # [id number]
== END ==
LOC: RAD 13:14
PROVIDERS: ATTEND Internal Medicine
DX: M47.816 Spondylosis without myelopathy or radiculopathy, lumbar region (principal)
CPT/HCPCS: 72100; 72170